=== PATIENT | female | born 1950 | race Caucasian/White ===

== ENCOUNTER 2018-05-02 20:58 | Inpatient (IN) | payer MEDICARE ==
[~2018-05-02] VITALS: Ht 162.6 cm; Wt 66.0 kg
[2018-05-02 21:37] LABS: BASO % 1 % (0-3); EOS # 0.1 x10^3/uL (0.0-0.7); EOS % 2 % (0-3); HEMATOCRIT 42.6 % (36.0-47.0); HEMOGLOBIN 14.2 g/dL (12.0-15.5); LYMPH # 1.5 x10^3/uL (1.0-4.8); LYMPH % 26 % (24-48); MEAN CORPUSCULAR HEMOGLOBIN 31 pg (25-35); MEAN CORPUSCULAR HGB CONC 33 g/dL (31-37); MEAN CORPUSCULAR VOLUME 94 fL (79-100); MONO # 0.7 x10^3/uL (0.0-1.1); MONO % 13 % (0-9); NEUT # 3.3 x10^3uL (1.8-7.7); NEUT % 58 % (31-73); PLATELET COUNT 128 x10^3/uL (140-400); RED BLOOD COUNT 4.54 x10^6/uL (3.50-5.40); RED CELL DISTRIBUTION WIDTH 13.5 % (11.5-14.5); WHITE BLOOD COUNT 5.6 x10^3/uL (4.0-11.0)
[2018-05-02 22:03] LABS: ALBUMIN 3.5 g/dL (3.4-5.0); ALBUMIN/GLOBULIN RATIO 0.9 (1.0-1.7); CALCIUM 9.8 mg/dL (8.5-10.1); GFR 15.5; MAGNESIUM 1.8 mg/dL (1.8-2.4); POTASSIUM 3.5 mmol/L (3.5-5.1); TOTAL BILIRUBIN 0.6 mg/dL (0.2-1.0); TOTAL PROTEIN 7.3 g/dL (6.4-8.2)
[2018-05-02 22:10] LABS: BILIRUBIN,URINE NEG (NEG); CLARITY,URINE HAZY; COLOR,URINE YELLOW; GLUCOSE,URINE 500 mg/dL (NEG); NITRITE,URINE NEG (NEG); UROBILINOGEN,URINE 0.2 mg/dL (0.2 mg/dL)
[2018-05-02 22:11] LABS: BACTERIA,URINE MANY /HPF (0-FEW); HYALINE CASTS, URINE FEW /HPF; SQUAMOUS EPITHELIAL CELL,UR MANY /LPF
--- NOTE | 2018-05-02 22:35 | PHYS DOC ---
Past History Past Medical History: Anemia, CHF, CVA, Depression, Diabetes, GERD, Hypertension, Other Past Surgical History: No Surgical History Alcohol Use: None Drug Use: None Adult General Chief Complaint Chief Complaint: PSYCH EVALUATION HPI HPI Patient is a 68 year old female who presents to the emergency department for medical clearance. The patient was transferred to the emergency department after being [facility]. Patient has had noted increased combativeness with staff and has been more aggressive at her senior living. Patient has history of dementia and chronic kidney disease stage III. Due to her change in behavior, the patient was transferred here after being accepted by the on-call psychiatrist. The patient initially was combative with staff upon arrival but has since calmed down. The patient is oriented to self only and is unable to provide any meaningful history. Patient denies any complaints currently. Review of Systems Review of Systems Caveat: Patient demented and oriented to self only, poor historian Constitutional: Denies fever or chills [] Eyes: Denies change in visual acuity, redness, or eye pain [] HENT: Denies nasal congestion or sore throat [] Respiratory: Denies cough or shortness of breath [] Cardiovascular: Denies chest pain or edema[] GI: Denies abdominal pain, nausea, vomiting, bloody stools or diarrhea [] : Denies dysuria or hematuria [] Musculoskeletal: Denies back pain or joint pain [] Integument: Denies rash or skin lesions [] Neurologic: Denies headache, focal weakness or sensory changes [] All other systems were reviewed and found to be within normal limits, except as documented in this note. Allergies Allergies Allergies Coded Allergies Type Severity Reaction Last Updated Verified Iodinated Contrast- Oral and IV Dye Allergy Severe 05/02/18 Yes Physical Exam Physical Exam Constitutional: Alert, afebrile, currently cooperative with staff. [] HENT: Normocephalic, atraumatic, bilateral external ears normal, oropharynx moist, no oral exudates, nose normal. [] Eyes: PERRLA, EOMI, conjunctiva normal, no discharge. [] Neck: Normal range of motion, no tenderness, supple, no stridor. [] Cardiovascular:Heart rate regular rhythm, no murmur [] Lungs & Thorax: Bilateral breath sounds clear to auscultation [] Abdomen: Bowel sounds normal, soft, no tenderness, no masses, no pulsatile masses. [] Skin: Warm, dry, no erythema, no rash. [] Back: No tenderness, no CVA tenderness. [] Extremities: No tenderness, no cyanosis, no clubbing, ROM intact, no edema. [] Neurologic: Alert, oriented to self only, normal motor function, normal sensory function, no focal deficits noted. [] Current Patient Data Vital Signs Vital Signs Date Time Temp Pulse Resp B/P (MAP) Pulse Ox O2 Delivery O2 Flow Rate FiO2 05/02/18 21:06 109 20 97 Room Air Lab Results Laboratory Tests Test 05/02/18 21:24 05/02/18 21:30 White Blood Count 5.6 x10^3/uL (4.0-11.0) Red Blood Count 4.54 x10^6/uL (3.50-5.40) Hemoglobin 14.2 g/dL (12.0-15.5) Hematocrit 42.6 % (36.0-47.0) Mean Corpuscular Volume 94 fL (79-100) Mean Corpuscular Hemoglobin 31 pg (25-35) Mean Corpuscular Hemoglobin Concent 33 g/dL (31-37) Red Cell Distribution Width 13.5 % (11.5-14.5) Platelet Count 128 x10^3/uL (140-400) L Neutrophils (%) (Auto) 58 % (31-73) Lymphocytes (%) (Auto) 26 % (24-48) Monocytes (%) (Auto) 13 % (0-9) H Eosinophils (%) (Auto) 2 % (0-3) Basophils (%) (Auto) 1 % (0-3) Neutrophils # (Auto) 3.3 x10^3uL (1.8-7.7) Lymphocytes # (Auto) 1.5 x10^3/uL (1.0-4.8) Monocytes # (Auto) 0.7 x10^3/uL (0.0-1.1) Eosinophils # (Auto) 0.1 x10^3/uL (0.0-0.7) Basophils # (Auto) 0.0 x10^3/uL (0.0-0.2) Sodium Level 140 mmol/L (136-145) Potassium Level 3.5 mmol/L (3.5-5.1) Chloride Level 99 mmol/L (98-107) Carbon Dioxide Level 29 mmol/L (21-32) Anion Gap 12 (6-14) Blood Urea Nitrogen 71 mg/dL (7-20) H Creatinine 3.0 mg/dL (0.6-1.0) H Estimated GFR (Cockcroft-Gault) 15.5 BUN/Creatinine Ratio 24 (6-20) H Glucose Level 314 mg/dL (70-99) H Calcium Level 9.8 mg/dL (8.5-10.1) Magnesium Level 1.8 mg/dL (1.8-2.4) Total Bilirubin 0.6 mg/dL (0.2-1.0) Aspartate Amino Transferase (AST) 34 U/L (15-37) Alanine Aminotransferase (ALT) 23 U/L (14-59) Alkaline Phosphatase 95 U/L (46-116) Total Protein 7.3 g/dL (6.4-8.2) Albumin 3.5 g/dL (3.4-5.0) Albumin/Globulin Ratio 0.9 (1.0-1.7) L Urine Collection Type Unknown Urine Color Yellow Urine Clarity Hazy Urine pH 6.5 Urine Specific [place] 1.015 Urine Protein >100 mg/dl (NEG-TRACE) Urine Glucose (UA) 500 mg/dL (NEG) Urine Ketones (Stick) Neg mg/dL (NEG) Urine Blood Small (NEG) Urine Nitrite Neg (NEG) Urine Bilirubin Neg (NEG) Urine Urobilinogen Dipstick 0.2 mg/dL (0.2 mg/dL) Urine Leukocyte Esterase Mod (NEG) Urine RBC 11-20 /HPF (0-2) Urine WBC 11-20 /HPF (0-4) Urine Squamous Epithelial Cells Many /LPF Urine Bacteria Many /HPF (0-FEW) Urine Hyaline Casts Few /HPF Urine Mucus Slight /LPF EKG EKG Interpreted by me: Heart rate 99, sinus tachycardia, normal axis, prolonged QT interval, PVC noted, no acute ST elevations or depressions[] Radiology/Procedures Radiology/Procedures Not performed[] Course & Med Decision Making Course & Med Decision Making Pertinent Labs and Imaging studies reviewed. (See chart for details) Patient's lab workup reveals significantly elevated BUN/creatinine levels. Given the patient's previous diagnosis of stage III chronic kidney disease, the patient's GFR is currently 15.5 which is consistent with stage IV renal failure. This is likely due to acute on chronic kidney failure secondary to dehydration. Patient will be started on IV fluids and will be admitted to the medical service with a psychiatric consultation while in hospital. I spoke with Dr. Orourke who accepted care of patient in hospital. Dragon Disclaimer Dragon Disclaimer This electronic medical record was generated, in whole or in part, using a voice recognition dictation system. Departure Departure: Impression: Primary Impression: Acute renal failure superimposed on stage 3 chronic kidney disease Additional Impressions: Dehydration Dementia Disposition: ADMITTED INPATIENT Admitting Physician: Jordan Orourke Condition: STABLE Referrals: SUJIT DONG MD (PCP) Problem Qualifiers Primary Impression: Acute renal failure superimposed on stage 3 chronic kidney disease Acute renal failure type: unspecified Qualified Codes: N17.9 - Acute kidney failure, unspecified; N18.3 - Chronic kidney disease, stage 3 (moderate) Additional Impressions: Dementia Dementia type: unspecified type Dementia behavioral disturbance: with behavioral disturbance Qualified Codes: F03.91 - Unspecified dementia with behavioral disturbance ABENA PARRISH MD May 02, 2018 22:34
[2018-05-02] MEDS ORDERED: ACETAMINOPHEN 325 MG TABLET PO PRN (22:45)
[2018-05-02] MEDS ORDERED: ONDANSETRON PF 4 MG/2 ML VIAL. IV PRN (22:45)
[2018-05-02] MEDS: IV NORMAL SALINE 1,000ML 1,000 ML IV SCH (23:06)
[2018-05-02 23:30] VITALS: BP 121/78
--- NOTE | 2018-05-03 00:38 | EKG ---
[address] [address] Test Date: 2018-05-02 Test Time: 21:50:55 Pat Name: STALIN MANUEL Department: Room: 109 A Gender: F Equine Intern: : 1950 Requested By: ABENA PARRISH Order Number: [id number] Reading MD: Ra Diggs Measurements Intervals [place] Rate: 99 P: -4 WA: 152 QRS: 13 QRSD: 98 T: 47 QT: 390 QTc: 506 Interpretive Statements SINUS RHYTHM VENTRICULAR PREMATURE COMPLEX(ES) PROLONGED QT ABNORMAL ECG Electronically Signed On 05-08-2018 10:13:53 INSTRUMENT REPAIRER HELPER by Ra Diggs
[2018-05-03] MEDS ORDERED: BISA10SU2 RC (01:46)
[2018-05-03] MEDS ORDERED: BUSP10TA PO (01:46)
[2018-05-03] MEDS ORDERED: ASCO500T3 PO (01:46)
[2018-05-03] MEDS ORDERED: ACET325T9 PO (01:46)
[2018-05-03] MEDS ORDERED: TRAZ-85 PO (03:45)
[2018-05-03] MEDS ORDERED: SERT100T PO (03:45)
[2018-05-03] MEDS ORDERED: FURO-68 PO (03:45)
[2018-05-03] MEDS ORDERED: METO2.5T PO (03:45)
[2018-05-03] MEDS ORDERED: POTA20TA4 PO (03:45)
[2018-05-03] MEDS ORDERED: PRAV80TA2 PO (03:45)
[2018-05-03] MEDS ORDERED: THIA100T57 PO (03:45)
[2018-05-03] MEDS ORDERED: NITR0.4T SL (03:45)
[2018-05-03] MEDS ORDERED: HYDR50TA6 PO (03:45)
[2018-05-03] MEDS ORDERED: INSU100I13 SQ (03:45)
[2018-05-03] MEDS ORDERED: BUSP5TAB PO (03:45)
[2018-05-03] MEDS ORDERED: METO25TA4 PO (03:45)
[2018-05-03] MEDS ORDERED: FAMO40TA4 PO (03:45)
[2018-05-03] MEDS ORDERED: CHOL10003 PO (03:45)
[2018-05-03] MEDS ORDERED: INSU100I17 SQ (03:45)
[2018-05-03] MEDS ORDERED: CLOP75TA57 PO (03:45)
[2018-05-03 05:55] VITALS: BP 113/73
[2018-05-03] MEDS: IV NORMAL SALINE 1,000ML 1,000 ML IV SCH (05:58)
[2018-05-03 06:31] LABS: BASO % 1 % (0-3); EOS # 0.2 x10^3/uL (0.0-0.7); EOS % 4 % (0-3); HEMOGLOBIN 13.4 g/dL (12.0-15.5); LYMPH # 1.7 x10^3/uL (1.0-4.8); LYMPH % 34 % (24-48); MEAN CORPUSCULAR HEMOGLOBIN 31 pg (25-35); MEAN CORPUSCULAR HGB CONC 34 g/dL (31-37); MEAN CORPUSCULAR VOLUME 93 fL (79-100); MONO # 0.5 x10^3/uL (0.0-1.1); MONO % 11 % (0-9); NEUT # 2.4 x10^3uL (1.8-7.7); NEUT % 50 % (31-73); PLATELET COUNT 119 x10^3/uL (140-400); RED BLOOD COUNT 4.29 x10^6/uL (3.50-5.40); RED CELL DISTRIBUTION WIDTH 13.5 % (11.5-14.5); WHITE BLOOD COUNT 4.8 x10^3/uL (4.0-11.0)
[2018-05-03 06:35] LABS: CALCIUM 9.8 mg/dL (8.5-10.1); CREATININE 2.5 mg/dL (0.6-1.0); GFR 19.1; POTASSIUM 3.5 mmol/L (3.5-5.1)
[2018-05-03 10:47] VITALS: BP 94/61
[2018-05-03 14:44] VITALS: BP 94/61
[2018-05-03 15:14] VITALS: BP 117/76
[2018-05-03] MEDS ORDERED: ACETAMINOPHEN 325 MG TABLET PO PRN (15:15)
[2018-05-03] MEDS ORDERED: NITROGLYCERIN SUBLINGUAL 0.4 MG BOTTLE OF 25. SL PRN (15:15)
--- NOTE | 2018-05-03 15:18 | HP ---
ADMIT DATE: 05/02/2018 HISTORY OF PRESENT ILLNESS: This is a 68-year-old female patient, a resident at [facility], who apparently was seen initially at the Emergency Department of [facility] for medical clearance. Apparently, the patient was noted to have increased combativeness with staff and has been more aggressive at her usp and she is known to have history of dementia and chronic kidney disease stage 3. She was initially very combative when arrived to the Emergency Room with the staff upon arrival, but has since calm down. She was extensively investigated in the Emergency Room and was found to have iirxt-fj-dhjaehc renal failure, dehydration, who was admitted for [facility] for medical stabilization. 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 She is known to have recurrent falls, major depressive disorder, gastroesophageal reflux disease without esophagitis, amnesia, cerebral infarction, supraventricular tachycardia and chronic idiopathic constipation. PAST SURGICAL HISTORY: Unremarkable. ALLERGIES: SHE IS ALLERGIC TO IODINATED CONTRAST, ORAL AND IV. MEDICATIONS: She is currently on following medications: She is on Plavix 75 mg once a day, pravastatin sodium 80 mg once a day, nitroglycerin 0.4 mg sublingually as needed every 5 minutes x 3, metoprolol tartrate 12.5 mg twice a day, acetaminophen 650 mg every 6 hours, Zoloft 100 mg daily, trazodone 12.5 mg at bedtime. She is on buspirone 10 mg at bedtime, buspirone 5 mg twice a day daily for anxiety. She is on potassium chloride, Klor-Con 20 mEq twice a day, furosemide 40 mg twice a day with meals. She is on hydrochlorothiazide 50 mg once a day, metolazone 2.5 mg 3 times a week, bisacodyl 10 mg daily p.r.n. for constipation, famotidine 40 mg daily, NovoLog insulin 10 units before meals, Lantus insulin 5 units at bedtime, thiamine 100 mg once a day, ascorbic acid 500 mg daily, cholecalciferol for vitamin D3 1000 units p.o. daily. FAMILY HISTORY: Noncontributory. SOCIAL HISTORY: She is a resident at [facility]. She apparently does not smoke, drink alcohol or use any recreational drugs. PHYSICAL EXAMINATION: GENERAL: On arrival to the Emergency Room, she apparently looked well and was clearly in no apparent respiratory distress. No pallor, jaundice, cyanosis, or thyromegaly. No jugular venous distension. No lower limb edema. VITAL SIGNS: Her heart rate was 109, blood pressure was 121/78, temperature was 97.6, respiratory rate was 18 and oxygen saturation was 94%. HEAD, EYES, EARS, NOSE AND THROAT: Showed normocephalic, atraumatic. NECK: Supple. HEART: Showed normal first and second heart sounds. No gallop, rub or murmur. CHEST: Clear to auscultation. No crepitation or rhonchi. ABDOMEN: Distended, soft, nontender. NEUROLOGIC: She is demented, but without any obvious lateralizing sign. All her cranial nerves intact. EXTREMITIES: She moves extremities without difficulty. LABORATORY DATA: Her lab work, on admission showed her white cell count was 5600, hemoglobin 14, hematocrit 42, MCV 94 and platelet count of 128,000. Her chemistry showed a serum sodium 140, potassium 3.5, chloride 99, bicarbonate 29, anion gap of 12, BUN 71, creatinine 3, estimated GFR was 15 mL per minute. Her glucose was 314. Her calcium was 9.8, magnesium was 1.8. Total bilirubin, AST, ALT, alkaline phosphatase were normal. Total protein was 7.3, albumin 3.5. Her vitamin B12 was 376 picogram. Urinalysis showed the urine was yellow, hazy with a pH of 6.5, specific gravity 1.015. There is more than 100 mg/dL urine and 500 mg of glucose. The urine was negative for ketones. There was small amount of blood, negative for nitrite, moderate amount of leukocyte esterase. There are 11-20 rbc's, 11-20 wbc's and too many bacteria. IMPRESSION AND PLAN: In summary, this is a 68-year-old female patient, who was a resident at [facility] who is known to have dementia and who apparently has been aggressive towards her other residents and staff at her usp. She was admitted for medical stabilization before being transferred to [facility] for inpatient psychiatric stabilization. We will continue ____ medication. She was continued on IV fluid in the form of normal saline. We will call the [facility] with the baseline kidney function and once stabilized, she will be transferred to [facility]. TANO LYN MD DR: FANNIE/faiza JOB#: [id number] / [id number]
[2018-05-03] MEDS ORDERED: BISACODYL 10 MG SUPP.RECT PR PRN (15:30)
[2018-05-03] MEDS ORDERED: FUROSEMIDE 40 MG TABLET PO SCH (16:00)
[2018-05-03] MEDS ORDERED: busPIRone 5 MG TABLET. PO SCH (16:00)
[2018-05-03] MEDS ORDERED: INSULIN LISPRO 300 UNITS/3 ML INSULN.PEN. SQ SCH (17:00)
[2018-05-03] MEDS ORDERED: POTASSIUM CHLORIDE 20 MEQ TABLET.ER. PO SCH (17:00)
[2018-05-03] MEDS ORDERED: FAMO-63 PO (17:25)
--- NOTE | 2018-05-03 17:45 | DS ---
DATE OF DISCHARGE: 05/03/2018 HOSPITAL COURSE: The patient is a 68-year-old female patient, a resident at [facility] and was seen in the Emergency Department of [facility] for medical clearance. She was noted to have increased combativeness with staff and has been more aggressive at her intermediate and she is known to have history of dementia and chronic kidney disease. She apparently was investigated and was found to have acute on chronic kidney injury and was admitted to [facility] for rehydration. She was actually treated with IV normal saline; however, we called the [facility] and her creatinine was not really that far from her baseline. In fact on 04/24/2018, her creatinine was 2.44. I also looked it and transpired that she is actually on 3 diuretics. She is on Lasix 40 mg twice a day, hydrochlorothiazide daily, and also metolazone 3 times a week and I held her hydrochlorothiazide and her metolazone. She did very well. PHYSICAL EXAMINATION: GENERAL: When I saw her today, she looked well and was clearly in no apparent respiratory distress. No pallor, jaundice, cyanosis, or thyromegaly. No jugular venous distension. No lower limb edema. VITAL SIGNS: Her heart rate was 96, blood pressure was 117/76, temperature was 98.4, respiratory rate was 18, and oxygen saturation was 95%. HEAD, EYES, EARS, NOSE AND THROAT: Normocephalic, atraumatic. NECK: Supple. HEART: Showed normal first and second heart sounds. No gallop, rub, or murmur. CHEST: Clear to auscultation. No crepitation or rhonchi. ABDOMEN: Distended, soft, nontender. No guarding or rigidity. No organomegaly. All hernial orifices intact. Bowel sounds normal. NEUROLOGIC: She was demented, but without any obvious lateralizing sign. All her cranial nerves are intact. She moves extremities without difficulty. She ambulates without assistance or assistive devices. Her intake over the last 24 hours was 1250, output was 400. LABORATORY DATA: As of this morning, her white cell count was 4800, hemoglobin 13, hematocrit 40, MCV 93, and platelet count of 119,000. Her chemistry showed a serum sodium 143, potassium 3.5, chloride 103, bicarbonate 30, anion gap of 10, BUN 65, creatinine was 2.5. Her blood glucose was 189, calcium was 8.9. DISCHARGE MEDICATIONS: She will be discharged to [facility] to continue on acetaminophen 650 mg every 4 hours, ascorbic acid 500 mg daily, bisacodyl 10 mg suppository rectally daily, buspirone 10 mg at bedtime, buspirone 5 mg twice a day, cholecalciferol for vitamin D3 1000 international unit once a day, clopidogrel bisulfate for Plavix 75 mg daily, famotidine 40 mg daily, furosemide 40 mg twice a day, NovoLog insulin 10 units before meals, Lantus insulin 5 units at bedtime, metolazone 2.5 mg on Monday, Monday, Monday; metoprolol tartrate 12.5 mg twice a day, nitroglycerin 0.4 mg sublingually every 5 minutes x 3. She is on potassium chloride 20 mEq twice a day, pravastatin sodium 80 mg at bedtime, sertraline for Zoloft 100 mg p.o. daily, thiamine 100 mg once a day, and trazodone 12.5 mg at bedtime. FINAL DISCHARGE DIAGNOSES: Jkvvo-hl-vsgyssd kidney injury, resolved. Other medical problems include hypertension, combined systolic and diastolic congestive heart failure, hypertension, hypokalemia, iron-deficiency anemia, dysphagia, type 2 diabetes, diabetic and peripheral neuropathy, hyperlipidemia, gastroesophageal reflux disease, chronic idiopathic constipation. TANO LYN MD DR: FANNIE/faiza JOB#: [id number] / [id number]
[2018-05-03] MEDS ORDERED: METOPROLOL TART IMMED RELEASE 25 MG TABLET PO SCH (21:00)
[2018-05-03] MEDS ORDERED: PRAVASTATIN 20 MG TABLET. PO SCH (21:00)
[2018-05-03] MEDS ORDERED: busPIRone 10 MG TABLET. PO SCH (21:00)
[2018-05-03] MEDS ORDERED: traZODone 50 MG TABLET. PO SCH (21:00)
[2018-05-03] MEDS ORDERED: INSULIN GLARGINE 300 UNITS/3 ML INSULN.PEN. SQ SCH (21:00)
[2018-05-04] MEDS ORDERED: CLOPIDOGREL BISULFATE 75 MG TABLET PO SCH (09:00)
[2018-05-04] MEDS ORDERED: metOLazone 2.5 MG TABLET PO SCH (09:00)
[2018-05-04] MEDS ORDERED: hydroCHLOROthiazide 25 MG TABLET PO SCH (09:00)
[2018-05-04] MEDS ORDERED: CHOLECALCIFEROL (VITAMIN D3) 1,000 UNIT TABLET PO SCH (09:00)
[2018-05-04] MEDS ORDERED: SERTRALINE 100 MG TABLET. PO SCH (09:00)
[2018-05-04] MEDS ORDERED: FAMOTIDINE 20 MG TABLET PO SCH (09:00)
[2018-05-04] MEDS ORDERED: THIAMINE 100 MG TABLET. PO SCH (09:00)
[2018-05-04] MEDS ORDERED: ASCORBIC ACID 500 MG TABLET PO SCH (09:00)
== END 2018-05-03 16:12 | DRG 683 ==
LOC: ER 20:58 → 1 SOUTH 22:27
PROVIDERS: ADMIT Internal Medicine; ATTEND Internal Medicine
DX: N17.9 Acute kidney failure, unspecified (principal); I13.0 Hypertensive heart and chronic kidney disease with heart failure and stage 1 through stage 4 chronic kidney disease, or unspecified chronic kidney disease; I50.42 Chronic combined systolic (congestive) and diastolic (congestive) heart failure; D50.9 Iron deficiency anemia, unspecified; E11.22 Type 2 diabetes mellitus with diabetic chronic kidney disease; E11.42 Type 2 diabetes mellitus with diabetic polyneuropathy; E78.5 Hyperlipidemia, unspecified; F03.90 Unspecified dementia, unspecified severity, without behavioral disturbance, psychotic disturbance, mood disturbance, and anxiety; F32.9 Major depressive disorder, single episode, unspecified; K21.9 Gastro-esophageal reflux disease without esophagitis; K59.04 Chronic idiopathic constipation; E86.0 Dehydration; E87.6 Hypokalemia; N18.3 Chronic kidney disease, stage 3 (moderate); R13.10 Dysphagia, unspecified; Z86.73 Personal history of transient ischemic attack (TIA), and cerebral infarction without residual deficits; Z79.899 Other long term (current) drug therapy; Z91.81 History of falling
CPT/HCPCS: 36415; 80048; 80053; 81001; 82607; 82947; 83540; 83550; 83735; 85025; 87086; 87641; 93005; J1815; 99285-25; J7030

== ENCOUNTER 2018-05-03 16:22 | Inpatient (IN) | payer MEDICARE ==
[~2018-05-03] VITALS: Ht 162.6 cm; Wt 66.5 kg
[~2018-05-03 16:22] MED LIST: ACET325T9 PO; ASCO500T3 PO; BISA10SU2 RC; BUSP10TA PO; BUSP5TAB PO; CHOL10003 PO; CLOP75TA57 PO; FAMO40TA4 PO; FURO-68 PO; HYDR50TA6 PO; INSU100I13 SQ; INSU100I17 SQ; METO2.5T PO; METO25TA4 PO; NITR0.4T SL; POTA20TA4 PO; PRAV80TA2 PO; SERT100T PO; THIA100T57 PO; TRAZ-85 PO
[2018-05-03 16:59] VITALS: BP 127/78
[2018-05-03] MEDS ORDERED: ACETAMINOPHEN 325 MG TABLET PO PRN (17:15)
[2018-05-03] MEDS ORDERED: FAMO-63 PO (17:25)
[2018-05-03] MEDS ORDERED: BISACODYL 10 MG SUPP.RECT PR PRN (17:45)
[2018-05-03] MEDS: POTASSIUM CHLORIDE 20 MEQ TABLET.ER. PO SCH (18:00)
[2018-05-03] MEDS ORDERED: NITROGLYCERIN SUBLINGUAL 0.4 MG BOTTLE OF 25. SL PRN (18:15)
[2018-05-03] MEDS: busPIRone 10 MG TABLET. PO SCH (20:49)
[2018-05-03] MEDS: METOPROLOL TART IMMED RELEASE 25 MG TABLET PO SCH (20:50)
[2018-05-03] MEDS: PRAVASTATIN 20 MG TABLET. PO SCH (20:50)
[2018-05-03] MEDS: traZODone 50 MG TABLET. PO SCH (20:50)
[2018-05-03] MEDS: CEFDINIR 300 MG CAPSULE PO SCH (20:59)
[2018-05-03] MEDS: INSULIN GLARGINE 300 UNITS/3 ML INSULN.PEN. SQ SCH (21:00)
[2018-05-04 03:13] LABS: HEMOGLOBIN A1C 8.7 % (4.8-5.6); THYROXINE 5.7 ug/dL (4.5-12.0)
[2018-05-04 06:11] VITALS: BP 109/79
[2018-05-04] MEDS: POTASSIUM CHLORIDE 20 MEQ TABLET.ER. PO SCH ×2 (07:55→17:46)
[2018-05-04] MEDS: METOPROLOL TART IMMED RELEASE 25 MG TABLET PO SCH ×2 (07:56→20:26)
[2018-05-04] MEDS: FUROSEMIDE 40 MG TABLET PO SCH ×2 (08:01→16:00)
[2018-05-04] MEDS: THIAMINE 100 MG TABLET. PO SCH (08:01)
[2018-05-04] MEDS: FAMOTIDINE 20 MG TABLET PO SCH (08:01)
[2018-05-04] MEDS: CLOPIDOGREL BISULFATE 75 MG TABLET PO SCH (08:01)
[2018-05-04] MEDS: CHOLECALCIFEROL (VITAMIN D3) 1,000 UNIT TABLET PO SCH (08:01)
[2018-05-04] MEDS: busPIRone 5 MG TABLET. PO SCH ×2 (08:01→15:00)
[2018-05-04] MEDS: ASCORBIC ACID 500 MG TABLET PO SCH (08:01)
[2018-05-04] MEDS: metOLazone 2.5 MG TABLET PO SCH (08:04)
[2018-05-04] MEDS: CEFDINIR 300 MG CAPSULE PO SCH (08:04)
[2018-05-04] MEDS: INSULIN LISPRO 300 UNITS/3 ML INSULN.PEN. SQ SCH ×3 (08:06→17:00)
[2018-05-04] MEDS ORDERED: SERTRALINE 100 MG TABLET. PO SCH (09:00)
[2018-05-04] MEDS ORDERED: FAMOTIDINE 20 MG PO SCH (09:00)
--- NOTE | 2018-05-04 11:33 | RAD ---
PQRS Compliance statement: One or more of the following individualized dose reduction techniques were utilized for this examination: 1. Automated exposure control. 2. Adjustment of the mA and/or kV according to patient size. 3. Use of iterative reconstruction technique. Indication:RECENT FALLS TECHNIQUE: CT head without IV contrast COMPARISON:None FINDINGS: No pathologic extra-axial or intra-axial fluid collection. There is mild diffuse cerebral atrophy with ex vacuo dilation of the ventricles. No acute intracranial bleed. There is a wedge-shaped area of low-attenuation in the right posterior parietal lobe extending to the cortex. Orbits are within normal limits. No suspicious bony lesion. Visualized paranasal sinuses and mastoid air cells are clear. Confluent low-attenuation is seen in the periventricular and deep white matter. IMPRESSION: 1. Right posterior parietal lobe abnormality likely subacute infarct. Clinically correlate. If concern for acute ischemic stroke is high, please consider MRI brain. 2. Mild white matter changes most likely secondary to chronic microvascular ischemic disease. Electronically signed by: Vladimir Willis DO (05/04/2018 11:29 AM) [facility]
[2018-05-04 13:40] LABS: THYROID STIM HORMONE (TSH) 1.112 uIU/mL (0.358-3.740)
[2018-05-04 15:57] VITALS: BP 117/63
[2018-05-04] MEDS ORDERED: DEXTROSE ORAL GEL 15 GM TUBE. ONE (16:14)
[2018-05-04] MEDS ORDERED: DEXTROSE ORAL GEL 15 GM TUBE. PO PRN (17:15)
[2018-05-04] MEDS: PRAVASTATIN 20 MG TABLET. PO SCH (20:26)
[2018-05-04] MEDS: busPIRone 10 MG TABLET. PO SCH (20:27)
[2018-05-04] MEDS: traZODone 50 MG TABLET. PO SCH (20:27)
[2018-05-04] MEDS: LACTOBACILLUS RHAMNOSUS GG 1 CAPSULE. PO SCH (20:30)
[2018-05-04] MEDS: risperiDONE 1 MG TABLET. PO SCH (20:30)
[2018-05-04] MEDS: INSULIN GLARGINE 300 UNITS/3 ML INSULN.PEN. SQ SCH (20:33)
--- NOTE | 2018-05-04 20:59 | CONS ---
DATE OF CONSULTATION: 05/04/2018 REASON FOR CONSULTATION: Medical management. HISTORY OF PRESENT ILLNESS: The patient is a 68-year-old female patient, a resident at [facility], who was seen in the Emergency Room of [facility] for medical clearance. She was noted to have increased combativeness with staff and has been more aggressive at her halfway. She is known to have history of dementia and chronic kidney disease. She apparently was investigated and was found to have acute on chronic kidney injury, and was admitted to [address] [place] [address] for rehydration. She was treated with IV normal saline. We called the [facility] and her creatinine was not really that far from her baseline. In fact, her serum creatinine on 04/24/2018 was only 2.44. Looking into her medication list, it was transpired that she is on 3 diuretics including Lasix 40 mg twice a day, hydrochlorothiazide as well as metolazone, and I did hold her metolazone, hydralazine, and she did very well. Her creatinine came down to 2.5 and therefore, a decision was made to transfer her to [facility] for inpatient psychiatric stabilization. PAST MEDICAL HISTORY: Significant for acute on chronic combined systolic and diastolic congestive heart failure, chronic kidney disease, essential hypertension, hypokalemia, iron deficiency anemia, dysphagia, type 2 diabetes mellitus, diabetic neurological complication, hyperlipidemia. She is known to have recurrent falls, major depressive disorder, gastroesophageal reflux disease without esophagitis, amnesia, cerebral infarction, supraventricular tachycardia, and chronic idiopathic constipation. PAST SURGICAL HISTORY: Unremarkable. ALLERGIES: She is allergic to IODINATED CONTRAST ORAL and IV. FAMILY HISTORY: Noncontributory. SOCIAL HISTORY: She is a resident at [facility]. She apparently does not smoke, drink alcohol, or use recreational drugs. MEDICATIONS: She is currently on following medications: She is on Plavix 75 mg once a day; pravastatin sodium 80 mg at bedtime; metoprolol tartrate 12.5 mg twice a day; acetaminophen 650 mg every 6 hours; sertraline 100 mg daily; trazodone 50 mg, 12.5 mg at bedtime; buspirone 10 mg at bedtime, buspirone 5 mg twice a day. She is on potassium chloride 20 mEq twice a day, furosemide 40 mg twice a day, metolazone 2.5 mg 3 times a week. She is on bisacodyl 10 mg suppository rectally daily p.r.n. for constipation, famotidine 20 mg daily and NovoLog insulin 10 units before meals and Lantus insulin 5 units at bedtime. She is on thiamine 100 mg daily, vitamin C, ascorbic acid 500 mg daily, cholecalciferol for vitamin D3 1000 international unit once a day. PHYSICAL EXAMINATION: GENERAL: When I examined her today, she was sitting comfortably in her recliner, in no apparent distress. She was awake, alert, obviously confused; however, there is no pallor, jaundice, cyanosis, or thyromegaly. No jugular venous distension. No lower limb edema. VITAL SIGNS: Her heart rate was 63, blood pressure was 109/79, temperature was 97.1, respiratory rate was 16, and oxygen saturation was 96%. HEAD, EYES, NOSE AND THROAT: Showed she is normocephalic, atraumatic. NECK: Supple. HEART: Showed normal first and second sounds. No gallop, rub or murmur. CHEST: Clear to auscultation. No crepitation or rhonchi. ABDOMEN: Distended, soft, nontender. No guarding or rigidity. No organomegaly. All hernial orifices intact. Bowel sounds normal. NEUROLOGIC: She was demented without any obvious lateralizing sign. All cranial nerves intact. EXTREMITIES: She moves extremities without difficulty. She ambulates without assistance or assistive devices. LABORATORY DATA: Her serum iron was 111, TIBC was 267 and iron saturation was 42%. Her 25-hydroxy vitamin D was 31.6. As of yesterday, her white cell count was 4800, hemoglobin 13, hematocrit 40, MCV 93, and platelet count of 119,000. Serum sodium was 143, potassium 3.5, chloride 103, bicarbonate 30, anion gap of 10, BUN 65, creatinine 2.5, estimated GFR was 19 mL per minute. Her glucose was 189, hemoglobin A1c was 8.7%. Calcium was 9.8, magnesium was 1.6. Her total bilirubin, AST, ALT, alkaline phosphatase were normal. Her total protein was 7.3, albumin 3.5. Her vitamin B12 was 376. TSH was 1.112, total T4 and free T4 were normal. IMPRESSION: In summary, this is a 68-year-old female patient, who was a resident at [facility], who is known to have dementia, who apparently has been aggressive towards other residents and staff at the halfway. She was admitted initially to [address] [place] [address] for medical stabilization and she was found to have acute on chronic kidney injury that has normalized and she is here for inpatient psychiatric stabilization. I would continue to monitor her kidney function closely and I have discontinued her hydrochlorothiazide, kept her on Lasix and metolazone. We will obviously make sure that she does not decompensate. She has acute on chronic combined systolic and diastolic congestive heart failure. TANO LYN MD DR: FANNIE/faiza JOB#: [id number] / [id number]
--- NOTE | 2018-05-04 21:36 | PSYEV ---
DATE OF SERVICE: 05/04/2018 REASON FOR ADMISSION: This 68-year-old single, female was admitted to the [facility] inpatient as a transfer from medical floor at [facility]. HISTORY OF PRESENT ILLNESS: The patient was referred here from [facility] because of increasing paranoia, systematized delusions including that she is having an affair with her doctor there for the past 10 years and she does not want anybody known about this and also she feels there is a cult and they are trying to plan something bad for her and as a result, she is refusing to eat, she thinks food his being poisoned. The patient was not able to give much information with regard to the duration she has been at [facility]. The patient states she was living with her sister. Apparently, she about a year ago, in April and then she lived there for a few months and she could not take care of her needs. Then, she was moved to an assisted living at [facility]. Apparently, the patient has been there at least for a year since 04/2017. The patient's daughter is responsible for her care. The patient has some cognitive deficits. She is having difficulty providing reliable information at this point with regard to her past psychiatric history, whether she has been in treatment in the past or not. The patient mainly focused on the plot against her, almost she calls them as "cult" and they are all planning to harm her. She is afraid she is going to one of these days and she claims she is having an affair with the doctor there for 10 years and this has been a secret and now she feels that doctor has turned against her too. Therefore, she is not trusting any one. She is afraid she is going to be poisoned. She is also verbally abusive towards her daughter. The patient focused on her delusional thinking, very emotional, tearful and almost in a panic. The patient apparently has not seen a psychiatrist there. The patient has been treated with only Zoloft and BuSpar. Apparently, she was not treated with any antipsychotic drugs for her delusional thinking. PAST PSYCHIATRIC HISTORY: None available, but the patient has been on Zoloft 100 mg daily and BuSpar 10 mg b.i.d. PAST MEDICAL HISTORY: The patient was admitted to the medical floor because her labs were abnormal, her creatinine level was 2.5 and elevated BUN and the patient is going to have repeat lab work. The patient is not presenting with any other clinical symptoms. She is alert, oriented to surroundings. She is able to walk, able to hold a conversation. The patient's Hematology within the normal range. The patient's glucose was 189, BUN was 65 and creatinine 2.5. The patient's electrolytes were within normal range. The patient's liver enzymes were within normal range. The patient's BUN was repeated here and it was only 24, creatinine was 3. The patient apparently has been dehydrating too. Apparently, she has been refusing to eat or drink before she came in. 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 She did work for a period of time. The patient was living at home with her sister. Apparently, sister last [place] and she has to be moved to the shelter at that time. The patient states sister from breast cancer. The patient states she was for 19 years and claims she has 4 children and the patient has more contact with her daughter. The patient also states she had 2 brothers and are from breast cancer. The patient denies of any alcohol or substance abuse in the past. MEDICAL HISTORY: The patient has been diagnosed with dementia, CHF, hypertension, status post cerebrovascular accident. The patient apparently had a CT scan. The patient also has anemia, dysphagia, diabetes mellitus, hyperlipidemia, major depressive disorder, GERD, also she has left-sided pacemaker and also she had a right mastectomy, repeated falls, also chronic kidney disease, stage 3. FAMILY HISTORY: Except for the family history of breast cancer, the patient denies of any psychiatric problems in the family. MENTAL STATUS EXAMINATION: The patient appeared to be of her stated age, casually dressed, withdrawn, highly anxious. The patient is able to walk. The patient is also emotionally labile during the assessment. Her speech was clear, spontaneous with normal rate and rhythm. Affect and mood showed she is fearful, extremely paranoid and suspicious, not trusting anyone. She feels there is a plot against her, people are trying to kill her, including poisoning her. Therefore, she is not eating or drinking. The patient also admits to hearing voices. The voices are telling her about all the things going on around her. The patient also states she also being controlled by the cult members around her at the shelter. The patient states she cannot separate dream from reality sometimes. The patient states she lives in constant fear and panic. The patient also shows increased psychomotor activity and restlessness. The patient is oriented to surroundings. She knows the year and the month. She knew she has been here only for 2 days. The patient has some cognitive deficits and having difficulty with recalls at times. The patient has fairly good remote memory. The patient's judgment is fair, insight limited. The patient was not able to give fairly good history at all based on her paranoia and delusions. STRENGTHS: Fairly in good health. Supportive family. High school education and was employed in the past. WEAKNESSES: The patient is currently very delusional and paranoid. Has mild cognitive impairment. The patient is acting upon her delusions. ASSESSMENT: AXIS I: 1. Schizoaffective disorder, bipolar type, manic with psychotic symptoms. 2. Cognitive disorder, mild. 3. Generalized anxiety disorder, unspecified. AXIS II: None. AXIS III: Diabetes, hyperlipidemia, GERD, chronic kidney disease stage 3, hypertension, congestive heart failure and status post CVA, anemia, left-sided pacemaker, right mastectomy. The patient will be admitted to the unit. The patient will be followed up with Dr. Orourke for followup. The patient will be involved in the program including individual therapy, group therapy, activity therapy. The patient will continue with the current treatment plan and also medications have changed. The patient will be stating Zoloft 75 mg instead of 100 mg at night and trazodone 12.5 mg at night, BuSpar 10 mg at night, also started on Risperdal 1.5 mg at night and 1 mg in the morning and Zyprexa 2.5 mg q. 2-4 hours p.r.n. for severe agitation and psychosis, not to exceed 10 mg in 24 hours. LENGTH OF STAY: 7-10 days. PERRY PATEL MD DR: DOLORES/faiza JOB#: [id number] / [id number]
[2018-05-05 05:07] VITALS: BP 126/77
[2018-05-05] MEDS: ASCORBIC ACID 500 MG TABLET PO SCH (07:54)
[2018-05-05] MEDS: THIAMINE 100 MG TABLET. PO SCH (07:54)
[2018-05-05] MEDS: CHOLECALCIFEROL (VITAMIN D3) 1,000 UNIT TABLET PO SCH (07:54)
[2018-05-05] MEDS: POTASSIUM CHLORIDE 20 MEQ TABLET.ER. PO SCH ×2 (07:54→18:15)
[2018-05-05] MEDS: busPIRone 5 MG TABLET. PO SCH ×2 (07:54→18:16)
[2018-05-05] MEDS: LACTOBACILLUS RHAMNOSUS GG 1 CAPSULE. PO SCH ×2 (07:54→20:44)
[2018-05-05] MEDS: CLOPIDOGREL BISULFATE 75 MG TABLET PO SCH (07:54)
[2018-05-05] MEDS: FAMOTIDINE 20 MG TABLET PO SCH (07:54)
[2018-05-05] MEDS: METOPROLOL TART IMMED RELEASE 25 MG TABLET PO SCH ×2 (07:55→20:54)
[2018-05-05] MEDS: CEFDINIR 300 MG CAPSULE PO SCH (07:55)
[2018-05-05] MEDS: FUROSEMIDE 40 MG TABLET PO SCH ×2 (07:55→18:16)
[2018-05-05] MEDS: risperiDONE 1 MG TABLET. PO SCH ×2 (07:58→20:44)
[2018-05-05] MEDS: SERTRALINE 50 MG TABLET. PO SCH (07:58)
[2018-05-05] MEDS: INSULIN LISPRO 300 UNITS/3 ML INSULN.PEN. SQ SCH ×3 (07:59→17:16)
[2018-05-05 08:37] LABS: ALBUMIN 3.4 g/dL (3.4-5.0); ALBUMIN/GLOBULIN RATIO 0.9 (1.0-1.7); CALCIUM 9.8 mg/dL (8.5-10.1); GFR 24.7; POTASSIUM 3.9 mmol/L (3.5-5.1); TOTAL BILIRUBIN 0.5 mg/dL (0.2-1.0); TOTAL PROTEIN 7.3 g/dL (6.4-8.2)
[2018-05-05 15:59] VITALS: BP 94/62
[2018-05-05] MEDS: busPIRone 10 MG TABLET. PO SCH (20:44)
[2018-05-05] MEDS: PRAVASTATIN 20 MG TABLET. PO SCH (20:44)
[2018-05-05] MEDS: traZODone 50 MG TABLET. PO SCH (20:48)
[2018-05-05] MEDS: INSULIN GLARGINE 300 UNITS/3 ML INSULN.PEN. SQ SCH (20:49)
[2018-05-05 20:53] VITALS: BP 144/92
--- NOTE | 2018-05-05 22:21 | PN ---
DATE: 05/05/2018 SUBJECTIVE: The patient was seen today, met with the staff, chart reviewed. Staff reports no major behavior problems. Still paranoid, suspicious, has systematized delusional thinking. OBSERVATION: VITAL SIGNS: Temperature 97.2, blood pressure 94/62, pulse 97, respirations 18, O2 sat 98%. MENTAL STATUS: The patient's appetite improved. Sleep fair. The patient is not having any physical complaints. The patient is still guarded, still paranoid, having difficulty accepting her problems, not showing much in insight to her problems. MEDICATIONS: The patient's current medications include Zoloft 75 mg daily, Risperdal 1 mg in the morning and 1.5 mg at night. She is also on olanzapine 2.5 mg q. 2 hours p.r.n. The patient is also on BuSpar 5 mg b.i.d., trazodone 12.5 mg at night, and BuSpar 10 mg at night. The patient is not having any side effects to the medications. DIAGNOSES: 1. Schizoaffective disorder, bipolar type, manic, psychotic symptoms. 2. Cognitive disorder, mild. 3. Generalized anxiety disorder, unspecified. PLAN: To continue with the current treatment. PERRY PATEL MD DR: DOLORES/faiza JOB#: [id number] / [id number]
[2018-05-06 05:38] VITALS: BP 122/82
[2018-05-06] MEDS: CLOPIDOGREL BISULFATE 75 MG TABLET PO SCH (07:51)
[2018-05-06] MEDS: CHOLECALCIFEROL (VITAMIN D3) 1,000 UNIT TABLET PO SCH (07:51)
[2018-05-06] MEDS: ASCORBIC ACID 500 MG TABLET PO SCH (07:52)
[2018-05-06] MEDS: risperiDONE 1 MG TABLET. PO SCH ×2 (07:52→20:35)
[2018-05-06] MEDS: METOPROLOL TART IMMED RELEASE 25 MG TABLET PO SCH ×2 (07:52→20:34)
[2018-05-06] MEDS: FUROSEMIDE 40 MG TABLET PO SCH ×2 (07:52→18:08)
[2018-05-06] MEDS: SERTRALINE 50 MG TABLET. PO SCH (07:52)
[2018-05-06] MEDS: POTASSIUM CHLORIDE 20 MEQ TABLET.ER. PO SCH ×2 (07:52→17:00)
[2018-05-06] MEDS: THIAMINE 100 MG TABLET. PO SCH (07:53)
[2018-05-06] MEDS: LACTOBACILLUS RHAMNOSUS GG 1 CAPSULE. PO SCH ×2 (07:53→20:33)
[2018-05-06] MEDS: busPIRone 5 MG TABLET. PO SCH ×2 (07:53→18:08)
[2018-05-06] MEDS: FAMOTIDINE 20 MG TABLET PO SCH (07:53)
[2018-05-06] MEDS: INSULIN LISPRO 300 UNITS/3 ML INSULN.PEN. SQ SCH ×3 (08:00→17:00)
[2018-05-06] MEDS: CEFDINIR 300 MG CAPSULE PO SCH (08:08)
--- NOTE | 2018-05-06 14:13 | PN ---
DATE: 05/06/2018 SUBJECTIVE: The patient was seen today, met with the staff, chart reviewed. Staff reports no major behavior problems. Still paranoid, suspicious, and systematized delusions. OBSERVATION: VITAL SIGNS: Temperature 98.3, blood pressure 122/82, pulse 108, respirations 16, O2 sat 98%. Slept about 5 hours last night. The patient's lab reviewed. MEDICATIONS: The patient's current medications include Zoloft 75 mg daily, Risperdal 1 mg in the morning and 1.5 mg at night. The patient is also on BuSpar 5 mg b.i.d. p.o., trazodone 12.5 mg at night and BuSpar 10 mg at night. The patient is not having any side effects, but the patient apparently shown some sedation. The patient is less verbal now. The patient is no longer acting upon her delusions. ASSESSMENT: 1. Schizoaffective disorder, bipolar type, psychotic symptoms. 2. Cognitive disorder, mild. 3. Generalized anxiety disorder, unspecified. PLAN: We will decrease the patient's Risperdal 2.5 mg in the morning and 1 mg at night. Continue with other medications. PERRY PATEL MD DR: DOLORES/faiza JOB#: [id number] / [id number]
[2018-05-06 16:52] VITALS: BP 100/72
[2018-05-06 20:32] VITALS: BP 91/58
[2018-05-06] MEDS: PRAVASTATIN 20 MG TABLET. PO SCH (20:33)
[2018-05-06] MEDS: busPIRone 10 MG TABLET. PO SCH (20:33)
[2018-05-06] MEDS: traZODone 50 MG TABLET. PO SCH (20:34)
[2018-05-06] MEDS: INSULIN GLARGINE 300 UNITS/3 ML INSULN.PEN. SQ SCH (20:36)
[2018-05-07 06:03] VITALS: BP 147/84
[2018-05-07] MEDS: LACTOBACILLUS RHAMNOSUS GG 1 CAPSULE. PO SCH ×2 (08:15→20:25)
[2018-05-07] MEDS: FAMOTIDINE 20 MG TABLET PO SCH (08:15)
[2018-05-07] MEDS: ASCORBIC ACID 500 MG TABLET PO SCH (08:15)
[2018-05-07] MEDS: SERTRALINE 50 MG TABLET. PO SCH (08:15)
[2018-05-07] MEDS: CLOPIDOGREL BISULFATE 75 MG TABLET PO SCH (08:15)
[2018-05-07] MEDS: CHOLECALCIFEROL (VITAMIN D3) 1,000 UNIT TABLET PO SCH (08:15)
[2018-05-07] MEDS: THIAMINE 100 MG TABLET. PO SCH (08:15)
[2018-05-07] MEDS: busPIRone 5 MG TABLET. PO SCH ×2 (08:15→15:55)
[2018-05-07] MEDS: METOPROLOL TART IMMED RELEASE 25 MG TABLET PO SCH ×2 (08:16→20:26)
[2018-05-07] MEDS: POTASSIUM CHLORIDE 20 MEQ TABLET.ER. PO SCH ×2 (08:16→17:23)
[2018-05-07] MEDS: FUROSEMIDE 40 MG TABLET PO SCH ×2 (08:16→15:55)
[2018-05-07] MEDS: CEFDINIR 300 MG CAPSULE PO SCH (08:17)
[2018-05-07] MEDS: metOLazone 2.5 MG TABLET PO SCH (08:17)
[2018-05-07] MEDS: INSULIN LISPRO 300 UNITS/3 ML INSULN.PEN. SQ SCH ×3 (08:18→17:23)
[2018-05-07] MEDS: risperiDONE 0.5 MG TABLET. PO SCH (08:20)
[2018-05-07 15:48] VITALS: BP 102/65
--- NOTE | 2018-05-07 19:48 | PDOC ---
Exam Note: Manfred Note: Please also refer to the separate dictated note~for this date of service dictated separately.~Patient seen individually. Discussed the patient with Nursing staff reviewed the chart.~Reviewed interim history and current functioning. Reviewed vital signs,~Labs/ Radiology~and current medications noted below. Continue current treatment with the changes noted in the dictated addendum note Assessment: Vital Signs: Vital Signs Date Time Temp Pulse Resp B/P (MAP) Pulse Ox O2 Delivery O2 Flow Rate FiO2 05/07/18 15:48 98.3 98 16 102/65 (77) 99 05/06/18 05:38 Room Air I&O Intake and Output 05/07/18 07:00 Intake Total 720 ml Balance 720 ml Intake Oral 720 ml Labs: Laboratory Tests Test 05/07/18 07:15 05/07/18 11:53 05/07/18 17:11 05/07/18 19:12 Glucose (Fingerstick) 194 mg/dL (70-99) H 259 mg/dL (70-99) H 111 mg/dL (70-99) H 139 mg/dL (70-99) H Current Medications: Meds: Current Medications Acetaminophen (Tylenol) 650 mg PRN Q6HRS PRN PO PAIN / TEMP; Start 05/03/18 at 17:15 Ascorbic Acid (Vitamin C) 500 mg DAILY PO Last administered on 05/07/18at 08:15 ; Start 05/04/18 at 09:00 Vitamin D (Vitamin D3) 1,000 unit DAILY PO Last administered on 05/07/18at 08: 15; Start 05/04/18 at 09:00 Clopidogrel Bisulfate (Plavix) 75 mg DAILY PO Last administered on 05/07/18at 08:15; Start 05/04/18 at 09:00 Insulin Glargine (Lantus) 5 units QHS SQ Last administered on 05/06/18at 20:36 ; Start 05/03/18 at 21:00 Metoprolol Tartrate (Lopressor) 12.5 mg BID PO Last administered on 05/07/18at 08:16; Start 05/03/18 at 21:00 Potassium Chloride (Klor-Con) 20 meq BIDWMEALS PO Last administered on at 17:23; Start 05/03/18 at 18:00 Sertraline HCl (Zoloft) 100 mg DAILY PO Last administered on 05/04/18at 08:01; Start 05/04/18 at 09:00; Stop 05/04/18 at 16:56; Status DC Bisacodyl (Dulcolax Supp) 10 mg PRN DAILY PRN OK CONSTIPATION; Start 05/03/18 at 17:45 Buspirone HCl (Buspar) 5 mg BID@0900,1500 PO Last administered on 05/07/18at 15 :55; Start 05/04/18 at 09:00 Buspirone HCl (Buspar) 10 mg QHS PO Last administered on 05/06/18at 20:33; Start 05/03/18 at 21:00 Furosemide (Lasix) 40 mg BID94 PO Last administered on 05/07/18at 15:55; Start 05/04/18 at 09:00 Metolazone (Zaroxolyn) 2.5 mg 3X/WEEK PO Last administered on 05/07/18at 08:17 ; Start 05/04/18 at 09:00 Pravastatin Sodium (Pravachol) 80 mg QHS PO Last administered on 05/06/18at 20: 33; Start 05/03/18 at 21:00 Thiamine HCl (Vitamin B-1) 100 mg DAILY PO Last administered on 05/07/18at 08: 15; Start 05/04/18 at 09:00 Trazodone HCl (Desyrel) 12.5 mg QHS PO Last administered on 05/06/18at 20:34; Start 05/03/18 at 21:00; Stop 05/07/18 at 18:23; Status DC Famotidine (Pepcid) 20 mg DAILY PO Last administered on 05/07/18at 08:15; Start 05/04/18 at 09:00 Non-Formulary Medication (Famotidine (Pepcid)) 20 mg DAILY PO ; Start 05/04/18 at 09:00; Status UNV Insulin Human Lispro (HumaLOG) 10 units TIDWMEALS SQ Last administered on 05/07at 17:23; Start 05/04/18 at 08:00 Cefdinir (Omnicef) 300 mg DAILY PO Last administered on 05/07/18at 08:17; Start 05/03/18 at 21:00 Nitroglycerin (Nitrostat) 0.4 mg PRN Q5MIN PRN SL CHEST PAIN; Start 05/03/18 at 18:15 Lactobacillus Rhamnosus (Culturelle) 1 cap BID PO Last administered on at 08:15; Start 05/04/18 at 21:00 Glucose (Insta-Glucose) 15 gm STK-MED ONCE .ROUTE Last administered on at 16:14; Start 05/04/18 at 16:14; Stop 05/04/18 at 16:15; Status DC Risperidone (RisperDAL) 1 mg DAILY PO Last administered on 05/06/18at 07:52; Start 05/05/18 at 09:00; Stop 05/06/18 at 11:31; Status DC Risperidone (RisperDAL) 1.5 mg HS PO Last administered on 05/05/18at 20:44; Start 05/04/18 at 21:00; Stop 05/06/18 at 11:31; Status DC Sertraline HCl (Zoloft) 75 mg DAILY PO Last administered on 05/07/18at 08:15; Start 05/05/18 at 09:00 Olanzapine (ZyPREXA ZYDIS) 2.5 mg PRN Q2HR PRN PO ANXIETY / AGITATION; Start 05/04/18 at 17:15 Glucose (Insta-Glucose) 15 gm PRN Q15MIN PRN PO LOW BLOOD SUGAR; Start at 17:15 Risperidone (RisperDAL) 1 mg HS PO Last administered on 05/06/18at 20:35; Start 05/06/18 at 21:00 Risperidone (RisperDAL) 0.5 mg DAILY PO Last administered on 05/07/18at 08:20; Start 05/07/18 at 09:00 Trazodone HCl (Desyrel) 25 mg QHS PO ; Start 05/07/18 at 21:00 Active Scripts Active Reported Pepcid (Famotidine) 20 Mg Tablet 20 Mg PO DAILY Zoloft (Sertraline Hcl) 100 Mg Tablet 100 Mg PO DAILY LAST DOSE GIVEN: DATE: TIME: NEXT DOSE DUE: DATE: TIME: Trazodone Hcl 50 Mg Tablet 12.5 Mg PO HS LAST DOSE GIVEN: DATE: TIME: NEXT DOSE DUE: DATE: TIME: Vitamin B-1 (Thiamine Hcl) 100 Mg Tablet 100 Mg PO DAILY LAST DOSE GIVEN: DATE: TIME: NEXT DOSE DUE: DATE: TIME: Pravastatin Sodium 80 Mg Tablet 80 Mg PO HS LAST DOSE GIVEN: DATE: TIME: NEXT DOSE DUE: DATE: TIME: Klor-Con M20 (Potassium Chloride) 20 Meq Tab.er.prt 20 Meq PO BID LAST DOSE GIVEN: DATE: TIME: NEXT DOSE DUE: DATE: TIME: Novolog Flexpen (Insulin Aspart) 100 Unit/1 Ml Insuln.pen 10 Unit SQ TIDWMEALS Metoprolol Tartrate 25 Mg Tablet 12.5 Mg PO BID LAST DOSE GIVEN: DATE: TIME: NEXT DOSE DUE: DATE: TIME: Metolazone 2.5 Mg Tablet 2.5 Mg PO 3X/WEEK LAST DOSE GIVEN: DATE: TIME: NEXT DOSE DUE: DATE: TIME: Lasix (Furosemide) 40 Mg Tablet 40 Mg PO BIDWMEALS LAST DOSE GIVEN: DATE: TIME: NEXT DOSE DUE: DATE: TIME: Lantus Solostar (Insulin Glargine,Hum.rec.anlog) 100 Unit/1 Ml Insuln.pen 5 Unit SQ QHS LAST DOSE GIVEN: DATE: TIME: NEXT DOSE DUE: DATE: TIME: Famotidine 40 Mg Tablet 20 Mg PO DAILY LAST DOSE GIVEN: DATE: TIME: NEXT DOSE DUE: DATE: TIME: Plavix (Clopidogrel Bisulfate) 75 Mg Tablet 75 Mg PO DAILY LAST DOSE GIVEN: DATE: TIME: NEXT DOSE DUE: DATE: TIME: Vitamin D3 (Cholecalciferol (Vitamin D3)) 1,000 Unit Tablet 1,000 Unit PO DAILY LAST DOSE GIVEN: DATE: TIME: NEXT DOSE DUE: DATE: TIME: Buspirone Hcl 5 Mg Tablet 5 Mg PO BID LAST DOSE GIVEN: DATE: TIME: NEXT DOSE DUE: DATE: TIME: Buspirone Hcl 10 Mg Tablet 10 Mg PO HS LAST DOSE GIVEN: DATE: TIME: NEXT DOSE DUE: DATE: TIME: Bisacodyl 10 Mg Supp.rect 10 Mg RC PRN DAILY PRN LAST DOSE GIVEN: DATE: TIME: NEXT DOSE DUE: DATE: TIME: Ascorbic Acid 500 Mg Tablet 500 Mg PO DAILY LAST DOSE GIVEN: DATE: TIME: NEXT DOSE DUE: DATE: TIME: Tylenol (Acetaminophen) 325 Mg Tablet 1-2 Tab PO PRN Q6HRS PRN LAST DOSE GIVEN: DATE: TIME: NEXT DOSE DUE: DATE: TIME: I have reviewed the current psychotropics carefully including drug interactions. Risk benefit ratio favors no change other than as noted in my dictated progress note. Diagnosis: Problems: (1) [id number] kidney injury BERT MEYER MD May 07, 2018 19:48
[2018-05-07] MEDS: traZODone 50 MG TABLET. PO SCH (20:25)
[2018-05-07] MEDS: risperiDONE 1 MG TABLET. PO SCH (20:25)
[2018-05-07] MEDS: PRAVASTATIN 20 MG TABLET. PO SCH (20:26)
[2018-05-07] MEDS: busPIRone 10 MG TABLET. PO SCH (20:26)
[2018-05-07] MEDS: INSULIN GLARGINE 300 UNITS/3 ML INSULN.PEN. SQ SCH (20:27)
[2018-05-08 06:15] VITALS: BP 129/80
[2018-05-08] MEDS: METOPROLOL TART IMMED RELEASE 25 MG TABLET PO SCH ×2 (08:06→21:00)
[2018-05-08] MEDS: FUROSEMIDE 40 MG TABLET PO SCH ×2 (08:06→15:50)
[2018-05-08] MEDS: THIAMINE 100 MG TABLET. PO SCH (08:06)
[2018-05-08] MEDS: CHOLECALCIFEROL (VITAMIN D3) 1,000 UNIT TABLET PO SCH (08:06)
[2018-05-08] MEDS: busPIRone 5 MG TABLET. PO SCH ×2 (08:06→15:50)
[2018-05-08] MEDS: LACTOBACILLUS RHAMNOSUS GG 1 CAPSULE. PO SCH ×2 (08:06→21:18)
[2018-05-08] MEDS: risperiDONE 0.5 MG TABLET. PO SCH (08:06)
[2018-05-08] MEDS: CEFDINIR 300 MG CAPSULE PO SCH (08:07)
[2018-05-08] MEDS: FAMOTIDINE 20 MG TABLET PO SCH (08:07)
[2018-05-08] MEDS: SERTRALINE 50 MG TABLET. PO SCH (08:07)
[2018-05-08] MEDS: POTASSIUM CHLORIDE 20 MEQ TABLET.ER. PO SCH ×2 (08:07→17:20)
[2018-05-08] MEDS: ASCORBIC ACID 500 MG TABLET PO SCH (08:07)
[2018-05-08] MEDS: CLOPIDOGREL BISULFATE 75 MG TABLET PO SCH (08:07)
[2018-05-08] MEDS: INSULIN LISPRO 300 UNITS/3 ML INSULN.PEN. SQ SCH ×3 (08:09→17:21)
[2018-05-08 16:09] VITALS: BP 96/63
--- NOTE | 2018-05-08 19:11 | PDOC ---
Exam Note: Manfred Note: Please also refer to the separate dictated note~for this date of service dictated separately.~Patient seen individually. Discussed the patient with Nursing staff reviewed the chart.~Reviewed interim history and current functioning. Reviewed vital signs,~Labs/ Radiology~and current medications noted below. Continue current treatment with the changes noted in the dictated addendum note Assessment: Vital Signs: Vital Signs Date Time Temp Pulse Resp B/P (MAP) Pulse Ox O2 Delivery O2 Flow Rate FiO2 05/08/18 16:09 97.0 91 18 96/63 (74) 96 05/06/18 05:38 Room Air I&O Intake and Output 05/08/18 07:00 Intake Total 970 ml Balance 970 ml Intake Oral 970 ml # Voids 1 Labs: Laboratory Tests Test 05/07/18 19:12 05/08/18 07:55 05/08/18 12:09 05/08/18 16:29 Glucose (Fingerstick) 139 mg/dL (70-99) H 150 mg/dL (70-99) H 190 mg/dL (70-99) H 182 mg/dL (70-99) H Current Medications: Meds: Current Medications Acetaminophen (Tylenol) 650 mg PRN Q6HRS PRN PO PAIN / TEMP; Start 05/03/18 at 17:15 Ascorbic Acid (Vitamin C) 500 mg DAILY PO Last administered on 05/08/18at 08:07 ; Start 05/04/18 at 09:00 Vitamin D (Vitamin D3) 1,000 unit DAILY PO Last administered on 05/08/18at 08: 06; Start 05/04/18 at 09:00 Clopidogrel Bisulfate (Plavix) 75 mg DAILY PO Last administered on 05/08/18at 08:07; Start 05/04/18 at 09:00 Insulin Glargine (Lantus) 5 units QHS SQ Last administered on 05/07/18at 20:27 ; Start 05/03/18 at 21:00 Metoprolol Tartrate (Lopressor) 12.5 mg BID PO Last administered on 05/08/18at 08:06; Start 05/03/18 at 21:00; Stop 05/08/18 at 14:34; Status DC Potassium Chloride (Klor-Con) 20 meq BIDWMEALS PO Last administered on at 17:20; Start 05/03/18 at 18:00 Sertraline HCl (Zoloft) 100 mg DAILY PO Last administered on 05/04/18at 08:01; Start 05/04/18 at 09:00; Stop 05/04/18 at 16:56; Status DC Bisacodyl (Dulcolax Supp) 10 mg PRN DAILY PRN [place] CONSTIPATION; Start 05/03/18 at 17:45 Buspirone HCl (Buspar) 5 mg BID@0900,1500 PO Last administered on 05/08/18at 15 :50; Start 05/04/18 at 09:00 Buspirone HCl (Buspar) 10 mg QHS PO Last administered on 05/07/18at 20:26; Start 05/03/18 at 21:00 Furosemide (Lasix) 40 mg BID94 PO Last administered on 05/08/18at 15:50; Start 05/04/18 at 09:00 Metolazone (Zaroxolyn) 2.5 mg 3X/WEEK PO Last administered on 05/07/18at 08:17 ; Start 05/04/18 at 09:00 Pravastatin Sodium (Pravachol) 80 mg QHS PO Last administered on 05/07/18at 20: 26; Start 05/03/18 at 21:00 Thiamine HCl (Vitamin B-1) 100 mg DAILY PO Last administered on 05/08/18at 08: 06; Start 05/04/18 at 09:00 Trazodone HCl (Desyrel) 12.5 mg QHS PO Last administered on 05/06/18at 20:34; Start 05/03/18 at 21:00; Stop 05/07/18 at 18:23; Status DC Famotidine (Pepcid) 20 mg DAILY PO Last administered on 05/08/18at 08:07; Start 05/04/18 at 09:00 Non-Formulary Medication (Famotidine (Pepcid)) 20 mg DAILY PO ; Start 05/04/18 at 09:00; Status UNV Insulin Human Lispro (HumaLOG) 10 units TIDWMEALS SQ Last administered on 05/08at 17:21; Start 05/04/18 at 08:00 Cefdinir (Omnicef) 300 mg DAILY PO Last administered on 05/08/18at 08:07; Start 05/03/18 at 21:00 Nitroglycerin (Nitrostat) 0.4 mg PRN Q5MIN PRN SL CHEST PAIN; Start 05/03/18 at 18:15 Lactobacillus Rhamnosus (Culturelle) 1 cap BID PO Last administered on at 08:06; Start 05/04/18 at 21:00 Glucose (Insta-Glucose) 15 gm STK-MED ONCE .ROUTE Last administered on at 16:14; Start 05/04/18 at 16:14; Stop 05/04/18 at 16:15; Status DC Risperidone (RisperDAL) 1 mg DAILY PO Last administered on 05/06/18at 07:52; Start 05/05/18 at 09:00; Stop 05/06/18 at 11:31; Status DC Risperidone (RisperDAL) 1.5 mg HS PO Last administered on 05/05/18at 20:44; Start 05/04/18 at 21:00; Stop 05/06/18 at 11:31; Status DC Sertraline HCl (Zoloft) 75 mg DAILY PO Last administered on 05/08/18at 08:07; Start 05/05/18 at 09:00; Stop 05/08/18 at 16:36; Status DC Olanzapine (ZyPREXA ZYDIS) 2.5 mg PRN Q2HR PRN PO ANXIETY / AGITATION; Start 05/04/18 at 17:15 Glucose (Insta-Glucose) 15 gm PRN Q15MIN PRN PO LOW BLOOD SUGAR; Start at 17:15 Risperidone (RisperDAL) 1 mg HS PO Last administered on 05/07/18at 20:25; Start 05/06/18 at 21:00 Risperidone (RisperDAL) 0.5 mg DAILY PO Last administered on 05/08/18at 08:06; Start 05/07/18 at 09:00 Trazodone HCl (Desyrel) 25 mg QHS PO Last administered on 05/07/18at 20:25; Start 05/07/18 at 21:00 Metoprolol Tartrate (Lopressor) 25 mg BID PO ; Start 05/08/18 at 21:00 Fluvoxamine Maleate (Luvox) 25 mg QHS PO ; Start 05/08/18 at 21:00; Stop 05/10 at 23:50 Fluvoxamine Maleate (Luvox) 50 mg QHS PO ; Start 05/11/18 at 21:00 Active Scripts Active Reported Pepcid (Famotidine) 20 Mg Tablet 20 Mg PO DAILY Zoloft (Sertraline Hcl) 100 Mg Tablet 100 Mg PO DAILY LAST DOSE GIVEN: DATE: TIME: NEXT DOSE DUE: DATE: TIME: Trazodone Hcl 50 Mg Tablet 12.5 Mg PO HS LAST DOSE GIVEN: DATE: TIME: NEXT DOSE DUE: DATE: TIME: Vitamin B-1 (Thiamine Hcl) 100 Mg Tablet 100 Mg PO DAILY LAST DOSE GIVEN: DATE: TIME: NEXT DOSE DUE: DATE: TIME: Pravastatin Sodium 80 Mg Tablet 80 Mg PO HS LAST DOSE GIVEN: DATE: TIME: NEXT DOSE DUE: DATE: TIME: Klor-Con M20 (Potassium Chloride) 20 Meq Tab.er.prt 20 Meq PO BID LAST DOSE GIVEN: DATE: TIME: NEXT DOSE DUE: DATE: TIME: Novolog Flexpen (Insulin Aspart) 100 Unit/1 Ml Insuln.pen 10 Unit SQ TIDWMEALS Metoprolol Tartrate 25 Mg Tablet 12.5 Mg PO BID LAST DOSE GIVEN: DATE: TIME: NEXT DOSE DUE: DATE: TIME: Metolazone 2.5 Mg Tablet 2.5 Mg PO 3X/WEEK LAST DOSE GIVEN: DATE: TIME: NEXT DOSE DUE: DATE: TIME: Lasix (Furosemide) 40 Mg Tablet 40 Mg PO BIDWMEALS LAST DOSE GIVEN: DATE: TIME: NEXT DOSE DUE: DATE: TIME: Lantus Solostar (Insulin Glargine,Hum.rec.anlog) 100 Unit/1 Ml Insuln.pen 5 Unit SQ QHS LAST DOSE GIVEN: DATE: TIME: NEXT DOSE DUE: DATE: TIME: Famotidine 40 Mg Tablet 20 Mg PO DAILY LAST DOSE GIVEN: DATE: TIME: NEXT DOSE DUE: DATE: TIME: Plavix (Clopidogrel Bisulfate) 75 Mg Tablet 75 Mg PO DAILY LAST DOSE GIVEN: DATE: TIME: NEXT DOSE DUE: DATE: TIME: Vitamin D3 (Cholecalciferol (Vitamin D3)) 1,000 Unit Tablet 1,000 Unit PO DAILY LAST DOSE GIVEN: DATE: TIME: NEXT DOSE DUE: DATE: TIME: Buspirone Hcl 5 Mg Tablet 5 Mg PO BID LAST DOSE GIVEN: DATE: TIME: NEXT DOSE DUE: DATE: TIME: Buspirone Hcl 10 Mg Tablet 10 Mg PO HS LAST DOSE GIVEN: DATE: TIME: NEXT DOSE DUE: DATE: TIME: Bisacodyl 10 Mg Supp.rect 10 Mg RC PRN DAILY PRN LAST DOSE GIVEN: DATE: TIME: NEXT DOSE DUE: DATE: TIME: Ascorbic Acid 500 Mg Tablet 500 Mg PO DAILY LAST DOSE GIVEN: DATE: TIME: NEXT DOSE DUE: DATE: TIME: Tylenol (Acetaminophen) 325 Mg Tablet 1-2 Tab PO PRN Q6HRS PRN LAST DOSE GIVEN: DATE: TIME: NEXT DOSE DUE: DATE: TIME: I have reviewed the current psychotropics carefully including drug interactions. Risk benefit ratio favors no change other than as noted in my dictated progress note. BERT MEYER MD May 08, 2018 19:11
[2018-05-08 20:20] VITALS: BP 103/70
[2018-05-08] MEDS: risperiDONE 1 MG TABLET. PO SCH (21:17)
[2018-05-08] MEDS: PRAVASTATIN 20 MG TABLET. PO SCH (21:17)
[2018-05-08] MEDS: traZODone 50 MG TABLET. PO SCH (21:18)
[2018-05-08] MEDS: busPIRone 10 MG TABLET. PO SCH (21:18)
[2018-05-08] MEDS: INSULIN GLARGINE 300 UNITS/3 ML INSULN.PEN. SQ SCH (21:20)
--- NOTE | 2018-05-08 21:29 | PN ---
DATE: 05/07/2018 PSYCHIATRIC PROGRESS NOTE This late entry 05/07/2018 covers elements not covered in my initial note. SUBJECTIVE: I met with the patient in the evening. Also discussed with Dr. Castaneda, who had covered for me over the past 1 week or so. The patient slept 6 hours previous night, remains confused, refusing her medications. She followed me around the unit after I met with her extensively. She is quite confused, removed her wrist band; at times tells the nursing staff, she has suicidal ideation, but when I questioned her, she denied it. She refuses meds at times, took them very slowly with much perseverance from nursing staff earlier in the day on 05/07/2018. Oriented x 1 and ambulates on her own, unaware of where she is. REVIEW OF SYSTEMS: No CV, , pulmonary, eye, ENT system symptoms on review. Reliability poor. MENTAL STATUS EXAM: Oriented to herself. Insight, judgment, recent and remote memory, attention, concentration, fund of knowledge poor, consistent with her diagnosis. IMPRESSION: Major neurocognitive disorder, Alzheimer, vascular with delusion, depression, behavioral disturbance; anxiety disorder, unspecified; impulse control disorder, unspecified; psychotic disorder, unspecified. PLAN: Continue current psychotropics, but increase the trazodone 12.5 at bedtime to 25 mg at bedtime. Maintain Risperdal, BuSpar, Zoloft, along with Zyprexa p.r.n. We may change the Zoloft to Luvox if she remains quite obsessive. BERT MEYER MD DR: LIZA/faiza JOB#: [id number] / [id number]
[2018-05-09 05:48] VITALS: BP 117/75
[2018-05-09 06:15] LABS: BASO % 1 % (0-3); EOS # 0.2 x10^3/uL (0.0-0.7); EOS % 3 % (0-3); HEMATOCRIT 44.8 % (36.0-47.0); LYMPH # 1.7 x10^3/uL (1.0-4.8); LYMPH % 34 % (24-48); MEAN CORPUSCULAR HEMOGLOBIN 31 pg (25-35); MEAN CORPUSCULAR HGB CONC 33 g/dL (31-37); MEAN CORPUSCULAR VOLUME 93 fL (79-100); MONO # 0.6 x10^3/uL (0.0-1.1); MONO % 11 % (0-9); NEUT # 2.7 x10^3uL (1.8-7.7); NEUT % 52 % (31-73); PLATELET COUNT 128 x10^3/uL (140-400); RED BLOOD COUNT 4.81 x10^6/uL (3.50-5.40); RED CELL DISTRIBUTION WIDTH 13.5 % (11.5-14.5); WHITE BLOOD COUNT 5.2 x10^3/uL (4.0-11.0)
[2018-05-09 06:35] LABS: ALBUMIN 3.5 g/dL (3.4-5.0); ALBUMIN/GLOBULIN RATIO 0.9 (1.0-1.7); CREATININE 2.5 mg/dL (0.6-1.0); GFR 19.1; POTASSIUM 4.1 mmol/L (3.5-5.1); TOTAL BILIRUBIN 0.6 mg/dL (0.2-1.0); TOTAL PROTEIN 7.5 g/dL (6.4-8.2)
[2018-05-09] MEDS: LACTOBACILLUS RHAMNOSUS GG 1 CAPSULE. PO SCH ×2 (09:02→20:30)
[2018-05-09] MEDS: CLOPIDOGREL BISULFATE 75 MG TABLET PO SCH (09:02)
[2018-05-09] MEDS: risperiDONE 0.5 MG TABLET. PO SCH (09:02)
[2018-05-09] MEDS: FUROSEMIDE 40 MG TABLET PO SCH (09:02)
[2018-05-09] MEDS: FAMOTIDINE 20 MG TABLET PO SCH (09:02)
[2018-05-09] MEDS: THIAMINE 100 MG TABLET. PO SCH (09:02)
[2018-05-09] MEDS: CHOLECALCIFEROL (VITAMIN D3) 1,000 UNIT TABLET PO SCH (09:02)
[2018-05-09] MEDS: POTASSIUM CHLORIDE 20 MEQ TABLET.ER. PO SCH ×2 (09:02→17:41)
[2018-05-09] MEDS: ASCORBIC ACID 500 MG TABLET PO SCH (09:02)
[2018-05-09] MEDS: busPIRone 5 MG TABLET. PO SCH ×2 (09:02→17:40)
[2018-05-09] MEDS: CEFDINIR 300 MG CAPSULE PO SCH (09:03)
[2018-05-09] MEDS: metOLazone 2.5 MG TABLET PO SCH (09:03)
[2018-05-09] MEDS: METOPROLOL TART IMMED RELEASE 25 MG TABLET PO SCH ×2 (09:03→20:37)
[2018-05-09] MEDS: INSULIN LISPRO 300 UNITS/3 ML INSULN.PEN. SQ SCH ×3 (09:04→17:00)
--- NOTE | 2018-05-09 19:40 | PDOC ---
Exam Note: Manfred Note: Please also refer to the separate dictated note~for this date of service dictated separately.~Patient seen individually. Discussed the patient with Nursing staff reviewed the chart.~Reviewed interim history and current functioning. Reviewed vital signs,~Labs/ Radiology~and current medications noted below. Continue current treatment with the changes noted in the dictated addendum note Assessment: Vital Signs: Vital Signs Date Time Temp Pulse Resp B/P (MAP) Pulse Ox O2 Delivery O2 Flow Rate FiO2 05/09/18 15:58 98.0 94 16 99 05/09/18 09:03 117/75 05/06/18 05:38 Room Air I&O Intake and Output 05/09/18 07:00 Intake Total 1320 ml Balance 1320 ml Intake Oral 1320 ml Labs: Laboratory Tests Test 05/09/18 05:56 05/09/18 07:25 05/09/18 11:34 05/09/18 17:23 White Blood Count 5.2 x10^3/uL (4.0-11.0) Red Blood Count 4.81 x10^6/uL (3.50-5.40) Hemoglobin 15.0 g/dL (12.0-15.5) Hematocrit 44.8 % (36.0-47.0) Mean Corpuscular Volume 93 fL (79-100) Mean Corpuscular Hemoglobin 31 pg (25-35) Mean Corpuscular Hemoglobin Concent 33 g/dL (31-37) Red Cell Distribution Width 13.5 % (11.5-14.5) Platelet Count 128 x10^3/uL (140-400) L Neutrophils (%) (Auto) 52 % (31-73) Lymphocytes (%) (Auto) 34 % (24-48) Monocytes (%) (Auto) 11 % (0-9) H Eosinophils (%) (Auto) 3 % (0-3) Basophils (%) (Auto) 1 % (0-3) Neutrophils # (Auto) 2.7 x10^3uL (1.8-7.7) Lymphocytes # (Auto) 1.7 x10^3/uL (1.0-4.8) Monocytes # (Auto) 0.6 x10^3/uL (0.0-1.1) Eosinophils # (Auto) 0.2 x10^3/uL (0.0-0.7) Basophils # (Auto) 0.0 x10^3/uL (0.0-0.2) Sodium Level 139 mmol/L (136-145) Potassium Level 4.1 mmol/L (3.5-5.1) Chloride Level 99 mmol/L (98-107) Carbon Dioxide Level 27 mmol/L (21-32) Anion Gap 13 (6-14) Blood Urea Nitrogen 70 mg/dL (7-20) H Creatinine 2.5 mg/dL (0.6-1.0) H Estimated GFR (Cockcroft-Gault) 19.1 BUN/Creatinine Ratio 28 (6-20) H Glucose Level 167 mg/dL (70-99) H Calcium Level 10.0 mg/dL (8.5-10.1) Total Bilirubin 0.6 mg/dL (0.2-1.0) Aspartate Amino Transferase (AST) 29 U/L (15-37) Alanine Aminotransferase (ALT) 27 U/L (14-59) Alkaline Phosphatase 91 U/L (46-116) Total Protein 7.5 g/dL (6.4-8.2) Albumin 3.5 g/dL (3.4-5.0) Albumin/Globulin Ratio 0.9 (1.0-1.7) L Glucose (Fingerstick) 180 mg/dL (70-99) H 264 mg/dL (70-99) H 78 mg/dL (70-99) Test 05/09/18 19:02 Glucose (Fingerstick) 172 mg/dL (70-99) H Current Medications: Meds: Current Medications Acetaminophen (Tylenol) 650 mg PRN Q6HRS PRN PO PAIN / TEMP; Start 05/03/18 at 17:15 Ascorbic Acid (Vitamin C) 500 mg DAILY PO Last administered on 05/09/18at 09:02 ; Start 05/04/18 at 09:00 Vitamin D (Vitamin D3) 1,000 unit DAILY PO Last administered on 05/09/18at 09: 02; Start 05/04/18 at 09:00 Clopidogrel Bisulfate (Plavix) 75 mg DAILY PO Last administered on 05/09/18at 09:02; Start 05/04/18 at 09:00 Insulin Glargine (Lantus) 5 units QHS SQ Last administered on 05/08/18at 21:20 ; Start 05/03/18 at 21:00 Metoprolol Tartrate (Lopressor) 12.5 mg BID PO Last administered on 05/08/18at 08:06; Start 05/03/18 at 21:00; Stop 05/08/18 at 14:34; Status DC Potassium Chloride (Klor-Con) 20 meq BIDWMEALS PO Last administered on at 17:41; Start 05/03/18 at 18:00 Sertraline HCl (Zoloft) 100 mg DAILY PO Last administered on 05/04/18at 08:01; Start 05/04/18 at 09:00; Stop 05/04/18 at 16:56; Status DC Bisacodyl (Dulcolax Supp) 10 mg PRN DAILY PRN [place] CONSTIPATION; Start 05/03/18 at 17:45 Buspirone HCl (Buspar) 5 mg BID@0900,1500 PO Last administered on 05/09/18at 17 :40; Start 05/04/18 at 09:00 Buspirone HCl (Buspar) 10 mg QHS PO Last administered on 05/08/18at 21:18; Start 05/03/18 at 21:00 Furosemide (Lasix) 40 mg BID94 PO Last administered on 05/09/18at 09:02; Start 05/04/18 at 09:00; Stop 05/09/18 at 15:37; Status DC Metolazone (Zaroxolyn) 2.5 mg 3X/WEEK PO Last administered on 05/09/18at 09:03 ; Start 05/04/18 at 09:00; Stop 05/09/18 at 15:35; Status DC Pravastatin Sodium (Pravachol) 80 mg QHS PO Last administered on 05/08/18at 21: 17; Start 05/03/18 at 21:00 Thiamine HCl (Vitamin B-1) 100 mg DAILY PO Last administered on 05/09/18at 09: 02; Start 05/04/18 at 09:00 Trazodone HCl (Desyrel) 12.5 mg QHS PO Last administered on 05/06/18at 20:34; Start 05/03/18 at 21:00; Stop 05/07/18 at 18:23; Status DC Famotidine (Pepcid) 20 mg DAILY PO Last administered on 05/09/18at 09:02; Start 05/04/18 at 09:00 Non-Formulary Medication (Famotidine (Pepcid)) 20 mg DAILY PO ; Start 05/04/18 at 09:00; Status UNV Insulin Human Lispro (HumaLOG) 10 units TIDWMEALS SQ Last administered on 05/09at 12:09; Start 05/04/18 at 08:00 Cefdinir (Omnicef) 300 mg DAILY PO Last administered on 05/09/18at 09:03; Start 05/03/18 at 21:00 Nitroglycerin (Nitrostat) 0.4 mg PRN Q5MIN PRN SL CHEST PAIN; Start 05/03/18 at 18:15 Lactobacillus Rhamnosus (Culturelle) 1 cap BID PO Last administered on at 09:02; Start 05/04/18 at 21:00 Glucose (Insta-Glucose) 15 gm STK-MED ONCE .ROUTE Last administered on at 16:14; Start 05/04/18 at 16:14; Stop 05/04/18 at 16:15; Status DC Risperidone (RisperDAL) 1 mg DAILY PO Last administered on 05/06/18at 07:52; Start 05/05/18 at 09:00; Stop 05/06/18 at 11:31; Status DC Risperidone (RisperDAL) 1.5 mg HS PO Last administered on 05/05/18at 20:44; Start 05/04/18 at 21:00; Stop 05/06/18 at 11:31; Status DC Sertraline HCl (Zoloft) 75 mg DAILY PO Last administered on 05/08/18at 08:07; Start 05/05/18 at 09:00; Stop 05/08/18 at 16:36; Status DC Olanzapine (ZyPREXA ZYDIS) 2.5 mg PRN Q2HR PRN PO ANXIETY / AGITATION; Start 05/04/18 at 17:15 Glucose (Insta-Glucose) 15 gm PRN Q15MIN PRN PO LOW BLOOD SUGAR; Start at 17:15 Risperidone (RisperDAL) 1 mg HS PO Last administered on 05/08/18at 21:17; Start 05/06/18 at 21:00 Risperidone (RisperDAL) 0.5 mg DAILY PO Last administered on 05/09/18at 09:02; Start 05/07/18 at 09:00 Trazodone HCl (Desyrel) 25 mg QHS PO Last administered on 05/08/18at 21:18; Start 05/07/18 at 21:00 Metoprolol Tartrate (Lopressor) 25 mg BID PO Last administered on 05/09/18at 09 :03; Start 05/08/18 at 21:00 Fluvoxamine Maleate (Luvox) 25 mg QHS PO Last administered on 05/08/18at 21:24 ; Start 05/08/18 at 21:00; Stop 05/10/18 at 23:50 Fluvoxamine Maleate (Luvox) 50 mg QHS PO ; Start 05/11/18 at 21:00 Active Scripts Active Reported Pepcid (Famotidine) 20 Mg Tablet 20 Mg PO DAILY Zoloft (Sertraline Hcl) 100 Mg Tablet 100 Mg PO DAILY LAST DOSE GIVEN: DATE: TIME: NEXT DOSE DUE: DATE: TIME: Trazodone Hcl 50 Mg Tablet 12.5 Mg PO HS LAST DOSE GIVEN: DATE: TIME: NEXT DOSE DUE: DATE: TIME: Vitamin B-1 (Thiamine Hcl) 100 Mg Tablet 100 Mg PO DAILY LAST DOSE GIVEN: DATE: TIME: NEXT DOSE DUE: DATE: TIME: Pravastatin Sodium 80 Mg Tablet 80 Mg PO HS LAST DOSE GIVEN: DATE: TIME: NEXT DOSE DUE: DATE: TIME: Klor-Con M20 (Potassium Chloride) 20 Meq Tab.er.prt 20 Meq PO BID LAST DOSE GIVEN: DATE: TIME: NEXT DOSE DUE: DATE: TIME: Novolog Flexpen (Insulin Aspart) 100 Unit/1 Ml Insuln.pen 10 Unit SQ TIDWMEALS Metoprolol Tartrate 25 Mg Tablet 12.5 Mg PO BID LAST DOSE GIVEN: DATE: TIME: NEXT DOSE DUE: DATE: TIME: Metolazone 2.5 Mg Tablet 2.5 Mg PO 3X/WEEK LAST DOSE GIVEN: DATE: TIME: NEXT DOSE DUE: DATE: TIME: Lasix (Furosemide) 40 Mg Tablet 40 Mg PO BIDWMEALS LAST DOSE GIVEN: DATE: TIME: NEXT DOSE DUE: DATE: TIME: Lantus Solostar (Insulin Glargine,Hum.rec.anlog) 100 Unit/1 Ml Insuln.pen 5 Unit SQ QHS LAST DOSE GIVEN: DATE: TIME: NEXT DOSE DUE: DATE: TIME: Famotidine 40 Mg Tablet 20 Mg PO DAILY LAST DOSE GIVEN: DATE: TIME: NEXT DOSE DUE: DATE: TIME: Plavix (Clopidogrel Bisulfate) 75 Mg Tablet 75 Mg PO DAILY LAST DOSE GIVEN: DATE: TIME: NEXT DOSE DUE: DATE: TIME: Vitamin D3 (Cholecalciferol (Vitamin D3)) 1,000 Unit Tablet 1,000 Unit PO DAILY LAST DOSE GIVEN: DATE: TIME: NEXT DOSE DUE: DATE: TIME: Buspirone Hcl 5 Mg Tablet 5 Mg PO BID LAST DOSE GIVEN: DATE: TIME: NEXT DOSE DUE: DATE: TIME: Buspirone Hcl 10 Mg Tablet 10 Mg PO HS LAST DOSE GIVEN: DATE: TIME: NEXT DOSE DUE: DATE: TIME: Bisacodyl 10 Mg Supp.rect 10 Mg RC PRN DAILY PRN LAST DOSE GIVEN: DATE: TIME: NEXT DOSE DUE: DATE: TIME: Ascorbic Acid 500 Mg Tablet 500 Mg PO DAILY LAST DOSE GIVEN: DATE: TIME: NEXT DOSE DUE: DATE: TIME: Tylenol (Acetaminophen) 325 Mg Tablet 1-2 Tab PO PRN Q6HRS PRN LAST DOSE GIVEN: DATE: TIME: NEXT DOSE DUE: DATE: TIME: I have reviewed the current psychotropics carefully including drug interactions. Risk benefit ratio favors no change other than as noted in my dictated progress note. Diagnosis: Problems: (1) Anxiety disorder (2) Cognitive and behavioral changes (3) Schizoaffective disorder, bipolar type (4) Impulse control disorder (5) [id number] kidney injury BERT MEYER MD May 09, 2018 19:39
[2018-05-09] MEDS: risperiDONE 1 MG TABLET. PO SCH (20:30)
[2018-05-09] MEDS: PRAVASTATIN 20 MG TABLET. PO SCH (20:30)
[2018-05-09] MEDS: busPIRone 10 MG TABLET. PO SCH (20:30)
[2018-05-09] MEDS: traZODone 50 MG TABLET. PO SCH (20:30)
[2018-05-09] MEDS: INSULIN GLARGINE 300 UNITS/3 ML INSULN.PEN. SQ SCH (20:31)
--- NOTE | 2018-05-10 03:23 | PN ---
DATE: 05/08/2018 This late entry date of service 05/08/2018 covers elements not covered in my initial note. SUBJECTIVE: I met with the patient in the evening. The patient slept 7-1/2 hours previous night. She is slightly more compliant, less labile in her mood, but quite obsessive, anxious, repetitive, following me around the unit. She continues to be paranoid, very confused, resistive to medications. Slept 7-1/2 hours previous evening. REVIEW OF SYSTEMS: No CV, , pulmonary, eye, ENT system symptoms on review. Reliability poor. MENTAL STATUS EXAM: Oriented to herself. Insight, judgment, recent and remote memory, attention, concentration, fund of knowledge poor, consistent with her diagnosis. IMPRESSION: Major neurocognitive disorder, Alzheimer, vascular with delusion, depression, behavioral disturbance; anxiety disorder, unspecified; impulse control disorder, unspecified. LABORATORY DATA: UA, C and S is negative, 50,000-100,000 lactobacillus. PLAN: Change Zoloft 75 mg a day to Luvox 25 mg a day, increasing to 50 mg a day in 3 days for her obsessive thought processes. Maintain rest of the psychotropics unchanged including BuSpar, Risperdal, trazodone, and Zyprexa as p.r.n. BERT MEYER MD DR: LIZA/faiza JOB#: [id number] / [id number]
[2018-05-10 05:36] VITALS: BP 113/70
[2018-05-10] MEDS: CHOLECALCIFEROL (VITAMIN D3) 1,000 UNIT TABLET PO SCH (07:29)
[2018-05-10] MEDS: busPIRone 10 MG TABLET. PO SCH ×2 (07:29→20:24)
[2018-05-10] MEDS: CLOPIDOGREL BISULFATE 75 MG TABLET PO SCH (07:30)
[2018-05-10] MEDS: THIAMINE 100 MG TABLET. PO SCH (07:30)
[2018-05-10] MEDS: ASCORBIC ACID 500 MG TABLET PO SCH (07:30)
[2018-05-10] MEDS: risperiDONE 0.5 MG TABLET. PO SCH (07:30)
[2018-05-10] MEDS: CEFDINIR 300 MG CAPSULE PO SCH (07:30)
[2018-05-10] MEDS: POTASSIUM CHLORIDE 20 MEQ TABLET.ER. PO SCH ×2 (07:30→18:40)
[2018-05-10] MEDS: LACTOBACILLUS RHAMNOSUS GG 1 CAPSULE. PO SCH ×2 (07:30→20:24)
[2018-05-10] MEDS: METOPROLOL TART IMMED RELEASE 25 MG TABLET PO SCH ×2 (07:31→20:25)
[2018-05-10] MEDS: FAMOTIDINE 20 MG TABLET PO SCH (07:31)
[2018-05-10] MEDS: busPIRone 5 MG TABLET. PO SCH ×2 (07:35→15:30)
[2018-05-10] MEDS: INSULIN LISPRO 300 UNITS/3 ML INSULN.PEN. SQ SCH ×5 (08:00→20:48)
[2018-05-10 15:31] VITALS: BP 91/52
[2018-05-10] MEDS: traZODone 50 MG TABLET. PO SCH (20:24)
[2018-05-10] MEDS: risperiDONE 1 MG TABLET. PO SCH (20:25)
[2018-05-10] MEDS: PRAVASTATIN 20 MG TABLET. PO SCH (20:26)
[2018-05-10 20:35] VITALS: BP 121/71
[2018-05-10] MEDS: INSULIN GLARGINE 300 UNITS/3 ML INSULN.PEN. SQ SCH (21:00)
--- NOTE | 2018-05-10 22:52 | PDOC ---
Exam Note: Manfred Note: Please also refer to the separate dictated note~for this date of service dictated separately.~Patient seen individually. Discussed the patient with Nursing staff reviewed the chart.~Reviewed interim history and current functioning. Reviewed vital signs,~Labs/ Radiology~and current medications noted below. Continue current treatment with the changes noted in the dictated addendum note Assessment: Vital Signs: Vital Signs Date Time Temp Pulse Resp B/P (MAP) Pulse Ox O2 Delivery O2 Flow Rate FiO2 05/10/18 20:35 94 121/71 (88) 05/10/18 15:31 97.8 16 99 Room Air I&O Intake and Output 05/10/18 07:01 Intake Total 960 ml Balance 960 ml Intake Oral 960 ml # Voids 1 Labs: Laboratory Tests Test 05/10/18 07:15 05/10/18 11:27 05/10/18 16:47 05/10/18 19:20 Glucose (Fingerstick) 205 mg/dL (70-99) H 387 mg/dL (70-99) H 125 mg/dL (70-99) H 289 mg/dL (70-99) H Current Medications: Meds: Current Medications Acetaminophen (Tylenol) 650 mg PRN Q6HRS PRN PO PAIN / TEMP; Start 05/03/18 at 17:15 Ascorbic Acid (Vitamin C) 500 mg DAILY PO Last administered on 05/10/18at 07:30 ; Start 05/04/18 at 09:00 Vitamin D (Vitamin D3) 1,000 unit DAILY PO Last administered on 05/10/18at 07: 29; Start 05/04/18 at 09:00 Clopidogrel Bisulfate (Plavix) 75 mg DAILY PO Last administered on 05/10/18at 07:30; Start 05/04/18 at 09:00 Insulin Glargine (Lantus) 5 units QHS SQ Last administered on 05/10/18at 21:00 ; Start 05/03/18 at 21:00 Metoprolol Tartrate (Lopressor) 12.5 mg BID PO Last administered on 05/08/18at 08:06; Start 05/03/18 at 21:00; Stop 05/08/18 at 14:34; Status DC Potassium Chloride (Klor-Con) 20 meq BIDWMEALS PO Last administered on at 18:40; Start 05/03/18 at 18:00 Sertraline HCl (Zoloft) 100 mg DAILY PO Last administered on 05/04/18at 08:01; Start 05/04/18 at 09:00; Stop 05/04/18 at 16:56; Status DC Bisacodyl (Dulcolax Supp) 10 mg PRN DAILY PRN [place] CONSTIPATION; Start 05/03/18 at 17:45 Buspirone HCl (Buspar) 5 mg BID@0900,1500 PO Last administered on 05/10/18at 15 :30; Start 05/04/18 at 09:00 Buspirone HCl (Buspar) 10 mg QHS PO Last administered on 05/10/18at 20:24; Start 05/03/18 at 21:00 Furosemide (Lasix) 40 mg BID94 PO Last administered on 05/09/18at 09:02; Start 05/04/18 at 09:00; Stop 05/09/18 at 15:37; Status DC Metolazone (Zaroxolyn) 2.5 mg 3X/WEEK PO Last administered on 05/09/18at 09:03 ; Start 05/04/18 at 09:00; Stop 05/09/18 at 15:35; Status DC Pravastatin Sodium (Pravachol) 80 mg QHS PO Last administered on 05/10/18at 20: 26; Start 05/03/18 at 21:00 Thiamine HCl (Vitamin B-1) 100 mg DAILY PO Last administered on 05/10/18at 07: 30; Start 05/04/18 at 09:00 Trazodone HCl (Desyrel) 12.5 mg QHS PO Last administered on 05/06/18at 20:34; Start 05/03/18 at 21:00; Stop 05/07/18 at 18:23; Status DC Famotidine (Pepcid) 20 mg DAILY PO Last administered on 05/10/18at 07:31; Start 05/04/18 at 09:00 Non-Formulary Medication (Famotidine (Pepcid)) 20 mg DAILY PO ; Start 05/04/18 at 09:00; Status UNV Insulin Human Lispro (HumaLOG) 10 units TIDWMEALS SQ Last administered on 05/10at 20:48; Start 05/04/18 at 08:00 Cefdinir (Omnicef) 300 mg DAILY PO Last administered on 05/10/18at 07:30; Start 05/03/18 at 21:00 Nitroglycerin (Nitrostat) 0.4 mg PRN Q5MIN PRN SL CHEST PAIN; Start 05/03/18 at 18:15 Lactobacillus Rhamnosus (Culturelle) 1 cap BID PO Last administered on at 20:24; Start 05/04/18 at 21:00 Glucose (Insta-Glucose) 15 gm STK-MED ONCE .ROUTE Last administered on at 16:14; Start 05/04/18 at 16:14; Stop 05/04/18 at 16:15; Status DC Risperidone (RisperDAL) 1 mg DAILY PO Last administered on 05/06/18at 07:52; Start 05/05/18 at 09:00; Stop 05/06/18 at 11:31; Status DC Risperidone (RisperDAL) 1.5 mg HS PO Last administered on 05/05/18at 20:44; Start 05/04/18 at 21:00; Stop 05/06/18 at 11:31; Status DC Sertraline HCl (Zoloft) 75 mg DAILY PO Last administered on 05/08/18at 08:07; Start 05/05/18 at 09:00; Stop 05/08/18 at 16:36; Status DC Olanzapine (ZyPREXA ZYDIS) 2.5 mg PRN Q2HR PRN PO ANXIETY / AGITATION; Start 05/04/18 at 17:15 Glucose (Insta-Glucose) 15 gm PRN Q15MIN PRN PO LOW BLOOD SUGAR; Start at 17:15 Risperidone (RisperDAL) 1 mg HS PO Last administered on 05/10/18at 20:25; Start 05/06/18 at 21:00 Risperidone (RisperDAL) 0.5 mg DAILY PO Last administered on 05/10/18at 07:30; Start 05/07/18 at 09:00 Trazodone HCl (Desyrel) 25 mg QHS PO Last administered on 05/10/18at 20:24; Start 05/07/18 at 21:00 Metoprolol Tartrate (Lopressor) 25 mg BID PO Last administered on 05/10/18at 20 :25; Start 05/08/18 at 21:00 Fluvoxamine Maleate (Luvox) 25 mg QHS PO Last administered on 05/10/18at 20:24 ; Start 05/08/18 at 21:00; Stop 05/10/18 at 23:50 Fluvoxamine Maleate (Luvox) 50 mg QHS PO ; Start 05/11/18 at 21:00 Active Scripts Active Reported Pepcid (Famotidine) 20 Mg Tablet 20 Mg PO DAILY Zoloft (Sertraline Hcl) 100 Mg Tablet 100 Mg PO DAILY LAST DOSE GIVEN: DATE: TIME: NEXT DOSE DUE: DATE: TIME: Trazodone Hcl 50 Mg Tablet 12.5 Mg PO HS LAST DOSE GIVEN: DATE: TIME: NEXT DOSE DUE: DATE: TIME: Vitamin B-1 (Thiamine Hcl) 100 Mg Tablet 100 Mg PO DAILY LAST DOSE GIVEN: DATE: TIME: NEXT DOSE DUE: DATE: TIME: Pravastatin Sodium 80 Mg Tablet 80 Mg PO HS LAST DOSE GIVEN: DATE: TIME: NEXT DOSE DUE: DATE: TIME: Klor-Con M20 (Potassium Chloride) 20 Meq Tab.er.prt 20 Meq PO BID LAST DOSE GIVEN: DATE: TIME: NEXT DOSE DUE: DATE: TIME: Novolog Flexpen (Insulin Aspart) 100 Unit/1 Ml Insuln.pen 10 Unit SQ TIDWMEALS Metoprolol Tartrate 25 Mg Tablet 12.5 Mg PO BID LAST DOSE GIVEN: DATE: TIME: NEXT DOSE DUE: DATE: TIME: Metolazone 2.5 Mg Tablet 2.5 Mg PO 3X/WEEK LAST DOSE GIVEN: DATE: TIME: NEXT DOSE DUE: DATE: TIME: Lasix (Furosemide) 40 Mg Tablet 40 Mg PO BIDWMEALS LAST DOSE GIVEN: DATE: TIME: NEXT DOSE DUE: DATE: TIME: Lantus Solostar (Insulin Glargine,Hum.rec.anlog) 100 Unit/1 Ml Insuln.pen 5 Unit SQ QHS LAST DOSE GIVEN: DATE: TIME: NEXT DOSE DUE: DATE: TIME: Famotidine 40 Mg Tablet 20 Mg PO DAILY LAST DOSE GIVEN: DATE: TIME: NEXT DOSE DUE: DATE: TIME: Plavix (Clopidogrel Bisulfate) 75 Mg Tablet 75 Mg PO DAILY LAST DOSE GIVEN: DATE: TIME: NEXT DOSE DUE: DATE: TIME: Vitamin D3 (Cholecalciferol (Vitamin D3)) 1,000 Unit Tablet 1,000 Unit PO DAILY LAST DOSE GIVEN: DATE: TIME: NEXT DOSE DUE: DATE: TIME: Buspirone Hcl 5 Mg Tablet 5 Mg PO BID LAST DOSE GIVEN: DATE: TIME: NEXT DOSE DUE: DATE: TIME: Buspirone Hcl 10 Mg Tablet 10 Mg PO HS LAST DOSE GIVEN: DATE: TIME: NEXT DOSE DUE: DATE: TIME: Bisacodyl 10 Mg Supp.rect 10 Mg RC PRN DAILY PRN LAST DOSE GIVEN: DATE: TIME: NEXT DOSE DUE: DATE: TIME: Ascorbic Acid 500 Mg Tablet 500 Mg PO DAILY LAST DOSE GIVEN: DATE: TIME: NEXT DOSE DUE: DATE: TIME: Tylenol (Acetaminophen) 325 Mg Tablet 1-2 Tab PO PRN Q6HRS PRN LAST DOSE GIVEN: DATE: TIME: NEXT DOSE DUE: DATE: TIME: I have reviewed the current psychotropics carefully including drug interactions. Risk benefit ratio favors no change other than as noted in my dictated progress note. Diagnosis: Problems: (1) [id number] kidney injury (2) Schizoaffective disorder, bipolar type (3) Anxiety disorder (4) Impulse control disorder (5) Cognitive and behavioral changes BERT MEYER MD May 10, 2018 22:52
[2018-05-11 06:24] VITALS: BP 121/74
[2018-05-11] MEDS: POTASSIUM CHLORIDE 20 MEQ TABLET.ER. PO SCH ×2 (09:10→17:35)
[2018-05-11] MEDS: CEFDINIR 300 MG CAPSULE PO SCH (09:10)
[2018-05-11] MEDS: THIAMINE 100 MG TABLET. PO SCH (09:10)
[2018-05-11] MEDS: CHOLECALCIFEROL (VITAMIN D3) 1,000 UNIT TABLET PO SCH (09:10)
[2018-05-11] MEDS: FAMOTIDINE 20 MG TABLET PO SCH (09:10)
[2018-05-11] MEDS: CLOPIDOGREL BISULFATE 75 MG TABLET PO SCH (09:10)
[2018-05-11] MEDS: risperiDONE 0.5 MG TABLET. PO SCH (09:10)
[2018-05-11] MEDS: busPIRone 5 MG TABLET. PO SCH ×2 (09:10→15:33)
[2018-05-11] MEDS: ASCORBIC ACID 500 MG TABLET PO SCH (09:11)
[2018-05-11] MEDS: METOPROLOL TART IMMED RELEASE 25 MG TABLET PO SCH ×2 (09:11→19:53)
[2018-05-11] MEDS: LACTOBACILLUS RHAMNOSUS GG 1 CAPSULE. PO SCH ×2 (09:11→19:53)
[2018-05-11] MEDS: INSULIN LISPRO 300 UNITS/3 ML INSULN.PEN. SQ SCH ×2 (13:14→17:41)
--- NOTE | 2018-05-11 13:14 | PN ---
DATE: 05/10/2018 Psychiatric progress note This is a late entry 05/10/2018, covers elements not covered in my initial note. SUBJECTIVE: I met with the patient in the evening. The patient slept 6 hours previous night. She has been staffed at a treatment team meeting in the morning. She has been sarcastic, confused, resistive to medications, paranoid again that people are laughing at her, trying to pocket her medications. She has significant sundowning. She is here to follow directions in the morning, much worse in the evening. Daughter was not available for the treatment team meeting. REVIEW OF SYSTEMS: No CV, , eye, ENT or pulmonary system symptoms on review. Reliability poor. MENTAL STATUS EXAM: Oriented to herself. Insight, judgment, recent and remote memory, attention, concentration, fund of knowledge poor, consistent with her diagnoses. IMPRESSION: Major neurocognitive disorder, Alzheimer, vascular with delusion, depression, behavioral disturbance. Rest unchanged. PLAN: No change from initial note for now. BERT MEYER MD DR: LIZA/faiza JOB#: [id number] / [id number]
[2018-05-11 15:21] VITALS: BP 91/52
[2018-05-11] MEDS: busPIRone 10 MG TABLET. PO SCH (19:49)
[2018-05-11] MEDS: traZODone 50 MG TABLET. PO SCH (19:50)
[2018-05-11] MEDS: risperiDONE 1 MG TABLET. PO SCH (19:50)
[2018-05-11] MEDS: PRAVASTATIN 20 MG TABLET. PO SCH (19:51)
[2018-05-11] MEDS: INSULIN GLARGINE 300 UNITS/3 ML INSULN.PEN. SQ SCH (19:59)
--- NOTE | 2018-05-11 20:09 | PN ---
DATE: 05/09/2018 PSYCHIATRIC PROGRESS NOTE This late entry 05/09/2018 covers elements not covered in my initial note. SUBJECTIVE: I met with the patient in the evening. The patient slept 6 hours previous night. She remains confused, gets quite paranoid, believes people are laughing at her. She has to be encouraged to take her medications. Her renal parameters are somewhat abnormal, we will defer to Dr. Orourke and Lasix has been held. REVIEW OF SYSTEMS: No CV, , pulmonary, eye, ENT system symptoms on review. Reliability poor. MENTAL STATUS EXAM: Oriented to herself. Insight, judgment, recent and remote memory, attention, concentration, fund of knowledge poor, consistent with her diagnosis. She is quite obsessive, repetitive. LABORATORY DATA: Reviewed. IMPRESSION: Major neurocognitive disorder, Alzheimer, vascular with delusion, depression, behavioral disturbance. Rest unchanged. PLAN: No change from initial note. We are gradually increasing the Luvox, rest unchanged. MAN Carmen MEYER MD DR: LIZA/faiza JOB#: [id number] / [id number]
[2018-05-11 20:30] VITALS: BP 101/69
--- NOTE | 2018-05-11 22:35 | RAD ---
Examination: CT HEAD WO CONTRAST History: Mental status change Comparison/Correlation: 05/04/2018 CT head without contrast Findings: Axial images of the head were obtained without contrast. Atrophy and chronic ischemic changes white matter are present. Volume loss cardiomegaly is evident. 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 No significant change. Globes and optic nerves are unremarkable. Bony structures are unremarkable. Impression: No intracranial hemorrhage. 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 Electronically signed by: Chauncey Diaz MD (05/11/2018 10:31 PM) [facility]
--- NOTE | 2018-05-11 22:41 | PDOC ---
Exam Note: Manfred Note: Please also refer to the separate dictated note~for this date of service dictated separately.~Patient seen individually. Discussed the patient with Nursing staff reviewed the chart.~Reviewed interim history and current functioning. Reviewed vital signs,~Labs/ Radiology~and current medications noted below. Continue current treatment with the changes noted in the dictated addendum note Assessment: Vital Signs: Vital Signs Date Time Temp Pulse Resp B/P (MAP) Pulse Ox O2 Delivery O2 Flow Rate FiO2 05/11/18 19:53 88 91/52 05/11/18 15:21 99.1 18 97 05/11/18 06:24 Room Air I&O Intake and Output 05/11/18 07:01 Intake Total 840 ml Balance 840 ml Intake Oral 840 ml Labs: Laboratory Tests Test 05/11/18 07:31 05/11/18 11:26 05/11/18 16:33 05/11/18 19:49 Glucose (Fingerstick) 163 mg/dL (70-99) H 291 mg/dL (70-99) H 197 mg/dL (70-99) H 167 mg/dL (70-99) H Current Medications: Meds: Current Medications Acetaminophen (Tylenol) 650 mg PRN Q6HRS PRN PO PAIN / TEMP; Start 05/03/18 at 17:15 Ascorbic Acid (Vitamin C) 500 mg DAILY PO Last administered on 05/11/18at 09:11 ; Start 05/04/18 at 09:00 Vitamin D (Vitamin D3) 1,000 unit DAILY PO Last administered on 05/11/18at 09: 10; Start 05/04/18 at 09:00 Clopidogrel Bisulfate (Plavix) 75 mg DAILY PO Last administered on 05/11/18at 09:10; Start 05/04/18 at 09:00 Insulin Glargine (Lantus) 5 units QHS SQ Last administered on 05/11/18at 19:59 ; Start 05/03/18 at 21:00 Metoprolol Tartrate (Lopressor) 12.5 mg BID PO Last administered on 05/08/18at 08:06; Start 05/03/18 at 21:00; Stop 05/08/18 at 14:34; Status DC Potassium Chloride (Klor-Con) 20 meq BIDWMEALS PO Last administered on at 17:35; Start 05/03/18 at 18:00 Sertraline HCl (Zoloft) 100 mg DAILY PO Last administered on 05/04/18at 08:01; Start 05/04/18 at 09:00; Stop 05/04/18 at 16:56; Status DC Bisacodyl (Dulcolax Supp) 10 mg PRN DAILY PRN [place] CONSTIPATION; Start 05/03/18 at 17:45 Buspirone HCl (Buspar) 5 mg BID@0900,1500 PO Last administered on 05/11/18at 15 :33; Start 05/04/18 at 09:00 Buspirone HCl (Buspar) 10 mg QHS PO Last administered on 05/11/18at 19:49; Start 05/03/18 at 21:00 Furosemide (Lasix) 40 mg BID94 PO Last administered on 05/09/18at 09:02; Start 05/04/18 at 09:00; Stop 05/09/18 at 15:37; Status DC Metolazone (Zaroxolyn) 2.5 mg 3X/WEEK PO Last administered on 05/09/18at 09:03 ; Start 05/04/18 at 09:00; Stop 05/09/18 at 15:35; Status DC Pravastatin Sodium (Pravachol) 80 mg QHS PO Last administered on 05/11/18at 19: 51; Start 05/03/18 at 21:00 Thiamine HCl (Vitamin B-1) 100 mg DAILY PO Last administered on 05/11/18at 09: 10; Start 05/04/18 at 09:00 Trazodone HCl (Desyrel) 12.5 mg QHS PO Last administered on 05/06/18at 20:34; Start 05/03/18 at 21:00; Stop 05/07/18 at 18:23; Status DC Famotidine (Pepcid) 20 mg DAILY PO Last administered on 05/11/18at 09:10; Start 05/04/18 at 09:00 Non-Formulary Medication (Famotidine (Pepcid)) 20 mg DAILY PO ; Start 05/04/18 at 09:00; Status UNV Insulin Human Lispro (HumaLOG) 10 units TIDWMEALS SQ Last administered on 05/11at 17:41; Start 05/04/18 at 08:00 Cefdinir (Omnicef) 300 mg DAILY PO Last administered on 05/11/18at 09:10; Start 05/03/18 at 21:00 Nitroglycerin (Nitrostat) 0.4 mg PRN Q5MIN PRN SL CHEST PAIN; Start 05/03/18 at 18:15 Lactobacillus Rhamnosus (Culturelle) 1 cap BID PO Last administered on at 19:53; Start 05/04/18 at 21:00 Glucose (Insta-Glucose) 15 gm STK-MED ONCE .ROUTE Last administered on at 16:14; Start 05/04/18 at 16:14; Stop 05/04/18 at 16:15; Status DC Risperidone (RisperDAL) 1 mg DAILY PO Last administered on 05/06/18at 07:52; Start 05/05/18 at 09:00; Stop 05/06/18 at 11:31; Status DC Risperidone (RisperDAL) 1.5 mg HS PO Last administered on 05/05/18at 20:44; Start 05/04/18 at 21:00; Stop 05/06/18 at 11:31; Status DC Sertraline HCl (Zoloft) 75 mg DAILY PO Last administered on 05/08/18at 08:07; Start 05/05/18 at 09:00; Stop 05/08/18 at 16:36; Status DC Olanzapine (ZyPREXA ZYDIS) 2.5 mg PRN Q2HR PRN PO ANXIETY / AGITATION; Start 05/04/18 at 17:15 Glucose (Insta-Glucose) 15 gm PRN Q15MIN PRN PO LOW BLOOD SUGAR; Start at 17:15 Risperidone (RisperDAL) 1 mg HS PO Last administered on 05/11/18at 19:50; Start 05/06/18 at 21:00 Risperidone (RisperDAL) 0.5 mg DAILY PO Last administered on 05/11/18at 09:10; Start 05/07/18 at 09:00 Trazodone HCl (Desyrel) 25 mg QHS PO Last administered on 05/11/18at 19:50; Start 05/07/18 at 21:00 Metoprolol Tartrate (Lopressor) 25 mg BID PO Last administered on 05/11/18at 09 :11; Start 05/08/18 at 21:00 Fluvoxamine Maleate (Luvox) 25 mg QHS PO Last administered on 05/10/18at 20:24 ; Start 05/08/18 at 21:00; Stop 05/10/18 at 23:50; Status DC Fluvoxamine Maleate (Luvox) 50 mg QHS PO Last administered on 05/11/18at 19:52 ; Start 05/11/18 at 21:00 Active Scripts Active Reported Pepcid (Famotidine) 20 Mg Tablet 20 Mg PO DAILY Zoloft (Sertraline Hcl) 100 Mg Tablet 100 Mg PO DAILY LAST DOSE GIVEN: DATE: TIME: NEXT DOSE DUE: DATE: TIME: Trazodone Hcl 50 Mg Tablet 12.5 Mg PO HS LAST DOSE GIVEN: DATE: TIME: NEXT DOSE DUE: DATE: TIME: Vitamin B-1 (Thiamine Hcl) 100 Mg Tablet 100 Mg PO DAILY LAST DOSE GIVEN: DATE: TIME: NEXT DOSE DUE: DATE: TIME: Pravastatin Sodium 80 Mg Tablet 80 Mg PO HS LAST DOSE GIVEN: DATE: TIME: NEXT DOSE DUE: DATE: TIME: Klor-Con M20 (Potassium Chloride) 20 Meq Tab.er.prt 20 Meq PO BID LAST DOSE GIVEN: DATE: TIME: NEXT DOSE DUE: DATE: TIME: Novolog Flexpen (Insulin Aspart) 100 Unit/1 Ml Insuln.pen 10 Unit SQ TIDWMEALS Metoprolol Tartrate 25 Mg Tablet 12.5 Mg PO BID LAST DOSE GIVEN: DATE: TIME: NEXT DOSE DUE: DATE: TIME: Metolazone 2.5 Mg Tablet 2.5 Mg PO 3X/WEEK LAST DOSE GIVEN: DATE: TIME: NEXT DOSE DUE: DATE: TIME: Lasix (Furosemide) 40 Mg Tablet 40 Mg PO BIDWMEALS LAST DOSE GIVEN: DATE: TIME: NEXT DOSE DUE: DATE: TIME: Lantus Solostar (Insulin Glargine,Hum.rec.anlog) 100 Unit/1 Ml Insuln.pen 5 Unit SQ QHS LAST DOSE GIVEN: DATE: TIME: NEXT DOSE DUE: DATE: TIME: Famotidine 40 Mg Tablet 20 Mg PO DAILY LAST DOSE GIVEN: DATE: TIME: NEXT DOSE DUE: DATE: TIME: Plavix (Clopidogrel Bisulfate) 75 Mg Tablet 75 Mg PO DAILY LAST DOSE GIVEN: DATE: TIME: NEXT DOSE DUE: DATE: TIME: Vitamin D3 (Cholecalciferol (Vitamin D3)) 1,000 Unit Tablet 1,000 Unit PO DAILY LAST DOSE GIVEN: DATE: TIME: NEXT DOSE DUE: DATE: TIME: Buspirone Hcl 5 Mg Tablet 5 Mg PO BID LAST DOSE GIVEN: DATE: TIME: NEXT DOSE DUE: DATE: TIME: Buspirone Hcl 10 Mg Tablet 10 Mg PO HS LAST DOSE GIVEN: DATE: TIME: NEXT DOSE DUE: DATE: TIME: Bisacodyl 10 Mg Supp.rect 10 Mg RC PRN DAILY PRN LAST DOSE GIVEN: DATE: TIME: NEXT DOSE DUE: DATE: TIME: Ascorbic Acid 500 Mg Tablet 500 Mg PO DAILY LAST DOSE GIVEN: DATE: TIME: NEXT DOSE DUE: DATE: TIME: Tylenol (Acetaminophen) 325 Mg Tablet 1-2 Tab PO PRN Q6HRS PRN LAST DOSE GIVEN: DATE: TIME: NEXT DOSE DUE: DATE: TIME: I have reviewed the current psychotropics carefully including drug interactions. Risk benefit ratio favors no change other than as noted in my dictated progress note. Diagnosis: Problems: (1) [id number] kidney injury (2) Schizoaffective disorder, bipolar type (3) Anxiety disorder (4) Impulse control disorder (5) Cognitive and behavioral changes BERT MEYER MD May 11, 2018 22:41
[2018-05-12 06:34] VITALS: BP 135/83
[2018-05-12] MEDS: POTASSIUM CHLORIDE 20 MEQ TABLET.ER. PO SCH ×2 (08:10→15:43)
[2018-05-12] MEDS: busPIRone 5 MG TABLET. PO SCH ×2 (08:11→15:43)
[2018-05-12] MEDS: INSULIN LISPRO 300 UNITS/3 ML INSULN.PEN. SQ SCH ×3 (08:11→17:43)
[2018-05-12] MEDS: LACTOBACILLUS RHAMNOSUS GG 1 CAPSULE. PO SCH ×2 (08:11→19:31)
[2018-05-12] MEDS: CEFDINIR 300 MG CAPSULE PO SCH (08:12)
[2018-05-12] MEDS: FAMOTIDINE 20 MG TABLET PO SCH (08:12)
[2018-05-12] MEDS: METOPROLOL TART IMMED RELEASE 25 MG TABLET PO SCH ×2 (08:12→19:34)
[2018-05-12] MEDS: CLOPIDOGREL BISULFATE 75 MG TABLET PO SCH (08:12)
[2018-05-12] MEDS: ASCORBIC ACID 500 MG TABLET PO SCH (08:13)
[2018-05-12] MEDS: THIAMINE 100 MG TABLET. PO SCH (08:13)
[2018-05-12] MEDS: CHOLECALCIFEROL (VITAMIN D3) 1,000 UNIT TABLET PO SCH (08:13)
[2018-05-12] MEDS: risperiDONE 0.5 MG TABLET. PO SCH (08:13)
[2018-05-12 11:49] LABS: ALBUMIN 3.2 g/dL (3.4-5.0); ALBUMIN/GLOBULIN RATIO 0.9 (1.0-1.7); CALCIUM 9.5 mg/dL (8.5-10.1); CREATININE 2.8 mg/dL (0.6-1.0); GFR 16.8; POTASSIUM 3.8 mmol/L (3.5-5.1); TOTAL BILIRUBIN 0.5 mg/dL (0.2-1.0); TOTAL PROTEIN 6.9 g/dL (6.4-8.2)
[2018-05-12 11:55] LABS: BASO % 1 % (0-3); EOS # 0.1 x10^3/uL (0.0-0.7); EOS % 2 % (0-3); HEMATOCRIT 39.8 % (36.0-47.0); HEMOGLOBIN 13.3 g/dL (12.0-15.5); LYMPH % 22 % (24-48); MEAN CORPUSCULAR HEMOGLOBIN 32 pg (25-35); MEAN CORPUSCULAR HGB CONC 33 g/dL (31-37); MEAN CORPUSCULAR VOLUME 95 fL (79-100); MONO # 0.7 x10^3/uL (0.0-1.1); MONO % 15 % (0-9); NEUT # 2.9 x10^3uL (1.8-7.7); NEUT % 61 % (31-73); PLATELET COUNT 118 x10^3/uL (140-400); RED BLOOD COUNT 4.21 x10^6/uL (3.50-5.40); RED CELL DISTRIBUTION WIDTH 13.7 % (11.5-14.5); WHITE BLOOD COUNT 4.8 x10^3/uL (4.0-11.0)
[2018-05-12 15:58] VITALS: BP 100/73
[2018-05-12] MEDS: risperiDONE 1 MG TABLET. PO SCH (19:31)
[2018-05-12] MEDS: busPIRone 10 MG TABLET. PO SCH (19:32)
[2018-05-12] MEDS: traZODone 50 MG TABLET. PO SCH (19:32)
[2018-05-12] MEDS: PRAVASTATIN 20 MG TABLET. PO SCH (19:32)
[2018-05-12] MEDS: INSULIN GLARGINE 300 UNITS/3 ML INSULN.PEN. SQ SCH (19:42)
--- NOTE | 2018-05-12 21:59 | PDOC ---
Exam Note: Manfred Note: Please also refer to the separate dictated note~for this date of service dictated separately.~Patient seen individually. Discussed the patient with Nursing staff reviewed the chart.~Reviewed interim history and current functioning. Reviewed vital signs,~Labs/ Radiology~and current medications noted below. Continue current treatment with the changes noted in the dictated addendum note Assessment: Vital Signs: Vital Signs Date Time Temp Pulse Resp B/P (MAP) Pulse Ox O2 Delivery O2 Flow Rate FiO2 05/12/18 19:34 94 100/73 05/12/18 15:58 97.8 18 97 Room Air I&O Intake and Output 05/12/18 07:01 Intake Total 1320 ml Balance 1320 ml Intake Oral 1320 ml Labs: Laboratory Tests Test 05/12/18 07:27 05/12/18 10:42 05/12/18 11:41 05/12/18 17:00 Glucose (Fingerstick) 133 mg/dL (70-99) H 96 mg/dL (70-99) 94 mg/dL (70-99) White Blood Count 4.8 x10^3/uL (4.0-11.0) Red Blood Count 4.21 x10^6/uL (3.50-5.40) Hemoglobin 13.3 g/dL (12.0-15.5) Hematocrit 39.8 % (36.0-47.0) Mean Corpuscular Volume 95 fL (79-100) Mean Corpuscular Hemoglobin 32 pg (25-35) Mean Corpuscular Hemoglobin Concent 33 g/dL (31-37) Red Cell Distribution Width 13.7 % (11.5-14.5) Platelet Count 118 x10^3/uL (140-400) L Neutrophils (%) (Auto) 61 % (31-73) Lymphocytes (%) (Auto) 22 % (24-48) L Monocytes (%) (Auto) 15 % (0-9) H Eosinophils (%) (Auto) 2 % (0-3) Basophils (%) (Auto) 1 % (0-3) Neutrophils # (Auto) 2.9 x10^3uL (1.8-7.7) Lymphocytes # (Auto) 1.0 x10^3/uL (1.0-4.8) Monocytes # (Auto) 0.7 x10^3/uL (0.0-1.1) Eosinophils # (Auto) 0.1 x10^3/uL (0.0-0.7) Basophils # (Auto) 0.0 x10^3/uL (0.0-0.2) Sodium Level 139 mmol/L (136-145) Potassium Level 3.8 mmol/L (3.5-5.1) Chloride Level 101 mmol/L (98-107) Carbon Dioxide Level 28 mmol/L (21-32) Anion Gap 10 (6-14) Blood Urea Nitrogen 78 mg/dL (7-20) H Creatinine 2.8 mg/dL (0.6-1.0) H Estimated GFR (Cockcroft-Gault) 16.8 BUN/Creatinine Ratio 28 (6-20) H Glucose Level 100 mg/dL (70-99) H Calcium Level 9.5 mg/dL (8.5-10.1) Total Bilirubin 0.5 mg/dL (0.2-1.0) Aspartate Amino Transferase (AST) 24 U/L (15-37) Alanine Aminotransferase (ALT) 24 U/L (14-59) Alkaline Phosphatase 81 U/L (46-116) Total Protein 6.9 g/dL (6.4-8.2) Albumin 3.2 g/dL (3.4-5.0) L Albumin/Globulin Ratio 0.9 (1.0-1.7) L Test 05/12/18 19:25 Glucose (Fingerstick) 101 mg/dL (70-99) H Current Medications: Meds: Current Medications Acetaminophen (Tylenol) 650 mg PRN Q6HRS PRN PO PAIN / TEMP; Start 05/03/18 at 17:15 Ascorbic Acid (Vitamin C) 500 mg DAILY PO Last administered on 05/12/18at 08:13 ; Start 05/04/18 at 09:00 Vitamin D (Vitamin D3) 1,000 unit DAILY PO Last administered on 05/12/18at 08: 13; Start 05/04/18 at 09:00 Clopidogrel Bisulfate (Plavix) 75 mg DAILY PO Last administered on 05/12/18at 08:12; Start 05/04/18 at 09:00 Insulin Glargine (Lantus) 5 units QHS SQ Last administered on 05/12/18at 19:42 ; Start 05/03/18 at 21:00 Metoprolol Tartrate (Lopressor) 12.5 mg BID PO Last administered on 05/08/18at 08:06; Start 05/03/18 at 21:00; Stop 05/08/18 at 14:34; Status DC Potassium Chloride (Klor-Con) 20 meq BIDWMEALS PO Last administered on at 15:43; Start 05/03/18 at 18:00 Sertraline HCl (Zoloft) 100 mg DAILY PO Last administered on 05/04/18at 08:01; Start 05/04/18 at 09:00; Stop 05/04/18 at 16:56; Status DC Bisacodyl (Dulcolax Supp) 10 mg PRN DAILY PRN [place] CONSTIPATION; Start 05/03/18 at 17:45 Buspirone HCl (Buspar) 5 mg BID@0900,1500 PO Last administered on 05/12/18at 15 :43; Start 05/04/18 at 09:00 Buspirone HCl (Buspar) 10 mg QHS PO Last administered on 05/12/18at 19:32; Start 05/03/18 at 21:00 Furosemide (Lasix) 40 mg BID94 PO Last administered on 05/09/18at 09:02; Start 05/04/18 at 09:00; Stop 05/09/18 at 15:37; Status DC Metolazone (Zaroxolyn) 2.5 mg 3X/WEEK PO Last administered on 05/09/18at 09:03 ; Start 05/04/18 at 09:00; Stop 05/09/18 at 15:35; Status DC Pravastatin Sodium (Pravachol) 80 mg QHS PO Last administered on 05/12/18at 19: 32; Start 05/03/18 at 21:00 Thiamine HCl (Vitamin B-1) 100 mg DAILY PO Last administered on 05/12/18at 08: 13; Start 05/04/18 at 09:00 Trazodone HCl (Desyrel) 12.5 mg QHS PO Last administered on 05/06/18at 20:34; Start 05/03/18 at 21:00; Stop 05/07/18 at 18:23; Status DC Famotidine (Pepcid) 20 mg DAILY PO Last administered on 05/12/18at 08:12; Start 05/04/18 at 09:00 Non-Formulary Medication (Famotidine (Pepcid)) 20 mg DAILY PO ; Start 05/04/18 at 09:00; Status UNV Insulin Human Lispro (HumaLOG) 10 units TIDWMEALS SQ Last administered on 05/12at 17:43; Start 05/04/18 at 08:00 Cefdinir (Omnicef) 300 mg DAILY PO Last administered on 05/12/18at 08:12; Start 05/03/18 at 21:00 Nitroglycerin (Nitrostat) 0.4 mg PRN Q5MIN PRN SL CHEST PAIN; Start 05/03/18 at 18:15 Lactobacillus Rhamnosus (Culturelle) 1 cap BID PO Last administered on at 19:31; Start 05/04/18 at 21:00 Glucose (Insta-Glucose) 15 gm STK-MED ONCE .ROUTE Last administered on at 16:14; Start 05/04/18 at 16:14; Stop 05/04/18 at 16:15; Status DC Risperidone (RisperDAL) 1 mg DAILY PO Last administered on 05/06/18at 07:52; Start 05/05/18 at 09:00; Stop 05/06/18 at 11:31; Status DC Risperidone (RisperDAL) 1.5 mg HS PO Last administered on 05/05/18at 20:44; Start 05/04/18 at 21:00; Stop 05/06/18 at 11:31; Status DC Sertraline HCl (Zoloft) 75 mg DAILY PO Last administered on 05/08/18at 08:07; Start 05/05/18 at 09:00; Stop 05/08/18 at 16:36; Status DC Olanzapine (ZyPREXA ZYDIS) 2.5 mg PRN Q2HR PRN PO ANXIETY / AGITATION; Start 05/04/18 at 17:15 Glucose (Insta-Glucose) 15 gm PRN Q15MIN PRN PO LOW BLOOD SUGAR; Start at 17:15 Risperidone (RisperDAL) 1 mg HS PO Last administered on 05/12/18at 19:31; Start 12/16/18 at 21:00 Risperidone (RisperDAL) 0.5 mg DAILY PO Last administered on 05/12/18at 08:13; Start 05/07/18 at 09:00 Trazodone HCl (Desyrel) 25 mg QHS PO Last administered on 05/12/18at 19:32; Start 05/07/18 at 21:00 Metoprolol Tartrate (Lopressor) 25 mg BID PO Last administered on 05/12/18at 08 :12; Start 05/08/18 at 21:00 Fluvoxamine Maleate (Luvox) 25 mg QHS PO Last administered on 05/10/18at 20:24 ; Start 05/08/18 at 21:00; Stop 05/10/18 at 23:50; Status DC Fluvoxamine Maleate (Luvox) 50 mg QHS PO Last administered on 05/12/18at 19:31 ; Start 05/11/18 at 21:00 Active Scripts Active Reported Pepcid (Famotidine) 20 Mg Tablet 20 Mg PO DAILY Zoloft (Sertraline Hcl) 100 Mg Tablet 100 Mg PO DAILY LAST DOSE GIVEN: DATE: TIME: NEXT DOSE DUE: DATE: TIME: Trazodone Hcl 50 Mg Tablet 12.5 Mg PO HS LAST DOSE GIVEN: DATE: TIME: NEXT DOSE DUE: DATE: TIME: Vitamin B-1 (Thiamine Hcl) 100 Mg Tablet 100 Mg PO DAILY LAST DOSE GIVEN: DATE: TIME: NEXT DOSE DUE: DATE: TIME: Pravastatin Sodium 80 Mg Tablet 80 Mg PO HS LAST DOSE GIVEN: DATE: TIME: NEXT DOSE DUE: DATE: TIME: Klor-Con M20 (Potassium Chloride) 20 Meq Tab.er.prt 20 Meq PO BID LAST DOSE GIVEN: DATE: TIME: NEXT DOSE DUE: DATE: TIME: Novolog Flexpen (Insulin Aspart) 100 Unit/1 Ml Insuln.pen 10 Unit SQ TIDWMEALS Metoprolol Tartrate 25 Mg Tablet 12.5 Mg PO BID LAST DOSE GIVEN: DATE: TIME: NEXT DOSE DUE: DATE: TIME: Metolazone 2.5 Mg Tablet 2.5 Mg PO 3X/WEEK LAST DOSE GIVEN: DATE: TIME: NEXT DOSE DUE: DATE: TIME: Lasix (Furosemide) 40 Mg Tablet 40 Mg PO BIDWMEALS LAST DOSE GIVEN: DATE: TIME: NEXT DOSE DUE: DATE: TIME: Lantus Solostar (Insulin Glargine,Hum.rec.anlog) 100 Unit/1 Ml Insuln.pen 5 Unit SQ QHS LAST DOSE GIVEN: DATE: TIME: NEXT DOSE DUE: DATE: TIME: Famotidine 40 Mg Tablet 20 Mg PO DAILY LAST DOSE GIVEN: DATE: TIME: NEXT DOSE DUE: DATE: TIME: Plavix (Clopidogrel Bisulfate) 75 Mg Tablet 75 Mg PO DAILY LAST DOSE GIVEN: DATE: TIME: NEXT DOSE DUE: DATE: TIME: Vitamin D3 (Cholecalciferol (Vitamin D3)) 1,000 Unit Tablet 1,000 Unit PO DAILY LAST DOSE GIVEN: DATE: TIME: NEXT DOSE DUE: DATE: TIME: Buspirone Hcl 5 Mg Tablet 5 Mg PO BID LAST DOSE GIVEN: DATE: TIME: NEXT DOSE DUE: DATE: TIME: Buspirone Hcl 10 Mg Tablet 10 Mg PO HS LAST DOSE GIVEN: DATE: TIME: NEXT DOSE DUE: DATE: TIME: Bisacodyl 10 Mg Supp.rect 10 Mg RC PRN DAILY PRN LAST DOSE GIVEN: DATE: TIME: NEXT DOSE DUE: DATE: TIME: Ascorbic Acid 500 Mg Tablet 500 Mg PO DAILY LAST DOSE GIVEN: DATE: TIME: NEXT DOSE DUE: DATE: TIME: Tylenol (Acetaminophen) 325 Mg Tablet 1-2 Tab PO PRN Q6HRS PRN LAST DOSE GIVEN: DATE: TIME: NEXT DOSE DUE: DATE: TIME: I have reviewed the current psychotropics carefully including drug interactions. Risk benefit ratio favors no change other than as noted in my dictated progress note. Diagnosis: Problems: (1) [id number] kidney injury (2) Schizoaffective disorder, bipolar type (3) Anxiety disorder (4) Impulse control disorder (5) Cognitive and behavioral changes BERT MEYER MD May 12, 2018 21:59
[2018-05-13 06:05] VITALS: BP 127/84
[2018-05-13] MEDS: INSULIN LISPRO 300 UNITS/3 ML INSULN.PEN. SQ SCH ×3 (07:53→17:14)
[2018-05-13] MEDS: busPIRone 5 MG TABLET. PO SCH ×2 (07:55→16:05)
[2018-05-13] MEDS: POTASSIUM CHLORIDE 20 MEQ TABLET.ER. PO SCH ×2 (07:55→16:06)
[2018-05-13] MEDS: LACTOBACILLUS RHAMNOSUS GG 1 CAPSULE. PO SCH ×2 (07:56→20:28)
[2018-05-13] MEDS: CHOLECALCIFEROL (VITAMIN D3) 1,000 UNIT TABLET PO SCH (07:57)
[2018-05-13] MEDS: ASCORBIC ACID 500 MG TABLET PO SCH (07:57)
[2018-05-13] MEDS: THIAMINE 100 MG TABLET. PO SCH (07:57)
[2018-05-13] MEDS: METOPROLOL TART IMMED RELEASE 25 MG TABLET PO SCH ×2 (07:57→20:28)
[2018-05-13] MEDS: CLOPIDOGREL BISULFATE 75 MG TABLET PO SCH (07:57)
[2018-05-13] MEDS: risperiDONE 0.5 MG TABLET. PO SCH ×2 (07:57→20:32)
[2018-05-13] MEDS: CEFDINIR 300 MG CAPSULE PO SCH (07:57)
[2018-05-13] MEDS: FAMOTIDINE 20 MG TABLET PO SCH (07:57)
--- NOTE | 2018-05-13 12:08 | PN ---
DATE: 05/11/2018 PSYCHIATRIC PROGRESS NOTE This is a late entry, date of service 05/11/2018, covers elements not covered in my initial note. SUBJECTIVE: I met with the patient in the evening. Overall, the patient has done little better, less agitated, certainly very confused, but more interactive, compliant with her medications, attending the [facility] group per nursing report. She slept 6-1/2 hours previous night. REVIEW OF SYSTEMS: No CV, , eye, ENT or pulmonary system symptoms on review. Reliability poor. MENTAL STATUS EXAM: Oriented to herself. Insight, judgment, recent and remote memory, attention, concentration, fund of knowledge poor, consistent with her diagnoses mentioned in my initial note. PLAN: No change from initial note. MAN Carmen MEYER MD DR: LIZA/faiza JOB#: [id number] / [id number]
--- NOTE | 2018-05-13 12:11 | PN ---
DATE: 05/12/2018 PSYCHIATRIC PROGRESS NOTE This is a late entry 05/12/2018 covers elements not covered in my initial note. SUBJECTIVE: I met with the patient in the evening. Overall, the patient has been doing a little better. Previous night, she was having some drooling and we will monitor for this. We will also check a CT head to make sure she does not have any incipient CVA symptoms presentation. REVIEW OF SYSTEMS: No CV, , pulmonary, eye, ENT system symptoms on review. Reliability poor. MENTAL STATUS EXAM: Oriented to herself. Insight, judgment, recent and remote memory, attention, concentration, fund of knowledge poor, consistent with her diagnosis mentioned in my initial note. PLAN: Reduce the bedtime Klonopin from 1 mg down to 0.5 mg. Rest unchanged from initial note. Luvox has been increased gradually. MAN Carmen MEYER MD DR: LIZA/faiza JOB#: [id number] / [id number]
[2018-05-13 16:09] VITALS: BP 114/73
[2018-05-13] MEDS: traZODone 50 MG TABLET. PO SCH (20:28)
[2018-05-13] MEDS: busPIRone 10 MG TABLET. PO SCH (20:29)
[2018-05-13] MEDS: PRAVASTATIN 20 MG TABLET. PO SCH (20:29)
[2018-05-13] MEDS: INSULIN GLARGINE 300 UNITS/3 ML INSULN.PEN. SQ SCH (21:16)
--- NOTE | 2018-05-13 22:47 | PDOC ---
Exam Note: Manfred Note: Please also refer to the separate dictated note~for this date of service dictated separately.~Patient seen individually. Discussed the patient with Nursing staff reviewed the chart.~Reviewed interim history and current functioning. Reviewed vital signs,~Labs/ Radiology~and current medications noted below. Continue current treatment with the changes noted in the dictated addendum note Assessment: Vital Signs: Vital Signs Date Time Temp Pulse Resp B/P (MAP) Pulse Ox O2 Delivery O2 Flow Rate FiO2 05/13/18 20:28 83 114/73 05/13/18 16:09 98.4 22 92 05/13/18 06:05 Room Air I&O Intake and Output 05/13/18 07:01 Intake Total 600 ml Balance 600 ml Intake Oral 600 ml Labs: Laboratory Tests Test 05/13/18 07:26 05/13/18 11:29 05/13/18 16:21 05/13/18 19:12 Glucose (Fingerstick) 141 mg/dL (70-99) H 148 mg/dL (70-99) H 102 mg/dL (70-99) H 45 mg/dL (70-99) L Test 05/13/18 19:27 05/13/18 19:57 Glucose (Fingerstick) 53 mg/dL (70-99) L 82 mg/dL (70-99) Current Medications: Meds: Current Medications Acetaminophen (Tylenol) 650 mg PRN Q6HRS PRN PO PAIN / TEMP; Start 05/03/18 at 17:15 Ascorbic Acid (Vitamin C) 500 mg DAILY PO Last administered on 05/13/18at 07:57 ; Start 05/04/18 at 09:00 Vitamin D (Vitamin D3) 1,000 unit DAILY PO Last administered on 05/13/18at 07: 57; Start 05/04/18 at 09:00 Clopidogrel Bisulfate (Plavix) 75 mg DAILY PO Last administered on 05/13/18at 07:57; Start 05/04/18 at 09:00 Insulin Glargine (Lantus) 5 units QHS SQ Last administered on 05/12/18at 19:42 ; Start 05/03/18 at 21:00 Metoprolol Tartrate (Lopressor) 12.5 mg BID PO Last administered on 05/08/18at 08:06; Start 05/03/18 at 21:00; Stop 05/08/18 at 14:34; Status DC Potassium Chloride (Klor-Con) 20 meq BIDWMEALS PO Last administered on at 16:06; Start 05/03/18 at 18:00 Sertraline HCl (Zoloft) 100 mg DAILY PO Last administered on 05/04/18at 08:01; Start 05/04/18 at 09:00; Stop 05/04/18 at 16:56; Status DC Bisacodyl (Dulcolax Supp) 10 mg PRN DAILY PRN [place] CONSTIPATION; Start 05/03/18 at 17:45 Buspirone HCl (Buspar) 5 mg BID@0900,1500 PO Last administered on 05/13/18at 16 :05; Start 05/04/18 at 09:00 Buspirone HCl (Buspar) 10 mg QHS PO Last administered on 05/13/18 20:29; Start 05/03/18 at 21:00 Furosemide (Lasix) 40 mg BID94 PO Last administered on 05/09/18at 09:02; Start 05/04/18 at 09:00; Stop 05/09/18 at 15:37; Status DC Metolazone (Zaroxolyn) 2.5 mg 3X/WEEK PO Last administered on 05/09/18at 09:03 ; Start 05/04/18 at 09:00; Stop 05/09/18 at 15:35; Status DC Pravastatin Sodium (Pravachol) 80 mg QHS PO Last administered on 05/13/18at 20: 29; Start 05/03/18 at 21:00 Thiamine HCl (Vitamin B-1) 100 mg DAILY PO Last administered on 05/13/18at 07: 57; Start 05/04/18 at 09:00 Trazodone HCl (Desyrel) 12.5 mg QHS PO Last administered on 05/06/18at 20:34; Start 05/03/18 at 21:00; Stop 05/07/18 at 18:23; Status DC Famotidine (Pepcid) 20 mg DAILY PO Last administered on 05/13/18at 07:57; Start 05/04/18 at 09:00 Non-Formulary Medication (Famotidine (Pepcid)) 20 mg DAILY PO ; Start 05/04/18 at 09:00; Status UNV Insulin Human Lispro (HumaLOG) 10 units TIDWMEALS SQ Last administered on 05/13at 17:14; Start 05/04/18 at 08:00 Cefdinir (Omnicef) 300 mg DAILY PO Last administered on 05/13/18at 07:57; Start 05/03/18 at 21:00 Nitroglycerin (Nitrostat) 0.4 mg PRN Q5MIN PRN SL CHEST PAIN; Start 05/03/18 at 18:15 Lactobacillus Rhamnosus (Culturelle) 1 cap BID PO Last administered on at 20:28; Start 05/04/18 at 21:00 Glucose (Insta-Glucose) 15 gm STK-MED ONCE .ROUTE Last administered on at 16:14; Start 05/04/18 at 16:14; Stop 05/04/18 at 16:15; Status DC Risperidone (RisperDAL) 1 mg DAILY PO Last administered on 05/06/18at 07:52; Start 05/05/18 at 09:00; Stop 05/06/18 at 11:31; Status DC Risperidone (RisperDAL) 1.5 mg HS PO Last administered on 05/05/18at 20:44; Start 05/04/18 at 21:00; Stop 05/06/18 at 11:31; Status DC Sertraline HCl (Zoloft) 75 mg DAILY PO Last administered on 05/08/18at 08:07; Start 05/05/18 at 09:00; Stop 05/08/18 at 16:36; Status DC Olanzapine (ZyPREXA ZYDIS) 2.5 mg PRN Q2HR PRN PO ANXIETY / AGITATION; Start 05/04/18 at 17:15 Glucose (Insta-Glucose) 15 gm PRN Q15MIN PRN PO LOW BLOOD SUGAR; Start at 17:15 Risperidone (RisperDAL) 1 mg HS PO Last administered on 05/12/18at 19:31; Start 05/06/18 at 21:00; Stop 05/12/18 at 22:26; Status DC Risperidone (RisperDAL) 0.5 mg DAILY PO Last administered on 05/13/18at 07:57; Start 12/17/18 at 09:00 Trazodone HCl (Desyrel) 25 mg QHS PO Last administered on 05/13/18at 20:28; Start 05/07/18 at 21:00 Metoprolol Tartrate (Lopressor) 25 mg BID PO Last administered on 05/13/18at 20 :28; Start 05/08/18 at 21:00 Fluvoxamine Maleate (Luvox) 25 mg QHS PO Last administered on 05/10/18at 20:24 ; Start 05/08/18 at 21:00; Stop 05/10/18 at 23:50; Status DC Fluvoxamine Maleate (Luvox) 50 mg QHS PO Last administered on 05/13/18at 20:29 ; Start 05/11/18 at 21:00 Risperidone (RisperDAL) 0.5 mg HS PO Last administered on 05/13/18at 20:32; Start 05/13/18 at 21:00 Active Scripts Active Reported Pepcid (Famotidine) 20 Mg Tablet 20 Mg PO DAILY Zoloft (Sertraline Hcl) 100 Mg Tablet 100 Mg PO DAILY LAST DOSE GIVEN: DATE: TIME: NEXT DOSE DUE: DATE: TIME: Trazodone Hcl 50 Mg Tablet 12.5 Mg PO HS LAST DOSE GIVEN: DATE: TIME: NEXT DOSE DUE: DATE: TIME: Vitamin B-1 (Thiamine Hcl) 100 Mg Tablet 100 Mg PO DAILY LAST DOSE GIVEN: DATE: TIME: NEXT DOSE DUE: DATE: TIME: Pravastatin Sodium 80 Mg Tablet 80 Mg PO HS LAST DOSE GIVEN: DATE: TIME: NEXT DOSE DUE: DATE: TIME: Klor-Con M20 (Potassium Chloride) 20 Meq Tab.er.prt 20 Meq PO BID LAST DOSE GIVEN: DATE: TIME: NEXT DOSE DUE: DATE: TIME: Novolog Flexpen (Insulin Aspart) 100 Unit/1 Ml Insuln.pen 10 Unit SQ TIDWMEALS Metoprolol Tartrate 25 Mg Tablet 12.5 Mg PO BID LAST DOSE GIVEN: DATE: TIME: NEXT DOSE DUE: DATE: TIME: Metolazone 2.5 Mg Tablet 2.5 Mg PO 3X/WEEK LAST DOSE GIVEN: DATE: TIME: NEXT DOSE DUE: DATE: TIME: Lasix (Furosemide) 40 Mg Tablet 40 Mg PO BIDWMEALS LAST DOSE GIVEN: DATE: TIME: NEXT DOSE DUE: DATE: TIME: Lantus Solostar (Insulin Glargine,Hum.rec.anlog) 100 Unit/1 Ml Insuln.pen 5 Unit SQ QHS LAST DOSE GIVEN: DATE: TIME: NEXT DOSE DUE: DATE: TIME: Famotidine 40 Mg Tablet 20 Mg PO DAILY LAST DOSE GIVEN: DATE: TIME: NEXT DOSE DUE: DATE: TIME: Plavix (Clopidogrel Bisulfate) 75 Mg Tablet 75 Mg PO DAILY LAST DOSE GIVEN: DATE: TIME: NEXT DOSE DUE: DATE: TIME: Vitamin D3 (Cholecalciferol (Vitamin D3)) 1,000 Unit Tablet 1,000 Unit PO DAILY LAST DOSE GIVEN: DATE: TIME: NEXT DOSE DUE: DATE: TIME: Buspirone Hcl 5 Mg Tablet 5 Mg PO BID LAST DOSE GIVEN: DATE: TIME: NEXT DOSE DUE: DATE: TIME: Buspirone Hcl 10 Mg Tablet 10 Mg PO HS LAST DOSE GIVEN: DATE: TIME: NEXT DOSE DUE: DATE: TIME: Bisacodyl 10 Mg Supp.rect 10 Mg RC PRN DAILY PRN LAST DOSE GIVEN: DATE: TIME: NEXT DOSE DUE: DATE: TIME: Ascorbic Acid 500 Mg Tablet 500 Mg PO DAILY LAST DOSE GIVEN: DATE: TIME: NEXT DOSE DUE: DATE: TIME: Tylenol (Acetaminophen) 325 Mg Tablet 1-2 Tab PO PRN Q6HRS PRN LAST DOSE GIVEN: DATE: TIME: NEXT DOSE DUE: DATE: TIME: I have reviewed the current psychotropics carefully including drug interactions. Risk benefit ratio favors no change other than as noted in my dictated progress note. Diagnosis: Problems: (1) Gxmey-nd-[id number] kidney injury (2) Schizoaffective disorder, bipolar type (3) Anxiety disorder (4) Impulse control disorder (5) Cognitive and behavioral changes BERT MEYER MD May 13, 2018 22:47
[2018-05-14 06:08] VITALS: BP 121/79
[2018-05-14] MEDS: THIAMINE 100 MG TABLET. PO SCH (07:48)
[2018-05-14] MEDS: LACTOBACILLUS RHAMNOSUS GG 1 CAPSULE. PO SCH ×2 (07:48→20:03)
[2018-05-14] MEDS: CLOPIDOGREL BISULFATE 75 MG TABLET PO SCH (07:48)
[2018-05-14] MEDS: risperiDONE 0.5 MG TABLET. PO SCH ×2 (07:48→20:03)
[2018-05-14] MEDS: POTASSIUM CHLORIDE 20 MEQ TABLET.ER. PO SCH ×2 (07:48→17:10)
[2018-05-14] MEDS: CHOLECALCIFEROL (VITAMIN D3) 1,000 UNIT TABLET PO SCH (07:49)
[2018-05-14] MEDS: busPIRone 5 MG TABLET. PO SCH ×2 (07:49→15:12)
[2018-05-14] MEDS: ASCORBIC ACID 500 MG TABLET PO SCH (07:49)
[2018-05-14] MEDS: METOPROLOL TART IMMED RELEASE 25 MG TABLET PO SCH ×2 (07:49→20:15)
[2018-05-14] MEDS: FAMOTIDINE 20 MG TABLET PO SCH (07:49)
[2018-05-14] MEDS: CEFDINIR 300 MG CAPSULE PO SCH (07:53)
[2018-05-14] MEDS: INSULIN LISPRO 300 UNITS/3 ML INSULN.PEN. SQ SCH ×3 (07:54→17:26)
--- NOTE | 2018-05-14 08:10 | RAD ---
Portable chest, 05/13/2018, 2:14 PM: HISTORY: Shortness of breath, worsening renal function, heart failure No previous chest radiographs are available at this time for comparison purposes. A left-sided transvenous pacing device is in place with its single lead extending into the inferior aspect of the right ventricle. The heart is mildly enlarged. There is calcific plaquing of the aorta. No pulmonary infiltrate is seen. There is no evidence of pleural fluid. There is an old left humeral fracture with sclerotic changes along the fracture line raising the possibility of nonunion. IMPRESSION: 1. Mild cardiomegaly and aortic atherosclerosis. 2. No acute abnormality is detected. Electronically signed by: Anibal Ramirez MD (05/14/2018 8:07 AM) [facility]
[2018-05-14 16:04] VITALS: BP 108/72
--- NOTE | 2018-05-14 18:49 | PDOC ---
Exam Note: Manfred Note: Please also refer to the separate dictated note~for this date of service dictated separately.~Patient seen individually. Discussed the patient with Nursing staff reviewed the chart.~Reviewed interim history and current functioning. Reviewed vital signs,~Labs/ Radiology~and current medications noted below. Continue current treatment with the changes noted in the dictated addendum note Assessment: Vital Signs: Vital Signs Date Time Temp Pulse Resp B/P (MAP) Pulse Ox O2 Delivery O2 Flow Rate FiO2 05/14/18 16:04 97.5 90 18 108/72 (84) 96 Room Air I&O Intake and Output 05/14/18 07:01 Intake Total 1320 ml Balance 1320 ml Intake Oral 1320 ml Labs: Laboratory Tests Test 05/13/18 19:12 05/13/18 19:27 05/13/18 19:57 05/14/18 07:23 Glucose (Fingerstick) 45 mg/dL (70-99) L 53 mg/dL (70-99) L 82 mg/dL (70-99) 172 mg/dL (70-99) H Test 05/14/18 11:43 05/14/18 16:42 Glucose (Fingerstick) 127 mg/dL (70-99) H 243 mg/dL (70-99) H Current Medications: Meds: Current Medications Acetaminophen (Tylenol) 650 mg PRN Q6HRS PRN PO PAIN / TEMP; Start 05/03/18 at 17:15 Ascorbic Acid (Vitamin C) 500 mg DAILY PO Last administered on 05/14/18at 07:49 ; Start 05/04/18 at 09:00 Vitamin D (Vitamin D3) 1,000 unit DAILY PO Last administered on 05/14/18at 07: 49; Start 05/04/18 at 09:00 Clopidogrel Bisulfate (Plavix) 75 mg DAILY PO Last administered on 05/14/18at 07:48; Start 05/04/18 at 09:00 Insulin Glargine (Lantus) 5 units QHS SQ Last administered on 05/12/18at 19:42 ; Start 05/03/18 at 21:00 Metoprolol Tartrate (Lopressor) 12.5 mg BID PO Last administered on 05/08/18at 08:06; Start 05/03/18 at 21:00; Stop 05/08/18 at 14:34; Status DC Potassium Chloride (Klor-Con) 20 meq BIDWMEALS PO Last administered on at 17:10; Start 05/03/18 at 18:00 Sertraline HCl (Zoloft) 100 mg DAILY PO Last administered on 05/04/18at 08:01; Start 05/04/18 at 09:00; Stop 05/04/18 at 16:56; Status DC Bisacodyl (Dulcolax Supp) 10 mg PRN DAILY PRN [place] CONSTIPATION; Start 05/03/18 at 17:45 Buspirone HCl (Buspar) 5 mg BID@0900,1500 PO Last administered on 05/14/18at 15 :12; Start 05/04/18 at 09:00 Buspirone HCl (Buspar) 10 mg QHS PO Last administered on 05/13/18at 20:29; Start 05/03/18 at 21:00 Furosemide (Lasix) 40 mg BID94 PO Last administered on 05/09/18at 09:02; Start 05/04/18 at 09:00; Stop 05/09/18 at 15:37; Status DC Metolazone (Zaroxolyn) 2.5 mg 3X/WEEK PO Last administered on 05/09/18at 09:03 ; Start 05/04/18 at 09:00; Stop 05/09/18 at 15:35; Status DC Pravastatin Sodium (Pravachol) 80 mg QHS PO Last administered on 05/13/18at 20: 29; Start 05/03/18 at 21:00 Thiamine HCl (Vitamin B-1) 100 mg DAILY PO Last administered on 05/14/18at 07: 48; Start 05/04/18 at 09:00 Trazodone HCl (Desyrel) 12.5 mg QHS PO Last administered on 05/06/18at 20:34; Start 05/03/18 at 21:00; Stop 05/07/18 at 18:23; Status DC Famotidine (Pepcid) 20 mg DAILY PO Last administered on 05/14/18at 07:49; Start 05/04/18 at 09:00 Non-Formulary Medication (Famotidine (Pepcid)) 20 mg DAILY PO ; Start 05/04/18 at 09:00; Status UNV Insulin Human Lispro (HumaLOG) 10 units TIDWMEALS SQ Last administered on 05/14at 17:26; Start 05/04/18 at 08:00 Cefdinir (Omnicef) 300 mg DAILY PO Last administered on 05/14/18at 07:53; Start 05/03/18 at 21:00 Nitroglycerin (Nitrostat) 0.4 mg PRN Q5MIN PRN SL CHEST PAIN; Start 05/03/18 at 18:15 Lactobacillus Rhamnosus (Culturelle) 1 cap BID PO Last administered on at 07:48; Start 05/04/18 at 21:00 Glucose (Insta-Glucose) 15 gm STK-MED ONCE .ROUTE Last administered on at 16:14; Start 05/04/18 at 16:14; Stop 05/04/18 at 16:15; Status DC Risperidone (RisperDAL) 1 mg DAILY PO Last administered on 05/06/18at 07:52; Start 05/05/18 at 09:00; Stop 05/06/18 at 11:31; Status DC Risperidone (RisperDAL) 1.5 mg HS PO Last administered on 05/05/18at 20:44; Start 05/04/18 at 21:00; Stop 05/06/18 at 11:31; Status DC Sertraline HCl (Zoloft) 75 mg DAILY PO Last administered on 05/08/18at 08:07; Start 05/05/18 at 09:00; Stop 05/08/18 at 16:36; Status DC Olanzapine (ZyPREXA ZYDIS) 2.5 mg PRN Q2HR PRN PO ANXIETY / AGITATION; Start 05/04/18 at 17:15 Glucose (Insta-Glucose) 15 gm PRN Q15MIN PRN PO LOW BLOOD SUGAR; Start at 17:15 Risperidone (RisperDAL) 1 mg HS PO Last administered on 05/12/18at 19:31; Start 05/06/18 at 21:00; Stop 05/12/18 at 22:26; Status DC Risperidone (RisperDAL) 0.5 mg DAILY PO Last administered on 05/14/18at 07:48; Start 05/07/18 at 09:00 Trazodone HCl (Desyrel) 25 mg QHS PO Last administered on 05/13/18at 20:28; Start 05/07/18 at 21:00 Metoprolol Tartrate (Lopressor) 25 mg BID PO Last administered on 05/14/18at 07 :49; Start 05/08/18 at 21:00 Fluvoxamine Maleate (Luvox) 25 mg QHS PO Last administered on 05/10/18at 20:24 ; Start 05/08/18 at 21:00; Stop 05/10/18 at 23:50; Status DC Fluvoxamine Maleate (Luvox) 50 mg QHS PO Last administered on 05/13/18at 20:29 ; Start 05/11/18 at 21:00 Risperidone (RisperDAL) 0.5 mg HS PO Last administered on 05/13/18at 20:32; Start 05/13/18 at 21:00 Active Scripts Active Reported Pepcid (Famotidine) 20 Mg Tablet 20 Mg PO DAILY Zoloft (Sertraline Hcl) 100 Mg Tablet 100 Mg PO DAILY LAST DOSE GIVEN: DATE: TIME: NEXT DOSE DUE: DATE: TIME: Trazodone Hcl 50 Mg Tablet 12.5 Mg PO HS LAST DOSE GIVEN: DATE: TIME: NEXT DOSE DUE: DATE: TIME: Vitamin B-1 (Thiamine Hcl) 100 Mg Tablet 100 Mg PO DAILY LAST DOSE GIVEN: DATE: TIME: NEXT DOSE DUE: DATE: TIME: Pravastatin Sodium 80 Mg Tablet 80 Mg PO HS LAST DOSE GIVEN: DATE: TIME: NEXT DOSE DUE: DATE: TIME: Klor-Con M20 (Potassium Chloride) 20 Meq Tab.er.prt 20 Meq PO BID LAST DOSE GIVEN: DATE: TIME: NEXT DOSE DUE: DATE: TIME: Novolog Flexpen (Insulin Aspart) 100 Unit/1 Ml Insuln.pen 10 Unit SQ TIDWMEALS Metoprolol Tartrate 25 Mg Tablet 12.5 Mg PO BID LAST DOSE GIVEN: DATE: TIME: NEXT DOSE DUE: DATE: TIME: Metolazone 2.5 Mg Tablet 2.5 Mg PO 3X/WEEK LAST DOSE GIVEN: DATE: TIME: NEXT DOSE DUE: DATE: TIME: Lasix (Furosemide) 40 Mg Tablet 40 Mg PO BIDWMEALS LAST DOSE GIVEN: DATE: TIME: NEXT DOSE DUE: DATE: TIME: Lantus Solostar (Insulin Glargine,Hum.rec.anlog) 100 Unit/1 Ml Insuln.pen 5 Unit SQ QHS LAST DOSE GIVEN: DATE: TIME: NEXT DOSE DUE: DATE: TIME: Famotidine 40 Mg Tablet 20 Mg PO DAILY LAST DOSE GIVEN: DATE: TIME: NEXT DOSE DUE: DATE: TIME: Plavix (Clopidogrel Bisulfate) 75 Mg Tablet 75 Mg PO DAILY LAST DOSE GIVEN: DATE: TIME: NEXT DOSE DUE: DATE: TIME: Vitamin D3 (Cholecalciferol (Vitamin D3)) 1,000 Unit Tablet 1,000 Unit PO DAILY LAST DOSE GIVEN: DATE: TIME: NEXT DOSE DUE: DATE: TIME: Buspirone Hcl 5 Mg Tablet 5 Mg PO BID LAST DOSE GIVEN: DATE: TIME: NEXT DOSE DUE: DATE: TIME: Buspirone Hcl 10 Mg Tablet 10 Mg PO HS LAST DOSE GIVEN: DATE: TIME: NEXT DOSE DUE: DATE: TIME: Bisacodyl 10 Mg Supp.rect 10 Mg RC PRN DAILY PRN LAST DOSE GIVEN: DATE: TIME: NEXT DOSE DUE: DATE: TIME: Ascorbic Acid 500 Mg Tablet 500 Mg PO DAILY LAST DOSE GIVEN: DATE: TIME: NEXT DOSE DUE: DATE: TIME: Tylenol (Acetaminophen) 325 Mg Tablet 1-2 Tab PO PRN Q6HRS PRN LAST DOSE GIVEN: DATE: TIME: NEXT DOSE DUE: DATE: TIME: I have reviewed the current psychotropics carefully including drug interactions. Risk benefit ratio favors no change other than as noted in my dictated progress note. Diagnosis: Problems: (1) Pbfwn-ps-logidtn kidney injury (2) Schizoaffective disorder, bipolar type (3) Anxiety disorder (4) Impulse control disorder (5) Cognitive and behavioral changes BERT MEYER MD May 14, 2018 18:49
[2018-05-14] MEDS ORDERED: CEFD300C PO (19:20)
[2018-05-14] MEDS ORDERED: DEXT38GE2 PO (19:22)
[2018-05-14] MEDS ORDERED: INSU200I SQ (19:25)
[2018-05-14] MEDS ORDERED: LACT1CAP21 PO (19:27)
[2018-05-14] MEDS ORDERED: NITR0.4T22 SL (19:29)
[2018-05-14] MEDS ORDERED: OLAN5TAB5 PO (19:31)
[2018-05-14] MEDS ORDERED: FLUV50TA2 PO (19:36)
[2018-05-14] MEDS ORDERED: RISP0.5T3 PO ×2 (19:37)
[2018-05-14] MEDS: busPIRone 10 MG TABLET. PO SCH (20:03)
[2018-05-14] MEDS: traZODone 50 MG TABLET. PO SCH (20:03)
[2018-05-14] MEDS: PRAVASTATIN 20 MG TABLET. PO SCH (20:05)
[2018-05-14] MEDS: INSULIN GLARGINE 300 UNITS/3 ML INSULN.PEN. SQ SCH (20:07)
[2018-05-14 20:15] VITALS: BP 125/79
[2018-05-14] MEDS ORDERED: ACET500T68 PO (21:51)
--- NOTE | 2018-05-15 16:40 | PN ---
DATE: 05/13/2018 PSYCHIATRIC PROGRESS NOTE This is a late entry 05/13/2018 covers elements not covered in my initial note. SUBJECTIVE: I met with the patient in the evening. The patient slept 6-1/2 hours previous evening. Creatinine is 2.5, BUN [address] Orourke for her stage 3 renal failure. She may also have some CHF, chest x-ray result is awaited. She takes her meds in pudding. REVIEW OF SYSTEMS: No CV, , pulmonary, eye, ENT system symptoms on review. She is less paranoid, quite confused. MENTAL STATUS EXAM: Oriented to herself. Insight, judgment, recent and remote memory, attention, concentration, fund of knowledge poor, consistent with her diagnosis mentioned in my initial note. PLAN: No change from initial note. Defer medical management to Dr. Orourke. Overall, she seemed somewhat clearer and less psychotic as compared to a few days back. We will maintain her current psychotropics for now and the Luvox, which is being adjusted for obsessive thought processes. MAN Carmen MEYER MD DR: LIZA/faiza JOB#: [id number] / [id number]
--- NOTE | 2018-05-15 16:54 | PN ---
DATE: 05/14/2018 PSYCHIATRIC PROGRESS NOTE This is a late entry 05/14/2018 covers elements not covered in my initial note. SUBJECTIVE: I met with the patient in the evening. The patient slept 7 hours previous night. She has been a little more interactive, suddenly confused, but as I met with her for some time individually, she was able to question me about her memory deficits, feeling frustrated with this, more coherent in her conversation with appropriate questions at times, asking about her progressive dementia, would continue to worsen if there is anything that could be done to help it. All of this would have been unexpected few days back given the level of her confusion and psychosis at that time. This is despite her worsening renal failure. REVIEW OF SYSTEMS: Ambulation impaired with walker. No CV, , pulmonary, eye, ENT system symptoms on review. MENTAL STATUS EXAM: Oriented to herself. Insight, judgment, recent and remote memory, attention, concentration, fund of knowledge poor, consistent with her diagnosis mentioned in my initial note. PLAN: No change from initial note and continued to increase the Luvox gradually. Maintain rest unchanged from initial note. MAN Carmen MEYER MD DR: LIZA/faiza JOB#: [id number] / [id number]
--- NOTE | 2018-05-16 19:32 | PDOC ---
Exam Note: Manfred Note: Late entry for date of service April. Please also refer to the separate dictated note~for this date of service dictated separately.~Patient seen individually. Discussed the patient with Nursing staff reviewed the chart.~ Reviewed interim history and current functioning. Reviewed vital signs,~Labs/ Radiology~and current medications noted below. Continue current treatment with the changes noted in the dictated addendum note Assessment: Vital Signs: VS - Last 72 Hours, by Label Date Time Temp Pulse Resp B/P (MAP) Pulse Ox O2 Delivery O2 Flow Rate FiO2 05/14/18 20:15 87 125/79 05/14/18 16:04 97.5 90 18 108/72 (84) 96 Room Air 05/14/18 07:49 94 121/79 05/14/18 06:08 98.7 94 16 121/79 (93) 91 Room Air 05/13/18 20:28 83 114/73 Vital Signs Date Time Temp Pulse Resp B/P (MAP) Pulse Ox O2 Delivery O2 Flow Rate FiO2 05/14/18 20:15 87 125/79 05/14/18 16:04 97.5 18 96 Room Air Current Medications: Meds: Current Medications Acetaminophen (Tylenol) 650 mg PRN Q6HRS PRN PO PAIN / TEMP; Start 05/03/18 at 17:15; Stop 05/14/18 at 20:28; Status DC Ascorbic Acid (Vitamin C) 500 mg DAILY PO Last administered on 05/14/18at 07:49 ; Start 05/04/18 at 09:00; Stop 05/14/18 at 20:28; Status DC Vitamin D (Vitamin D3) 1,000 unit DAILY PO Last administered on 05/14/18at 07: 49; Start 05/04/18 at 09:00; Stop 05/14/18 at 20:28; Status DC Clopidogrel Bisulfate (Plavix) 75 mg DAILY PO Last administered on 05/14/18at 07:48; Start 05/04/18 at 09:00; Stop 05/14/18 at 20:28; Status DC Insulin Glargine (Lantus) 5 units QHS SQ Last administered on 05/14/18at 20:07 ; Start 05/03/18 at 21:00; Stop 05/14/18 at 20:28; Status DC Metoprolol Tartrate (Lopressor) 12.5 mg BID PO Last administered on 05/08/18at 08:06; Start 05/03/18 at 21:00; Stop 05/08/18 at 14:34; Status DC Potassium Chloride (Klor-Con) 20 meq BIDWMEALS PO Last administered on at 17:10; Start 05/03/18 at 18:00; Stop 05/14/18 at 20:28; Status DC Sertraline HCl (Zoloft) 100 mg DAILY PO Last administered on 05/04/18at 08:01; Start 05/04/18 at 09:00; Stop 05/04/18 at 16:56; Status DC Bisacodyl (Dulcolax Supp) 10 mg PRN DAILY PRN [place] CONSTIPATION; Start 05/03/18 at 17:45; Stop 05/14/18 at 20:28; Status DC Buspirone HCl (Buspar) 5 mg BID@0900,1500 PO Last administered on 05/14/18at 15 :12; Start 05/04/18 at 09:00; Stop 05/14/18 at 20:28; Status DC Buspirone HCl (Buspar) 10 mg QHS PO Last administered on 05/14/18at 20:03; Start 05/03/18 at 21:00; Stop 05/14/18 at 20:28; Status DC Furosemide (Lasix) 40 mg BID94 PO Last administered on 05/09/18at 09:02; Start 05/04/18 at 09:00; Stop 05/09/18 at 15:37; Status DC Metolazone (Zaroxolyn) 2.5 mg 3X/WEEK PO Last administered on 05/09/18at 09:03 ; Start 05/04/18 at 09:00; Stop 05/09/18 at 15:35; Status DC Pravastatin Sodium (Pravachol) 80 mg QHS PO Last administered on 05/14/18at 20: 05; Start 05/03/18 at 21:00; Stop 05/14/18 at 20:28; Status DC Thiamine HCl (Vitamin B-1) 100 mg DAILY PO Last administered on 05/14/18at 07: 48; Start 05/04/18 at 09:00; Stop 05/14/18 at 20:28; Status DC Trazodone HCl (Desyrel) 12.5 mg QHS PO Last administered on 05/06/18at 20:34; Start 05/03/18 at 21:00; Stop 05/07/18 at 18:23; Status DC Famotidine (Pepcid) 20 mg DAILY PO Last administered on 05/14/18at 07:49; Start 05/04/18 at 09:00; Stop 05/14/18 at 20:28; Status DC Non-Formulary Medication (Famotidine (Pepcid)) 20 mg DAILY PO ; Start 05/04/18 at 09:00; Status UNV Insulin Human Lispro (HumaLOG) 10 units TIDWMEALS SQ Last administered on 05/14at 17:26; Start 05/04/18 at 08:00; Stop 05/14/18 at 20:28; Status DC Cefdinir (Omnicef) 300 mg DAILY PO Last administered on 05/14/18at 07:53; Start 05/03/18 at 21:00; Stop 05/14/18 at 20:28; Status DC Nitroglycerin (Nitrostat) 0.4 mg PRN Q5MIN PRN SL CHEST PAIN; Start 05/03/18 at 18:15; Stop 05/14/18 at 20:28; Status DC Lactobacillus Rhamnosus (Culturelle) 1 cap BID PO Last administered on at 20:03; Start 05/04/18 at 21:00; Stop 05/14/18 at 20:28; Status DC Glucose (Insta-Glucose) 15 gm STK-MED ONCE .ROUTE Last administered on at 16:14; Start 05/04/18 at 16:14; Stop 05/04/18 at 16:15; Status DC Risperidone (RisperDAL) 1 mg DAILY PO Last administered on 05/06/18at 07:52; Start 05/05/18 at 09:00; Stop 05/06/18 at 11:31; Status DC Risperidone (RisperDAL) 1.5 mg HS PO Last administered on 05/05/18at 20:44; Start 05/04/18 at 21:00; Stop 05/06/18 at 11:31; Status DC Sertraline HCl (Zoloft) 75 mg DAILY PO Last administered on 05/08/18at 08:07; Start 05/05/18 at 09:00; Stop 05/08/18 at 16:36; Status DC Olanzapine (ZyPREXA ZYDIS) 2.5 mg PRN Q2HR PRN PO ANXIETY / AGITATION; Start 05/04/18 at 17:15; Stop 05/14/18 at 20:28; Status DC Glucose (Insta-Glucose) 15 gm PRN Q15MIN PRN PO LOW BLOOD SUGAR; Start at 17:15; Stop 05/14/18 at 20:28; Status DC Risperidone (RisperDAL) 1 mg HS PO Last administered on 05/12/18at 19:31; Start 05/06/18 at 21:00; Stop 05/12/18 at 22:26; Status DC Risperidone (RisperDAL) 0.5 mg DAILY PO Last administered on 05/14/18at 07:48; Start 05/07/18 at 09:00; Stop 05/14/18 at 20:28; Status DC Trazodone HCl (Desyrel) 25 mg QHS PO Last administered on 05/14/18at 20:03; Start 05/07/18 at 21:00; Stop 05/14/18 at 20:29; Status DC Metoprolol Tartrate (Lopressor) 25 mg BID PO Last administered on 05/14/18at 20 :15; Start 05/08/18 at 21:00; Stop 05/14/18 at 20:29; Status DC Fluvoxamine Maleate (Luvox) 25 mg QHS PO Last administered on 05/10/18at 20:24 ; Start 05/08/18 at 21:00; Stop 05/10/18 at 23:50; Status DC Fluvoxamine Maleate (Luvox) 50 mg QHS PO Last administered on 05/14/18at 20:03 ; Start 05/11/18 at 21:00; Stop 05/14/18 at 20:29; Status DC Risperidone (RisperDAL) 0.5 mg HS PO Last administered on 05/14/18at 20:03; Start 05/13/18 at 21:00; Stop 05/14/18 at 20:29; Status DC Active Scripts Active Reported Risperidone 0.5 Mg Tablet 0.5 Mg PO DAILY Risperidone 0.5 Mg Tablet 0.5 Mg PO QHS Fluvoxamine Maleate 50 Mg Tablet 50 Mg PO QHS Zyprexa Zydis (Olanzapine) 5 Mg Tab.rapdis 2.5 Mg PO PRN Q2HR PRN NITROGLYCERIN SubLingual (Nitroglycerin) 0.4 Mg Tab.subl 0.4 Mg SL PRN Q5MIN PRN Culturelle (Lactobacillus Rhamnosus Gg) 1 Each Capsule 1 Each PO BID Glucose Gel (Dextrose) 38 Gm Gel..gram. 15 Gm PO PRN Q15MIN PRN Cefdinir 300 Mg Capsule 300 Mg PO DAILY Trazodone Hcl 50 Mg Tablet 25 Mg PO HS LAST DOSE GIVEN: DATE: TIME: NEXT DOSE DUE: DATE: TIME: Vitamin B-1 (Thiamine Hcl) 100 Mg Tablet 100 Mg PO DAILY LAST DOSE GIVEN: DATE: TIME: NEXT DOSE DUE: DATE: TIME: Pravastatin Sodium 80 Mg Tablet 80 Mg PO HS LAST DOSE GIVEN: DATE: TIME: NEXT DOSE DUE: DATE: TIME: Klor-Con M20 (Potassium Chloride) 20 Meq Tab.er.prt 20 Meq PO BID LAST DOSE GIVEN: DATE: TIME: NEXT DOSE DUE: DATE: TIME: Novolog Flexpen (Insulin Aspart) 100 Unit/1 Ml Insuln.pen 10 Unit SQ TIDWMEALS Metoprolol Tartrate 25 Mg Tablet 25 Mg PO BID LAST DOSE GIVEN: DATE: TIME: NEXT DOSE DUE: DATE: TIME: Lantus Solostar (Insulin Glargine,Hum.rec.anlog) 100 Unit/1 Ml Insuln.pen 5 Unit SQ QHS LAST DOSE GIVEN: DATE: TIME: NEXT DOSE DUE: DATE: TIME: Famotidine 40 Mg Tablet 20 Mg PO DAILY LAST DOSE GIVEN: DATE: TIME: NEXT DOSE DUE: DATE: TIME: Plavix (Clopidogrel Bisulfate) 75 Mg Tablet 75 Mg PO DAILY LAST DOSE GIVEN: DATE: TIME: NEXT DOSE DUE: DATE: TIME: Vitamin D3 (Cholecalciferol (Vitamin D3)) 1,000 Unit Tablet 1,000 Unit PO DAILY LAST DOSE GIVEN: DATE: TIME: NEXT DOSE DUE: DATE: TIME: Buspirone Hcl 5 Mg Tablet 5 Mg PO BID@0900,1500 LAST DOSE GIVEN: DATE: TIME: NEXT DOSE DUE: DATE: TIME: Buspirone Hcl 10 Mg Tablet 10 Mg PO HS LAST DOSE GIVEN: DATE: TIME: NEXT DOSE DUE: DATE: TIME: Bisacodyl 10 Mg Supp.rect 10 Mg RC PRN DAILY PRN LAST DOSE GIVEN: DATE: TIME: NEXT DOSE DUE: DATE: TIME: Ascorbic Acid 500 Mg Tablet 500 Mg PO DAILY LAST DOSE GIVEN: DATE: TIME: NEXT DOSE DUE: DATE: TIME: Tylenol (Acetaminophen) 325 Mg Tablet 650 Mg PO PRN Q6HRS PRN LAST DOSE GIVEN: DATE: TIME: NEXT DOSE DUE: DATE: TIME: I have reviewed the current psychotropics carefully including drug interactions. Risk benefit ratio favors no change other than as noted in my dictated progress note. Diagnosis: Problems: (1) Gmrcd-ks-hxpraax kidney injury (2) Schizoaffective disorder, bipolar type (3) Anxiety disorder (4) Anxiety disorder (5) Impulse control disorder (6) Impulse control disorder (7) Dementia, vascular, with depression (8) Dementia, vascular, with delusions (9) Dementia in Alzheimer's disease with depression (10) Dementia in Alzheimer's disease with delusions (11) Cognitive and behavioral changes BERT MEYER MD May 16, 2018 19:32
--- NOTE | 2018-05-16 20:29 | DS ---
DATE OF DISCHARGE: 05/14/2018 DISCHARGE SUMMARY/PSYCHIATRIC PROGRESS NOTE This late entry date of service 05/14/2018 covers elements not covered in my initial note of 05/14/2018. REASON FOR ADMISSION: Please refer to the admission history for details. Briefly, the patient is a 68-year-old female referred to us from [facility] on account of worsening confusion, agitation, mood lability, and paranoia. She believes she was being poisoned, worried that peers were being harmed at the facility. The patient is verbally abusive toward daughter, refusing medications, losing weight. Had failed outpatient psychiatric interventions resulting in this referral. SIGNIFICANT FINDINGS AND CLINICAL COURSE: Following admission, the patient was seen daily individually by myself from a psychiatric standpoint, medical followup with Dr. Orourke. She is quite paranoid, delusional, and confused. Adjustments were made in her psychotropics and she seemed to be responding to a combination of BuSpar 5 mg twice a day, 10 mg at bedtime, Risperdal 0.5 mg a.m. and at bedtime, Zyprexa p.r.n. She is quite obsessive, repetitive. Luvox was initiated and adjusted to 50 mg a day and trazodone 25 mg at bedtime to help with the insomnia. At about this stage of her hospitalization, she seemed to get dehydrated, also had a UTI and was transferred to [address] [place] [address] Medical/Surgical floor per Dr. Orourke for further medical management. I would be happy to reassess the need to readmit her once she is medically stable. Otherwise, she may return back to the care home. Prior to discharge on 05/14/2018, she was better from a psychiatric standpoint. FINAL DIAGNOSES: Major neurocognitive disorder, Alzheimer, vascular with delusion, depression, behavioral disturbance; anxiety disorder, unspecified; psychotic disorder, unspecified; impulse control disorder, unspecified. Rest unchanged. DISCHARGE MEDICATIONS: Please refer to the MRAD. DISCHARGE INSTRUCTIONS: Psychiatric medical followup on [address] [place] [address]. Time for discharge day management greater than 30 minutes. MAN Carmen MEYER MD DR: LIZA/faiza JOB#: [id number] / [id number]
== END 2018-05-14 20:28 | disposition short-term general hospital (02) | DRG 56 ==
LOC: GEROPSY 16:22
PROVIDERS: ADMIT Psychiatry & Neurology Psychiatry; ATTEND Psychiatry & Neurology Psychiatry
DX: G30.9 Alzheimer's disease, unspecified (principal); I50.43 Acute on chronic combined systolic (congestive) and diastolic (congestive) heart failure; F02.81 Dementia in other diseases classified elsewhere, unspecified severity, with behavioral disturbance; F01.51 Vascular dementia, unspecified severity, with behavioral disturbance; F05 Delirium due to known physiological condition; N17.9 Acute kidney failure, unspecified; I13.0 Hypertensive heart and chronic kidney disease with heart failure and stage 1 through stage 4 chronic kidney disease, or unspecified chronic kidney disease; R45.851 Suicidal ideations; N39.0 Urinary tract infection, site not specified; F25.0 Schizoaffective disorder, bipolar type; E78.5 Hyperlipidemia, unspecified; E11.22 Type 2 diabetes mellitus with diabetic chronic kidney disease; D64.9 Anemia, unspecified; K21.9 Gastro-esophageal reflux disease without esophagitis; F63.9 Impulse disorder, unspecified; F41.1 Generalized anxiety disorder; N18.3 Chronic kidney disease, stage 3 (moderate); R29.6 Repeated falls; Z80.3 Family history of malignant neoplasm of breast; Z86.73 Personal history of transient ischemic attack (TIA), and cerebral infarction without residual deficits; Z79.899 Other long term (current) drug therapy; Z90.11 Acquired absence of right breast and nipple; E86.0 Dehydration
CPT/HCPCS: 36415; 70450; 71045; 80053; 80061; 82306; 82947; 83036; 83540; 83550; 83735; 84436; 84443; 84480; 85025; 86592; J1815; 92610

== ENCOUNTER 2018-05-14 20:31 | Inpatient (IN) | payer MEDICARE ==
[~2018-05-14] VITALS: Ht 162.6 cm; Wt 72.6 kg
[~2018-05-14 20:31] MED LIST changes: +CEFD300C PO; +DEXT38GE2 PO; +FAMO-63 PO; +FLUV50TA2 PO; +INSU200I SQ; +LACT1CAP21 PO; +NITR0.4T22 SL; +OLAN5TAB5 PO; +RISP0.5T3 PO
[2018-05-14 20:56] VITALS: BP 94/58
--- NOTE | 2018-05-14 21:25 | NUR ---
The patient, STALIN MANUEL, 68 y/o, F admitted by TANO LYN MD, was given written information regarding hospital policies, unit procedures and contact persons. Patient transferred from [facility] got verbal report from nurse Zia. Patient admitted for dehydration. Patient cooperative. Went over plan of care with patient. Pt voiced understanding. bed alarm set for safety. Valuables were checked and left at bedside.
[2018-05-14] MEDS ORDERED: ACET500T68 PO (21:51)
[2018-05-14 23:00] VITALS: BP 100/65
[2018-05-14] MEDS ORDERED: BISACODYL 10 MG SUPP.RECT PR PRN (23:00)
[2018-05-14] MEDS: IV NORMAL SALINE 1,000ML 1,000 ML IV SCH (23:00)
[2018-05-14] MEDS ORDERED: NITROGLYCERIN SUBLINGUAL 0.4 MG BOTTLE OF 25. SL PRN (23:00)
[2018-05-14] MEDS ORDERED: ACETAMINOPHEN 325 MG TABLET PO PRN (23:00)
[2018-05-15 05:18] VITALS: BP 124/82
[2018-05-15 06:16] LABS: BASO % 1 % (0-3); EOS # 0.2 x10^3/uL (0.0-0.7); EOS % 4 % (0-3); HEMATOCRIT 37.9 % (36.0-47.0); HEMOGLOBIN 12.7 g/dL (12.0-15.5); LYMPH # 1.9 x10^3/uL (1.0-4.8); LYMPH % 44 % (24-48); MEAN CORPUSCULAR HEMOGLOBIN 32 pg (25-35); MEAN CORPUSCULAR HGB CONC 34 g/dL (31-37); MEAN CORPUSCULAR VOLUME 95 fL (79-100); MONO # 0.4 x10^3/uL (0.0-1.1); MONO % 10 % (0-9); NEUT # 1.8 x10^3uL (1.8-7.7); NEUT % 42 % (31-73); PLATELET COUNT 109 x10^3/uL (140-400); RED BLOOD COUNT 3.99 x10^6/uL (3.50-5.40); RED CELL DISTRIBUTION WIDTH 13.5 % (11.5-14.5); WHITE BLOOD COUNT 4.3 x10^3/uL (4.0-11.0)
[2018-05-15 06:33] LABS: ALBUMIN 2.9 g/dL (3.4-5.0); ALBUMIN/GLOBULIN RATIO 0.9 (1.0-1.7); CALCIUM 9.2 mg/dL (8.5-10.1); CREATININE 2.3 mg/dL (0.6-1.0); TOTAL BILIRUBIN 0.4 mg/dL (0.2-1.0); TOTAL PROTEIN 6.3 g/dL (6.4-8.2)
[2018-05-15 07:49] LABS: % EOS 1 % (0-5); % LYMPHS 44 % (24-48); % MONOS 10 % (0-10); % SEGS 43 % (35-66); PLT ESTIMATE DECREASED (ADEQUATE)
[2018-05-15 07:52] LABS: % ATYL 2 % (0-0)
[2018-05-15] MEDS: CLOPIDOGREL BISULFATE 75 MG TABLET PO SCH (09:41)
[2018-05-15] MEDS: ASCORBIC ACID 500 MG TABLET PO SCH (09:41)
[2018-05-15] MEDS: METOPROLOL TART IMMED RELEASE 25 MG TABLET PO SCH ×2 (09:42→20:27)
[2018-05-15] MEDS: CEFDINIR 300 MG CAPSULE PO SCH (09:42)
[2018-05-15] MEDS: CHOLECALCIFEROL (VITAMIN D3) 1,000 UNIT TABLET PO SCH (09:42)
[2018-05-15] MEDS: FAMOTIDINE 20 MG TABLET PO SCH (09:42)
[2018-05-15] MEDS: busPIRone 5 MG TABLET. PO SCH ×2 (09:42→17:11)
[2018-05-15] MEDS: THIAMINE 100 MG TABLET. PO SCH (09:42)
[2018-05-15] MEDS: LACTOBACILLUS RHAMNOSUS GG 1 CAPSULE. PO SCH ×2 (09:42→20:28)
[2018-05-15] MEDS: POTASSIUM CHLORIDE 20 MEQ TABLET.ER. PO SCH ×2 (09:42→20:28)
[2018-05-15] MEDS: risperiDONE 0.5 MG TABLET. PO SCH ×2 (09:43→20:27)
[2018-05-15] MEDS: INSULIN LISPRO 300 UNITS/3 ML INSULN.PEN. SQ SCH ×3 (09:53→17:17)
[2018-05-15] MEDS: IV NORMAL SALINE 1,000ML 1,000 ML IV SCH ×2 (11:31→23:18)
[2018-05-15 11:36] VITALS: BP 106/72
--- NOTE | 2018-05-15 11:40 | PN ---
DATE: 05/15/2018 SUBJECTIVE: The patient is resting slightly propped up in bed, sleeping comfortably, in no apparent distress. On questioning her, she denied any complaint. In particular, denied any chest pain, shortness of breath, orthopnea, or paroxysmal nocturnal dyspnea. She was transferred yesterday from [address] [place] [address] with acute on chronic kidney injury. Her creatinine has risen from 2 to 2.8 and BUN has risen from 48 to 78. We did start her on IV fluid in the form of normal saline at 75 mL per hour. PHYSICAL EXAMINATION: GENERAL: When I examined her this morning, she looked well and was clearly in no apparent respiratory distress. VITAL SIGNS: Her heart rate was 89, blood pressure was 124/82, temperature was 98.2, respiratory rate 20, and oxygen saturation was 94%. HEAD, EYES, EARS, NOSE AND THROAT: Showed normocephalic, atraumatic. NECK: Supple. HEART: Showed normal first and second heart sounds. No gallop, rub, or murmur. CHEST: Clear to auscultation. No crepitation or rhonchi. ABDOMEN: Distended, soft, nontender. NEUROLOGIC: She was sleepy, but arousable. All cranial nerves intact. She moves extremities without difficulty, although she is mostly bedbound, chair bound. Her intake over the last 24 hours was 715, no output was recorded. LABORATORY DATA: Her lab work this morning showed a white cell count of 4300, hemoglobin 13, hematocrit 38, MCV 95, and platelet count of 109,000. Her serum sodium was 139, potassium 4, chloride 104, bicarbonate 26, anion gap of 9, BUN 67, creatinine was 2.3, estimated GFR was 21 mL per minute. Her glucose was 123. Calcium was 9.2. Total bilirubin, AST, ALT, and alkaline phosphatase were normal. Total protein was 6.3, albumin 2.9. ASSESSMENT: Acute on chronic kidney injury. The patient has probably purely poor oral intake. We did a renal ultrasound that showed both kidneys are small in size with no evidence of any hydronephrosis or urinary retention. Her diuretics were on hold before. She has multiple other medical problems including chronic combined systolic and diastolic congestive heart failure, hypertension, iron deficiency anemia, dysphagia, type 2 diabetes, diabetic peripheral neuropathy, hyperlipidemia, gastroesophageal reflux disease, and chronic idiopathic constipation. PLAN: To continue with gentle rehydration. I will start her also on heparin for DVT prophylaxis and we will consult physical and occupational therapy. TANO LYN MD DR: FANNIE/faiza JOB#: [id number] / [id number]
--- NOTE | 2018-05-15 12:21 | HP ---
ADMIT DATE: 05/14/2018 HISTORY OF PRESENT ILLNESS: This is a 68-year-old female patient whom I have seen [facility] as the nursing staff were concerned that her kidney function is worsening despite the fact that she is not on any diuretics. Her creatinine has steadily risen from 2-2.8 and her BUN has risen from 48-78. Multiple attempts were made by the nursing staff to push fluid did not really help and her intake is poor and I actually did the abdominal ultrasound as well as her chest x-ray. Her chest x-ray showed mild cardiomegaly and aortic atherosclerosis. No acute abnormalities detected and therefore, a decision was made to transfer her to [address] [place] [address] to start IV fluid. PAST MEDICAL HISTORY: Significant for chronic combined systolic and diastolic congestive heart failure, chronic kidney disease, essential hypertension, iron-deficiency anemia, dysphagia, type 2 diabetes with diabetic neurological complication, hyperlipidemia. She is apparently known to have recurrent falls, major depressive disorder, gastroesophageal reflux disease without esophagitis, amnesia, cerebral infarction, supraventricular tachycardia and chronic idiopathic constipation. PAST SURGICAL HISTORY: Significant for bilateral mastectomy. ALLERGIES: She is allergic to IODINATED CONTRAST ORAL and IV. FAMILY HISTORY: Noncontributory. SOCIAL HISTORY: She is a resident at [facility]. She apparently does not smoke, drink alcohol or use recreational drugs. MEDICATIONS: She is currently on following medications: She is on cefdinir 300 mg p.o. daily, Plavix 75 mg once a day, pravastatin 80 mg at bedtime, nitroglycerin 0.4 mg sublingually every 5 minutes x 3. She is on metoprolol tartrate 25 mg twice a day, acetaminophen 650 mg every 6 hours, fluvoxamine 50 mg at bedtime, trazodone 25 mg at bedtime, olanzapine 2.5 mg every 2 hours, risperidone 0.5 mg at bedtime, risperidone 0.5 mg daily, buspirone 10 mg at bedtime, buspirone 5 mg twice a day. She is on potassium chloride 20 mEq twice a day, glucose gel 15 grams as needed for hypoglycemia, bisacodyl 10 mg rectally daily p.r.n. for constipation, famotidine 20 mg once a day, lactobacillus rhamnosus 1 capsule twice a day. She is on NovoLog insulin 10 units before meals and 5 units at bedtime with Lantus insulin, thiamine 100 mg once a day, ascorbic acid 500 mg daily and cholecalciferol 1000 International Unit once a day. PHYSICAL EXAMINATION: GENERAL: When I saw her, the patient was resting slightly propped up in bed, no apparent distress, somewhat pale, but no jaundice, cyanosis, lymphadenopathy no thyromegaly. No jugular venous distension. No lower limb edema. VITAL SIGNS: Her heart rate was 89, blood pressure was 94/58, temperature was 96.7, respiratory rate was 18 and oxygen saturation was 97%. HEENT: Showed normocephalic, atraumatic. NECK: Supple. HEART: Showed normal first and second heart sounds. No gallop, rub or murmur. CHEST: Clear to auscultation. No crepitation or rhonchi. ABDOMEN: Distended, soft, nontender. No guarding or rigidity. No organomegaly. Hernial orifice intact. Bowel sounds normal. NEUROLOGIC: She was sleepy, but arousable. All cranial nerves intact. She moves extremities without difficulty. She is mostly bedbound, chair bound. LABORATORY DATA: On admission showed a white cell count of 4800, hemoglobin 13.3, hematocrit 39.8, MCV 95, and platelet count of 118,000. Her chemistry showed a serum sodium of 139, potassium 3.8, chloride 101, bicarbonate 28, anion gap of 10, BUN 78, creatinine 2.8, estimated GFR was 17 mL per minute, her glucose 100, calcium was 9.5. Total bilirubin, AST, ALT, alkaline phosphatase were normal. Total protein was 6.9, albumin was 3.2. ASSESSMENT AND PLAN: In summary, this is a 68-year-old female patient who was transferred to [address] [place] [address] with acute on chronic kidney injury. Her creatinine has risen from 2-2.8 and her BUN has risen from 48-78. We will start her on IV normal saline at 75 mL per hour. We will continue with all her medication. I will hold her diuretics. We will continue to monitor her blood sugar and adjust insulin as needed. Her other medical problems include chronic combined systolic and diastolic congestive heart failure, chronic kidney disease, hypertension, iron-deficiency anemia, type 2 diabetes, diabetic peripheral neuropathy, hyperlipidemia, gastroesophageal reflux disease, chronic idiopathic constipation. TANO LYN MD DR: FANNIE/faiza JOB#: [id number] / [id number]
[2018-05-15] MEDS: HEPARIN for SUB-Q USE 5,000 UNIT/ML VIAL. SQ SCH ×2 (14:02→20:52)
[2018-05-15 16:05] VITALS: BP 96/59
--- NOTE | 2018-05-15 19:57 | PDOC ---
Exam Note: Manfred Note: Please also refer to the separate dictated note~for this date of service dictated separately.~Patient seen individually. Discussed the patient with Nursing staff reviewed the chart.~Reviewed interim history and current functioning. Reviewed vital signs,~Labs/ Radiology~and current medications noted below. Continue current treatment with the changes noted in the dictated addendum note Assessment: Vital Signs: Vital Signs Date Time Temp Pulse Resp B/P (MAP) Pulse Ox O2 Delivery O2 Flow Rate FiO2 05/15/18 16:05 98.3 85 18 96/59 (71) 95 Room Air I&O Intake and Output 05/15/18 07:01 Intake Total 750 ml Balance 750 ml Intake Oral 100 ml IV Total 650 ml # Voids 1 Labs: Laboratory Tests Test 05/15/18 05:55 05/15/18 07:29 05/15/18 11:55 05/15/18 16:36 White Blood Count 4.3 x10^3/uL (4.0-11.0) Red Blood Count 3.99 x10^6/uL (3.50-5.40) Hemoglobin 12.7 g/dL (12.0-15.5) Hematocrit 37.9 % (36.0-47.0) Mean Corpuscular Volume 95 fL (79-100) Mean Corpuscular Hemoglobin 32 pg (25-35) Mean Corpuscular Hemoglobin Concent 34 g/dL (31-37) Red Cell Distribution Width 13.5 % (11.5-14.5) Platelet Count 109 x10^3/uL (140-400) L Neutrophils (%) (Auto) 42 % (31-73) Lymphocytes (%) (Auto) 44 % (24-48) Monocytes (%) (Auto) 10 % (0-9) H Eosinophils (%) (Auto) 4 % (0-3) H Basophils (%) (Auto) 1 % (0-3) Neutrophils # (Auto) 1.8 x10^3uL (1.8-7.7) Lymphocytes # (Auto) 1.9 x10^3/uL (1.0-4.8) Monocytes # (Auto) 0.4 x10^3/uL (0.0-1.1) Eosinophils # (Auto) 0.2 x10^3/uL (0.0-0.7) Basophils # (Auto) 0.0 x10^3/uL (0.0-0.2) Segmented Neutrophils % 43 % (35-66) Lymphocytes % 44 % (24-48) Atypical Lymphocytes % (Manual) 2 % (0-0) H Monocytes % 10 % (0-10) Eosinophils % 1 % (0-5) Platelet Estimate Decreased (ADEQUATE) Large Platelets Occ Sodium Level 139 mmol/L (136-145) Potassium Level 4.0 mmol/L (3.5-5.1) Chloride Level 104 mmol/L (98-107) Carbon Dioxide Level 26 mmol/L (21-32) Anion Gap 9 (6-14) Blood Urea Nitrogen 67 mg/dL (7-20) H Creatinine 2.3 mg/dL (0.6-1.0) H Estimated GFR (Cockcroft-Gault) 21.0 BUN/Creatinine Ratio 29 (6-20) H Glucose Level 123 mg/dL (70-99) H Calcium Level 9.2 mg/dL (8.5-10.1) Total Bilirubin 0.4 mg/dL (0.2-1.0) Aspartate Amino Transferase (AST) 26 U/L (15-37) Alanine Aminotransferase (ALT) 25 U/L (14-59) Alkaline Phosphatase 84 U/L (46-116) Total Protein 6.3 g/dL (6.4-8.2) L Albumin 2.9 g/dL (3.4-5.0) L Albumin/Globulin Ratio 0.9 (1.0-1.7) L Glucose (Fingerstick) 134 mg/dL (70-99) H 106 mg/dL (70-99) H 188 mg/dL (70-99) H Current Medications: Meds: Current Medications Sodium Chloride 1,000 ml @ 75 mls/hr [id number] IV Last administered on at 11:31; Start 05/14/18 at 23:00 Acetaminophen (Tylenol) 650 mg PRN Q6HRS PRN PO PAIN / TEMP; Start 05/14/18 at 23:00 Ascorbic Acid (Vitamin C) 500 mg DAILY PO Last administered on 05/15/18at 09:41 ; Start 05/15/18 at 09:00 Cefdinir (Omnicef) 300 mg DAILY PO Last administered on 05/15/18 09:42; Start 05/15/18 at 09:00 Vitamin D (Vitamin D3) 1,000 unit DAILY PO Last administered on 05/15/18 09: 42; Start 05/15/18 at 09:00 Clopidogrel Bisulfate (Plavix) 75 mg DAILY PO Last administered on 05/15/18 09:41; Start 05/15/18 at 09:00 Insulin Glargine (Lantus) 5 units QHS SQ ; Start 05/15/18 at 21:00 Metoprolol Tartrate (Lopressor) 25 mg BID PO Last administered on 05/15/18 09 :42; Start 05/15/18 at 09:00 Nitroglycerin (Nitrostat) 0.4 mg PRN Q5MIN PRN SL CHEST PAIN; Start 05/14/18 at 23:00 Olanzapine (ZyPREXA ZYDIS) 2.5 mg PRN Q2HR PRN PO ANXIETY / AGITATION; Start 05/14/18 at 23:00 Potassium Chloride (Klor-Con) 20 meq BID PO Last administered on 05/15/18 09: 42; Start 05/15/18 at 09:00 Bisacodyl (Dulcolax Supp) 10 mg PRN DAILY PRN [place] CONSTIPATION; Start 05/14/18 at 23:00 Buspirone HCl (Buspar) 5 mg [id number] PO Last administered on 05/15/18at 17:11; Start 05/15/18 at 09:00 Buspirone HCl (Buspar) 10 mg HS PO ; Start 05/15/18 at 21:00 Famotidine (Pepcid) 20 mg DAILY PO Last administered on 05/15/18at 09:42; Start 05/15/18 at 09:00 Fluvoxamine Maleate (Luvox) 50 mg HS PO ; Start 05/15/18 at 21:00 Insulin Human Lispro (HumaLOG) 10 units TIDAC SQ Last administered on 17:17; Start 05/15/18 at 07:30 Lactobacillus Rhamnosus (Culturelle) 1 cap BID PO Last administered on 09:42; Start 05/15/18 at 09:00 Pravastatin Sodium (Pravachol) 80 mg QHS PO ; Start 05/15/18 at 21:00 Risperidone (RisperDAL) 0.5 mg DAILY PO Last administered on 05/15/18at 09:43; Start 05/15/18 at 09:00 Risperidone (RisperDAL) 0.5 mg HS PO ; Start 05/15/18 at 21:00 Thiamine HCl (Vitamin B-1) 100 mg DAILY PO Last administered on 05/15/18at 09: 42; Start 05/15/18 at 09:00 Trazodone HCl (Desyrel) 25 mg QHS PO ; Start 05/15/18 at 21:00 Heparin Sodium (Porcine) (Heparin Sodium) 5,000 unit Q8HRS SQ Last administered on 05/15/18at 14:02; Start 05/15/18 at 14:00 Active Scripts Active Reported Risperidone 0.5 Mg Tablet 0.5 Mg PO DAILY Risperidone 0.5 Mg Tablet 0.5 Mg PO QHS Fluvoxamine Maleate 50 Mg Tablet 50 Mg PO QHS Zyprexa Zydis (Olanzapine) 5 Mg Tab.rapdis 2.5 Mg PO PRN Q2HR PRN NITROGLYCERIN SubLingual (Nitroglycerin) 0.4 Mg Tab.subl 0.4 Mg SL PRN Q5MIN PRN Culturelle (Lactobacillus Rhamnosus Gg) 1 Each Capsule 1 Each PO BID Glucose Gel (Dextrose) 38 Gm Gel..gram. 15 Gm PO PRN Q15MIN PRN Cefdinir 300 Mg Capsule 300 Mg PO DAILY Trazodone Hcl 50 Mg Tablet 25 Mg PO HS LAST DOSE GIVEN: DATE: TIME: NEXT DOSE DUE: DATE: TIME: Vitamin B-1 (Thiamine Hcl) 100 Mg Tablet 100 Mg PO DAILY LAST DOSE GIVEN: DATE: TIME: NEXT DOSE DUE: DATE: TIME: Pravastatin Sodium 80 Mg Tablet 80 Mg PO HS LAST DOSE GIVEN: DATE: TIME: NEXT DOSE DUE: DATE: TIME: Klor-Con M20 (Potassium Chloride) 20 Meq Tab.er.prt 20 Meq PO BID LAST DOSE GIVEN: DATE: TIME: NEXT DOSE DUE: DATE: TIME: Novolog Flexpen (Insulin Aspart) 100 Unit/1 Ml Insuln.pen 10 Unit SQ TIDWMEALS Metoprolol Tartrate 25 Mg Tablet 25 Mg PO BID LAST DOSE GIVEN: DATE: TIME: NEXT DOSE DUE: DATE: TIME: Lantus Solostar (Insulin Glargine,Hum.rec.anlog) 100 Unit/1 Ml Insuln.pen 5 Unit SQ QHS LAST DOSE GIVEN: DATE: TIME: NEXT DOSE DUE: DATE: TIME: Famotidine 40 Mg Tablet 20 Mg PO DAILY LAST DOSE GIVEN: DATE: TIME: NEXT DOSE DUE: DATE: TIME: Plavix (Clopidogrel Bisulfate) 75 Mg Tablet 75 Mg PO DAILY LAST DOSE GIVEN: DATE: TIME: NEXT DOSE DUE: DATE: TIME: Vitamin D3 (Cholecalciferol (Vitamin D3)) 1,000 Unit Tablet 1,000 Unit PO DAILY LAST DOSE GIVEN: DATE: TIME: NEXT DOSE DUE: DATE: TIME: Buspirone Hcl 5 Mg Tablet 5 Mg PO BID@0900,1500 LAST DOSE GIVEN: DATE: TIME: NEXT DOSE DUE: DATE: TIME: Buspirone Hcl 10 Mg Tablet 10 Mg PO HS LAST DOSE GIVEN: DATE: TIME: NEXT DOSE DUE: DATE: TIME: Bisacodyl 10 Mg Supp.rect 10 Mg RC PRN DAILY PRN LAST DOSE GIVEN: DATE: TIME: NEXT DOSE DUE: DATE: TIME: Ascorbic Acid 500 Mg Tablet 500 Mg PO DAILY LAST DOSE GIVEN: DATE: TIME: NEXT DOSE DUE: DATE: TIME: Tylenol (Acetaminophen) 325 Mg Tablet 650 Mg PO PRN Q6HRS PRN LAST DOSE GIVEN: DATE: TIME: NEXT DOSE DUE: DATE: TIME: I have reviewed the current psychotropics carefully including drug interactions. Risk benefit ratio favors no change other than as noted in my dictated progress note. Diagnosis: Problems: (1) Anxiety disorder (2) Dementia in Alzheimer's disease with delusions (3) Dementia in Alzheimer's disease with depression (4) Dementia, vascular, with delusions (5) Dementia, vascular, with depression (6) Impulse control disorder (7) Cognitive and behavioral changes (8) Impulse control disorder (9) Anxiety disorder (10) Schizoaffective disorder, bipolar type BERT MEYER MD May 15, 2018 19:57
[2018-05-15 20:16] VITALS: BP 118/74
[2018-05-15] MEDS: traZODone 50 MG TABLET. PO SCH (20:27)
[2018-05-15] MEDS: busPIRone 10 MG TABLET. PO SCH (20:28)
[2018-05-15] MEDS: PRAVASTATIN 20 MG TABLET. PO SCH (20:28)
[2018-05-15] MEDS: INSULIN GLARGINE 300 UNITS/3 ML INSULN.PEN. SQ SCH (20:48)
[2018-05-15 23:23] VITALS: BP 124/76
[2018-05-16] MEDS: HEPARIN for SUB-Q USE 5,000 UNIT/ML VIAL. SQ SCH ×3 (05:27→22:00)
[2018-05-16 06:18] VITALS: BP 108/65
[2018-05-16 06:40] LABS: CALCIUM 9.3 mg/dL (8.5-10.1); CREATININE 2.2 mg/dL (0.6-1.0); GFR 22.1; POTASSIUM 4.4 mmol/L (3.5-5.1)
[2018-05-16] MEDS: CHOLECALCIFEROL (VITAMIN D3) 1,000 UNIT TABLET PO SCH (08:36)
[2018-05-16] MEDS: LACTOBACILLUS RHAMNOSUS GG 1 CAPSULE. PO SCH ×2 (08:36→20:41)
[2018-05-16] MEDS: THIAMINE 100 MG TABLET. PO SCH (08:36)
[2018-05-16] MEDS: METOPROLOL TART IMMED RELEASE 25 MG TABLET PO SCH ×2 (08:37→20:41)
[2018-05-16] MEDS: risperiDONE 0.5 MG TABLET. PO SCH ×2 (08:37→20:40)
[2018-05-16] MEDS: ASCORBIC ACID 500 MG TABLET PO SCH (08:37)
[2018-05-16] MEDS: CLOPIDOGREL BISULFATE 75 MG TABLET PO SCH (08:37)
[2018-05-16] MEDS: FAMOTIDINE 20 MG TABLET PO SCH (08:37)
[2018-05-16] MEDS: POTASSIUM CHLORIDE 20 MEQ TABLET.ER. PO SCH ×2 (08:37→20:41)
[2018-05-16] MEDS: busPIRone 5 MG TABLET. PO SCH ×2 (08:37→17:50)
[2018-05-16] MEDS: CEFDINIR 300 MG CAPSULE PO SCH (08:38)
[2018-05-16] MEDS: INSULIN LISPRO 300 UNITS/3 ML INSULN.PEN. SQ SCH ×3 (08:49→17:52)
[2018-05-16 11:37] VITALS: BP_SYST 110; BP_SYST 125; BP_DIAS 68; BP_DIAS 76
[2018-05-16] MEDS: IV NORMAL SALINE 1,000ML 1,000 ML IV SCH (14:37)
[2018-05-16 16:02] VITALS: BP 119/81
--- NOTE | 2018-05-16 18:48 | PDOC ---
Exam Note: Manfred Note: Please also refer to the separate dictated note~for this date of service dictated separately.~Patient seen individually. Discussed the patient with Nursing staff reviewed the chart.~Reviewed interim history and current functioning. Reviewed vital signs,~Labs/ Radiology~and current medications noted below. Continue current treatment with the changes noted in the dictated addendum note Assessment: Vital Signs: Vital Signs Date Time Temp Pulse Resp B/P (MAP) Pulse Ox O2 Delivery O2 Flow Rate FiO2 05/16/18 16:02 98.0 79 20 119/81 (94) 98 Room Air I&O Intake and Output 05/16/18 07:01 Intake Total 3349.69 ml Balance 3349.69 ml Intake Oral 1000 ml IV Total 2349.69 ml # Voids 4 Labs: Laboratory Tests Test 05/15/18 20:38 05/16/18 06:07 05/16/18 07:54 05/16/18 11:32 Glucose (Fingerstick) 119 mg/dL (70-99) H 140 mg/dL (70-99) H 115 mg/dL (70-99) H Sodium Level 139 mmol/L (136-145) Potassium Level 4.4 mmol/L (3.5-5.1) Chloride Level 106 mmol/L (98-107) Carbon Dioxide Level 25 mmol/L (21-32) Anion Gap 8 (6-14) Blood Urea Nitrogen 55 mg/dL (7-20) H Creatinine 2.2 mg/dL (0.6-1.0) H Estimated GFR (Cockcroft-Gault) 22.1 Glucose Level 159 mg/dL (70-99) H Calcium Level 9.3 mg/dL (8.5-10.1) Test 05/16/18 17:09 Glucose (Fingerstick) 151 mg/dL (70-99) H Current Medications: Meds: Current Medications Sodium Chloride 1,000 ml @ 75 mls/hr [id number] IV Last administered on at 14:37; Start 05/14/18 at 23:00 Acetaminophen (Tylenol) 650 mg PRN Q6HRS PRN PO PAIN / TEMP; Start 05/14/18 at 23:00 Ascorbic Acid (Vitamin C) 500 mg DAILY PO Last administered on 05/16/18at 08:37 ; Start 05/15/18 at 09:00 Cefdinir (Omnicef) 300 mg DAILY PO Last administered on 05/16/18 08:38; Start 05/15/18 at 09:00 Vitamin D (Vitamin D3) 1,000 unit DAILY PO Last administered on 05/16/18 08: 36; Start 05/15/18 at 09:00 Clopidogrel Bisulfate (Plavix) 75 mg DAILY PO Last administered on 05/16/18 08:37; Start 05/15/18 at 09:00 Insulin Glargine (Lantus) 5 units QHS SQ Last administered on 05/15/18 20:48 ; Start 05/15/18 at 21:00 Metoprolol Tartrate (Lopressor) 25 mg BID PO Last administered on 05/16/18 08 :37; Start 05/15/18 at 09:00 Nitroglycerin (Nitrostat) 0.4 mg PRN Q5MIN PRN SL CHEST PAIN; Start 05/14/18 at 23:00 Olanzapine (ZyPREXA ZYDIS) 2.5 mg PRN Q2HR PRN PO ANXIETY / AGITATION; Start 05/14/18 at 23:00 Potassium Chloride (Klor-Con) 20 meq BID PO Last administered on 05/16/18 08: 37; Start 05/15/18 at 09:00 Bisacodyl (Dulcolax Supp) 10 mg PRN DAILY PRN [place] CONSTIPATION; Start 05/14/18 at 23:00 Buspirone HCl (Buspar) 5 mg [id number] PO Last administered on 05/16/18at 17:50; Start 05/15/18 at 09:00 Buspirone HCl (Buspar) 10 mg HS PO Last administered on 05/15/18at 20:28; Start 05/15/18 at 21:00 Famotidine (Pepcid) 20 mg DAILY PO Last administered on 05/16/18 08:37; Start 05/15/18 at 09:00 Fluvoxamine Maleate (Luvox) 50 mg HS PO Last administered on 05/15/18 20:28; Start 05/15/18 at 21:00 Insulin Human Lispro (HumaLOG) 10 units TIDAC SQ Last administered on at 17:52; Start 05/15/18 at 07:30 Lactobacillus Rhamnosus (Culturelle) 1 cap BID PO Last administered on 08:36; Start 05/15/18 at 09:00 Pravastatin Sodium (Pravachol) 80 mg QHS PO Last administered on 05/15/18at 20: 28; Start 05/15/18 at 21:00 Risperidone (RisperDAL) 0.5 mg DAILY PO Last administered on 05/16/18 08:37; Start 05/15/18 at 09:00 Risperidone (RisperDAL) 0.5 mg HS PO Last administered on 05/15/18 20:27; Start 05/15/18 at 21:00 Thiamine HCl (Vitamin B-1) 100 mg DAILY PO Last administered on 05/16/18 08: 36; Start 05/15/18 at 09:00 Trazodone HCl (Desyrel) 25 mg QHS PO Last administered on 05/15/18 20:27; Start 05/15/18 at 21:00 Heparin Sodium (Porcine) (Heparin Sodium) 5,000 unit Q8HRS SQ Last administered on 05/16/18at 05:27; Start 05/15/18 at 14:00 Active Scripts Active Reported Risperidone 0.5 Mg Tablet 0.5 Mg PO DAILY Risperidone 0.5 Mg Tablet 0.5 Mg PO QHS Fluvoxamine Maleate 50 Mg Tablet 50 Mg PO QHS Zyprexa Zydis (Olanzapine) 5 Mg Tab.rapdis 2.5 Mg PO PRN Q2HR PRN NITROGLYCERIN SubLingual (Nitroglycerin) 0.4 Mg Tab.subl 0.4 Mg SL PRN Q5MIN PRN Culturelle (Lactobacillus Rhamnosus Gg) 1 Each Capsule 1 Each PO BID Glucose Gel (Dextrose) 38 Gm Gel..gram. 15 Gm PO PRN Q15MIN PRN Cefdinir 300 Mg Capsule 300 Mg PO DAILY Trazodone Hcl 50 Mg Tablet 25 Mg PO HS LAST DOSE GIVEN: DATE: TIME: NEXT DOSE DUE: DATE: TIME: Vitamin B-1 (Thiamine Hcl) 100 Mg Tablet 100 Mg PO DAILY LAST DOSE GIVEN: DATE: TIME: NEXT DOSE DUE: DATE: TIME: Pravastatin Sodium 80 Mg Tablet 80 Mg PO HS LAST DOSE GIVEN: DATE: TIME: NEXT DOSE DUE: DATE: TIME: Klor-Con M20 (Potassium Chloride) 20 Meq Tab.er.prt 20 Meq PO BID LAST DOSE GIVEN: DATE: TIME: NEXT DOSE DUE: DATE: TIME: Novolog Flexpen (Insulin Aspart) 100 Unit/1 Ml Insuln.pen 10 Unit SQ TIDWMEALS Metoprolol Tartrate 25 Mg Tablet 25 Mg PO BID LAST DOSE GIVEN: DATE: TIME: NEXT DOSE DUE: DATE: TIME: Lantus Solostar (Insulin Glargine,Hum.rec.anlog) 100 Unit/1 Ml Insuln.pen 5 Unit SQ QHS LAST DOSE GIVEN: DATE: TIME: NEXT DOSE DUE: DATE: TIME: Famotidine 40 Mg Tablet 20 Mg PO DAILY LAST DOSE GIVEN: DATE: TIME: NEXT DOSE DUE: DATE: TIME: Plavix (Clopidogrel Bisulfate) 75 Mg Tablet 75 Mg PO DAILY LAST DOSE GIVEN: DATE: TIME: NEXT DOSE DUE: DATE: TIME: Vitamin D3 (Cholecalciferol (Vitamin D3)) 1,000 Unit Tablet 1,000 Unit PO DAILY LAST DOSE GIVEN: DATE: TIME: NEXT DOSE DUE: DATE: TIME: Buspirone Hcl 5 Mg Tablet 5 Mg PO BID@0900,1500 LAST DOSE GIVEN: DATE: TIME: NEXT DOSE DUE: DATE: TIME: Buspirone Hcl 10 Mg Tablet 10 Mg PO HS LAST DOSE GIVEN: DATE: TIME: NEXT DOSE DUE: DATE: TIME: Bisacodyl 10 Mg Supp.rect 10 Mg RC PRN DAILY PRN LAST DOSE GIVEN: DATE: TIME: NEXT DOSE DUE: DATE: TIME: Ascorbic Acid 500 Mg Tablet 500 Mg PO DAILY LAST DOSE GIVEN: DATE: TIME: NEXT DOSE DUE: DATE: TIME: Tylenol (Acetaminophen) 325 Mg Tablet 650 Mg PO PRN Q6HRS PRN LAST DOSE GIVEN: DATE: TIME: NEXT DOSE DUE: DATE: TIME: I have reviewed the current psychotropics carefully including drug interactions. Risk benefit ratio favors no change other than as noted in my dictated progress note. Diagnosis: Problems: (1) Dementia in Alzheimer's disease with delusions (2) Cognitive and behavioral changes (3) Dementia in Alzheimer's disease with depression (4) Dementia, vascular, with delusions (5) Dementia, vascular, with depression (6) Impulse control disorder (7) Impulse control disorder (8) Anxiety disorder BERT MEYER MD May 16, 2018 18:48
[2018-05-16 20:19] VITALS: BP 114/75
[2018-05-16] MEDS: traZODone 50 MG TABLET. PO SCH (20:40)
[2018-05-16] MEDS: busPIRone 10 MG TABLET. PO SCH (20:40)
[2018-05-16] MEDS: PRAVASTATIN 20 MG TABLET. PO SCH (20:40)
[2018-05-16] MEDS: INSULIN GLARGINE 300 UNITS/3 ML INSULN.PEN. SQ SCH (20:49)
--- NOTE | 2018-05-16 21:39 | NUR ---
NURSING: PT HIGHLY LABILE THIS EVENING. INITIALLY SMILING AND TALKATIVE, THEN WHEN THIS RN ATTEMPTED TO DO ASSESSMENT AND GIVE HS MEDS, PT BECAME ANGRY AND NON-COMPLIANT. STATES, "I'M FED UP WITH YOU, ALL OF YOU." ATTEMPTS TO CONSOLE INEFFECTIVE. GAVE PT A MOMENT TO SETTLE DOWN AND WHEN RE-APPROACHED, NOW TEARFUL AND APOLOGETIC. STILL TOOK SEVERAL ATTEMPTS TO GIVE MEDS PT COULD NOT FOCUS ON TASK. WILL MONITOR.
--- NOTE | 2018-05-17 00:17 | PN ---
DATE: 05/16/2018 SUBJECTIVE: The patient is sitting comfortably in her chair, putting on her makeup. On questioning her, she said that she is very poor. She normally is up and about, dancing and having fun, she denied any chest pain, shortness of breath, cough or phlegm. Nursing staff stated that she does dance whenever they take her to the bathroom or shower; however, she does sometimes make remarks that her strange. OBJECTIVE: GENERAL: When I examined her this afternoon, she looked well and was clearly in no apparent respiratory distress. No pallor, jaundice, cyanosis, lymphadenopathy or thyromegaly. No jugular venous distension. No lower limb edema. VITAL SIGNS: Her heart rate was 81, blood pressure was 110/76, temperature was 97.1, respiratory rate was 18 and oxygen saturation was 96%. HEAD, EYES, EARS, NOSE AND THROAT: Normocephalic, atraumatic. NECK: Supple. HEART: Showed normal first and second heart sounds with no gallop, rub or murmur. CHEST: Clear to auscultation. No crepitation or rhonchi. ABDOMEN: Distended, soft, nontender. No guarding or rigidity. No organomegaly. Hernial orifice intact. Bowel sounds normal. NEUROLOGIC: She was awake, alert, responding appropriately. All cranial nerves intact. She moves extremities without difficulty. She ambulates without assistance or assistive devices. Her intake over the last 24 hours was 3350 and no output was recorded. LABORATORY DATA: This morning showed a serum sodium of 139, potassium 4.4, chloride 106, bicarbonate 25, anion gap of 8, BUN 55, creatinine was 2.2, estimated GFR was 22 mL per minute. Her glucose was 159 and calcium was 8.3. Her white cell count was 4300, hemoglobin 13, hematocrit 39, MCV 95, and platelet count of 109,000. Her nasal screen for MRSA by PCR was negative. ASSESSMENT: 1. Acute on chronic kidney injury. Her creatinine has risen from 2.2-2.8, BUN has risen from 48-78. She will continue with IV fluid, continue to monitor her blood sugar. I held her diuretics. Other medical problems include combined systolic and diastolic congestive heart failure. 2. Chronic kidney disease. 3. Hypertension. 4. Iron-deficiency anemia. 5. Type 2 diabetes mellitus. 6. Diabetic peripheral neuropathy. 7. Hyperlipidemia. 8. Gastroesophageal reflux disease. 9. Chronic idiopathic constipation. TANO LYN MD DR: FANNIE/faiza JOB#: [id number] / [id number]
[2018-05-17 00:33] VITALS: BP 125/86
--- NOTE | 2018-05-17 02:50 | PN ---
DATE: 05/15/2018 This late entry, 05/15/2018, covers elements not covered in my initial note. SUBJECTIVE: I met with the patient in the evening. I am seeing the patient on [address], room [address]121 at [facility], for a psychiatric consult requested by Dr. Orourke after she was transferred from [facility] on account of worsening dehydration. From a psychiatric standpoint per nursing report, she remains somewhat resistive with the medications, but less confused than before. REVIEW OF SYSTEMS: Positive for some tiredness. No CV, , pulmonary, eye system symptoms on review. MENTAL STATUS EXAM: Oriented to herself and situation. Speech has some latency, coherent. Abstraction fair, computation impaired, language function intact. Mood and affect is improved. Memory is impaired. LABORATORY DATA: Reviewed. IMPRESSION: Major neurocognitive disorder, Alzheimer, vascular with delusion, depression, behavioral disturbance. Rest unchanged. PLAN: No change from initial note. BERT MEYER MD DR: LIZA/faiza JOB#: [id number] / [id number]
[2018-05-17] MEDS: IV NORMAL SALINE 1,000ML 1,000 ML IV SCH (04:22)
[2018-05-17 05:58] VITALS: BP 150/74
[2018-05-17] MEDS: HEPARIN for SUB-Q USE 5,000 UNIT/ML VIAL. SQ SCH ×2 (06:00→13:21)
[2018-05-17 06:08] VITALS: BP 124/86
[2018-05-17] MEDS: INSULIN LISPRO 300 UNITS/3 ML INSULN.PEN. SQ SCH ×3 (07:30→16:30)
[2018-05-17] MEDS: THIAMINE 100 MG TABLET. PO SCH (08:15)
[2018-05-17] MEDS: LACTOBACILLUS RHAMNOSUS GG 1 CAPSULE. PO SCH (08:15)
[2018-05-17] MEDS: FAMOTIDINE 20 MG TABLET PO SCH (08:16)
[2018-05-17] MEDS: ASCORBIC ACID 500 MG TABLET PO SCH (08:16)
[2018-05-17] MEDS: CLOPIDOGREL BISULFATE 75 MG TABLET PO SCH (08:16)
[2018-05-17] MEDS: POTASSIUM CHLORIDE 20 MEQ TABLET.ER. PO SCH (08:16)
[2018-05-17] MEDS: busPIRone 5 MG TABLET. PO SCH ×2 (08:16→15:10)
[2018-05-17] MEDS: risperiDONE 0.5 MG TABLET. PO SCH (08:16)
[2018-05-17] MEDS: CHOLECALCIFEROL (VITAMIN D3) 1,000 UNIT TABLET PO SCH (08:16)
[2018-05-17] MEDS: METOPROLOL TART IMMED RELEASE 25 MG TABLET PO SCH (08:16)
[2018-05-17] MEDS: CEFDINIR 300 MG CAPSULE PO SCH (08:17)
[2018-05-17 10:53] VITALS: BP 106/67
[2018-05-17 14:37] VITALS: BP 112/76
--- NOTE | 2018-05-17 15:53 | PDOC ---
SUBJECTIVE: Doing well and denied any complaint. in particular no chest pain or sob OBJECTIVE: Problems: acute on chronic kidney injury Acute on chronic diastolic CHF Well in NAD Vital signs stable Vital Signs: Vital Signs Date Time Temp Pulse Resp B/P (MAP) Pulse Ox O2 Delivery O2 Flow Rate FiO2 05/17/18 14:37 97.4 79 18 112/76 (88) 97 Room Air I & O Intake and Output 05/17/18 07:01 Intake Total 2404 ml Balance 2404 ml Intake Oral 840 ml IV Total 1564 ml # Voids 4 Labs: Laboratory Tests Test 05/15/18 16:36 05/15/18 20:38 05/16/18 06:07 05/16/18 07:54 Glucose (Fingerstick) 188 mg/dL (70-99) 119 mg/dL (70-99) 140 mg/dL (70-99) Sodium Level 139 mmol/L (136-145) Potassium Level 4.4 mmol/L (3.5-5.1) Chloride Level 106 mmol/L (98-107) Carbon Dioxide Level 25 mmol/L (21-32) Anion Gap 8 (6-14) Blood Urea Nitrogen 55 mg/dL (7-20) Creatinine 2.2 mg/dL (0.6-1.0) Estimated GFR (Cockcroft-Gault) 22.1 Glucose Level 159 mg/dL (70-99) Calcium Level 9.3 mg/dL (8.5-10.1) Test 05/16/18 11:32 05/16/18 17:09 05/16/18 19:56 05/17/18 07:12 Glucose (Fingerstick) 115 mg/dL (70-99) 151 mg/dL (70-99) 157 mg/dL (70-99) 89 mg/dL (70-99) Test 05/17/18 11:48 Glucose (Fingerstick) 247 mg/dL (70-99) ASSESSMENT: Acute on chronic kidney injury improved PLAN: will check BMP now and if it is back to baseline she can go back TANO LYN MD May 17, 2018 15:53
[2018-05-17 16:24] LABS: CALCIUM 9.4 mg/dL (8.5-10.1); CREATININE 1.8 mg/dL (0.6-1.0); GFR 27.9; POTASSIUM 4.2 mmol/L (3.5-5.1)
--- NOTE | 2018-05-17 16:39 | PDOC3 ---
Discharge Summary Visit Information Date of Admission: May 15, 2018 Date of Discharge: May 17, 2018 Admitting Diagnosis: A/C KIDNEY INJURY Admitting Diagnosis Comments The patient kidney function has dramaticlly worsened despite stopping her diuretics no obstruction seen on ultrasound Final Diagnosis Dehydration A/c kidney injury Brief Hospital Course Allergies Allergies Coded Allergies Type Severity Reaction Last Updated Verified Iodinated Contrast- Oral and IV Dye Allergy Severe 05/02/18 Yes Vital Signs Vital Signs Date Time Temp Pulse Resp B/P (MAP) Pulse Ox O2 Delivery O2 Flow Rate FiO2 05/17/18 14:37 97.4 79 18 112/76 (88) 97 Room Air Lab Results Laboratory Tests Test 05/15/18 16:36 05/15/18 20:38 05/16/18 06:07 05/16/18 07:54 Glucose (Fingerstick) 188 mg/dL (70-99) 119 mg/dL (70-99) 140 mg/dL (70-99) Sodium Level 139 mmol/L (136-145) Potassium Level 4.4 mmol/L (3.5-5.1) Chloride Level 106 mmol/L (98-107) Carbon Dioxide Level 25 mmol/L (21-32) Anion Gap 8 (6-14) Blood Urea Nitrogen 55 mg/dL (7-20) Creatinine 2.2 mg/dL (0.6-1.0) Estimated GFR (Cockcroft-Gault) 22.1 Glucose Level 159 mg/dL (70-99) Calcium Level 9.3 mg/dL (8.5-10.1) Test 05/16/18 11:32 05/16/18 17:09 05/16/18 19:56 05/17/18 07:12 Glucose (Fingerstick) 115 mg/dL (70-99) 151 mg/dL (70-99) 157 mg/dL (70-99) 89 mg/dL (70-99) Test 05/17/18 11:48 05/17/18 16:00 Glucose (Fingerstick) 247 mg/dL (70-99) Sodium Level 140 mmol/L (136-145) Potassium Level 4.2 mmol/L (3.5-5.1) Chloride Level 107 mmol/L (98-107) Carbon Dioxide Level 24 mmol/L (21-32) Anion Gap 9 (6-14) Blood Urea Nitrogen 48 mg/dL (7-20) Creatinine 1.8 mg/dL (0.6-1.0) Estimated GFR (Cockcroft-Gault) 27.9 Glucose Level 98 mg/dL (70-99) Calcium Level 9.4 mg/dL (8.5-10.1) Brief Hospital Course Ms. Snyder is a 68 old [sex] who presented with [ ] Discharge Information Condition at Discharge: Improved Follow Up: As Needed Disposition/Orders: Other Dischare Medications Current Medications Sodium Chloride 1,000 ml @ 75 mls/hr [id number] IV Last administered on at 04:22; Start 05/14/18 at 23:00 Acetaminophen (Tylenol) 650 mg PRN Q6HRS PRN PO PAIN / TEMP; Start 05/14/18 at 23:00 Ascorbic Acid (Vitamin C) 500 mg DAILY PO Last administered on 05/17/18at 08:16 ; Start 05/15/18 at 09:00 Cefdinir (Omnicef) 300 mg DAILY PO Last administered on 05/17/18at 08:17; Start 05/15/18 at 09:00 Vitamin D (Vitamin D3) 1,000 unit DAILY PO Last administered on 05/17/18at 08: 16; Start 05/15/18 at 09:00 Clopidogrel Bisulfate (Plavix) 75 mg DAILY PO Last administered on 05/17/18at 08:16; Start 05/15/18 at 09:00 Insulin Glargine (Lantus) 5 units QHS SQ Last administered on 05/16/18at 20:49 ; Start 05/15/18 at 21:00 Metoprolol Tartrate (Lopressor) 25 mg BID PO Last administered on 05/17/18at 08 :16; Start 05/15/18 at 09:00 Nitroglycerin (Nitrostat) 0.4 mg PRN Q5MIN PRN SL CHEST PAIN; Start 05/14/18 at 23:00 Olanzapine (ZyPREXA ZYDIS) 2.5 mg PRN Q2HR PRN PO ANXIETY / AGITATION; Start 05/14/18 at 23:00 Potassium Chloride (Klor-Con) 20 meq BID PO Last administered on 05/17/18at 08: 16; Start 05/15/18 at 09:00 Bisacodyl (Dulcolax Supp) 10 mg PRN DAILY PRN [place] CONSTIPATION; Start 05/14/18 at 23:00 Buspirone HCl (Buspar) 5 mg BID94 PO Last administered on 05/17/18 15:10; Start 05/15/18 at 09:00 Buspirone HCl (Buspar) 10 mg HS PO Last administered on 05/16/18 20:40; Start 05/15/18 at 21:00 Famotidine (Pepcid) 20 mg DAILY PO Last administered on 05/17/18 08:16; Start 05/15/18 at 09:00 Fluvoxamine Maleate (Luvox) 50 mg HS PO Last administered on 05/16/18 20:41; Start 05/15/18 at 21:00 Insulin Human Lispro (HumaLOG) 10 units TIDAC SQ Last administered on 11:59; Start 05/15/18 at 07:30 Lactobacillus Rhamnosus (Culturelle) 1 cap BID PO Last administered on 08:15; Start 05/15/18 at 09:00 Pravastatin Sodium (Pravachol) 80 mg QHS PO Last administered on 05/16/18 20: 40; Start 05/15/18 at 21:00 Risperidone (RisperDAL) 0.5 mg DAILY PO Last administered on 05/17/18 08:16; Start 05/15/18 at 09:00 Risperidone (RisperDAL) 0.5 mg HS PO Last administered on 05/16/18 20:40; Start 05/15/18 at 21:00 Thiamine HCl (Vitamin B-1) 100 mg DAILY PO Last administered on 05/17/18 08: 15; Start 05/15/18 at 09:00 Trazodone HCl (Desyrel) 25 mg QHS PO Last administered on 05/16/18 20:40; Start 05/15/18 at 21:00 Heparin Sodium (Porcine) (Heparin Sodium) 5,000 unit Q8HRS SQ Last administered on 05/16/18 05:27; Start 05/15/18 at 14:00 Active Scripts Active Reported Risperidone 0.5 Mg Tablet 0.5 Mg PO DAILY Risperidone 0.5 Mg Tablet 0.5 Mg PO QHS Fluvoxamine Maleate 50 Mg Tablet 50 Mg PO QHS Zyprexa Zydis (Olanzapine) 5 Mg Tab.rapdis 2.5 Mg PO PRN Q2HR PRN NITROGLYCERIN SubLingual (Nitroglycerin) 0.4 Mg Tab.subl 0.4 Mg SL PRN Q5MIN PRN Culturelle (Lactobacillus Rhamnosus Gg) 1 Each Capsule 1 Each PO BID Glucose Gel (Dextrose) 38 Gm Gel..gram. 15 Gm PO PRN Q15MIN PRN Cefdinir 300 Mg Capsule 300 Mg PO DAILY Trazodone Hcl 50 Mg Tablet 25 Mg PO HS LAST DOSE GIVEN: DATE: TIME: NEXT DOSE DUE: DATE: TIME: Vitamin B-1 (Thiamine Hcl) 100 Mg Tablet 100 Mg PO DAILY LAST DOSE GIVEN: DATE: TIME: NEXT DOSE DUE: DATE: TIME: Pravastatin Sodium 80 Mg Tablet 80 Mg PO HS LAST DOSE GIVEN: DATE: TIME: NEXT DOSE DUE: DATE: TIME: Klor-Con M20 (Potassium Chloride) 20 Meq Tab.er.prt 20 Meq PO BID LAST DOSE GIVEN: DATE: TIME: NEXT DOSE DUE: DATE: TIME: Novolog Flexpen (Insulin Aspart) 100 Unit/1 Ml Insuln.pen 10 Unit SQ TIDWMEALS Metoprolol Tartrate 25 Mg Tablet 25 Mg PO BID LAST DOSE GIVEN: DATE: TIME: NEXT DOSE DUE: DATE: TIME: Lantus Solostar (Insulin Glargine,Hum.rec.anlog) 100 Unit/1 Ml Insuln.pen 5 Unit SQ QHS LAST DOSE GIVEN: DATE: TIME: NEXT DOSE DUE: DATE: TIME: Famotidine 40 Mg Tablet 20 Mg PO DAILY LAST DOSE GIVEN: DATE: TIME: NEXT DOSE DUE: DATE: TIME: Plavix (Clopidogrel Bisulfate) 75 Mg Tablet 75 Mg PO DAILY LAST DOSE GIVEN: DATE: TIME: NEXT DOSE DUE: DATE: TIME: Vitamin D3 (Cholecalciferol (Vitamin D3)) 1,000 Unit Tablet 1,000 Unit PO DAILY LAST DOSE GIVEN: DATE: TIME: NEXT DOSE DUE: DATE: TIME: Buspirone Hcl 5 Mg Tablet 5 Mg PO BID@0900,1500 LAST DOSE GIVEN: DATE: TIME: NEXT DOSE DUE: DATE: TIME: Buspirone Hcl 10 Mg Tablet 10 Mg PO HS LAST DOSE GIVEN: DATE: TIME: NEXT DOSE DUE: DATE: TIME: Bisacodyl 10 Mg Supp.rect 10 Mg RC PRN DAILY PRN LAST DOSE GIVEN: DATE: TIME: NEXT DOSE DUE: DATE: TIME: Ascorbic Acid 500 Mg Tablet 500 Mg PO DAILY LAST DOSE GIVEN: DATE: TIME: NEXT DOSE DUE: DATE: TIME: Tylenol (Acetaminophen) 325 Mg Tablet 650 Mg PO PRN Q6HRS PRN LAST DOSE GIVEN: DATE: TIME: NEXT DOSE DUE: DATE: TIME: Patient Instructions Patient Instuctions The nursing staff were instructed to push fluids TANO LYN MD May 17, 2018 16:39
--- NOTE | 2018-05-17 18:41 | NUR ---
NURSING NOTE DISCHARGE PT DISCHARGED TO [facility] AT 1840 VIA WHEELCHAIR ACCOMPANIED BY SAFETY AIDE. REPORT CALLED TO MARICEL HONG. MARICEL CUMMINGS.
[2018-05-17] MEDS ORDERED: HEPA500022 SQ (22:44)
== END 2018-05-17 18:40 | disposition short-term general hospital (02) | DRG 682 ==
LOC: 1 SOUTH 20:31
PROVIDERS: ADMIT Internal Medicine; ATTEND Internal Medicine
DX: N17.9 Acute kidney failure, unspecified (principal); I50.43 Acute on chronic combined systolic (congestive) and diastolic (congestive) heart failure; I13.0 Hypertensive heart and chronic kidney disease with heart failure and stage 1 through stage 4 chronic kidney disease, or unspecified chronic kidney disease; E44.0 Moderate protein-calorie malnutrition; F25.0 Schizoaffective disorder, bipolar type; G30.9 Alzheimer's disease, unspecified; D50.9 Iron deficiency anemia, unspecified; E11.22 Type 2 diabetes mellitus with diabetic chronic kidney disease; E11.42 Type 2 diabetes mellitus with diabetic polyneuropathy; E78.5 Hyperlipidemia, unspecified; E86.0 Dehydration; F01.50 Vascular dementia, unspecified severity, without behavioral disturbance, psychotic disturbance, mood disturbance, and anxiety; F02.80 Dementia in other diseases classified elsewhere, unspecified severity, without behavioral disturbance, psychotic disturbance, mood disturbance, and anxiety; F41.9 Anxiety disorder, unspecified; F63.9 Impulse disorder, unspecified; I70.0 Atherosclerosis of aorta; K21.9 Gastro-esophageal reflux disease without esophagitis; K59.04 Chronic idiopathic constipation; N18.9 Chronic kidney disease, unspecified; R13.10 Dysphagia, unspecified; Z90.13 Acquired absence of bilateral breasts and nipples; Z88.8 Allergy status to other drugs, medicaments and biological substances; Z68.27 Body mass index [BMI] 27.0-27.9, adult
CPT/HCPCS: 36415; 80048; 80053; 82947; 85007; 85025; 87641; J1644; 97110; 97116; 97530; J7030

== ENCOUNTER 2018-05-17 19:00 | Inpatient (IN) | payer MEDICARE ==
[~2018-05-17] VITALS: Ht 162.6 cm; Wt 82.1 kg
[~2018-05-17 19:00] MED LIST changes: +ACET500T68 PO
[2018-05-17] MEDS ORDERED: ACETAMINOPHEN 325 MG TABLET PO PRN (22:30)
[2018-05-17] MEDS ORDERED: NITROGLYCERIN SUBLINGUAL 0.4 MG BOTTLE OF 25. SL PRN (22:30)
--- NOTE | 2018-05-17 22:39 | PDOC ---
Exam Note: Manfred Note: Please also refer to the separate dictated note~for this date of service dictated separately. Discussed the patient with Nursing staff reviewed the chart.~Reviewed interim history and current functioning. Reviewed vital signs,~ Labs/ Radiology~and current medications noted below. Continue current treatment with the changes noted in the dictated addendum note Current Medications: Meds: Active Scripts Active Reported Risperidone 0.5 Mg Tablet 0.5 Mg PO DAILY Risperidone 0.5 Mg Tablet 0.5 Mg PO QHS Fluvoxamine Maleate 50 Mg Tablet 50 Mg PO QHS Zyprexa Zydis (Olanzapine) 5 Mg Tab.rapdis 2.5 Mg PO PRN Q2HR PRN NITROGLYCERIN SubLingual (Nitroglycerin) 0.4 Mg Tab.subl 0.4 Mg SL PRN Q5MIN PRN Culturelle (Lactobacillus Rhamnosus Gg) 1 Each Capsule 1 Each PO BID Glucose Gel (Dextrose) 38 Gm Gel..gram. 15 Gm PO PRN Q15MIN PRN Cefdinir 300 Mg Capsule 300 Mg PO DAILY Trazodone Hcl 50 Mg Tablet 25 Mg PO HS LAST DOSE GIVEN: DATE: TIME: NEXT DOSE DUE: DATE: TIME: Vitamin B-1 (Thiamine Hcl) 100 Mg Tablet 100 Mg PO DAILY LAST DOSE GIVEN: DATE: TIME: NEXT DOSE DUE: DATE: TIME: Pravastatin Sodium 80 Mg Tablet 80 Mg PO HS LAST DOSE GIVEN: DATE: TIME: NEXT DOSE DUE: DATE: TIME: Klor-Con M20 (Potassium Chloride) 20 Meq Tab.er.prt 20 Meq PO BID LAST DOSE GIVEN: DATE: TIME: NEXT DOSE DUE: DATE: TIME: Novolog Flexpen (Insulin Aspart) 100 Unit/1 Ml Insuln.pen 10 Unit SQ TIDWMEALS Metoprolol Tartrate 25 Mg Tablet 25 Mg PO BID LAST DOSE GIVEN: DATE: TIME: NEXT DOSE DUE: DATE: TIME: Lantus Solostar (Insulin Glargine,Hum.rec.anlog) 100 Unit/1 Ml Insuln.pen 5 Unit SQ QHS LAST DOSE GIVEN: DATE: TIME: NEXT DOSE DUE: DATE: TIME: Famotidine 40 Mg Tablet 20 Mg PO DAILY LAST DOSE GIVEN: DATE: TIME: NEXT DOSE DUE: DATE: TIME: Plavix (Clopidogrel Bisulfate) 75 Mg Tablet 75 Mg PO DAILY LAST DOSE GIVEN: DATE: TIME: NEXT DOSE DUE: DATE: TIME: Vitamin D3 (Cholecalciferol (Vitamin D3)) 1,000 Unit Tablet 1,000 Unit PO DAILY LAST DOSE GIVEN: DATE: TIME: NEXT DOSE DUE: DATE: TIME: Buspirone Hcl 5 Mg Tablet 5 Mg PO BID@0900,1500 LAST DOSE GIVEN: DATE: TIME: NEXT DOSE DUE: DATE: TIME: Buspirone Hcl 10 Mg Tablet 10 Mg PO HS LAST DOSE GIVEN: DATE: TIME: NEXT DOSE DUE: DATE: TIME: Bisacodyl 10 Mg Supp.rect 10 Mg RC PRN DAILY PRN LAST DOSE GIVEN: DATE: TIME: NEXT DOSE DUE: DATE: TIME: Ascorbic Acid 500 Mg Tablet 500 Mg PO DAILY LAST DOSE GIVEN: DATE: TIME: NEXT DOSE DUE: DATE: TIME: Tylenol (Acetaminophen) 325 Mg Tablet 650 Mg PO PRN Q6HRS PRN LAST DOSE GIVEN: DATE: TIME: NEXT DOSE DUE: DATE: TIME: I have reviewed the current psychotropics carefully including drug interactions. Risk benefit ratio favors no change other than as noted in my dictated progress note. Diagnosis: Problems: (1) [id number] kidney injury (2) Schizoaffective disorder, bipolar type (3) Anxiety disorder (4) Impulse control disorder (5) Cognitive and behavioral changes (6) Anxiety disorder (7) Impulse control disorder (8) Dementia, vascular, with depression (9) Dementia, vascular, with delusions (10) Dementia in Alzheimer's disease with depression (11) Dementia in Alzheimer's disease with delusions (12) Acute and chronic respiratory failure BERT MEYER MD May 17, 2018 22:39
[2018-05-17] MEDS ORDERED: HEPA500022 SQ (22:44)
[2018-05-17] MEDS ORDERED: DEXTROSE ORAL GEL 15 GM TUBE. PO PRN (23:00)
[2018-05-17] MEDS ORDERED: BISACODYL 10 MG SUPP.RECT PR PRN (23:00)
[2018-05-17 23:13] VITALS: BP 141/83
[2018-05-18 05:57] VITALS: BP 133/79
--- NOTE | 2018-05-18 08:41 | PDOC ---
Exam Note: Manfred Note: PSYCHIATRIC ADMISSION HISTORY/EVALUATION Late entry for DOA 05/17/2018 Identifying Data: The patient is a 68-year-old female, who returns back to us from [facility], referred by Dr. Orourke after she was medically stabilized for her dehydration/acute kidney injury. She was previously an inpatient on our unit, referred from [facility] on account of worsening confusion, agitation, psychotic symptoms. She believes she was being poisoned, worried that peers would be harmed. She was verbally abusive to her daughter, refusing medications, losing weight, refusing to eat. This is what prompted her initial admission. She is being stabilized for her psychosis within the context of her dementia and possibly bipolar disorder and then developed dehydration, acute kidney injury transferred to [facility]. She has been medically stabilized but persists with her delusions, agitation, confusion, returns back for psychiatric stabilization before returning to the custodial. Chief Complaint: I came two days ago. History of Present Illness: The patient has a history of dementia Alzheimers, vascular type and a history of mood swings. As noted, she was extremely paranoid, psychotic at the custodial, prompting the initial referral. While on [facility], she was cognitively less confused but quite paranoid, delusional with ongoing mood lability, unable to return to the custodial prompting this readmission. She has had some sleep and appetite changes. No active suicidal or homicidal ideation. Past Psychiatric History: As above. Medical History: Positive for CHF, hypertension, hypokalemia, recent CVA, anemia, dysphagia, diabetes mellitus, hyperlipidemia, GERD, chronic constipation , chronic kidney disease, stage III, repeated UTIs, recurrent falls, left-side pacemaker, right mastectomy. Drug Allergies: Dye oral and IV. Code Status: Full code. Accu-Cheks a.c. and h.s. Diet mechanical soft, no straws, takes medications whole, ambulates with walker, UA prior to initial admission was positive but treated on cefdinir. Current Psychotropics: EMRAD was reviewed. Family History: Noncontributory. Social History: No alcohol or drug abuse, physical or sexual abuse history is noted. She is not known to be a perpetrator. Mental Status Examination: The patient was seen individually evening of 2017. She is oriented to herself. Insight and judgment, recent and remote memory, attention and concentration, fund of knowledge is poor consistent with her diagnosis. Impression: Major neurocognitive disorder Alzheimer, vascular, with delusion, depression, behavioral disturbance. Anxiety disorder unspecified. Impulse control disorder unspecified. Psychotic disorder unspecified. Acute kidney injury. Chronic kidney disease stage 3. Rest as above. Plan: Admit to Geropsychiatry Unit at [facility]. I will see the patient daily individually from a psychiatric standpoint. Medical follow up with Dr. Orourke. Continue current psychotropics. Observe baseline and make further adjustments as clinically indicated. Estimated length of stay: 5 to 7 days. Disposition Plan: Back to [facility] when stable. Please also refer to the separate dictated note~for this date of service dictated separately.~Patient seen individually. Discussed the patient with Nursing staff reviewed the chart.~Reviewed interim history and current functioning. Reviewed vital signs,~Labs/ Radiology~and current medications noted below. Continue current treatment with the changes noted in the dictated addendum note Assessment: Vital Signs: Vital Signs Date Time Temp Pulse Resp B/P (MAP) Pulse Ox O2 Delivery O2 Flow Rate FiO2 05/18/18 05:57 98.3 86 18 133/79 (97) 93 05/17/18 23:13 Room Air I&O Intake and Output 05/18/18 07:01 Intake Total 200 ml Balance 200 ml Intake Oral 200 ml Labs: Laboratory Tests Test 05/18/18 06:59 Glucose (Fingerstick) 168 mg/dL (70-99) H Current Medications: Meds: Current Medications Acetaminophen (Tylenol) 650 mg PRN Q6HRS PRN PO PAIN / TEMP; Start 05/17/18 at 22:30 Ascorbic Acid (Vitamin C) 500 mg DAILY PO ; Start 05/18/18 at 09:00 Vitamin D (Vitamin D3) 1,000 unit DAILY PO ; Start 05/18/18 at 09:00 Clopidogrel Bisulfate (Plavix) 75 mg DAILY PO ; Start 05/18/18 at 09:00 Insulin Glargine (Lantus) 5 units QHS SQ ; Start 05/18/18 at 21:00 Metoprolol Tartrate (Lopressor) 25 mg BID PO ; Start 05/18/18 at 09:00 Nitroglycerin (Nitrostat) 0.4 mg PRN Q5MIN PRN SL CHEST PAIN; Start 05/17/18 at 22:30 Olanzapine (ZyPREXA ZYDIS) 2.5 mg PRN Q2HR PRN PO ANXIETY / AGITATION; Start 05/17/18 at 22:30 Potassium Chloride (Klor-Con) 20 meq BID PO ; Start 05/18/18 at 09:00 Bisacodyl (Dulcolax Supp) 10 mg PRN DAILY PRN [place] CONSTIPATION; Start 05/17/18 at 23:00 Buspirone HCl (Buspar) 5 mg BID@0900,1500 PO ; Start 05/18/18 at 09:00 Buspirone HCl (Buspar) 10 mg QHS PO ; Start 05/18/18 at 21:00 Glucose (Insta-Glucose) 15 gm PRN Q15MIN PRN PO LOW BLOOD SUGAR; Start at 23:00 Famotidine (Pepcid) 20 mg DAILY PO ; Start 05/18/18 at 09:00 Fluvoxamine Maleate (Luvox) 50 mg QHS PO ; Start 05/18/18 at 21:00 Insulin Human Lispro (HumaLOG) 10 units TIDWMEALS SQ ; Start 05/18/18 at 08:00 Lactobacillus Rhamnosus (Culturelle) 1 cap BID PO ; Start 05/18/18 at 09:00 Pravastatin Sodium (Pravachol) 80 mg QHS PO ; Start 05/18/18 at 21:00 Risperidone (RisperDAL) 0.5 mg QHS PO ; Start 05/18/18 at 21:00 Risperidone (RisperDAL) 0.5 mg DAILY PO ; Start 05/18/18 at 09:00 Thiamine HCl (Vitamin B-1) 100 mg DAILY PO ; Start 05/18/18 at 09:00 Trazodone HCl (Desyrel) 25 mg QHS PO ; Start 05/18/18 at 21:00 Active Scripts Active Reported Heparin Sod 5,000 Unit/ 0.5 Ml (Heparin Sodium,Porcine/Pf) 5,000 Unit/0.5 Ml Vial 5,000 Unit SQ Q8HRS Risperidone 0.5 Mg Tablet 0.5 Mg PO DAILY Risperidone 0.5 Mg Tablet 0.5 Mg PO QHS Fluvoxamine Maleate 50 Mg Tablet 50 Mg PO QHS Zyprexa Zydis (Olanzapine) 5 Mg Tab.rapdis 2.5 Mg PO PRN Q2HR PRN NITROGLYCERIN SubLingual (Nitroglycerin) 0.4 Mg Tab.subl 0.4 Mg SL PRN Q5MIN PRN Culturelle (Lactobacillus Rhamnosus Gg) 1 Each Capsule 1 Each PO BID Glucose Gel (Dextrose) 38 Gm Gel..gram. 15 Gm PO PRN Q15MIN PRN Cefdinir 300 Mg Capsule 300 Mg PO DAILY Trazodone Hcl 50 Mg Tablet 25 Mg PO HS LAST DOSE GIVEN: DATE: TIME: NEXT DOSE DUE: DATE: TIME: Vitamin B-1 (Thiamine Hcl) 100 Mg Tablet 100 Mg PO DAILY LAST DOSE GIVEN: DATE: TIME: NEXT DOSE DUE: DATE: TIME: Pravastatin Sodium 80 Mg Tablet 80 Mg PO HS LAST DOSE GIVEN: DATE: TIME: NEXT DOSE DUE: DATE: TIME: Klor-Con M20 (Potassium Chloride) 20 Meq Tab.er.prt 20 Meq PO BID LAST DOSE GIVEN: DATE: TIME: NEXT DOSE DUE: DATE: TIME: Novolog Flexpen (Insulin Aspart) 100 Unit/1 Ml Insuln.pen 10 Unit SQ TIDWMEALS Metoprolol Tartrate 25 Mg Tablet 25 Mg PO BID LAST DOSE GIVEN: DATE: TIME: NEXT DOSE DUE: DATE: TIME: Lantus Solostar (Insulin Glargine,Hum.rec.anlog) 100 Unit/1 Ml Insuln.pen 5 Unit SQ QHS LAST DOSE GIVEN: DATE: TIME: NEXT DOSE DUE: DATE: TIME: Famotidine 40 Mg Tablet 20 Mg PO DAILY LAST DOSE GIVEN: DATE: TIME: NEXT DOSE DUE: DATE: TIME: Plavix (Clopidogrel Bisulfate) 75 Mg Tablet 75 Mg PO DAILY LAST DOSE GIVEN: DATE: TIME: NEXT DOSE DUE: DATE: TIME: Vitamin D3 (Cholecalciferol (Vitamin D3)) 1,000 Unit Tablet 1,000 Unit PO DAILY LAST DOSE GIVEN: DATE: TIME: NEXT DOSE DUE: DATE: TIME: Buspirone Hcl 5 Mg Tablet 5 Mg PO BID@0900,1500 LAST DOSE GIVEN: DATE: TIME: NEXT DOSE DUE: DATE: TIME: Buspirone Hcl 10 Mg Tablet 10 Mg PO HS LAST DOSE GIVEN: DATE: TIME: NEXT DOSE DUE: DATE: TIME: Bisacodyl 10 Mg Supp.rect 10 Mg RC PRN DAILY PRN LAST DOSE GIVEN: DATE: TIME: NEXT DOSE DUE: DATE: TIME: Ascorbic Acid 500 Mg Tablet 500 Mg PO DAILY LAST DOSE GIVEN: DATE: TIME: NEXT DOSE DUE: DATE: TIME: Tylenol (Acetaminophen) 325 Mg Tablet 650 Mg PO PRN Q6HRS PRN LAST DOSE GIVEN: DATE: TIME: NEXT DOSE DUE: DATE: TIME: I have reviewed the current psychotropics carefully including drug interactions. Risk benefit ratio favors no change other than as noted in my dictated progress note. Diagnosis: Problems: (1) [id number] kidney injury (2) Schizoaffective disorder, bipolar type (3) Anxiety disorder (4) Impulse control disorder (5) Cognitive and behavioral changes (6) Anxiety disorder (7) Impulse control disorder (8) Dementia, vascular, with depression (9) Dementia, vascular, with delusions (10) Dementia in Alzheimer's disease with depression (11) Dementia in Alzheimer's disease with delusions (12) Acute and chronic respiratory failure BERT MEYER MD May 18, 2018 08:41
[2018-05-18] MEDS: CLOPIDOGREL BISULFATE 75 MG TABLET PO SCH (09:24)
[2018-05-18] MEDS: ASCORBIC ACID 500 MG TABLET PO SCH (09:24)
[2018-05-18] MEDS: busPIRone 5 MG TABLET. PO SCH ×2 (09:24→16:21)
[2018-05-18] MEDS: FAMOTIDINE 20 MG TABLET PO SCH (09:24)
[2018-05-18] MEDS: POTASSIUM CHLORIDE 20 MEQ TABLET.ER. PO SCH ×2 (09:24→19:37)
[2018-05-18] MEDS: METOPROLOL TART IMMED RELEASE 25 MG TABLET PO SCH ×2 (09:24→19:38)
[2018-05-18] MEDS: THIAMINE 100 MG TABLET. PO SCH (09:24)
[2018-05-18] MEDS: CHOLECALCIFEROL (VITAMIN D3) 1,000 UNIT TABLET PO SCH (09:25)
[2018-05-18] MEDS: risperiDONE 0.5 MG TABLET. PO SCH ×2 (09:25→19:41)
[2018-05-18] MEDS: LACTOBACILLUS RHAMNOSUS GG 1 CAPSULE. PO SCH ×2 (09:30→19:37)
[2018-05-18] MEDS: INSULIN LISPRO 300 UNITS/3 ML INSULN.PEN. SQ SCH ×3 (09:34→17:17)
[2018-05-18 16:33] VITALS: BP 110/61
[2018-05-18 19:14] LABS: BACTERIA,URINE FEW /HPF (0-FEW); BILIRUBIN,URINE NEG (NEG); CLARITY,URINE HAZY; COLOR,URINE YELLOW; GLUCOSE,URINE NEG (NEG); GRANULAR CASTS,URINE OCC /HPF; NITRITE,URINE NEG (NEG); SQUAMOUS EPITHELIAL CELL,UR OCC /LPF; UROBILINOGEN,URINE 0.2 mg/dL (0.2 mg/dL)
[2018-05-18] MEDS: PRAVASTATIN 20 MG TABLET. PO SCH (19:41)
[2018-05-18] MEDS: busPIRone 10 MG TABLET. PO SCH (19:41)
[2018-05-18] MEDS: traZODone 50 MG TABLET. PO SCH (19:41)
[2018-05-18] MEDS: INSULIN GLARGINE 300 UNITS/3 ML INSULN.PEN. SQ SCH (19:43)
--- NOTE | 2018-05-18 22:49 | PDOC ---
Exam Note: Manfred Note: Please also refer to the separate dictated note~for this date of service dictated separately.~Patient seen individually. Discussed the patient with Nursing staff reviewed the chart.~Reviewed interim history and current functioning. Reviewed vital signs,~Labs/ Radiology~and current medications noted below. Continue current treatment with the changes noted in the dictated addendum note Assessment: Vital Signs: Vital Signs Date Time Temp Pulse Resp B/P (MAP) Pulse Ox O2 Delivery O2 Flow Rate FiO2 05/18/18 19:38 85 110/61 05/18/18 16:33 97.6 18 98 Room Air I&O Intake and Output 05/18/18 07:01 Intake Total 200 ml Balance 200 ml Intake Oral 200 ml Labs: Laboratory Tests Test 05/18/18 06:59 05/18/18 16:59 05/18/18 18:05 05/18/18 19:08 Glucose (Fingerstick) 168 mg/dL (70-99) H 55 mg/dL (70-99) L 139 mg/dL (70-99) H Urine Collection Type Unknown Urine Color Yellow Urine Clarity Hazy Urine pH 5.0 Urine Specific [place] 1.020 Urine Protein >100 mg/dl (NEG-TRACE) Urine Glucose (UA) Neg mg/dL (NEG) Urine Ketones (Stick) Neg mg/dL (NEG) Urine Blood Mod (NEG) Urine Nitrite Neg (NEG) Urine Bilirubin Neg (NEG) Urine Urobilinogen Dipstick 0.2 mg/dL (0.2 mg/dL) Urine Leukocyte Esterase Mod (NEG) Urine RBC 3-5 /HPF (0-2) Urine WBC 11-20 /HPF (0-4) Urine Squamous Epithelial Cells Occ /LPF Urine Bacteria Few /HPF (0-FEW) Urine Granular Casts Occ /HPF Current Medications: Meds: Current Medications Acetaminophen (Tylenol) 650 mg PRN Q6HRS PRN PO PAIN / TEMP; Start 05/17/18 at 22:30 Ascorbic Acid (Vitamin C) 500 mg DAILY PO Last administered on 05/18/18at 09:24 ; Start 05/18/18 at 09:00 Vitamin D (Vitamin D3) 1,000 unit DAILY PO Last administered on 05/18/18at 09: 25; Start 05/18/18 at 09:00 Clopidogrel Bisulfate (Plavix) 75 mg DAILY PO Last administered on 05/18/18 09:24; Start 05/18/18 at 09:00 Insulin Glargine (Lantus) 5 units QHS SQ Last administered on 05/18/18at 19:43 ; Start 05/18/18 at 21:00 Metoprolol Tartrate (Lopressor) 25 mg BID PO Last administered on 05/18/18at 19 :38; Start 05/18/18 at 09:00 Nitroglycerin (Nitrostat) 0.4 mg PRN Q5MIN PRN SL CHEST PAIN; Start 05/17/18 at 22:30 Olanzapine (ZyPREXA ZYDIS) 2.5 mg PRN Q2HR PRN PO ANXIETY / AGITATION; Start 05/17/18 at 22:30 Potassium Chloride (Klor-Con) 20 meq BID PO Last administered on 05/18/18at 19: 37; Start 05/18/18 at 09:00 Bisacodyl (Dulcolax Supp) 10 mg PRN DAILY PRN [place] CONSTIPATION; Start 05/17/18 at 23:00 Buspirone HCl (Buspar) 5 mg BID@0900,1500 PO Last administered on 05/18/18 16 :21; Start 05/18/18 at 09:00 Buspirone HCl (Buspar) 10 mg QHS PO Last administered on 05/18/18at 19:41; Start 05/18/18 at 21:00 Glucose (Insta-Glucose) 15 gm PRN Q15MIN PRN PO LOW BLOOD SUGAR; Start at 23:00 Famotidine (Pepcid) 20 mg DAILY PO Last administered on 05/18/18at 09:24; Start 05/18/18 at 09:00 Fluvoxamine Maleate (Luvox) 50 mg QHS PO Last administered on 05/18/18 19:41 ; Start 05/18/18 at 21:00 Insulin Human Lispro (HumaLOG) 10 units TIDWMEALS SQ Last administered on 05/18at 13:26; Start 05/18/18 at 08:00 Lactobacillus Rhamnosus (Culturelle) 1 cap BID PO Last administered on at 19:37; Start 05/18/18 at 09:00 Pravastatin Sodium (Pravachol) 80 mg QHS PO Last administered on 05/18/18 19: 41; Start 05/18/18 at 21:00 Risperidone (RisperDAL) 0.5 mg QHS PO Last administered on 05/18/18 19:41; Start 05/18/18 at 21:00 Risperidone (RisperDAL) 0.5 mg DAILY PO Last administered on 05/18/18 09:25; Start 05/18/18 at 09:00 Thiamine HCl (Vitamin B-1) 100 mg DAILY PO Last administered on 05/18/18 09: 24; Start 05/18/18 at 09:00 Trazodone HCl (Desyrel) 25 mg QHS PO Last administered on 05/18/18 19:41; Start 05/18/18 at 21:00 Active Scripts Active Reported Heparin Sod 5,000 Unit/ 0.5 Ml (Heparin Sodium,Porcine/Pf) 5,000 Unit/0.5 Ml Vial 5,000 Unit SQ Q8HRS Risperidone 0.5 Mg Tablet 0.5 Mg PO DAILY Risperidone 0.5 Mg Tablet 0.5 Mg PO QHS Fluvoxamine Maleate 50 Mg Tablet 50 Mg PO QHS Zyprexa Zydis (Olanzapine) 5 Mg Tab.rapdis 2.5 Mg PO PRN Q2HR PRN NITROGLYCERIN SubLingual (Nitroglycerin) 0.4 Mg Tab.subl 0.4 Mg SL PRN Q5MIN PRN Culturelle (Lactobacillus Rhamnosus Gg) 1 Each Capsule 1 Each PO BID Glucose Gel (Dextrose) 38 Gm Gel..gram. 15 Gm PO PRN Q15MIN PRN Cefdinir 300 Mg Capsule 300 Mg PO DAILY Trazodone Hcl 50 Mg Tablet 25 Mg PO HS LAST DOSE GIVEN: DATE: TIME: NEXT DOSE DUE: DATE: TIME: Vitamin B-1 (Thiamine Hcl) 100 Mg Tablet 100 Mg PO DAILY LAST DOSE GIVEN: DATE: TIME: NEXT DOSE DUE: DATE: TIME: Pravastatin Sodium 80 Mg Tablet 80 Mg PO HS LAST DOSE GIVEN: DATE: TIME: NEXT DOSE DUE: DATE: TIME: Klor-Con M20 (Potassium Chloride) 20 Meq Tab.er.prt 20 Meq PO BID LAST DOSE GIVEN: DATE: TIME: NEXT DOSE DUE: DATE: TIME: Novolog Flexpen (Insulin Aspart) 100 Unit/1 Ml Insuln.pen 10 Unit SQ TIDWMEALS Metoprolol Tartrate 25 Mg Tablet 25 Mg PO BID LAST DOSE GIVEN: DATE: TIME: NEXT DOSE DUE: DATE: TIME: Lantus Solostar (Insulin Glargine,Hum.rec.anlog) 100 Unit/1 Ml Insuln.pen 5 Unit SQ QHS LAST DOSE GIVEN: DATE: TIME: NEXT DOSE DUE: DATE: TIME: Famotidine 40 Mg Tablet 20 Mg PO DAILY LAST DOSE GIVEN: DATE: TIME: NEXT DOSE DUE: DATE: TIME: Plavix (Clopidogrel Bisulfate) 75 Mg Tablet 75 Mg PO DAILY LAST DOSE GIVEN: DATE: TIME: NEXT DOSE DUE: DATE: TIME: Vitamin D3 (Cholecalciferol (Vitamin D3)) 1,000 Unit Tablet 1,000 Unit PO DAILY LAST DOSE GIVEN: DATE: TIME: NEXT DOSE DUE: DATE: TIME: Buspirone Hcl 5 Mg Tablet 5 Mg PO BID@0900,1500 LAST DOSE GIVEN: DATE: TIME: NEXT DOSE DUE: DATE: TIME: Buspirone Hcl 10 Mg Tablet 10 Mg PO HS LAST DOSE GIVEN: DATE: TIME: NEXT DOSE DUE: DATE: TIME: Bisacodyl 10 Mg Supp.rect 10 Mg RC PRN DAILY PRN LAST DOSE GIVEN: DATE: TIME: NEXT DOSE DUE: DATE: TIME: Ascorbic Acid 500 Mg Tablet 500 Mg PO DAILY LAST DOSE GIVEN: DATE: TIME: NEXT DOSE DUE: DATE: TIME: Tylenol (Acetaminophen) 325 Mg Tablet 650 Mg PO PRN Q6HRS PRN LAST DOSE GIVEN: DATE: TIME: NEXT DOSE DUE: DATE: TIME: I have reviewed the current psychotropics carefully including drug interactions. Risk benefit ratio favors no change other than as noted in my dictated progress note. Diagnosis: Problems: (1) [id number] kidney injury (2) Schizoaffective disorder, bipolar type (3) Anxiety disorder (4) Impulse control disorder (5) Cognitive and behavioral changes (6) Anxiety disorder (7) Impulse control disorder (8) Dementia, vascular, with depression (9) Dementia, vascular, with delusions (10) Dementia in Alzheimer's disease with depression (11) Dementia in Alzheimer's disease with delusions (12) Acute and chronic respiratory failure BERT MEYER MD May 18, 2018 22:49
--- NOTE | 2018-05-19 04:55 | CONS ---
DATE OF CONSULTATION: ADDENDUM The patient was discharged yesterday from [facility], where she was admitted with acute on chronic kidney injury. Her creatinine has risen from 1.8 to 2.3 and her BUN has risen from 48 to 68. We did start her on IV fluid and she actually did very well. Her BUN came down from 67 to 48 and her creatinine came down from 2.3 to 1.8. She has no evidence of any fluid overload. She has been up and about and remained hemodynamically stable, and a decision was made to [facility] continue with inpatient psychiatric stabilization as she apparently continues to be with increased combativeness with staff and has been more aggressive at her [facility]. She is known to have a history of dementia. My plan is obviously to continue to monitor her labs closely. She is currently off all her diuretics and with a clear instruction to the nursing staff to obviously push fluid and continue with all her other medications. TANO LYN MD DR: FANNIE/faiza JOB#: [id number] / [id number]
[2018-05-19 05:38] VITALS: BP 140/77
[2018-05-19 07:41] LABS: CREATININE 1.9 mg/dL (0.6-1.0); GFR 26.2; POTASSIUM 5.1 mmol/L (3.5-5.1)
[2018-05-19] MEDS: INSULIN LISPRO 300 UNITS/3 ML INSULN.PEN. SQ SCH ×3 (07:43→16:57)
[2018-05-19] MEDS: busPIRone 5 MG TABLET. PO SCH ×2 (08:04→15:09)
[2018-05-19] MEDS: POTASSIUM CHLORIDE 20 MEQ TABLET.ER. PO SCH (08:04)
[2018-05-19] MEDS: LACTOBACILLUS RHAMNOSUS GG 1 CAPSULE. PO SCH ×2 (08:04→20:24)
[2018-05-19] MEDS: CLOPIDOGREL BISULFATE 75 MG TABLET PO SCH (08:05)
[2018-05-19] MEDS: FAMOTIDINE 20 MG TABLET PO SCH (08:05)
[2018-05-19] MEDS: METOPROLOL TART IMMED RELEASE 25 MG TABLET PO SCH ×2 (08:05→20:28)
[2018-05-19] MEDS: risperiDONE 0.5 MG TABLET. PO SCH ×2 (08:05→20:24)
[2018-05-19] MEDS: THIAMINE 100 MG TABLET. PO SCH (08:06)
[2018-05-19] MEDS: ASCORBIC ACID 500 MG TABLET PO SCH (08:06)
[2018-05-19] MEDS: CHOLECALCIFEROL (VITAMIN D3) 1,000 UNIT TABLET PO SCH (08:06)
[2018-05-19 15:42] VITALS: BP 126/83
[2018-05-19] MEDS: PRAVASTATIN 20 MG TABLET. PO SCH (20:24)
[2018-05-19] MEDS: busPIRone 10 MG TABLET. PO SCH (20:24)
[2018-05-19] MEDS: traZODone 50 MG TABLET. PO SCH (20:24)
[2018-05-19 20:28] VITALS: BP 116/76
[2018-05-19] MEDS: INSULIN GLARGINE 300 UNITS/3 ML INSULN.PEN. SQ SCH (20:30)
--- NOTE | 2018-05-19 21:58 | PDOC ---
Exam Note: Manfred Note: Please also refer to the separate dictated note~for this date of service dictated separately.~Patient seen individually. Discussed the patient with Nursing staff reviewed the chart.~Reviewed interim history and current functioning. Reviewed vital signs,~Labs/ Radiology~and current medications noted below. Continue current treatment with the changes noted in the dictated addendum note Assessment: Vital Signs: Vital Signs Date Time Temp Pulse Resp B/P (MAP) Pulse Ox O2 Delivery O2 Flow Rate FiO2 05/19/18 20:28 82 116/76 (89) 98 05/19/18 15:42 97.0 18 Room Air I&O Intake and Output 05/19/18 07:01 Intake Total 840 ml Balance 840 ml Intake Oral 840 ml Labs: Laboratory Tests Test 05/19/18 07:15 05/19/18 07:17 05/19/18 11:50 05/19/18 16:44 Sodium Level 139 mmol/L (136-145) Potassium Level 5.1 mmol/L (3.5-5.1) Chloride Level 106 mmol/L (98-107) Carbon Dioxide Level 25 mmol/L (21-32) Anion Gap 8 (6-14) Blood Urea Nitrogen 43 mg/dL (7-20) H Creatinine 1.9 mg/dL (0.6-1.0) H Estimated GFR (Cockcroft-Gault) 26.2 Glucose Level 232 mg/dL (70-99) H Calcium Level 10.0 mg/dL (8.5-10.1) Glucose (Fingerstick) 266 mg/dL (70-99) H 165 mg/dL (70-99) H 69 mg/dL (70-99) L Test 05/19/18 19:27 Glucose (Fingerstick) 143 mg/dL (70-99) H Current Medications: Meds: Current Medications Acetaminophen (Tylenol) 650 mg PRN Q6HRS PRN PO PAIN / TEMP; Start 05/17/18 at 22:30 Ascorbic Acid (Vitamin C) 500 mg DAILY PO Last administered on 05/19/18at 08:06 ; Start 05/18/18 at 09:00 Vitamin D (Vitamin D3) 1,000 unit DAILY PO Last administered on 05/19/18at 08: 06; Start 05/18/18 at 09:00 Clopidogrel Bisulfate (Plavix) 75 mg DAILY PO Last administered on 05/19/18 08:05; Start 05/18/18 at 09:00 Insulin Glargine (Lantus) 5 units QHS SQ Last administered on 05/19/18at 20:30 ; Start 05/18/18 at 21:00 Metoprolol Tartrate (Lopressor) 25 mg BID PO Last administered on 05/19/18 08 :05; Start 05/18/18 at 09:00 Nitroglycerin (Nitrostat) 0.4 mg PRN Q5MIN PRN SL CHEST PAIN; Start 05/17/18 at 22:30 Olanzapine (ZyPREXA ZYDIS) 2.5 mg PRN Q2HR PRN PO ANXIETY / AGITATION; Start 05/17/18 at 22:30 Potassium Chloride (Klor-Con) 20 meq BID PO Last administered on 05/19/18 08: 04; Start 05/18/18 at 09:00; Stop 05/19/18 at 15:08; Status DC Bisacodyl (Dulcolax Supp) 10 mg PRN DAILY PRN [place] CONSTIPATION; Start 05/17/18 at 23:00 Buspirone HCl (Buspar) 5 mg BID@0900,1500 PO Last administered on 05/19/18at 15 :09; Start 05/18/18 at 09:00 Buspirone HCl (Buspar) 10 mg QHS PO Last administered on 05/19/18 20:24; Start 05/18/18 at 21:00 Glucose (Insta-Glucose) 15 gm PRN Q15MIN PRN PO LOW BLOOD SUGAR; Start at 23:00 Famotidine (Pepcid) 20 mg DAILY PO Last administered on 05/19/18at 08:05; Start 05/18/18 at 09:00 Fluvoxamine Maleate (Luvox) 50 mg QHS PO Last administered on 05/19/18 20:23 ; Start 05/18/18 at 21:00 Insulin Human Lispro (HumaLOG) 10 units TIDWMEALS SQ Last administered on 05/19 12:06; Start 05/18/18 at 08:00 Lactobacillus Rhamnosus (Culturelle) 1 cap BID PO Last administered on at 20:24; Start 05/18/18 at 09:00 Pravastatin Sodium (Pravachol) 80 mg QHS PO Last administered on 05/19/18 20: 24; Start 05/18/18 at 21:00 Risperidone (RisperDAL) 0.5 mg QHS PO Last administered on 05/19/18 20:24; Start 05/18/18 at 21:00 Risperidone (RisperDAL) 0.5 mg DAILY PO Last administered on 05/19/18 08:05; Start 05/18/18 at 09:00 Thiamine HCl (Vitamin B-1) 100 mg DAILY PO Last administered on 05/19/18 08: 06; Start 05/18/18 at 09:00 Trazodone HCl (Desyrel) 25 mg QHS PO Last administered on 05/19/18 20:24; Start 05/18/18 at 21:00 Active Scripts Active Reported Heparin Sod 5,000 Unit/ 0.5 Ml (Heparin Sodium,Porcine/Pf) 5,000 Unit/0.5 Ml Vial 5,000 Unit SQ Q8HRS Risperidone 0.5 Mg Tablet 0.5 Mg PO DAILY Risperidone 0.5 Mg Tablet 0.5 Mg PO QHS Fluvoxamine Maleate 50 Mg Tablet 50 Mg PO QHS Zyprexa Zydis (Olanzapine) 5 Mg Tab.rapdis 2.5 Mg PO PRN Q2HR PRN NITROGLYCERIN SubLingual (Nitroglycerin) 0.4 Mg Tab.subl 0.4 Mg SL PRN Q5MIN PRN Culturelle (Lactobacillus Rhamnosus Gg) 1 Each Capsule 1 Each PO BID Glucose Gel (Dextrose) 38 Gm Gel..gram. 15 Gm PO PRN Q15MIN PRN Cefdinir 300 Mg Capsule 300 Mg PO DAILY Trazodone Hcl 50 Mg Tablet 25 Mg PO HS LAST DOSE GIVEN: DATE: TIME: NEXT DOSE DUE: DATE: TIME: Vitamin B-1 (Thiamine Hcl) 100 Mg Tablet 100 Mg PO DAILY LAST DOSE GIVEN: DATE: TIME: NEXT DOSE DUE: DATE: TIME: Pravastatin Sodium 80 Mg Tablet 80 Mg PO HS LAST DOSE GIVEN: DATE: TIME: NEXT DOSE DUE: DATE: TIME: Klor-Con M20 (Potassium Chloride) 20 Meq Tab.er.prt 20 Meq PO BID LAST DOSE GIVEN: DATE: TIME: NEXT DOSE DUE: DATE: TIME: Novolog Flexpen (Insulin Aspart) 100 Unit/1 Ml Insuln.pen 10 Unit SQ TIDWMEALS Metoprolol Tartrate 25 Mg Tablet 25 Mg PO BID LAST DOSE GIVEN: DATE: TIME: NEXT DOSE DUE: DATE: TIME: Lantus Solostar (Insulin Glargine,Hum.rec.anlog) 100 Unit/1 Ml Insuln.pen 5 Unit SQ QHS LAST DOSE GIVEN: DATE: TIME: NEXT DOSE DUE: DATE: TIME: Famotidine 40 Mg Tablet 20 Mg PO DAILY LAST DOSE GIVEN: DATE: TIME: NEXT DOSE DUE: DATE: TIME: Plavix (Clopidogrel Bisulfate) 75 Mg Tablet 75 Mg PO DAILY LAST DOSE GIVEN: DATE: TIME: NEXT DOSE DUE: DATE: TIME: Vitamin D3 (Cholecalciferol (Vitamin D3)) 1,000 Unit Tablet 1,000 Unit PO DAILY LAST DOSE GIVEN: DATE: TIME: NEXT DOSE DUE: DATE: TIME: Buspirone Hcl 5 Mg Tablet 5 Mg PO BID@0900,1500 LAST DOSE GIVEN: DATE: TIME: NEXT DOSE DUE: DATE: TIME: Buspirone Hcl 10 Mg Tablet 10 Mg PO HS LAST DOSE GIVEN: DATE: TIME: NEXT DOSE DUE: DATE: TIME: Bisacodyl 10 Mg Supp.rect 10 Mg RC PRN DAILY PRN LAST DOSE GIVEN: DATE: TIME: NEXT DOSE DUE: DATE: TIME: Ascorbic Acid 500 Mg Tablet 500 Mg PO DAILY LAST DOSE GIVEN: DATE: TIME: NEXT DOSE DUE: DATE: TIME: Tylenol (Acetaminophen) 325 Mg Tablet 650 Mg PO PRN Q6HRS PRN LAST DOSE GIVEN: DATE: TIME: NEXT DOSE DUE: DATE: TIME: I have reviewed the current psychotropics carefully including drug interactions. Risk benefit ratio favors no change other than as noted in my dictated progress note. Diagnosis: Problems: (1) [id number] kidney injury (2) Schizoaffective disorder, bipolar type (3) Anxiety disorder (4) Impulse control disorder (5) Cognitive and behavioral changes (6) Anxiety disorder (7) Impulse control disorder (8) Dementia, vascular, with depression (9) Dementia, vascular, with delusions (10) Dementia in Alzheimer's disease with depression (11) Dementia in Alzheimer's disease with delusions (12) Acute and chronic respiratory failure BERT MEYER MD May 19, 2018 21:58
[2018-05-20 06:27] VITALS: BP 111/73
[2018-05-20] MEDS: INSULIN LISPRO 300 UNITS/3 ML INSULN.PEN. SQ SCH ×3 (07:46→16:39)
[2018-05-20] MEDS: LACTOBACILLUS RHAMNOSUS GG 1 CAPSULE. PO SCH ×2 (07:48→19:53)
[2018-05-20] MEDS: busPIRone 5 MG TABLET. PO SCH ×2 (07:48→15:27)
[2018-05-20] MEDS: FAMOTIDINE 20 MG TABLET PO SCH (07:50)
[2018-05-20] MEDS: METOPROLOL TART IMMED RELEASE 25 MG TABLET PO SCH ×2 (07:50→19:54)
[2018-05-20] MEDS: CHOLECALCIFEROL (VITAMIN D3) 1,000 UNIT TABLET PO SCH (07:51)
[2018-05-20] MEDS: ASCORBIC ACID 500 MG TABLET PO SCH (07:51)
[2018-05-20] MEDS: risperiDONE 0.5 MG TABLET. PO SCH ×2 (07:51→19:52)
[2018-05-20] MEDS: CLOPIDOGREL BISULFATE 75 MG TABLET PO SCH (07:51)
[2018-05-20] MEDS: THIAMINE 100 MG TABLET. PO SCH (07:51)
[2018-05-20 16:04] VITALS: BP 107/80
[2018-05-20] MEDS: traZODone 50 MG TABLET. PO SCH (19:52)
[2018-05-20] MEDS: PRAVASTATIN 20 MG TABLET. PO SCH (19:52)
[2018-05-20] MEDS: busPIRone 10 MG TABLET. PO SCH (19:53)
[2018-05-20] MEDS: INSULIN GLARGINE 300 UNITS/3 ML INSULN.PEN. SQ SCH (19:56)
--- NOTE | 2018-05-20 23:10 | PDOC ---
Exam Note: Manfred Note: Please also refer to the separate dictated note~for this date of service dictated separately.~Patient seen individually. Discussed the patient with Nursing staff reviewed the chart.~Reviewed interim history and current functioning. Reviewed vital signs,~Labs/ Radiology~and current medications noted below. Continue current treatment with the changes noted in the dictated addendum note Assessment: Vital Signs: Vital Signs Date Time Temp Pulse Resp B/P (MAP) Pulse Ox O2 Delivery O2 Flow Rate FiO2 05/20/18 19:54 84 103/72 05/20/18 16:04 98.6 18 93 05/20/18 06:27 Room Air I&O Intake and Output 05/20/18 07:01 Intake Total 840 ml Balance 840 ml Intake Oral 840 ml Labs: Laboratory Tests Test 05/20/18 07:32 05/20/18 11:24 05/20/18 16:30 05/20/18 17:58 Glucose (Fingerstick) 160 mg/dL (70-99) H 145 mg/dL (70-99) H 44 mg/dL (70-99) L 96 mg/dL (70-99) Test 05/20/18 19:17 Glucose (Fingerstick) 131 mg/dL (70-99) H Current Medications: Meds: Current Medications Acetaminophen (Tylenol) 650 mg PRN Q6HRS PRN PO PAIN / TEMP; Start 05/17/18 at 22:30 Ascorbic Acid (Vitamin C) 500 mg DAILY PO Last administered on 05/20/18at 07:51 ; Start 05/18/18 at 09:00 Vitamin D (Vitamin D3) 1,000 unit DAILY PO Last administered on 05/20/18at 07: 51; Start 05/18/18 at 09:00 Clopidogrel Bisulfate (Plavix) 75 mg DAILY PO Last administered on 05/20/18at 07:51; Start 05/18/18 at 09:00 Insulin Glargine (Lantus) 5 units QHS SQ Last administered on 05/20/18at 19:56 ; Start 05/18/18 at 21:00 Metoprolol Tartrate (Lopressor) 25 mg BID PO Last administered on 05/20/18at 07 :50; Start 05/18/18 at 09:00 Nitroglycerin (Nitrostat) 0.4 mg PRN Q5MIN PRN SL CHEST PAIN; Start 05/17/18 at 22:30 Olanzapine (ZyPREXA ZYDIS) 2.5 mg PRN Q2HR PRN PO ANXIETY / AGITATION; Start 05/17/18 at 22:30 Potassium Chloride (Klor-Con) 20 meq BID PO Last administered on 05/19/18at 08: 04; Start 05/18/18 at 09:00; Stop 05/19/18 at 15:08; Status DC Bisacodyl (Dulcolax Supp) 10 mg PRN DAILY PRN [place] CONSTIPATION; Start 05/17/18 at 23:00 Buspirone HCl (Buspar) 5 mg BID@0900,1500 PO Last administered on 05/20/18at 15 :27; Start 05/18/18 at 09:00 Buspirone HCl (Buspar) 10 mg QHS PO Last administered on 05/20/18at 19:53; Start 05/18/18 at 21:00 Glucose (Insta-Glucose) 15 gm PRN Q15MIN PRN PO LOW BLOOD SUGAR; Start at 23:00 Famotidine (Pepcid) 20 mg DAILY PO Last administered on 05/20/18at 07:50; Start 05/18/18 at 09:00 Fluvoxamine Maleate (Luvox) 50 mg QHS PO Last administered on 05/20/18at 19:53 ; Start 05/18/18 at 21:00 Insulin Human Lispro (HumaLOG) 10 units TIDWMEALS SQ Last administered on 05/20at 12:07; Start 05/18/18 at 08:00 Lactobacillus Rhamnosus (Culturelle) 1 cap BID PO Last administered on at 19:53; Start 05/18/18 at 09:00 Pravastatin Sodium (Pravachol) 80 mg QHS PO Last administered on 05/20/18 19: 52; Start 05/18/18 at 21:00 Risperidone (RisperDAL) 0.5 mg QHS PO Last administered on 05/20/18 19:52; Start 05/18/18 at 21:00 Risperidone (RisperDAL) 0.5 mg DAILY PO Last administered on 05/20/18at 07:51; Start 05/18/18 at 09:00 Thiamine HCl (Vitamin B-1) 100 mg DAILY PO Last administered on 05/20/18at 07: 51; Start 05/18/18 at 09:00 Trazodone HCl (Desyrel) 25 mg QHS PO Last administered on 05/20/18at 19:52; Start 05/18/18 at 21:00 Active Scripts Active Reported Heparin Sod 5,000 Unit/ 0.5 Ml (Heparin Sodium,Porcine/Pf) 5,000 Unit/0.5 Ml Vial 5,000 Unit SQ Q8HRS Risperidone 0.5 Mg Tablet 0.5 Mg PO DAILY Risperidone 0.5 Mg Tablet 0.5 Mg PO QHS Fluvoxamine Maleate 50 Mg Tablet 50 Mg PO QHS Zyprexa Zydis (Olanzapine) 5 Mg Tab.rapdis 2.5 Mg PO PRN Q2HR PRN NITROGLYCERIN SubLingual (Nitroglycerin) 0.4 Mg Tab.subl 0.4 Mg SL PRN Q5MIN PRN Culturelle (Lactobacillus Rhamnosus Gg) 1 Each Capsule 1 Each PO BID Glucose Gel (Dextrose) 38 Gm Gel..gram. 15 Gm PO PRN Q15MIN PRN Cefdinir 300 Mg Capsule 300 Mg PO DAILY Trazodone Hcl 50 Mg Tablet 25 Mg PO HS LAST DOSE GIVEN: DATE: TIME: NEXT DOSE DUE: DATE: TIME: Vitamin B-1 (Thiamine Hcl) 100 Mg Tablet 100 Mg PO DAILY LAST DOSE GIVEN: DATE: TIME: NEXT DOSE DUE: DATE: TIME: Pravastatin Sodium 80 Mg Tablet 80 Mg PO HS LAST DOSE GIVEN: DATE: TIME: NEXT DOSE DUE: DATE: TIME: Klor-Con M20 (Potassium Chloride) 20 Meq Tab.er.prt 20 Meq PO BID LAST DOSE GIVEN: DATE: TIME: NEXT DOSE DUE: DATE: TIME: Novolog Flexpen (Insulin Aspart) 100 Unit/1 Ml Insuln.pen 10 Unit SQ TIDWMEALS Metoprolol Tartrate 25 Mg Tablet 25 Mg PO BID LAST DOSE GIVEN: DATE: TIME: NEXT DOSE DUE: DATE: TIME: Lantus Solostar (Insulin Glargine,Hum.rec.anlog) 100 Unit/1 Ml Insuln.pen 5 Unit SQ QHS LAST DOSE GIVEN: DATE: TIME: NEXT DOSE DUE: DATE: TIME: Famotidine 40 Mg Tablet 20 Mg PO DAILY LAST DOSE GIVEN: DATE: TIME: NEXT DOSE DUE: DATE: TIME: Plavix (Clopidogrel Bisulfate) 75 Mg Tablet 75 Mg PO DAILY LAST DOSE GIVEN: DATE: TIME: NEXT DOSE DUE: DATE: TIME: Vitamin D3 (Cholecalciferol (Vitamin D3)) 1,000 Unit Tablet 1,000 Unit PO DAILY LAST DOSE GIVEN: DATE: TIME: NEXT DOSE DUE: DATE: TIME: Buspirone Hcl 5 Mg Tablet 5 Mg PO BID@0900,1500 LAST DOSE GIVEN: DATE: TIME: NEXT DOSE DUE: DATE: TIME: Buspirone Hcl 10 Mg Tablet 10 Mg PO HS LAST DOSE GIVEN: DATE: TIME: NEXT DOSE DUE: DATE: TIME: Bisacodyl 10 Mg Supp.rect 10 Mg RC PRN DAILY PRN LAST DOSE GIVEN: DATE: TIME: NEXT DOSE DUE: DATE: TIME: Ascorbic Acid 500 Mg Tablet 500 Mg PO DAILY LAST DOSE GIVEN: DATE: TIME: NEXT DOSE DUE: DATE: TIME: Tylenol (Acetaminophen) 325 Mg Tablet 650 Mg PO PRN Q6HRS PRN LAST DOSE GIVEN: DATE: TIME: NEXT DOSE DUE: DATE: TIME: I have reviewed the current psychotropics carefully including drug interactions. Risk benefit ratio favors no change other than as noted in my dictated progress note. Diagnosis: Problems: (1) [id number] kidney injury (2) Schizoaffective disorder, bipolar type (3) Anxiety disorder (4) Impulse control disorder (5) Cognitive and behavioral changes (6) Anxiety disorder (7) Impulse control disorder (8) Dementia, vascular, with depression (9) Dementia, vascular, with delusions (10) Dementia in Alzheimer's disease with depression (11) Dementia in Alzheimer's disease with delusions (12) Acute and chronic respiratory failure BERT MEYER MD May 20, 2018 23:10
[2018-05-21 05:40] VITALS: BP 124/81
[2018-05-21] MEDS: INSULIN LISPRO 300 UNITS/3 ML INSULN.PEN. SQ SCH ×3 (08:03→17:22)
[2018-05-21] MEDS: LACTOBACILLUS RHAMNOSUS GG 1 CAPSULE. PO SCH ×2 (08:04→19:51)
[2018-05-21] MEDS: busPIRone 5 MG TABLET. PO SCH ×2 (08:04→15:43)
[2018-05-21] MEDS: CLOPIDOGREL BISULFATE 75 MG TABLET PO SCH (08:05)
[2018-05-21] MEDS: FAMOTIDINE 20 MG TABLET PO SCH (08:05)
[2018-05-21] MEDS: METOPROLOL TART IMMED RELEASE 25 MG TABLET PO SCH ×2 (08:05→19:51)
[2018-05-21] MEDS: THIAMINE 100 MG TABLET. PO SCH (08:07)
[2018-05-21] MEDS: risperiDONE 0.5 MG TABLET. PO SCH ×2 (08:07→19:56)
[2018-05-21] MEDS: CHOLECALCIFEROL (VITAMIN D3) 1,000 UNIT TABLET PO SCH (08:07)
[2018-05-21] MEDS: ASCORBIC ACID 500 MG TABLET PO SCH (08:07)
[2018-05-21 16:45] VITALS: BP 118/75
--- NOTE | 2018-05-21 19:48 | PN ---
DATE: 05/18/2018 PSYCHIATRIC PROGRESS NOTE This late entry 05/18/2018 covers elements not covered in my initial note. SUBJECTIVE: The patient was seen individually in the evening, staffed at a treatment team meeting with the entire team earlier in the day. She has been confused, withdrawn, slept 3 hours previous evening, but little more cognitively intact than she was about a week back. REVIEW OF SYSTEMS: No CV, , pulmonary, eye, ENT system symptoms on review. Reliability poor. MENTAL STATUS EXAM: Oriented to herself. Insight, judgment, recent and remote memory, attention, concentration, fund of knowledge poor, consistent with her diagnosis, mentioned in my initial note. PLAN: No change from initial note. BERT MEYER MD DR: LIZA/faiza JOB#: [id number] / [id number]
[2018-05-21] MEDS: PRAVASTATIN 20 MG TABLET. PO SCH (19:51)
[2018-05-21] MEDS: traZODone 50 MG TABLET. PO SCH (19:53)
[2018-05-21] MEDS: INSULIN GLARGINE 300 UNITS/3 ML INSULN.PEN. SQ SCH (19:56)
[2018-05-21] MEDS: DIVALPROEX ER 500 MG TAB.ER.24H PO SCH (20:00)
--- NOTE | 2018-05-21 21:40 | PN ---
DATE: 05/19/2018 PSYCHIATRIC PROGRESS NOTE This late entry 05/19/2018 covers elements not covered in my initial note. SUBJECTIVE: I met with the patient in the evening. The patient slept 4-3/4 hours previous night. She remains somewhat withdrawn, but otherwise appropriate. REVIEW OF SYSTEMS: No CV, , pulmonary, eye, ENT system symptoms on review. Reliability poor. MENTAL STATUS EXAM: Oriented to herself and situation. Insight, judgment, recent memory is impaired. Language function intact. Attention span short. Mood and affect somewhat withdrawn. LABORATORY DATA: Reviewed. IMPRESSION: Schizoaffective disorder, bipolar type, mixed with psychotic features; major neurocognitive disorder, Alzheimer, vascular with depression, probable urinary tract infection. Culture is awaited. PLAN: No change from initial note. MAN Carmen MEYER MD DR: LIZA/faiza JOB#: [id number] / [id number]
--- NOTE | 2018-05-21 21:47 | PN ---
DATE: 05/20/2018 PSYCHIATRIC PROGRESS NOTE This late entry 05/20/2018 covers elements not covered in my initial note. SUBJECTIVE: I met with the patient in the evening. The patient slept 6 hours previous night. She has been quite psychotic during the day. States she saw her daughter's head in the hallway, but not the rest of the body. She was psychotic the previous night as well. She probably has a UTI. Culture is still awaited and this could well account for the ongoing psychotic symptoms. In the morning of 05/20/2018, she did better and then was tearful later in the day, agitated. REVIEW OF SYSTEMS: No CV, , pulmonary, eye, ENT system symptoms on review. MENTAL STATUS EXAM: Oriented to herself and situation. Speech has some latency, coherent. Abstraction fair, computation impaired, language function intact. She is somewhat paranoid, psychotic dismissive as I met with her. LABORATORY DATA: Reviewed. IMPRESSION: Schizoaffective disorder, bipolar type, mixed with psychotic features; major neurocognitive disorder, Alzheimer, vascular with delusion, behavioral disturbance. Probable urinary tract infection. Rest unchanged. PLAN: Await culture result. Treat the UTI as indicated. We will adjust the Risperdal as an antipsychotic once we assure the UTI has resolved and if psychotic symptoms persist despite this. BERT MEYER MD DR: LIZA/faiza JOB#: [id number] / [id number]
--- NOTE | 2018-05-21 22:43 | PDOC ---
Exam Note: Manfred Note: Please also refer to the separate dictated note~for this date of service dictated separately.~Patient seen individually. Discussed the patient with Nursing staff reviewed the chart.~Reviewed interim history and current functioning. Reviewed vital signs,~Labs/ Radiology~and current medications noted below. Continue current treatment with the changes noted in the dictated addendum note Assessment: Vital Signs: Vital Signs Date Time Temp Pulse Resp B/P (MAP) Pulse Ox O2 Delivery O2 Flow Rate FiO2 05/21/18 19:51 66 118/75 05/21/18 16:45 97.5 17 95.0 05/21/18 05:40 97 05/20/18 06:27 Room Air I&O Intake and Output 05/21/18 07:01 Intake Total 960 ml Balance 960 ml Intake Oral 960 ml Labs: Laboratory Tests Test 05/21/18 07:41 05/21/18 12:05 05/21/18 16:51 05/21/18 19:02 Glucose (Fingerstick) 167 mg/dL (70-99) H 63 mg/dL (70-99) L 139 mg/dL (70-99) H 176 mg/dL (70-99) H Current Medications: Meds: Current Medications Acetaminophen (Tylenol) 650 mg PRN Q6HRS PRN PO PAIN / TEMP; Start 05/17/18 at 22:30 Ascorbic Acid (Vitamin C) 500 mg DAILY PO Last administered on 05/21/18at 08:07 ; Start 05/18/18 at 09:00 Vitamin D (Vitamin D3) 1,000 unit DAILY PO Last administered on 05/21/18at 08: 07; Start 05/18/18 at 09:00 Clopidogrel Bisulfate (Plavix) 75 mg DAILY PO Last administered on 05/21/18 08:05; Start 05/18/18 at 09:00 Insulin Glargine (Lantus) 5 units QHS SQ Last administered on 05/21/18 19:56 ; Start 05/18/18 at 21:00 Metoprolol Tartrate (Lopressor) 25 mg BID PO Last administered on 05/21/18at 19 :51; Start 05/18/18 at 09:00 Nitroglycerin (Nitrostat) 0.4 mg PRN Q5MIN PRN SL CHEST PAIN; Start 05/17/18 at 22:30 Olanzapine (ZyPREXA ZYDIS) 2.5 mg PRN Q2HR PRN PO ANXIETY / AGITATION; Start 05/17/18 at 22:30 Potassium Chloride (Klor-Con) 20 meq BID PO Last administered on 05/19/18at 08: 04; Start 05/18/18 at 09:00; Stop 05/19/18 at 15:08; Status DC Bisacodyl (Dulcolax Supp) 10 mg PRN DAILY PRN [place] CONSTIPATION; Start 05/17/18 at 23:00 Buspirone HCl (Buspar) 5 mg BID@0900,1500 PO Last administered on 05/21/18at 15 :43; Start 05/18/18 at 09:00; Stop 05/21/18 at 17:55; Status DC Buspirone HCl (Buspar) 10 mg QHS PO Last administered on 05/20/18at 19:53; Start 05/18/18 at 21:00; Stop 05/21/18 at 17:55; Status DC Glucose (Insta-Glucose) 15 gm PRN Q15MIN PRN PO LOW BLOOD SUGAR; Start at 23:00 Famotidine (Pepcid) 20 mg DAILY PO Last administered on 05/21/18at 08:05; Start 05/18/18 at 09:00 Fluvoxamine Maleate (Luvox) 50 mg QHS PO Last administered on 05/21/18at 19:53 ; Start 05/18/18 at 21:00 Insulin Human Lispro (HumaLOG) 10 units TIDWMEALS SQ Last administered on 05/21at 08:03; Start 05/18/18 at 08:00; Stop 05/21/18 at 13:44; Status DC Lactobacillus Rhamnosus (Culturelle) 1 cap BID PO Last administered on at 19:51; Start 05/18/18 at 09:00 Pravastatin Sodium (Pravachol) 80 mg QHS PO Last administered on 05/21/18at 19: 51; Start 05/18/18 at 21:00 Risperidone (RisperDAL) 0.5 mg QHS PO Last administered on 05/21/18at 19:56; Start 05/18/18 at 21:00 Risperidone (RisperDAL) 0.5 mg DAILY PO Last administered on 05/21/18at 08:07; Start 05/18/18 at 09:00 Thiamine HCl (Vitamin B-1) 100 mg DAILY PO Last administered on 05/21/18at 08: 07; Start 05/18/18 at 09:00 Trazodone HCl (Desyrel) 25 mg QHS PO Last administered on 05/21/18at 19:53; Start 05/18/18 at 21:00 Insulin Human Lispro (HumaLOG) 5 units TIDWMEALS SQ Last administered on at 17:22; Start 05/21/18 at 17:00 Divalproex Sodium (Depakote Er) 500 mg QHS PO Last administered on 05/21/18at 20:00; Start 05/21/18 at 21:00 Active Scripts Active Reported Heparin Sod 5,000 Unit/ 0.5 Ml (Heparin Sodium,Porcine/Pf) 5,000 Unit/0.5 Ml Vial 5,000 Unit SQ Q8HRS Risperidone 0.5 Mg Tablet 0.5 Mg PO DAILY Risperidone 0.5 Mg Tablet 0.5 Mg PO QHS Fluvoxamine Maleate 50 Mg Tablet 50 Mg PO QHS Zyprexa Zydis (Olanzapine) 5 Mg Tab.rapdis 2.5 Mg PO PRN Q2HR PRN NITROGLYCERIN SubLingual (Nitroglycerin) 0.4 Mg Tab.subl 0.4 Mg SL PRN Q5MIN PRN Culturelle (Lactobacillus Rhamnosus Gg) 1 Each Capsule 1 Each PO BID Glucose Gel (Dextrose) 38 Gm Gel..gram. 15 Gm PO PRN Q15MIN PRN Cefdinir 300 Mg Capsule 300 Mg PO DAILY Trazodone Hcl 50 Mg Tablet 25 Mg PO HS LAST DOSE GIVEN: DATE: TIME: NEXT DOSE DUE: DATE: TIME: Vitamin B-1 (Thiamine Hcl) 100 Mg Tablet 100 Mg PO DAILY LAST DOSE GIVEN: DATE: TIME: NEXT DOSE DUE: DATE: TIME: Pravastatin Sodium 80 Mg Tablet 80 Mg PO HS LAST DOSE GIVEN: DATE: TIME: NEXT DOSE DUE: DATE: TIME: Klor-Con M20 (Potassium Chloride) 20 Meq Tab.er.prt 20 Meq PO BID LAST DOSE GIVEN: DATE: TIME: NEXT DOSE DUE: DATE: TIME: Novolog Flexpen (Insulin Aspart) 100 Unit/1 Ml Insuln.pen 10 Unit SQ TIDWMEALS Metoprolol Tartrate 25 Mg Tablet 25 Mg PO BID LAST DOSE GIVEN: DATE: TIME: NEXT DOSE DUE: DATE: TIME: Lantus Solostar (Insulin Glargine,Hum.rec.anlog) 100 Unit/1 Ml Insuln.pen 5 Unit SQ QHS LAST DOSE GIVEN: DATE: TIME: NEXT DOSE DUE: DATE: TIME: Famotidine 40 Mg Tablet 20 Mg PO DAILY LAST DOSE GIVEN: DATE: TIME: NEXT DOSE DUE: DATE: TIME: Plavix (Clopidogrel Bisulfate) 75 Mg Tablet 75 Mg PO DAILY LAST DOSE GIVEN: DATE: TIME: NEXT DOSE DUE: DATE: TIME: Vitamin D3 (Cholecalciferol (Vitamin D3)) 1,000 Unit Tablet 1,000 Unit PO DAILY LAST DOSE GIVEN: DATE: TIME: NEXT DOSE DUE: DATE: TIME: Buspirone Hcl 5 Mg Tablet 5 Mg PO BID@0900,1500 LAST DOSE GIVEN: DATE: TIME: NEXT DOSE DUE: DATE: TIME: Buspirone Hcl 10 Mg Tablet 10 Mg PO HS LAST DOSE GIVEN: DATE: TIME: NEXT DOSE DUE: DATE: TIME: Bisacodyl 10 Mg Supp.rect 10 Mg RC PRN DAILY PRN LAST DOSE GIVEN: DATE: TIME: NEXT DOSE DUE: DATE: TIME: Ascorbic Acid 500 Mg Tablet 500 Mg PO DAILY LAST DOSE GIVEN: DATE: TIME: NEXT DOSE DUE: DATE: TIME: Tylenol (Acetaminophen) 325 Mg Tablet 650 Mg PO PRN Q6HRS PRN LAST DOSE GIVEN: DATE: TIME: NEXT DOSE DUE: DATE: TIME: I have reviewed the current psychotropics carefully including drug interactions. Risk benefit ratio favors no change other than as noted in my dictated progress note. Diagnosis: Problems: (1) Uwuat-ho-mzsbpus kidney injury (2) Schizoaffective disorder, bipolar type (3) Anxiety disorder (4) Impulse control disorder (5) Cognitive and behavioral changes (6) Anxiety disorder (7) Impulse control disorder (8) Dementia, vascular, with depression (9) Dementia, vascular, with delusions (10) Dementia in Alzheimer's disease with depression (11) Dementia in Alzheimer's disease with delusions (12) Acute and chronic respiratory failure BERT MEYER MD May 21, 2018 22:43
[2018-05-22 05:58] VITALS: BP 131/82
[2018-05-22] MEDS: INSULIN LISPRO 300 UNITS/3 ML INSULN.PEN. SQ SCH ×3 (07:59→17:21)
[2018-05-22] MEDS: THIAMINE 100 MG TABLET. PO SCH (08:00)
[2018-05-22] MEDS: LACTOBACILLUS RHAMNOSUS GG 1 CAPSULE. PO SCH ×2 (08:00→20:44)
[2018-05-22] MEDS: CLOPIDOGREL BISULFATE 75 MG TABLET PO SCH (08:00)
[2018-05-22] MEDS: CHOLECALCIFEROL (VITAMIN D3) 1,000 UNIT TABLET PO SCH (08:00)
[2018-05-22] MEDS: ASCORBIC ACID 500 MG TABLET PO SCH (08:00)
[2018-05-22] MEDS: FAMOTIDINE 20 MG TABLET PO SCH (08:00)
[2018-05-22] MEDS: risperiDONE 0.5 MG TABLET. PO SCH ×2 (08:00→20:44)
[2018-05-22] MEDS: METOPROLOL TART IMMED RELEASE 25 MG TABLET PO SCH ×2 (08:01→20:44)
[2018-05-22 16:22] VITALS: BP 106/59
[2018-05-22] MEDS: traZODone 50 MG TABLET. PO SCH (20:43)
[2018-05-22] MEDS: DIVALPROEX ER 500 MG TAB.ER.24H PO SCH (20:43)
[2018-05-22] MEDS: PRAVASTATIN 20 MG TABLET. PO SCH (20:45)
[2018-05-22] MEDS: INSULIN GLARGINE 300 UNITS/3 ML INSULN.PEN. SQ SCH (20:53)
--- NOTE | 2018-05-22 22:53 | PDOC ---
Exam Note: Manfred Note: Please also refer to the separate dictated note~for this date of service dictated separately.~Patient seen individually. Discussed the patient with Nursing staff reviewed the chart.~Reviewed interim history and current functioning. Reviewed vital signs,~Labs/ Radiology~and current medications noted below. Continue current treatment with the changes noted in the dictated addendum note Assessment: Vital Signs: Vital Signs Date Time Temp Pulse Resp B/P (MAP) Pulse Ox O2 Delivery O2 Flow Rate FiO2 05/22/18 20:44 78 106/59 05/22/18 16:22 97.5 18 98 05/21/18 16:45 95.0 05/20/18 06:27 Room Air I&O Intake and Output 05/22/18 07:01 Intake Total 1080 ml Balance 1080 ml Intake Oral 1080 ml Labs: Laboratory Tests Test 05/22/18 07:22 05/22/18 11:20 05/22/18 17:11 05/22/18 19:42 Glucose (Fingerstick) 158 mg/dL (70-99) H 212 mg/dL (70-99) H 151 mg/dL (70-99) H 233 mg/dL (70-99) H Current Medications: Meds: Current Medications Acetaminophen (Tylenol) 650 mg PRN Q6HRS PRN PO PAIN / TEMP; Start 05/17/18 at 22:30 Ascorbic Acid (Vitamin C) 500 mg DAILY PO Last administered on 05/22/18 08:00; Start 05/18/18 at 09:00 Vitamin D (Vitamin D3) 1,000 unit DAILY PO Last administered on 05/22/18 08:00 ; Start 05/18/18 at 09:00 Clopidogrel Bisulfate (Plavix) 75 mg DAILY PO Last administered on 05/22/18 08: 00; Start 05/18/18 at 09:00 Insulin Glargine (Lantus) 5 units QHS SQ Last administered on 05/22/18 20:53; Start 05/18/18 at 21:00 Metoprolol Tartrate (Lopressor) 25 mg BID PO Last administered on 05/22/18 20: 44; Start 05/18/18 at 09:00 Nitroglycerin (Nitrostat) 0.4 mg PRN Q5MIN PRN SL CHEST PAIN; Start 05/17/18 at 22:30 Olanzapine (ZyPREXA ZYDIS) 2.5 mg PRN Q2HR PRN PO ANXIETY / AGITATION; Start 05/17/18 at 22:30 Potassium Chloride (Klor-Con) 20 meq BID PO Last administered on 05/19/18at 08: 04; Start 05/18/18 at 09:00; Stop 05/19/18 at 15:08; Status DC Bisacodyl (Dulcolax Supp) 10 mg PRN DAILY PRN CO CONSTIPATION; Start 05/17/18 at 23:00 Buspirone HCl (Buspar) 5 mg BID@0900,1500 PO Last administered on 05/21/18at 15 :43; Start 05/18/18 at 09:00; Stop 05/21/18 at 17:55; Status DC Buspirone HCl (Buspar) 10 mg QHS PO Last administered on 05/20/18at 19:53; Start 05/18/18 at 21:00; Stop 05/21/18 at 17:55; Status DC Glucose (Insta-Glucose) 15 gm PRN Q15MIN PRN PO LOW BLOOD SUGAR; Start at 23:00 Famotidine (Pepcid) 20 mg DAILY PO Last administered on 05/22/18 08:00; Start 05/18/18 at 09:00 Fluvoxamine Maleate (Luvox) 50 mg QHS PO Last administered on 05/22/18 20:43; Start 05/18/18 at 21:00 Insulin Human Lispro (HumaLOG) 10 units TIDWMEALS SQ Last administered on 05/21at 08:03; Start 05/18/18 at 08:00; Stop 05/21/18 at 13:44; Status DC Lactobacillus Rhamnosus (Culturelle) 1 cap BID PO Last administered on 20:44; Start 05/18/18 at 09:00 Pravastatin Sodium (Pravachol) 80 mg QHS PO Last administered on 05/22/18 20:45 ; Start 05/18/18 at 21:00 Risperidone (RisperDAL) 0.5 mg QHS PO Last administered on 05/22/18 20:44; Start 05/18/18 at 21:00 Risperidone (RisperDAL) 0.5 mg DAILY PO Last administered on 05/22/18at 08:00; Start 05/18/18 at 09:00 Thiamine HCl (Vitamin B-1) 100 mg DAILY PO Last administered on 05/22/18at 08:00 ; Start 05/18/18 at 09:00 Trazodone HCl (Desyrel) 25 mg QHS PO Last administered on 05/21/18at 19:53; Start 05/18/18 at 21:00; Stop 05/22/18 at 20:16; Status DC Insulin Human Lispro (HumaLOG) 5 units TIDWMEALS SQ Last administered on at 17:21; Start 05/21/18 at 17:00 Divalproex Sodium (Depakote Er) 500 mg QHS PO Last administered on 05/22/18at 20: 43; Start 05/21/18 at 21:00 Trazodone HCl (Desyrel) 50 mg QHS PO Last administered on 05/22/18at 20:43; Start 05/22/18 at 21:00 Active Scripts Active Reported Heparin Sod 5,000 Unit/ 0.5 Ml (Heparin Sodium,Porcine/Pf) 5,000 Unit/0.5 Ml Vial 5,000 Unit SQ Q8HRS Risperidone 0.5 Mg Tablet 0.5 Mg PO DAILY Risperidone 0.5 Mg Tablet 0.5 Mg PO QHS Fluvoxamine Maleate 50 Mg Tablet 50 Mg PO QHS Zyprexa Zydis (Olanzapine) 5 Mg Tab.rapdis 2.5 Mg PO PRN Q2HR PRN NITROGLYCERIN SubLingual (Nitroglycerin) 0.4 Mg Tab.subl 0.4 Mg SL PRN Q5MIN PRN Culturelle (Lactobacillus Rhamnosus Gg) 1 Each Capsule 1 Each PO BID Glucose Gel (Dextrose) 38 Gm Gel..gram. 15 Gm PO PRN Q15MIN PRN Cefdinir 300 Mg Capsule 300 Mg PO DAILY Trazodone Hcl 50 Mg Tablet 25 Mg PO HS LAST DOSE GIVEN: DATE: TIME: NEXT DOSE DUE: DATE: TIME: Vitamin B-1 (Thiamine Hcl) 100 Mg Tablet 100 Mg PO DAILY LAST DOSE GIVEN: DATE: TIME: NEXT DOSE DUE: DATE: TIME: Pravastatin Sodium 80 Mg Tablet 80 Mg PO HS LAST DOSE GIVEN: DATE: TIME: NEXT DOSE DUE: DATE: TIME: Klor-Con M20 (Potassium Chloride) 20 Meq Tab.er.prt 20 Meq PO BID LAST DOSE GIVEN: DATE: TIME: NEXT DOSE DUE: DATE: TIME: Novolog Flexpen (Insulin Aspart) 100 Unit/1 Ml Insuln.pen 10 Unit SQ TIDWMEALS Metoprolol Tartrate 25 Mg Tablet 25 Mg PO BID LAST DOSE GIVEN: DATE: TIME: NEXT DOSE DUE: DATE: TIME: Lantus Solostar (Insulin Glargine,Hum.rec.anlog) 100 Unit/1 Ml Insuln.pen 5 Unit SQ QHS LAST DOSE GIVEN: DATE: TIME: NEXT DOSE DUE: DATE: TIME: Famotidine 40 Mg Tablet 20 Mg PO DAILY LAST DOSE GIVEN: DATE: TIME: NEXT DOSE DUE: DATE: TIME: Plavix (Clopidogrel Bisulfate) 75 Mg Tablet 75 Mg PO DAILY LAST DOSE GIVEN: DATE: TIME: NEXT DOSE DUE: DATE: TIME: Vitamin D3 (Cholecalciferol (Vitamin D3)) 1,000 Unit Tablet 1,000 Unit PO DAILY LAST DOSE GIVEN: DATE: TIME: NEXT DOSE DUE: DATE: TIME: Buspirone Hcl 5 Mg Tablet 5 Mg PO BID@0900,1500 LAST DOSE GIVEN: DATE: TIME: NEXT DOSE DUE: DATE: TIME: Buspirone Hcl 10 Mg Tablet 10 Mg PO HS LAST DOSE GIVEN: DATE: TIME: NEXT DOSE DUE: DATE: TIME: Bisacodyl 10 Mg Supp.rect 10 Mg RC PRN DAILY PRN LAST DOSE GIVEN: DATE: TIME: NEXT DOSE DUE: DATE: TIME: Ascorbic Acid 500 Mg Tablet 500 Mg PO DAILY LAST DOSE GIVEN: DATE: TIME: NEXT DOSE DUE: DATE: TIME: Tylenol (Acetaminophen) 325 Mg Tablet 650 Mg PO PRN Q6HRS PRN LAST DOSE GIVEN: DATE: TIME: NEXT DOSE DUE: DATE: TIME: I have reviewed the current psychotropics carefully including drug interactions. Risk benefit ratio favors no change other than as noted in my dictated progress note. Diagnosis: Problems: (1) [id number]-[id number] kidney injury (2) Schizoaffective disorder, bipolar type (3) Anxiety disorder (4) Impulse control disorder (5) Cognitive and behavioral changes (6) Anxiety disorder (7) Impulse control disorder (8) Dementia, vascular, with depression (9) Dementia, vascular, with delusions (10) Dementia in Alzheimer's disease with depression (11) Dementia in Alzheimer's disease with delusions (12) Acute and chronic respiratory failure BERT MEYER MD May 22, 2018 22:53
--- NOTE | 2018-05-22 23:28 | PN ---
DATE: 05/21/2018 PSYCHIATRIC PROGRESS NOTE This late entry 05/21/2018 covers elements, not covered in my initial note. SUBJECTIVE: I met with the patient in the evening. The patient slept 3-1/2 hours previous night. At the previous night, she was sobbing, did not know why when questioned. She was up at 4:00 in the morning, sarcastic and "snarky" per nursing report. REVIEW OF SYSTEMS: Positive for some tiredness. No CV, , pulmonary, eye, ENT system symptoms on review. Reliability poor. MENTAL STATUS EXAM: Oriented to herself, at times situation. Speech has some latency, often responses monosyllabic. Abstraction fair, computation impaired, language function intact, attention span short. Mood and affect withdrawn. LABORATORY DATA: Reviewed. IMPRESSION: Unchanged from initial note. PLAN: The patient's UA culture is unremarkable. We will go ahead and stop the BuSpar as it may have little beneficial effect at this stage. We will start Depakote ER 500 mg p.o. at bedtime for her schizoaffective disorder diagnosis. Check CBC, CMP, valproic acid level in 3 days. Continue rest psychotropics unchanged. MAN Carmen MEYER MD DR: LIZA/faiza JOB#: [id number] / [id number]
[2018-05-23 05:32] VITALS: BP 117/80
[2018-05-23] MEDS: INSULIN LISPRO 300 UNITS/3 ML INSULN.PEN. SQ SCH ×3 (08:13→17:43)
[2018-05-23] MEDS: METOPROLOL TART IMMED RELEASE 25 MG TABLET PO SCH ×2 (08:24→19:33)
[2018-05-23] MEDS: ASCORBIC ACID 500 MG TABLET PO SCH (08:24)
[2018-05-23] MEDS: CHOLECALCIFEROL (VITAMIN D3) 1,000 UNIT TABLET PO SCH (08:24)
[2018-05-23] MEDS: risperiDONE 0.5 MG TABLET. PO SCH ×2 (08:25→19:34)
[2018-05-23] MEDS: THIAMINE 100 MG TABLET. PO SCH (08:25)
[2018-05-23] MEDS: LACTOBACILLUS RHAMNOSUS GG 1 CAPSULE. PO SCH ×2 (08:25→19:31)
[2018-05-23] MEDS: FAMOTIDINE 20 MG TABLET PO SCH (08:25)
[2018-05-23] MEDS: CLOPIDOGREL BISULFATE 75 MG TABLET PO SCH (08:25)
[2018-05-23 12:08] VITALS: BP 111/49
[2018-05-23 16:04] VITALS: BP 105/70
[2018-05-23] MEDS: DIVALPROEX ER 500 MG TAB.ER.24H PO SCH (19:31)
[2018-05-23] MEDS: traZODone 50 MG TABLET. PO SCH (19:32)
[2018-05-23] MEDS: PRAVASTATIN 20 MG TABLET. PO SCH (19:34)
[2018-05-23] MEDS: INSULIN GLARGINE 300 UNITS/3 ML INSULN.PEN. SQ SCH (19:37)
--- NOTE | 2018-05-23 22:44 | PDOC ---
Exam Note: Manfred Note: Please also refer to the separate dictated note~for this date of service dictated separately.~Patient seen individually. Discussed the patient with Nursing staff reviewed the chart.~Reviewed interim history and current functioning. Reviewed vital signs,~Labs/ Radiology~and current medications noted below. Continue current treatment with the changes noted in the dictated addendum note Assessment: Vital Signs: Vital Signs Date Time Temp Pulse Resp B/P (MAP) Pulse Ox O2 Delivery O2 Flow Rate FiO2 05/23/18 19:33 88 105/70 05/23/18 16:04 98.1 16 97 Room Air 05/21/18 16:45 95.0 I&O Intake and Output 05/23/18 07:01 Intake Total 1040 ml Balance 1040 ml Intake Oral 1040 ml # Bowel Movements 1 Labs: Laboratory Tests Test 05/23/18 07:29 05/23/18 11:34 05/23/18 16:46 05/23/18 19:33 Glucose (Fingerstick) 86 mg/dL (70-99) 142 mg/dL (70-99) H 127 mg/dL (70-99) H 75 mg/dL (70-99) Test 05/23/18 20:20 05/23/18 20:44 05/23/18 21:09 Glucose (Fingerstick) 65 mg/dL (70-99) L 70 mg/dL (70-99) 91 mg/dL (70-99) Current Medications: Meds: Current Medications Acetaminophen (Tylenol) 650 mg PRN Q6HRS PRN PO PAIN / TEMP Last administered on 05/23/18 00:01; Start 05/17/18 at 22:30 Ascorbic Acid (Vitamin C) 500 mg DAILY PO Last administered on 05/23/18 08:24; Start 05/18/18 at 09:00 Vitamin D (Vitamin D3) 1,000 unit DAILY PO Last administered on 05/23/18 08:24 ; Start 05/18/18 at 09:00 Clopidogrel Bisulfate (Plavix) 75 mg DAILY PO Last administered on 05/23/18 08: 25; Start 05/18/18 at 09:00 Insulin Glargine (Lantus) 5 units QHS SQ Last administered on 05/23/18 19:37; Start 05/18/18 at 21:00 Metoprolol Tartrate (Lopressor) 25 mg BID PO Last administered on 05/23/18 19: 33; Start 05/18/18 at 09:00 Nitroglycerin (Nitrostat) 0.4 mg PRN Q5MIN PRN SL CHEST PAIN; Start 05/17/18 at 22:30 Olanzapine (ZyPREXA ZYDIS) 2.5 mg PRN Q2HR PRN PO ANXIETY / AGITATION; Start 05/17/18 at 22:30 Potassium Chloride (Klor-Con) 20 meq BID PO Last administered on 05/19/18at 08: 04; Start 05/18/18 at 09:00; Stop 05/19/18 at 15:08; Status DC Bisacodyl (Dulcolax Supp) 10 mg PRN DAILY PRN GA CONSTIPATION; Start 05/17/18 at 23:00 Buspirone HCl (Buspar) 5 mg BID@0900,1500 PO Last administered on 05/21/18at 15 :43; Start 05/18/18 at 09:00; Stop 05/21/18 at 17:55; Status DC Buspirone HCl (Buspar) 10 mg QHS PO Last administered on 05/20/18at 19:53; Start 05/18/18 at 21:00; Stop 05/21/18 at 17:55; Status DC Glucose (Insta-Glucose) 15 gm PRN Q15MIN PRN PO LOW BLOOD SUGAR; Start at 23:00 Famotidine (Pepcid) 20 mg DAILY PO Last administered on 05/23/18 08:25; Start 05/18/18 at 09:00 Fluvoxamine Maleate (Luvox) 50 mg QHS PO Last administered on 05/23/18 19:33; Start 05/18/18 at 21:00 Insulin Human Lispro (HumaLOG) 10 units TIDWMEALS SQ Last administered on 05/21at 08:03; Start 05/18/18 at 08:00; Stop 05/21/18 at 13:44; Status DC Lactobacillus Rhamnosus (Culturelle) 1 cap BID PO Last administered on 19:31; Start 05/18/18 at 09:00 Pravastatin Sodium (Pravachol) 80 mg QHS PO Last administered on 05/23/18 19:34 ; Start 05/18/18 at 21:00 Risperidone (RisperDAL) 0.5 mg QHS PO Last administered on 05/23/18 19:34; Start 05/18/18 at 21:00 Risperidone (RisperDAL) 0.5 mg DAILY PO Last administered on 05/23/18 08:25; Start 05/18/18 at 09:00 Thiamine HCl (Vitamin B-1) 100 mg DAILY PO Last administered on 05/23/18 08:25 ; Start 05/18/18 at 09:00 Trazodone HCl (Desyrel) 25 mg QHS PO Last administered on 05/21/18at 19:53; Start 05/18/18 at 21:00; Stop 05/22/18 at 20:16; Status DC Insulin Human Lispro (HumaLOG) 5 units TIDWMEALS SQ Last administered on 17:43; Start 05/21/18 at 17:00 Divalproex Sodium (Depakote Er) 500 mg QHS PO Last administered on 05/23/18 19: 31; Start 05/21/18 at 21:00 Trazodone HCl (Desyrel) 50 mg QHS PO Last administered on 05/23/18 19:32; Start 05/22/18 at 21:00 Active Scripts Active Reported Heparin Sod 5,000 Unit/ 0.5 Ml (Heparin Sodium,Porcine/Pf) 5,000 Unit/0.5 Ml Vial 5,000 Unit SQ Q8HRS Risperidone 0.5 Mg Tablet 0.5 Mg PO DAILY Risperidone 0.5 Mg Tablet 0.5 Mg PO QHS Fluvoxamine Maleate 50 Mg Tablet 50 Mg PO QHS Zyprexa Zydis (Olanzapine) 5 Mg Tab.rapdis 2.5 Mg PO PRN Q2HR PRN NITROGLYCERIN SubLingual (Nitroglycerin) 0.4 Mg Tab.subl 0.4 Mg SL PRN Q5MIN PRN Culturelle (Lactobacillus Rhamnosus Gg) 1 Each Capsule 1 Each PO BID Glucose Gel (Dextrose) 38 Gm Gel..gram. 15 Gm PO PRN Q15MIN PRN Cefdinir 300 Mg Capsule 300 Mg PO DAILY Trazodone Hcl 50 Mg Tablet 25 Mg PO HS LAST DOSE GIVEN: DATE: TIME: NEXT DOSE DUE: DATE: TIME: Vitamin B-1 (Thiamine Hcl) 100 Mg Tablet 100 Mg PO DAILY LAST DOSE GIVEN: DATE: TIME: NEXT DOSE DUE: DATE: TIME: Pravastatin Sodium 80 Mg Tablet 80 Mg PO HS LAST DOSE GIVEN: DATE: TIME: NEXT DOSE DUE: DATE: TIME: Klor-Con M20 (Potassium Chloride) 20 Meq Tab.er.prt 20 Meq PO BID LAST DOSE GIVEN: DATE: TIME: NEXT DOSE DUE: DATE: TIME: Novolog Flexpen (Insulin Aspart) 100 Unit/1 Ml Insuln.pen 10 Unit SQ TIDWMEALS Metoprolol Tartrate 25 Mg Tablet 25 Mg PO BID LAST DOSE GIVEN: DATE: TIME: NEXT DOSE DUE: DATE: TIME: Lantus Solostar (Insulin Glargine,Hum.rec.anlog) 100 Unit/1 Ml Insuln.pen 5 Unit SQ QHS LAST DOSE GIVEN: DATE: TIME: NEXT DOSE DUE: DATE: TIME: Famotidine 40 Mg Tablet 20 Mg PO DAILY LAST DOSE GIVEN: DATE: TIME: NEXT DOSE DUE: DATE: TIME: Plavix (Clopidogrel Bisulfate) 75 Mg Tablet 75 Mg PO DAILY LAST DOSE GIVEN: DATE: TIME: NEXT DOSE DUE: DATE: TIME: Vitamin D3 (Cholecalciferol (Vitamin D3)) 1,000 Unit Tablet 1,000 Unit PO DAILY LAST DOSE GIVEN: DATE: TIME: NEXT DOSE DUE: DATE: TIME: Buspirone Hcl 5 Mg Tablet 5 Mg PO BID@0900,1500 LAST DOSE GIVEN: DATE: TIME: NEXT DOSE DUE: DATE: TIME: Buspirone Hcl 10 Mg Tablet 10 Mg PO HS LAST DOSE GIVEN: DATE: TIME: NEXT DOSE DUE: DATE: TIME: Bisacodyl 10 Mg Supp.rect 10 Mg RC PRN DAILY PRN LAST DOSE GIVEN: DATE: TIME: NEXT DOSE DUE: DATE: TIME: Ascorbic Acid 500 Mg Tablet 500 Mg PO DAILY LAST DOSE GIVEN: DATE: TIME: NEXT DOSE DUE: DATE: TIME: Tylenol (Acetaminophen) 325 Mg Tablet 650 Mg PO PRN Q6HRS PRN LAST DOSE GIVEN: DATE: TIME: NEXT DOSE DUE: DATE: TIME: I have reviewed the current psychotropics carefully including drug interactions. Risk benefit ratio favors no change other than as noted in my dictated progress note. Diagnosis: Problems: (1) [id number] kidney injury (2) Schizoaffective disorder, bipolar type (3) Anxiety disorder (4) Impulse control disorder (5) Cognitive and behavioral changes (6) Anxiety disorder (7) Impulse control disorder (8) Dementia, vascular, with depression (9) Dementia, vascular, with delusions (10) Dementia in Alzheimer's disease with depression (11) Dementia in Alzheimer's disease with delusions (12) Acute and chronic respiratory failure BERT MEYER MD May 23, 2018 22:44
--- NOTE | 2018-05-24 00:18 | PN ---
DATE: 05/22/2018 PSYCHIATRIC PROGRESS NOTE This late entry 05/22/2018 covers elements not covered in my initial note. SUBJECTIVE: I met with the patient in the evening. The patient slept 2-1/4 hours previous evening. She remains confused more so in the evening, looking for her car and the keys for the car, wanting to go home because "I am ready to leave." REVIEW OF SYSTEMS: She was undressed in her room and I informed the nursing staff who assisted her. No CV, , pulmonary, eye, ENT system symptoms on review. MENTAL STATUS EXAM: Oriented to herself. Insight, judgment, recent and remote memory, attention, concentration, fund of knowledge poor, consistent with her diagnosis mentioned in my initial note. IMPRESSION: Schizoaffective disorder, bipolar type, mixed with psychotic features; major neurocognitive disorder, Alzheimer, vascular with delusion, depression. Rest unchanged. PLAN: No change from initial note. BERT MEYER MD DR: LIZA/faiza JOB#: [id number] / [id number]
[2018-05-24 05:47] VITALS: BP 111/79
[2018-05-24 06:48] LABS: BASO % 0 % (0-3); EOS # 0.1 x10^3/uL (0.0-0.7); EOS % 3 % (0-3); HEMATOCRIT 35.6 % (36.0-47.0); HEMOGLOBIN 11.7 g/dL (12.0-15.5); LYMPH # 1.2 x10^3/uL (1.0-4.8); LYMPH % 27 % (24-48); MEAN CORPUSCULAR HEMOGLOBIN 32 pg (25-35); MEAN CORPUSCULAR HGB CONC 33 g/dL (31-37); MEAN CORPUSCULAR VOLUME 97 fL (79-100); MONO # 0.5 x10^3/uL (0.0-1.1); MONO % 12 % (0-9); NEUT # 2.6 x10^3uL (1.8-7.7); NEUT % 59 % (31-73); PLATELET COUNT 120 x10^3/uL (140-400); RED BLOOD COUNT 3.66 x10^6/uL (3.50-5.40); RED CELL DISTRIBUTION WIDTH 15.1 % (11.5-14.5); WHITE BLOOD COUNT 4.5 x10^3/uL (4.0-11.0)
[2018-05-24 06:57] LABS: ALBUMIN 2.9 g/dL (3.4-5.0); ALBUMIN/GLOBULIN RATIO 0.9 (1.0-1.7); ALK PHOS 118 U/L (46-116); ALT (SGPT) 38 U/L (14-59); ANION GAP 8 (6-14); AST (SGOT) 22 U/L (15-37); BLOOD UREA NITROGEN 42 mg/dL (7-20); BUN/CREATININE RATIO 22 (6-20); CALCIUM 9.4 mg/dL (8.5-10.1); CARBON DIOXIDE 26 mmol/L (21-32); CHLORIDE 109 mmol/L (98-107); CREATININE 1.9 mg/dL (0.6-1.0); GFR 26.2; GLUCOSE 91 mg/dL (70-99); POTASSIUM 4.5 mmol/L (3.5-5.1); SODIUM 143 mmol/L (136-145); TOTAL BILIRUBIN 0.6 mg/dL (0.2-1.0); TOTAL PROTEIN 6.1 g/dL (6.4-8.2)
[2018-05-24 07:12] LABS: VAL ACID 12 mcg/mL (50-100)
[2018-05-24] MEDS: INSULIN LISPRO 300 UNITS/3 ML INSULN.PEN. SQ SCH ×3 (07:51→17:30)
[2018-05-24] MEDS: FAMOTIDINE 20 MG TABLET PO SCH (08:20)
[2018-05-24] MEDS: THIAMINE 100 MG TABLET. PO SCH (08:20)
[2018-05-24] MEDS: CLOPIDOGREL BISULFATE 75 MG TABLET PO SCH (08:20)
[2018-05-24] MEDS: ASCORBIC ACID 500 MG TABLET PO SCH (08:20)
[2018-05-24] MEDS: METOPROLOL TART IMMED RELEASE 25 MG TABLET PO SCH ×2 (08:20→20:36)
[2018-05-24] MEDS: risperiDONE 0.5 MG TABLET. PO SCH ×2 (08:20→20:23)
[2018-05-24] MEDS: LACTOBACILLUS RHAMNOSUS GG 1 CAPSULE. PO SCH ×2 (08:20→20:15)
[2018-05-24] MEDS: CHOLECALCIFEROL (VITAMIN D3) 1,000 UNIT TABLET PO SCH (08:20)
[2018-05-24 15:57] VITALS: BP 112/73
[2018-05-24] MEDS: INSULIN GLARGINE 300 UNITS/3 ML INSULN.PEN. SQ SCH (20:15)
[2018-05-24] MEDS: traZODone 50 MG TABLET. PO SCH (20:16)
[2018-05-24] MEDS: DIVALPROEX ER 500 MG TAB.ER.24H PO SCH (20:16)
[2018-05-24 20:18] VITALS: BP 108/72
[2018-05-24] MEDS: PRAVASTATIN 20 MG TABLET. PO SCH (20:23)
--- NOTE | 2018-05-24 22:51 | PDOC ---
Exam Note: Manfred Note: Please also refer to the separate dictated note~for this date of service dictated separately.~Patient seen individually. Discussed the patient with Nursing staff reviewed the chart.~Reviewed interim history and current functioning. Reviewed vital signs,~Labs/ Radiology~and current medications noted below. Continue current treatment with the changes noted in the dictated addendum note Assessment: Vital Signs: Vital Signs Date Time Temp Pulse Resp B/P (MAP) Pulse Ox O2 Delivery O2 Flow Rate FiO2 05/24/18 20:18 84 108/72 (84) 05/24/18 15:57 97.1 20 93 Room Air 05/21/18 16:45 95.0 I&O Intake and Output 05/24/18 07:01 Intake Total 1080 ml Balance 1080 ml Intake Oral 1080 ml # Voids 1 # Bowel Movements 1 Labs: Laboratory Tests Test 05/23/18 23:24 05/24/18 00:24 05/24/18 02:34 05/24/18 06:06 Glucose (Fingerstick) 66 mg/dL (70-99) L 119 mg/dL (70-99) H 92 mg/dL (70-99) 87 mg/dL (70-99) Test 05/24/18 06:17 05/24/18 07:16 05/24/18 12:04 05/24/18 17:08 White Blood Count 4.5 x10^3/uL (4.0-11.0) Red Blood Count 3.66 x10^6/uL (3.50-5.40) Hemoglobin 11.7 g/dL (12.0-15.5) L Hematocrit 35.6 % (36.0-47.0) L Mean Corpuscular Volume 97 fL (79-100) Mean Corpuscular Hemoglobin 32 pg (25-35) Mean Corpuscular Hemoglobin Concent 33 g/dL (31-37) Red Cell Distribution Width 15.1 % (11.5-14.5) H Platelet Count 120 x10^3/uL (140-400) L Neutrophils (%) (Auto) 59 % (31-73) Lymphocytes (%) (Auto) 27 % (24-48) Monocytes (%) (Auto) 12 % (0-9) H Eosinophils (%) (Auto) 3 % (0-3) Basophils (%) (Auto) 0 % (0-3) Neutrophils # (Auto) 2.6 x10^3uL (1.8-7.7) Lymphocytes # (Auto) 1.2 x10^3/uL (1.0-4.8) Monocytes # (Auto) 0.5 x10^3/uL (0.0-1.1) Eosinophils # (Auto) 0.1 x10^3/uL (0.0-0.7) Basophils # (Auto) 0.0 x10^3/uL (0.0-0.2) Sodium Level 143 mmol/L (136-145) Potassium Level 4.5 mmol/L (3.5-5.1) Chloride Level 109 mmol/L (98-107) H Carbon Dioxide Level 26 mmol/L (21-32) Anion Gap 8 (6-14) Blood Urea Nitrogen 42 mg/dL (7-20) H Creatinine 1.9 mg/dL (0.6-1.0) H Estimated GFR (Cockcroft-Gault) 26.2 BUN/Creatinine Ratio 22 (6-20) H Glucose Level 91 mg/dL (70-99) Calcium Level 9.4 mg/dL (8.5-10.1) Total Bilirubin 0.6 mg/dL (0.2-1.0) Aspartate Amino Transferase (AST) 22 U/L (15-37) Alanine Aminotransferase (ALT) 38 U/L (14-59) Alkaline Phosphatase 118 U/L (46-116) H Total Protein 6.1 g/dL (6.4-8.2) L Albumin 2.9 g/dL (3.4-5.0) L Albumin/Globulin Ratio 0.9 (1.0-1.7) L Valproic Acid Level 12 mcg/mL (50-100) L Valproic Acid Last Dose Date 05/23/2018 Valproic Acid Last Dose Time 2100 Glucose (Fingerstick) 84 mg/dL (70-99) 212 mg/dL (70-99) H 190 mg/dL (70-99) H Test 05/24/18 19:18 Glucose (Fingerstick) 259 mg/dL (70-99) H Current Medications: Meds: Current Medications Acetaminophen (Tylenol) 650 mg PRN Q6HRS PRN PO PAIN / TEMP Last administered on 05/23/18 00:01; Start 05/17/18 at 22:30 Ascorbic Acid (Vitamin C) 500 mg DAILY PO Last administered on 05/24/18 08:20; Start 05/18/18 at 09:00 Vitamin D (Vitamin D3) 1,000 unit DAILY PO Last administered on 05/24/18 08:20 ; Start 05/18/18 at 09:00 Clopidogrel Bisulfate (Plavix) 75 mg DAILY PO Last administered on 05/24/18 08: 20; Start 05/18/18 at 09:00 Insulin Glargine (Lantus) 5 units QHS SQ Last administered on 05/24/18 20:15; Start 05/18/18 at 21:00 Metoprolol Tartrate (Lopressor) 25 mg BID PO Last administered on 05/24/18 08: 20; Start 05/18/18 at 09:00 Nitroglycerin (Nitrostat) 0.4 mg PRN Q5MIN PRN SL CHEST PAIN; Start 05/17/18 at 22:30 Olanzapine (ZyPREXA ZYDIS) 2.5 mg PRN Q2HR PRN PO ANXIETY / AGITATION; Start 05/17/18 at 22:30 Potassium Chloride (Klor-Con) 20 meq BID PO Last administered on 05/19/18at 08: 04; Start 05/18/18 at 09:00; Stop 05/19/18 at 15:08; Status DC Bisacodyl (Dulcolax Supp) 10 mg PRN DAILY PRN CO CONSTIPATION; Start 05/17/18 at 23:00 Buspirone HCl (Buspar) 5 mg BID@0900,1500 PO Last administered on 05/21/18at 15 :43; Start 05/18/18 at 09:00; Stop 05/21/18 at 17:55; Status DC Buspirone HCl (Buspar) 10 mg QHS PO Last administered on 05/20/18at 19:53; Start 05/18/18 at 21:00; Stop 05/21/18 at 17:55; Status DC Glucose (Insta-Glucose) 15 gm PRN Q15MIN PRN PO LOW BLOOD SUGAR; Start at 23:00 Famotidine (Pepcid) 20 mg DAILY PO Last administered on 05/24/18 08:20; Start 05/18/18 at 09:00 Fluvoxamine Maleate (Luvox) 50 mg QHS PO Last administered on 05/24/18 20:23; Start 05/18/18 at 21:00 Insulin Human Lispro (HumaLOG) 10 units TIDWMEALS SQ Last administered on 05/21at 08:03; Start 05/18/18 at 08:00; Stop 05/21/18 at 13:44; Status DC Lactobacillus Rhamnosus (Culturelle) 1 cap BID PO Last administered on 20:15; Start 05/18/18 at 09:00 Pravastatin Sodium (Pravachol) 80 mg QHS PO Last administered on 05/24/18 20:23 ; Start 05/18/18 at 21:00 Risperidone (RisperDAL) 0.5 mg QHS PO Last administered on 05/24/18 20:23; Start 05/18/18 at 21:00 Risperidone (RisperDAL) 0.5 mg DAILY PO Last administered on 05/24/18 08:20; Start 05/18/18 at 09:00 Thiamine HCl (Vitamin B-1) 100 mg DAILY PO Last administered on 05/24/18 08:20 ; Start 05/18/18 at 09:00 Trazodone HCl (Desyrel) 25 mg QHS PO Last administered on 05/21/18at 19:53; Start 05/18/18 at 21:00; Stop 05/22/18 at 20:16; Status DC Insulin Human Lispro (HumaLOG) 5 units TIDWMEALS SQ Last administered on 17:30; Start 05/21/18 at 17:00 Divalproex Sodium (Depakote Er) 500 mg QHS PO Last administered on 05/23/18 19: 31; Start 05/21/18 at 21:00; Stop 05/24/18 at 11:10; Status DC Trazodone HCl (Desyrel) 50 mg QHS PO Last administered on 05/24/18 20:16; Start 05/22/18 at 21:00 Divalproex Sodium (Depakote Er) 1,000 mg QHS PO Last administered on 05/24/18 20:16; Start 05/24/18 at 21:00 Active Scripts Active Reported Heparin Sod 5,000 Unit/ 0.5 Ml (Heparin Sodium,Porcine/Pf) 5,000 Unit/0.5 Ml Vial 5,000 Unit SQ Q8HRS Risperidone 0.5 Mg Tablet 0.5 Mg PO DAILY Risperidone 0.5 Mg Tablet 0.5 Mg PO QHS Fluvoxamine Maleate 50 Mg Tablet 50 Mg PO QHS Zyprexa Zydis (Olanzapine) 5 Mg Tab.rapdis 2.5 Mg PO PRN Q2HR PRN NITROGLYCERIN SubLingual (Nitroglycerin) 0.4 Mg Tab.subl 0.4 Mg SL PRN Q5MIN PRN Culturelle (Lactobacillus Rhamnosus Gg) 1 Each Capsule 1 Each PO BID Glucose Gel (Dextrose) 38 Gm Gel..gram. 15 Gm PO PRN Q15MIN PRN Cefdinir 300 Mg Capsule 300 Mg PO DAILY Trazodone Hcl 50 Mg Tablet 25 Mg PO HS LAST DOSE GIVEN: DATE: TIME: NEXT DOSE DUE: DATE: TIME: Vitamin B-1 (Thiamine Hcl) 100 Mg Tablet 100 Mg PO DAILY LAST DOSE GIVEN: DATE: TIME: NEXT DOSE DUE: DATE: TIME: Pravastatin Sodium 80 Mg Tablet 80 Mg PO HS LAST DOSE GIVEN: DATE: TIME: NEXT DOSE DUE: DATE: TIME: Klor-Con M20 (Potassium Chloride) 20 Meq Tab.er.prt 20 Meq PO BID LAST DOSE GIVEN: DATE: TIME: NEXT DOSE DUE: DATE: TIME: Novolog Flexpen (Insulin Aspart) 100 Unit/1 Ml Insuln.pen 10 Unit SQ TIDWMEALS Metoprolol Tartrate 25 Mg Tablet 25 Mg PO BID LAST DOSE GIVEN: DATE: TIME: NEXT DOSE DUE: DATE: TIME: Lantus Solostar (Insulin Glargine,Hum.rec.anlog) 100 Unit/1 Ml Insuln.pen 5 Unit SQ QHS LAST DOSE GIVEN: DATE: TIME: NEXT DOSE DUE: DATE: TIME: Famotidine 40 Mg Tablet 20 Mg PO DAILY LAST DOSE GIVEN: DATE: TIME: NEXT DOSE DUE: DATE: TIME: Plavix (Clopidogrel Bisulfate) 75 Mg Tablet 75 Mg PO DAILY LAST DOSE GIVEN: DATE: TIME: NEXT DOSE DUE: DATE: TIME: Vitamin D3 (Cholecalciferol (Vitamin D3)) 1,000 Unit Tablet 1,000 Unit PO DAILY LAST DOSE GIVEN: DATE: TIME: NEXT DOSE DUE: DATE: TIME: Buspirone Hcl 5 Mg Tablet 5 Mg PO BID@0900,1500 LAST DOSE GIVEN: DATE: TIME: NEXT DOSE DUE: DATE: TIME: Buspirone Hcl 10 Mg Tablet 10 Mg PO HS LAST DOSE GIVEN: DATE: TIME: NEXT DOSE DUE: DATE: TIME: Bisacodyl 10 Mg Supp.rect 10 Mg RC PRN DAILY PRN LAST DOSE GIVEN: DATE: TIME: NEXT DOSE DUE: DATE: TIME: Ascorbic Acid 500 Mg Tablet 500 Mg PO DAILY LAST DOSE GIVEN: DATE: TIME: NEXT DOSE DUE: DATE: TIME: Tylenol (Acetaminophen) 325 Mg Tablet 650 Mg PO PRN Q6HRS PRN LAST DOSE GIVEN: DATE: TIME: NEXT DOSE DUE: DATE: TIME: I have reviewed the current psychotropics carefully including drug interactions. Risk benefit ratio favors no change other than as noted in my dictated progress note. Diagnosis: Problems: (1) Ijcwk-io-imdrchp kidney injury (2) Schizoaffective disorder, bipolar type (3) Anxiety disorder (4) Impulse control disorder (5) Cognitive and behavioral changes (6) Anxiety disorder (7) Impulse control disorder (8) Dementia, vascular, with depression (9) Dementia, vascular, with delusions (10) Dementia in Alzheimer's disease with depression (11) Dementia in Alzheimer's disease with delusions (12) Acute and chronic respiratory failure BERT MEYER MD May 24, 2018 22:51
--- NOTE | 2018-05-25 00:07 | PN ---
DATE: 05/23/2018 PSYCHIATRIC PROGRESS NOTE This late entry 05/23/2018 covers elements not covered in my initial note. SUBJECTIVE: I met with the patient in the evening. The patient slept 7 hours previous night. She has been disorganized, somewhat pleasant, anxious at times. REVIEW OF SYSTEMS: No CV, , pulmonary, eye, ENT system symptoms on review. Reliability poor. I met with her in her room. MENTAL STATUS EXAM: Oriented to herself. Insight, judgment, recent and remote memory, attention, concentration, fund of knowledge poor, consistent with her diagnosis mentioned in my initial note. As I met with her, she was quite pleasant, disorganized, complimenting me on the shirt I was wearing. No change from a psychiatric standpoint. DICTATION ENDS HERE. MAN Carmen MEYER MD DR: LIZA/faiza JOB#: [id number] / [id number]
[2018-05-25 05:35] VITALS: BP 127/67
[2018-05-25] MEDS: THIAMINE 100 MG TABLET. PO SCH (08:00)
[2018-05-25] MEDS: ASCORBIC ACID 500 MG TABLET PO SCH (08:00)
[2018-05-25] MEDS: FAMOTIDINE 20 MG TABLET PO SCH (08:01)
[2018-05-25] MEDS: LACTOBACILLUS RHAMNOSUS GG 1 CAPSULE. PO SCH ×2 (08:01→19:56)
[2018-05-25] MEDS: METOPROLOL TART IMMED RELEASE 25 MG TABLET PO SCH ×2 (08:01→20:00)
[2018-05-25] MEDS: CLOPIDOGREL BISULFATE 75 MG TABLET PO SCH (08:01)
[2018-05-25] MEDS: CHOLECALCIFEROL (VITAMIN D3) 1,000 UNIT TABLET PO SCH (08:01)
[2018-05-25] MEDS: risperiDONE 0.5 MG TABLET. PO SCH ×2 (08:01→19:54)
[2018-05-25] MEDS: INSULIN LISPRO 300 UNITS/3 ML INSULN.PEN. SQ SCH ×3 (08:04→17:34)
[2018-05-25 16:43] VITALS: BP 103/55
--- NOTE | 2018-05-25 18:06 | PN ---
DATE: 05/24/2018 PSYCHIATRIC PROGRESS NOTE This is a late entry for 05/24/2018 and covers elements not covered in my initial note. SUBJECTIVE: I met with the patient in the evening. The patient was staffed at a treatment team meeting with the entire team in the morning. The patient slept 5-3/4 hours previous night. Appetite 70%. Valproic acid level is of 12 on Depakote ER 500 mg at bedtime. We will increase to 1 gram p.o. at bedtime. Check CBC, CMP, valproic acid level in 3 days to reach therapeutic level. REVIEW OF SYSTEMS: No CV, , pulmonary, eye, ENT system symptoms on review. Reliability poor. MENTAL STATUS EXAM: Oriented to herself. Insight, judgment, recent and remote memory, attention, concentration, fund of knowledge poor, consistent with her diagnosis mentioned in my initial note. PLAN: No change from initial note other than as noted above. BERT MEYER MD DR: LIZA/faiza JOB#: [id number] / [id number]
[2018-05-25] MEDS: DIVALPROEX ER 500 MG TAB.ER.24H PO SCH (19:54)
[2018-05-25] MEDS: PRAVASTATIN 20 MG TABLET. PO SCH (19:54)
[2018-05-25] MEDS: traZODone 50 MG TABLET. PO SCH (19:56)
[2018-05-25] MEDS: MIRTAZAPINE 7.5 MG TABLET. PO SCH (19:58)
[2018-05-25] MEDS: INSULIN GLARGINE 300 UNITS/3 ML INSULN.PEN. SQ SCH (19:59)
[2018-05-25] MEDS: AMMONIUM LACTATE 12% TOPICAL LOTION 226GM BOTTLE. TP SCH (21:00)
--- NOTE | 2018-05-25 22:36 | PDOC ---
Exam Note: Manfred Note: Please also refer to the separate dictated note~for this date of service dictated separately.~Patient seen individually. Discussed the patient with Nursing staff reviewed the chart.~Reviewed interim history and current functioning. Reviewed vital signs,~Labs/ Radiology~and current medications noted below. Continue current treatment with the changes noted in the dictated addendum note Assessment: Vital Signs: Vital Signs Date Time Temp Pulse Resp B/P (MAP) Pulse Ox O2 Delivery O2 Flow Rate FiO2 05/25/18 20:00 78 103/55 05/25/18 16:43 98.4 18 94 05/24/18 15:57 Room Air 05/21/18 16:45 95.0 I&O Intake and Output 05/25/18 07:01 Intake Total 1200 ml Balance 1200 ml Intake Oral 1200 ml Labs: Laboratory Tests Test 05/25/18 07:12 05/25/18 12:19 05/25/18 17:03 05/25/18 19:05 Glucose (Fingerstick) 77 mg/dL (70-99) 229 mg/dL (70-99) H 141 mg/dL (70-99) H 128 mg/dL (70-99) H Current Medications: Meds: Current Medications Acetaminophen (Tylenol) 650 mg PRN Q6HRS PRN PO PAIN / TEMP Last administered on 05/23/18 00:01; Start 05/17/18 at 22:30 Ascorbic Acid (Vitamin C) 500 mg DAILY PO Last administered on 05/25/18 08:00; Start 05/18/18 at 09:00 Vitamin D (Vitamin D3) 1,000 unit DAILY PO Last administered on 05/25/18 08:01 ; Start 05/18/18 at 09:00 Clopidogrel Bisulfate (Plavix) 75 mg DAILY PO Last administered on 05/25/18 08: 01; Start 05/18/18 at 09:00 Insulin Glargine (Lantus) 5 units QHS SQ Last administered on 05/25/18 19:59; Start 05/18/18 at 21:00 Metoprolol Tartrate (Lopressor) 25 mg BID PO Last administered on 05/25/18 08: 01; Start 05/18/18 at 09:00 Nitroglycerin (Nitrostat) 0.4 mg PRN Q5MIN PRN SL CHEST PAIN; Start 05/17/18 at 22:30 Olanzapine (ZyPREXA ZYDIS) 2.5 mg PRN Q2HR PRN PO ANXIETY / AGITATION; Start 05/17/18 at 22:30 Potassium Chloride (Klor-Con) 20 meq BID PO Last administered on 05/19/18at 08: 04; Start 05/18/18 at 09:00; Stop 05/19/18 at 15:08; Status DC Bisacodyl (Dulcolax Supp) 10 mg PRN DAILY PRN [place] CONSTIPATION; Start 05/17/18 at 23:00 Buspirone HCl (Buspar) 5 mg BID@0900,1500 PO Last administered on 05/21/18at 15 :43; Start 05/18/18 at 09:00; Stop 05/21/18 at 17:55; Status DC Buspirone HCl (Buspar) 10 mg QHS PO Last administered on 05/20/18at 19:53; Start 05/18/18 at 21:00; Stop 05/21/18 at 17:55; Status DC Glucose (Insta-Glucose) 15 gm PRN Q15MIN PRN PO LOW BLOOD SUGAR; Start at 23:00 Famotidine (Pepcid) 20 mg DAILY PO Last administered on 05/25/18at 08:01; Start 05/18/18 at 09:00 Fluvoxamine Maleate (Luvox) 50 mg QHS PO Last administered on 05/25/18 19:55; Start 05/18/18 at 21:00 Insulin Human Lispro (HumaLOG) 10 units TIDWMEALS SQ Last administered on 05/21at 08:03; Start 05/18/18 at 08:00; Stop 05/21/18 at 13:44; Status DC Lactobacillus Rhamnosus (Culturelle) 1 cap BID PO Last administered on 19:56; Start 05/18/18 at 09:00 Pravastatin Sodium (Pravachol) 80 mg QHS PO Last administered on 05/25/18 19:54 ; Start 05/18/18 at 21:00 Risperidone (RisperDAL) 0.5 mg QHS PO Last administered on 05/25/18 19:54; Start 05/18/18 at 21:00 Risperidone (RisperDAL) 0.5 mg DAILY PO Last administered on 05/25/18 08:01; Start 05/18/18 at 09:00 Thiamine HCl (Vitamin B-1) 100 mg DAILY PO Last administered on 05/25/18 08:00 ; Start 05/18/18 at 09:00 Trazodone HCl (Desyrel) 25 mg QHS PO Last administered on 05/21/18at 19:53; Start 05/18/18 at 21:00; Stop 05/22/18 at 20:16; Status DC Insulin Human Lispro (HumaLOG) 5 units TIDWMEALS SQ Last administered on 17:34; Start 05/21/18 at 17:00 Divalproex Sodium (Depakote Er) 500 mg QHS PO Last administered on 05/23/18 19: 31; Start 05/21/18 at 21:00; Stop 05/24/18 at 11:10; Status DC Trazodone HCl (Desyrel) 50 mg QHS PO Last administered on 05/25/18 19:56; Start 05/22/18 at 21:00 Divalproex Sodium (Depakote Er) 1,000 mg QHS PO Last administered on 05/25/18 19:54; Start 05/24/18 at 21:00 Lactic Acid (Lac-Hydrin) 1 iggy BID TP ; Start 05/25/18 at 21:00 Mirtazapine (Remeron) 7.5 mg QHS PO Last administered on 05/25/18 19:58; Start 05/25/18 at 21:00 Active Scripts Active Reported Heparin Sod 5,000 Unit/ 0.5 Ml (Heparin Sodium,Porcine/Pf) 5,000 Unit/0.5 Ml Vial 5,000 Unit SQ Q8HRS Risperidone 0.5 Mg Tablet 0.5 Mg PO DAILY Risperidone 0.5 Mg Tablet 0.5 Mg PO QHS Fluvoxamine Maleate 50 Mg Tablet 50 Mg PO QHS Zyprexa Zydis (Olanzapine) 5 Mg Tab.rapdis 2.5 Mg PO PRN Q2HR PRN NITROGLYCERIN SubLingual (Nitroglycerin) 0.4 Mg Tab.subl 0.4 Mg SL PRN Q5MIN PRN Culturelle (Lactobacillus Rhamnosus Gg) 1 Each Capsule 1 Each PO BID Glucose Gel (Dextrose) 38 Gm Gel..gram. 15 Gm PO PRN Q15MIN PRN Cefdinir 300 Mg Capsule 300 Mg PO DAILY Trazodone Hcl 50 Mg Tablet 25 Mg PO HS LAST DOSE GIVEN: DATE: TIME: NEXT DOSE DUE: DATE: TIME: Vitamin B-1 (Thiamine Hcl) 100 Mg Tablet 100 Mg PO DAILY LAST DOSE GIVEN: DATE: TIME: NEXT DOSE DUE: DATE: TIME: Pravastatin Sodium 80 Mg Tablet 80 Mg PO HS LAST DOSE GIVEN: DATE: TIME: NEXT DOSE DUE: DATE: TIME: Klor-Con M20 (Potassium Chloride) 20 Meq Tab.er.prt 20 Meq PO BID LAST DOSE GIVEN: DATE: TIME: NEXT DOSE DUE: DATE: TIME: Novolog Flexpen (Insulin Aspart) 100 Unit/1 Ml Insuln.pen 10 Unit SQ TIDWMEALS Metoprolol Tartrate 25 Mg Tablet 25 Mg PO BID LAST DOSE GIVEN: DATE: TIME: NEXT DOSE DUE: DATE: TIME: Lantus Solostar (Insulin Glargine,Hum.rec.anlog) 100 Unit/1 Ml Insuln.pen 5 Unit SQ QHS LAST DOSE GIVEN: DATE: TIME: NEXT DOSE DUE: DATE: TIME: Famotidine 40 Mg Tablet 20 Mg PO DAILY LAST DOSE GIVEN: DATE: TIME: NEXT DOSE DUE: DATE: TIME: Plavix (Clopidogrel Bisulfate) 75 Mg Tablet 75 Mg PO DAILY LAST DOSE GIVEN: DATE: TIME: NEXT DOSE DUE: DATE: TIME: Vitamin D3 (Cholecalciferol (Vitamin D3)) 1,000 Unit Tablet 1,000 Unit PO DAILY LAST DOSE GIVEN: DATE: TIME: NEXT DOSE DUE: DATE: TIME: Buspirone Hcl 5 Mg Tablet 5 Mg PO BID@0900,1500 LAST DOSE GIVEN: DATE: TIME: NEXT DOSE DUE: DATE: TIME: Buspirone Hcl 10 Mg Tablet 10 Mg PO HS LAST DOSE GIVEN: DATE: TIME: NEXT DOSE DUE: DATE: TIME: Bisacodyl 10 Mg Supp.rect 10 Mg RC PRN DAILY PRN LAST DOSE GIVEN: DATE: TIME: NEXT DOSE DUE: DATE: TIME: Ascorbic Acid 500 Mg Tablet 500 Mg PO DAILY LAST DOSE GIVEN: DATE: TIME: NEXT DOSE DUE: DATE: TIME: Tylenol (Acetaminophen) 325 Mg Tablet 650 Mg PO PRN Q6HRS PRN LAST DOSE GIVEN: DATE: TIME: NEXT DOSE DUE: DATE: TIME: I have reviewed the current psychotropics carefully including drug interactions. Risk benefit ratio favors no change other than as noted in my dictated progress note. Diagnosis: Problems: (1) [id number] kidney injury (2) Schizoaffective disorder, bipolar type (3) Anxiety disorder (4) Impulse control disorder (5) Cognitive and behavioral changes (6) Anxiety disorder (7) Impulse control disorder (8) Dementia, vascular, with depression (9) Dementia, vascular, with delusions (10) Dementia in Alzheimer's disease with depression (11) Dementia in Alzheimer's disease with delusions (12) Acute and chronic respiratory failure BERT MEYER MD May 25, 2018 22:36
[2018-05-26 05:40] VITALS: BP 143/85
[2018-05-26] MEDS: ASCORBIC ACID 500 MG TABLET PO SCH (07:46)
[2018-05-26] MEDS: THIAMINE 100 MG TABLET. PO SCH (07:46)
[2018-05-26] MEDS: CLOPIDOGREL BISULFATE 75 MG TABLET PO SCH (07:46)
[2018-05-26] MEDS: CHOLECALCIFEROL (VITAMIN D3) 1,000 UNIT TABLET PO SCH (07:46)
[2018-05-26] MEDS: risperiDONE 0.5 MG TABLET. PO SCH ×2 (07:46→20:34)
[2018-05-26] MEDS: LACTOBACILLUS RHAMNOSUS GG 1 CAPSULE. PO SCH ×2 (07:46→20:34)
[2018-05-26] MEDS: METOPROLOL TART IMMED RELEASE 25 MG TABLET PO SCH ×2 (07:47→20:34)
[2018-05-26] MEDS: FAMOTIDINE 20 MG TABLET PO SCH (07:47)
[2018-05-26] MEDS: AMMONIUM LACTATE 12% TOPICAL LOTION 226GM BOTTLE. TP SCH ×2 (07:47→20:36)
[2018-05-26] MEDS: INSULIN LISPRO 300 UNITS/3 ML INSULN.PEN. SQ SCH ×3 (07:51→17:00)
[2018-05-26 16:12] VITALS: BP 135/86
[2018-05-26] MEDS: MIRTAZAPINE 7.5 MG TABLET. PO SCH (20:34)
[2018-05-26] MEDS: PRAVASTATIN 20 MG TABLET. PO SCH (20:34)
[2018-05-26] MEDS: traZODone 50 MG TABLET. PO SCH (20:34)
[2018-05-26] MEDS: DIVALPROEX ER 500 MG TAB.ER.24H PO SCH ×2 (20:35→21:00)
[2018-05-26] MEDS: INSULIN GLARGINE 300 UNITS/3 ML INSULN.PEN. SQ SCH (20:37)
--- NOTE | 2018-05-26 20:58 | PDOC ---
Exam Note: Manfred Note: Please also refer to the separate dictated note~for this date of service dictated separately.~Patient seen individually. Discussed the patient with Nursing staff reviewed the chart.~Reviewed interim history and current functioning. Reviewed vital signs,~Labs/ Radiology~and current medications noted below. Continue current treatment with the changes noted in the dictated addendum note Assessment: Vital Signs: Vital Signs Date Time Temp Pulse Resp B/P (MAP) Pulse Ox O2 Delivery O2 Flow Rate FiO2 05/26/18 20:34 82 135/86 05/26/18 16:12 97.4 18 95 Room Air 05/21/18 16:45 95.0 I&O Intake and Output 05/26/18 07:01 Intake Total 840 ml Balance 840 ml Intake Oral 840 ml # Voids 1 Labs: Laboratory Tests Test 05/26/18 07:46 05/26/18 12:11 05/26/18 13:12 05/26/18 16:41 Glucose (Fingerstick) 86 mg/dL (70-99) 53 mg/dL (70-99) L 114 mg/dL (70-99) H 151 mg/dL (70-99) H Test 05/26/18 19:21 Glucose (Fingerstick) 137 mg/dL (70-99) H Current Medications: Meds: Current Medications Acetaminophen (Tylenol) 650 mg PRN Q6HRS PRN PO PAIN / TEMP Last administered on 05/23/18 00:01; Start 05/17/18 at 22:30 Ascorbic Acid (Vitamin C) 500 mg DAILY PO Last administered on 05/26/18 07:46; Start 05/18/18 at 09:00 Vitamin D (Vitamin D3) 1,000 unit DAILY PO Last administered on 05/26/18 07:46 ; Start 05/18/18 at 09:00 Clopidogrel Bisulfate (Plavix) 75 mg DAILY PO Last administered on 05/26/18 07: 46; Start 05/18/18 at 09:00 Insulin Glargine (Lantus) 5 units QHS SQ Last administered on 05/26/18 20:37; Start 05/18/18 at 21:00 Metoprolol Tartrate (Lopressor) 25 mg BID PO Last administered on 05/26/18 20: 34; Start 05/18/18 at 09:00 Nitroglycerin (Nitrostat) 0.4 mg PRN Q5MIN PRN SL CHEST PAIN; Start 05/17/18 at 22:30 Olanzapine (ZyPREXA ZYDIS) 2.5 mg PRN Q2HR PRN PO ANXIETY / AGITATION; Start 05/17/18 at 22:30 Potassium Chloride (Klor-Con) 20 meq BID PO Last administered on 05/19/18at 08: 04; Start 05/18/18 at 09:00; Stop 05/19/18 at 15:08; Status DC Bisacodyl (Dulcolax Supp) 10 mg PRN DAILY PRN [place] CONSTIPATION; Start 05/17/18 at 23:00 Buspirone HCl (Buspar) 5 mg BID@0900,1500 PO Last administered on 05/21/18at 15 :43; Start 05/18/18 at 09:00; Stop 05/21/18 at 17:55; Status DC Buspirone HCl (Buspar) 10 mg QHS PO Last administered on 05/20/18at 19:53; Start 05/18/18 at 21:00; Stop 05/21/18 at 17:55; Status DC Glucose (Insta-Glucose) 15 gm PRN Q15MIN PRN PO LOW BLOOD SUGAR; Start at 23:00 Famotidine (Pepcid) 20 mg DAILY PO Last administered on 05/26/18at 07:47; Start 05/18/18 at 09:00 Fluvoxamine Maleate (Luvox) 50 mg QHS PO Last administered on 05/26/18 20:34; Start 05/18/18 at 21:00 Insulin Human Lispro (HumaLOG) 10 units TIDWMEALS SQ Last administered on 05/21at 08:03; Start 05/18/18 at 08:00; Stop 05/21/18 at 13:44; Status DC Lactobacillus Rhamnosus (Culturelle) 1 cap BID PO Last administered on 20:34; Start 05/18/18 at 09:00 Pravastatin Sodium (Pravachol) 80 mg QHS PO Last administered on 05/26/18 20:34 ; Start 05/18/18 at 21:00 Risperidone (RisperDAL) 0.5 mg QHS PO Last administered on 05/26/18 20:34; Start 05/18/18 at 21:00 Risperidone (RisperDAL) 0.5 mg DAILY PO Last administered on 05/26/18 07:46; Start 05/18/18 at 09:00 Thiamine HCl (Vitamin B-1) 100 mg DAILY PO Last administered on 05/26/18 07:46 ; Start 05/18/18 at 09:00 Trazodone HCl (Desyrel) 25 mg QHS PO Last administered on 05/21/18at 19:53; Start 05/18/18 at 21:00; Stop 05/22/18 at 20:16; Status DC Insulin Human Lispro (HumaLOG) 5 units TIDWMEALS SQ Last administered on 17:00; Start 05/21/18 at 17:00 Divalproex Sodium (Depakote Er) 500 mg QHS PO Last administered on 05/23/18 19: 31; Start 05/21/18 at 21:00; Stop 05/24/18 at 11:10; Status DC Trazodone HCl (Desyrel) 50 mg QHS PO Last administered on 05/26/18 20:34; Start 05/22/18 at 21:00 Divalproex Sodium (Depakote Er) 1,000 mg QHS PO Last administered on 05/26/18 20:35; Start 05/24/18 at 21:00 Lactic Acid (Lac-Hydrin) 1 iggy BID TP Last administered on 05/26/18 20:36; Start 05/25/18 at 21:00 Mirtazapine (Remeron) 7.5 mg QHS PO Last administered on 05/26/18 20:34; Start 05/25/18 at 21:00 Active Scripts Active Reported Heparin Sod 5,000 Unit/ 0.5 Ml (Heparin Sodium,Porcine/Pf) 5,000 Unit/0.5 Ml Vial 5,000 Unit SQ Q8HRS Risperidone 0.5 Mg Tablet 0.5 Mg PO DAILY Risperidone 0.5 Mg Tablet 0.5 Mg PO QHS Fluvoxamine Maleate 50 Mg Tablet 50 Mg PO QHS Zyprexa Zydis (Olanzapine) 5 Mg Tab.rapdis 2.5 Mg PO PRN Q2HR PRN NITROGLYCERIN SubLingual (Nitroglycerin) 0.4 Mg Tab.subl 0.4 Mg SL PRN Q5MIN PRN Culturelle (Lactobacillus Rhamnosus Gg) 1 Each Capsule 1 Each PO BID Glucose Gel (Dextrose) 38 Gm Gel..gram. 15 Gm PO PRN Q15MIN PRN Cefdinir 300 Mg Capsule 300 Mg PO DAILY Trazodone Hcl 50 Mg Tablet 25 Mg PO HS LAST DOSE GIVEN: DATE: TIME: NEXT DOSE DUE: DATE: TIME: Vitamin B-1 (Thiamine Hcl) 100 Mg Tablet 100 Mg PO DAILY LAST DOSE GIVEN: DATE: TIME: NEXT DOSE DUE: DATE: TIME: Pravastatin Sodium 80 Mg Tablet 80 Mg PO HS LAST DOSE GIVEN: DATE: TIME: NEXT DOSE DUE: DATE: TIME: Klor-Con M20 (Potassium Chloride) 20 Meq Tab.er.prt 20 Meq PO BID LAST DOSE GIVEN: DATE: TIME: NEXT DOSE DUE: DATE: TIME: Novolog Flexpen (Insulin Aspart) 100 Unit/1 Ml Insuln.pen 10 Unit SQ TIDWMEALS Metoprolol Tartrate 25 Mg Tablet 25 Mg PO BID LAST DOSE GIVEN: DATE: TIME: NEXT DOSE DUE: DATE: TIME: Lantus Solostar (Insulin Glargine,Hum.rec.anlog) 100 Unit/1 Ml Insuln.pen 5 Unit SQ QHS LAST DOSE GIVEN: DATE: TIME: NEXT DOSE DUE: DATE: TIME: Famotidine 40 Mg Tablet 20 Mg PO DAILY LAST DOSE GIVEN: DATE: TIME: NEXT DOSE DUE: DATE: TIME: Plavix (Clopidogrel Bisulfate) 75 Mg Tablet 75 Mg PO DAILY LAST DOSE GIVEN: DATE: TIME: NEXT DOSE DUE: DATE: TIME: Vitamin D3 (Cholecalciferol (Vitamin D3)) 1,000 Unit Tablet 1,000 Unit PO DAILY LAST DOSE GIVEN: DATE: TIME: NEXT DOSE DUE: DATE: TIME: Buspirone Hcl 5 Mg Tablet 5 Mg PO BID@0900,1500 LAST DOSE GIVEN: DATE: TIME: NEXT DOSE DUE: DATE: TIME: Buspirone Hcl 10 Mg Tablet 10 Mg PO HS LAST DOSE GIVEN: DATE: TIME: NEXT DOSE DUE: DATE: TIME: Bisacodyl 10 Mg Supp.rect 10 Mg RC PRN DAILY PRN LAST DOSE GIVEN: DATE: TIME: NEXT DOSE DUE: DATE: TIME: Ascorbic Acid 500 Mg Tablet 500 Mg PO DAILY LAST DOSE GIVEN: DATE: TIME: NEXT DOSE DUE: DATE: TIME: Tylenol (Acetaminophen) 325 Mg Tablet 650 Mg PO PRN Q6HRS PRN LAST DOSE GIVEN: DATE: TIME: NEXT DOSE DUE: DATE: TIME: I have reviewed the current psychotropics carefully including drug interactions. Risk benefit ratio favors no change other than as noted in my dictated progress note. Diagnosis: Problems: (1) Schizoaffective disorder, bipolar type (2) Anxiety disorder (3) Impulse control disorder (4) Cognitive and behavioral changes (5) Anxiety disorder (6) Impulse control disorder (7) Dementia, vascular, with depression (8) Dementia, vascular, with delusions (9) Dementia in Alzheimer's disease with depression (10) Dementia in Alzheimer's disease with delusions (11) Ibbrq-zu-pstawoa kidney injury BERT MEYER MD May 26, 2018 20:58
--- NOTE | 2018-05-26 21:46 | PN ---
DATE: 05/26/2018 This note covers elements not covered in my initial note of 05/26/2018. SUBJECTIVE: I met with the patient in the evening. For the most part, the patient is doing reasonably well, per nursing report. REVIEW OF SYSTEMS: No CV, , pulmonary, eye, ENT system symptoms on review. Reliability poor. MENTAL STATUS EXAM: Oriented to herself. Insight, judgment, recent and remote memory, attention, concentration, fund of knowledge poor, consistent with her diagnoses. IMPRESSION: Major neurocognitive disorder, Alzheimer, vascular with delusion, depression, behavioral disturbance, schizoaffective disorder, bipolar type, mixed with psychotic features. Rest unchanged. PLAN: No change from initial note. Check CBC, CMP, valproic acid level on 05/27/2018 and adjust further thereafter. MAN Carmen MEYER MD DR: LIZA/faiza JOB#: [id number] / [id number]
[2018-05-26] MEDS ORDERED: DIVALPROEX 125 MG CAP.SPRINK PO SCH (22:00)
[2018-05-27] MEDS: traZODone 50 MG TABLET. PO PRN (01:57)
[2018-05-27 05:54] VITALS: BP 117/75
[2018-05-27] MEDS: LACTOBACILLUS RHAMNOSUS GG 1 CAPSULE. PO SCH ×2 (07:37→20:20)
[2018-05-27] MEDS: METOPROLOL TART IMMED RELEASE 25 MG TABLET PO SCH ×2 (07:37→20:21)
[2018-05-27] MEDS: FAMOTIDINE 20 MG TABLET PO SCH (07:37)
[2018-05-27] MEDS: risperiDONE 0.5 MG TABLET. PO SCH ×2 (07:37→20:21)
[2018-05-27] MEDS: CLOPIDOGREL BISULFATE 75 MG TABLET PO SCH (07:38)
[2018-05-27] MEDS: CHOLECALCIFEROL (VITAMIN D3) 1,000 UNIT TABLET PO SCH (07:38)
[2018-05-27] MEDS: THIAMINE 100 MG TABLET. PO SCH (07:38)
[2018-05-27] MEDS: ASCORBIC ACID 500 MG TABLET PO SCH (07:38)
[2018-05-27] MEDS: AMMONIUM LACTATE 12% TOPICAL LOTION 226GM BOTTLE. TP SCH ×2 (07:39→20:23)
[2018-05-27] MEDS: INSULIN LISPRO 300 UNITS/3 ML INSULN.PEN. SQ SCH ×3 (07:59→17:00)
--- NOTE | 2018-05-27 10:05 | PN ---
DATE: 05/25/2018 PSYCHIATRIC PROGRESS NOTE This late entry, date of service 05/25/2018 covers elements not covered in my initial note. SUBJECTIVE: I met with the patient in the evening. The patient slept 3 hours previous night. She has been somewhat manic per nursing report anxious, agitated, hyperverbal. She defecated in the center of the bathroom, somewhat confused and had defecated on the bathroom counter. She is psychotic and said her bowel had "jewels" and she wanted to find them and therefore defecated on the bathroom counter. REVIEW OF SYSTEMS: No CV, , pulmonary, eye system symptoms on review. Reliability poor. MENTAL STATUS EXAM: Oriented to herself. Insight, judgment, recent and remote memory, attention, concentration, fund of knowledge poor, consistent with her diagnosis. IMPRESSION: Schizoaffective disorder, bipolar type; major neurocognitive disorder, Alzheimer, vascular with delusions. Rest unchanged. PLAN: We need to increase Risperdal if psychotic symptoms persist despite therapeutic level on the Depakote. We will check CBC, CMP, valproic acid level on 05/27/2018, we will then decide further changes. BERT MEYER MD DR: LIZA/faiza JOB#: [id number] / [id number]
[2018-05-27 10:28] LABS: BASO % 0 % (0-3); EOS # 0.2 x10^3/uL (0.0-0.7); EOS % 3 % (0-3); HEMATOCRIT 38.1 % (36.0-47.0); HEMOGLOBIN 12.6 g/dL (12.0-15.5); LYMPH # 1.1 x10^3/uL (1.0-4.8); LYMPH % 23 % (24-48); MEAN CORPUSCULAR HEMOGLOBIN 32 pg (25-35); MEAN CORPUSCULAR HGB CONC 33 g/dL (31-37); MEAN CORPUSCULAR VOLUME 98 fL (79-100); MONO # 0.4 x10^3/uL (0.0-1.1); MONO % 8 % (0-9); NEUT # 3.2 x10^3uL (1.8-7.7); NEUT % 65 % (31-73); PLATELET COUNT 124 x10^3/uL (140-400); RED CELL DISTRIBUTION WIDTH 15.6 % (11.5-14.5); WHITE BLOOD COUNT 4.9 x10^3/uL (4.0-11.0)
[2018-05-27 10:49] LABS: ALBUMIN/GLOBULIN RATIO 0.9 (1.0-1.7); ALK PHOS 112 U/L (46-116); ALT (SGPT) 28 U/L (14-59); ANION GAP 10 (6-14); AST (SGOT) 19 U/L (15-37); BLOOD UREA NITROGEN 36 mg/dL (7-20); BUN/CREATININE RATIO 19 (6-20); CALCIUM 9.4 mg/dL (8.5-10.1); CARBON DIOXIDE 25 mmol/L (21-32); CHLORIDE 113 mmol/L (98-107); CREATININE 1.9 mg/dL (0.6-1.0); GFR 26.2; GLUCOSE 93 mg/dL (70-99); POTASSIUM 4.4 mmol/L (3.5-5.1); SODIUM 148 mmol/L (136-145); TOTAL BILIRUBIN 0.6 mg/dL (0.2-1.0); TOTAL PROTEIN 6.5 g/dL (6.4-8.2)
[2018-05-27 10:51] LABS: VAL ACID 99 mcg/mL (50-100)
[2018-05-27 16:02] VITALS: BP 131/85
[2018-05-27] MEDS: MIRTAZAPINE 7.5 MG TABLET. PO SCH (20:21)
[2018-05-27] MEDS: traZODone 50 MG TABLET. PO SCH (20:21)
[2018-05-27] MEDS: PRAVASTATIN 20 MG TABLET. PO SCH (20:21)
[2018-05-27] MEDS: INSULIN GLARGINE 300 UNITS/3 ML INSULN.PEN. SQ SCH (20:24)
--- NOTE | 2018-05-27 22:37 | PDOC ---
Exam Note: Manfred Note: Please also refer to the separate dictated note~for this date of service dictated separately.~Patient seen individually. Discussed the patient with Nursing staff reviewed the chart.~Reviewed interim history and current functioning. Reviewed vital signs,~Labs/ Radiology~and current medications noted below. Continue current treatment with the changes noted in the dictated addendum note Assessment: Vital Signs: Vital Signs Date Time Temp Pulse Resp B/P (MAP) Pulse Ox O2 Delivery O2 Flow Rate FiO2 05/27/18 20:21 88 131/85 05/27/18 16:02 97.5 18 95 05/27/18 05:54 Room Air 05/21/18 16:45 95.0 I&O Intake and Output 05/27/18 07:01 Intake Total 1440 ml Balance 1440 ml Intake Oral 1440 ml Labs: Laboratory Tests Test 05/27/18 07:53 05/27/18 09:45 05/27/18 11:25 05/27/18 16:51 Glucose (Fingerstick) 83 mg/dL (70-99) 136 mg/dL (70-99) H 145 mg/dL (70-99) H White Blood Count 4.9 x10^3/uL (4.0-11.0) Red Blood Count 3.90 x10^6/uL (3.50-5.40) Hemoglobin 12.6 g/dL (12.0-15.5) Hematocrit 38.1 % (36.0-47.0) Mean Corpuscular Volume 98 fL (79-100) Mean Corpuscular Hemoglobin 32 pg (25-35) Mean Corpuscular Hemoglobin Concent 33 g/dL (31-37) Red Cell Distribution Width 15.6 % (11.5-14.5) H Platelet Count 124 x10^3/uL (140-400) L Neutrophils (%) (Auto) 65 % (31-73) Lymphocytes (%) (Auto) 23 % (24-48) L Monocytes (%) (Auto) 8 % (0-9) Eosinophils (%) (Auto) 3 % (0-3) Basophils (%) (Auto) 0 % (0-3) Neutrophils # (Auto) 3.2 x10^3uL (1.8-7.7) Lymphocytes # (Auto) 1.1 x10^3/uL (1.0-4.8) Monocytes # (Auto) 0.4 x10^3/uL (0.0-1.1) Eosinophils # (Auto) 0.2 x10^3/uL (0.0-0.7) Basophils # (Auto) 0.0 x10^3/uL (0.0-0.2) Sodium Level 148 mmol/L (136-145) H Potassium Level 4.4 mmol/L (3.5-5.1) Chloride Level 113 mmol/L (98-107) H Carbon Dioxide Level 25 mmol/L (21-32) Anion Gap 10 (6-14) Blood Urea Nitrogen 36 mg/dL (7-20) H Creatinine 1.9 mg/dL (0.6-1.0) H Estimated GFR (Cockcroft-Gault) 26.2 BUN/Creatinine Ratio 19 (6-20) Glucose Level 93 mg/dL (70-99) Calcium Level 9.4 mg/dL (8.5-10.1) Total Bilirubin 0.6 mg/dL (0.2-1.0) Aspartate Amino Transferase (AST) 19 U/L (15-37) Alanine Aminotransferase (ALT) 28 U/L (14-59) Alkaline Phosphatase 112 U/L (46-116) Total Protein 6.5 g/dL (6.4-8.2) Albumin 3.0 g/dL (3.4-5.0) L Albumin/Globulin Ratio 0.9 (1.0-1.7) L Valproic Acid Level 99 mcg/mL (50-100) Valproic Acid Last Dose Date 05/26/18 Valproic Acid Last Dose Time 2100 Test 05/27/18 19:15 Glucose (Fingerstick) 87 mg/dL (70-99) Current Medications: Meds: Current Medications Acetaminophen (Tylenol) 650 mg PRN Q6HRS PRN PO PAIN / TEMP Last administered on 05/23/18at 00:01; Start 05/17/18 at 22:30 Ascorbic Acid (Vitamin C) 500 mg DAILY PO Last administered on 05/27/18at 07:38; Start 05/18/18 at 09:00 Vitamin D (Vitamin D3) 1,000 unit DAILY PO Last administered on 05/27/18 07:38 ; Start 05/18/18 at 09:00 Clopidogrel Bisulfate (Plavix) 75 mg DAILY PO Last administered on 05/27/18 07: 38; Start 05/18/18 at 09:00 Insulin Glargine (Lantus) 5 units QHS SQ Last administered on 05/27/18 20:24; Start 05/18/18 at 21:00 Metoprolol Tartrate (Lopressor) 25 mg BID PO Last administered on 05/27/18 20: 21; Start 05/18/18 at 09:00 Nitroglycerin (Nitrostat) 0.4 mg PRN Q5MIN PRN SL CHEST PAIN; Start 05/17/18 at 22:30 Olanzapine (ZyPREXA ZYDIS) 2.5 mg PRN Q2HR PRN PO ANXIETY / AGITATION; Start 05/17/18 at 22:30 Potassium Chloride (Klor-Con) 20 meq BID PO Last administered on 05/19/18at 08: 04; Start 05/18/18 at 09:00; Stop 05/19/18 at 15:08; Status DC Bisacodyl (Dulcolax Supp) 10 mg PRN DAILY PRN [place] CONSTIPATION; Start 05/17/18 at 23:00 Buspirone HCl (Buspar) 5 mg BID@0900,1500 PO Last administered on 05/21/18at 15 :43; Start 05/18/18 at 09:00; Stop 05/21/18 at 17:55; Status DC Buspirone HCl (Buspar) 10 mg QHS PO Last administered on 05/20/18at 19:53; Start 05/18/18 at 21:00; Stop 05/21/18 at 17:55; Status DC Glucose (Insta-Glucose) 15 gm PRN Q15MIN PRN PO LOW BLOOD SUGAR; Start at 23:00 Famotidine (Pepcid) 20 mg DAILY PO Last administered on 05/27/18 07:37; Start 05/18/18 at 09:00 Fluvoxamine Maleate (Luvox) 50 mg QHS PO Last administered on 05/27/18 20:21; Start 05/18/18 at 21:00 Insulin Human Lispro (HumaLOG) 10 units TIDWMEALS SQ Last administered on 05/21at 08:03; Start 05/18/18 at 08:00; Stop 05/21/18 at 13:44; Status DC Lactobacillus Rhamnosus (Culturelle) 1 cap BID PO Last administered on 20:20; Start 05/18/18 at 09:00 Pravastatin Sodium (Pravachol) 80 mg QHS PO Last administered on 05/27/18 20:21 ; Start 05/18/18 at 21:00 Risperidone (RisperDAL) 0.5 mg QHS PO Last administered on 05/27/18 20:21; Start 05/18/18 at 21:00 Risperidone (RisperDAL) 0.5 mg DAILY PO Last administered on 05/27/18 07:37; Start 05/18/18 at 09:00 Thiamine HCl (Vitamin B-1) 100 mg DAILY PO Last administered on 05/27/18 07:38 ; Start 05/18/18 at 09:00 Trazodone HCl (Desyrel) 25 mg QHS PO Last administered on 05/21/18at 19:53; Start 05/18/18 at 21:00; Stop 05/22/18 at 20:16; Status DC Insulin Human Lispro (HumaLOG) 5 units TIDWMEALS SQ Last administered on 17:00; Start 05/21/18 at 17:00 Divalproex Sodium (Depakote Er) 500 mg QHS PO Last administered on 05/23/18 19: 31; Start 05/21/18 at 21:00; Stop 05/24/18 at 11:10; Status DC Trazodone HCl (Desyrel) 50 mg QHS PO Last administered on 05/27/18 20:21; Start 05/22/18 at 21:00 Divalproex Sodium (Depakote Er) 1,000 mg QHS PO Last administered on 05/25/18 19:54; Start 05/24/18 at 21:00; Stop 05/26/18 at 21:35; Status DC Lactic Acid (Lac-Hydrin) 1 iggy BID TP Last administered on 05/27/18 20:23; Start 05/25/18 at 21:00 Mirtazapine (Remeron) 7.5 mg QHS PO Last administered on 1/6/19at 20:21; Start 05/25/18 at 21:00 Divalproex Sodium (Depakote Sprinkles) 1,000 mg HS PO Last administered on at 21:40; Start 05/26/18 at 22:00; Stop 05/27/18 at 20:01; Status DC Trazodone HCl (Desyrel) 50 mg PRN QHS PRN PO INSOMNIA Last administered on at 01:57; Start 05/27/18 at 02:00 Divalproex Sodium (Depakote Sprinkles) 500 mg HS PO ; Start 05/28/18 at 21:00 Active Scripts Active Reported Heparin Sod 5,000 Unit/ 0.5 Ml (Heparin Sodium,Porcine/Pf) 5,000 Unit/0.5 Ml Vial 5,000 Unit SQ Q8HRS Risperidone 0.5 Mg Tablet 0.5 Mg PO DAILY Risperidone 0.5 Mg Tablet 0.5 Mg PO QHS Fluvoxamine Maleate 50 Mg Tablet 50 Mg PO QHS Zyprexa Zydis (Olanzapine) 5 Mg Tab.rapdis 2.5 Mg PO PRN Q2HR PRN NITROGLYCERIN SubLingual (Nitroglycerin) 0.4 Mg Tab.subl 0.4 Mg SL PRN Q5MIN PRN Culturelle (Lactobacillus Rhamnosus Gg) 1 Each Capsule 1 Each PO BID Glucose Gel (Dextrose) 38 Gm Gel..gram. 15 Gm PO PRN Q15MIN PRN Cefdinir 300 Mg Capsule 300 Mg PO DAILY Trazodone Hcl 50 Mg Tablet 25 Mg PO HS LAST DOSE GIVEN: DATE: TIME: NEXT DOSE DUE: DATE: TIME: Vitamin B-1 (Thiamine Hcl) 100 Mg Tablet 100 Mg PO DAILY LAST DOSE GIVEN: DATE: TIME: NEXT DOSE DUE: DATE: TIME: Pravastatin Sodium 80 Mg Tablet 80 Mg PO HS LAST DOSE GIVEN: DATE: TIME: NEXT DOSE DUE: DATE: TIME: Klor-Con M20 (Potassium Chloride) 20 Meq Tab.er.prt 20 Meq PO BID LAST DOSE GIVEN: DATE: TIME: NEXT DOSE DUE: DATE: TIME: Novolog Flexpen (Insulin Aspart) 100 Unit/1 Ml Insuln.pen 10 Unit SQ TIDWMEALS Metoprolol Tartrate 25 Mg Tablet 25 Mg PO BID LAST DOSE GIVEN: DATE: TIME: NEXT DOSE DUE: DATE: TIME: Lantus Solostar (Insulin Glargine,Hum.rec.anlog) 100 Unit/1 Ml Insuln.pen 5 Unit SQ QHS LAST DOSE GIVEN: DATE: TIME: NEXT DOSE DUE: DATE: TIME: Famotidine 40 Mg Tablet 20 Mg PO DAILY LAST DOSE GIVEN: DATE: TIME: NEXT DOSE DUE: DATE: TIME: Plavix (Clopidogrel Bisulfate) 75 Mg Tablet 75 Mg PO DAILY LAST DOSE GIVEN: DATE: TIME: NEXT DOSE DUE: DATE: TIME: Vitamin D3 (Cholecalciferol (Vitamin D3)) 1,000 Unit Tablet 1,000 Unit PO DAILY LAST DOSE GIVEN: DATE: TIME: NEXT DOSE DUE: DATE: TIME: Buspirone Hcl 5 Mg Tablet 5 Mg PO BID@0900,1500 LAST DOSE GIVEN: DATE: TIME: NEXT DOSE DUE: DATE: TIME: Buspirone Hcl 10 Mg Tablet 10 Mg PO HS LAST DOSE GIVEN: DATE: TIME: NEXT DOSE DUE: DATE: TIME: Bisacodyl 10 Mg Supp.rect 10 Mg RC PRN DAILY PRN LAST DOSE GIVEN: DATE: TIME: NEXT DOSE DUE: DATE: TIME: Ascorbic Acid 500 Mg Tablet 500 Mg PO DAILY LAST DOSE GIVEN: DATE: TIME: NEXT DOSE DUE: DATE: TIME: Tylenol (Acetaminophen) 325 Mg Tablet 650 Mg PO PRN Q6HRS PRN LAST DOSE GIVEN: DATE: TIME: NEXT DOSE DUE: DATE: TIME: I have reviewed the current psychotropics carefully including drug interactions. Risk benefit ratio favors no change other than as noted in my dictated progress note. Diagnosis: Problems: (1) [id number] kidney injury (2) Schizoaffective disorder, bipolar type (3) Anxiety disorder (4) Impulse control disorder (5) Cognitive and behavioral changes (6) Anxiety disorder (7) Impulse control disorder (8) Dementia, vascular, with depression (9) Dementia, vascular, with delusions (10) Dementia in Alzheimer's disease with depression (11) Dementia in Alzheimer's disease with delusions (12) Acute and chronic respiratory failure BERT MEYER MD May 27, 2018 22:37
[2018-05-28] MEDS: traZODone 50 MG TABLET. PO PRN (01:54)
[2018-05-28 05:37] VITALS: BP 137/80
[2018-05-28 07:15] LABS: BASO % 0 % (0-3); EOS # 0.1 x10^3/uL (0.0-0.7); EOS % 3 % (0-3); HEMATOCRIT 40.6 % (36.0-47.0); HEMOGLOBIN 12.9 g/dL (12.0-15.5); LYMPH % 21 % (24-48); MEAN CORPUSCULAR HEMOGLOBIN 31 pg (25-35); MEAN CORPUSCULAR HGB CONC 32 g/dL (31-37); MEAN CORPUSCULAR VOLUME 98 fL (79-100); MONO # 0.5 x10^3/uL (0.0-1.1); MONO % 10 % (0-9); NEUT # 3.3 x10^3uL (1.8-7.7); NEUT % 67 % (31-73); PLATELET COUNT 129 x10^3/uL (140-400); RED BLOOD COUNT 4.13 x10^6/uL (3.50-5.40); RED CELL DISTRIBUTION WIDTH 16.2 % (11.5-14.5); WHITE BLOOD COUNT 4.9 x10^3/uL (4.0-11.0)
[2018-05-28 07:29] LABS: ALBUMIN 3.1 g/dL (3.4-5.0); ALBUMIN/GLOBULIN RATIO 0.9 (1.0-1.7); CALCIUM 9.4 mg/dL (8.5-10.1); CREATININE 1.7 mg/dL (0.6-1.0); GFR 29.8; POTASSIUM 4.5 mmol/L (3.5-5.1); TOTAL BILIRUBIN 0.7 mg/dL (0.2-1.0); TOTAL PROTEIN 6.7 g/dL (6.4-8.2)
[2018-05-28] MEDS: risperiDONE 0.5 MG TABLET. PO SCH ×2 (08:51→19:58)
[2018-05-28] MEDS: FAMOTIDINE 20 MG TABLET PO SCH (08:51)
[2018-05-28] MEDS: CLOPIDOGREL BISULFATE 75 MG TABLET PO SCH (08:51)
[2018-05-28] MEDS: ASCORBIC ACID 500 MG TABLET PO SCH (08:51)
[2018-05-28] MEDS: THIAMINE 100 MG TABLET. PO SCH (08:52)
[2018-05-28] MEDS: METOPROLOL TART IMMED RELEASE 25 MG TABLET PO SCH ×2 (08:52→20:06)
[2018-05-28] MEDS: CHOLECALCIFEROL (VITAMIN D3) 1,000 UNIT TABLET PO SCH (08:52)
[2018-05-28] MEDS: LACTOBACILLUS RHAMNOSUS GG 1 CAPSULE. PO SCH ×2 (08:52→19:58)
[2018-05-28] MEDS: INSULIN LISPRO 300 UNITS/3 ML INSULN.PEN. SQ SCH ×3 (08:53→16:47)
[2018-05-28] MEDS: AMMONIUM LACTATE 12% TOPICAL LOTION 226GM BOTTLE. TP SCH ×2 (08:54→20:09)
[2018-05-28 09:38] VITALS: BP 125/81
[2018-05-28 16:00] VITALS: BP 127/79
[2018-05-28] MEDS: MIRTAZAPINE 7.5 MG TABLET. PO SCH (19:58)
[2018-05-28] MEDS: traZODone 50 MG TABLET. PO SCH (19:58)
[2018-05-28] MEDS: PRAVASTATIN 20 MG TABLET. PO SCH (19:58)
[2018-05-28 20:04] VITALS: BP 131/82
[2018-05-28] MEDS: INSULIN GLARGINE 300 UNITS/3 ML INSULN.PEN. SQ SCH (20:10)
[2018-05-28] MEDS ORDERED: DIVALPROEX 125 MG CAP.SPRINK PO SCH (21:00)
--- NOTE | 2018-05-28 22:14 | PN ---
DATE: 05/27/2018 PSYCHIATRIC PROGRESS NOTE This late entry 05/27/2018 covers elements, not covered in my initial note. SUBJECTIVE: I met with the patient in the evening. The patient slept reasonably the previous night and has been somewhat sedated, disorganized. Valproic acid level is 99 and we will hold the Depakote night of 05/27/2018 and then restart at 500 mg at bedtime on 05/28/2018, and check CBC, CMP, valproic acid level in 3 days. Her sodium and creatinine are increased and I will defer to Dr. Orourke. REVIEW OF SYSTEMS: Ambulation impaired. No CV, , pulmonary, eye, ENT system symptoms on review. MENTAL STATUS EXAM: Oriented to herself. Insight, judgment, recent and remote memory, attention, concentration, fund of knowledge poor, consistent with her diagnosis mentioned in my initial note. PLAN: No change other than what is noted above. Rest unchanged per initial note. BERT MEYER MD DR: LIZA/faiza JOB#: [id number] / [id number]
--- NOTE | 2018-05-28 22:33 | PDOC ---
Exam Note: Manfred Note: Please also refer to the separate dictated note~for this date of service dictated separately.~Patient seen individually. Discussed the patient with Nursing staff reviewed the chart.~Reviewed interim history and current functioning. Reviewed vital signs,~Labs/ Radiology~and current medications noted below. Continue current treatment with the changes noted in the dictated addendum note Assessment: Vital Signs: Vital Signs Date Time Temp Pulse Resp B/P (MAP) Pulse Ox O2 Delivery O2 Flow Rate FiO2 05/28/18 20:06 96 131/82 05/28/18 16:00 97.3 18 94 05/28/18 09:38 Room Air I&O Intake and Output 05/28/18 07:01 Intake Total 960 ml Balance 960 ml Intake Oral 960 ml Labs: Laboratory Tests Test 05/28/18 06:32 05/28/18 06:50 05/28/18 07:13 05/28/18 11:23 Glucose (Fingerstick) 107 mg/dL (70-99) H 98 mg/dL (70-99) 137 mg/dL (70-99) H White Blood Count 4.9 x10^3/uL (4.0-11.0) Red Blood Count 4.13 x10^6/uL (3.50-5.40) Hemoglobin 12.9 g/dL (12.0-15.5) Hematocrit 40.6 % (36.0-47.0) Mean Corpuscular Volume 98 fL (79-100) Mean Corpuscular Hemoglobin 31 pg (25-35) Mean Corpuscular Hemoglobin Concent 32 g/dL (31-37) Red Cell Distribution Width 16.2 % (11.5-14.5) H Platelet Count 129 x10^3/uL (140-400) L Neutrophils (%) (Auto) 67 % (31-73) Lymphocytes (%) (Auto) 21 % (24-48) L Monocytes (%) (Auto) 10 % (0-9) H Eosinophils (%) (Auto) 3 % (0-3) Basophils (%) (Auto) 0 % (0-3) Neutrophils # (Auto) 3.3 x10^3uL (1.8-7.7) Lymphocytes # (Auto) 1.0 x10^3/uL (1.0-4.8) Monocytes # (Auto) 0.5 x10^3/uL (0.0-1.1) Eosinophils # (Auto) 0.1 x10^3/uL (0.0-0.7) Basophils # (Auto) 0.0 x10^3/uL (0.0-0.2) Sodium Level 150 mmol/L (136-145) H Potassium Level 4.5 mmol/L (3.5-5.1) Chloride Level 112 mmol/L (98-107) H Carbon Dioxide Level 27 mmol/L (21-32) Anion Gap 11 (6-14) Blood Urea Nitrogen 32 mg/dL (7-20) H Creatinine 1.7 mg/dL (0.6-1.0) H Estimated GFR (Cockcroft-Gault) 29.8 BUN/Creatinine Ratio 19 (6-20) Glucose Level 105 mg/dL (70-99) H Calcium Level 9.4 mg/dL (8.5-10.1) Total Bilirubin 0.7 mg/dL (0.2-1.0) Aspartate Amino Transferase (AST) 17 U/L (15-37) Alanine Aminotransferase (ALT) 33 U/L (14-59) Alkaline Phosphatase 112 U/L (46-116) Total Protein 6.7 g/dL (6.4-8.2) Albumin 3.1 g/dL (3.4-5.0) L Albumin/Globulin Ratio 0.9 (1.0-1.7) L Test 05/28/18 16:39 05/28/18 16:56 05/28/18 17:21 05/28/18 19:04 Glucose (Fingerstick) 58 mg/dL (70-99) L 66 mg/dL (70-99) L 98 mg/dL (70-99) 197 mg/dL (70-99) H Current Medications: Meds: Current Medications Acetaminophen (Tylenol) 650 mg PRN Q6HRS PRN PO PAIN / TEMP Last administered on 05/23/18 00:01; Start 05/17/18 at 22:30 Ascorbic Acid (Vitamin C) 500 mg DAILY PO Last administered on 05/28/18 08:51; Start 05/18/18 at 09:00 Vitamin D (Vitamin D3) 1,000 unit DAILY PO Last administered on 05/28/18 08:52 ; Start 05/18/18 at 09:00 Clopidogrel Bisulfate (Plavix) 75 mg DAILY PO Last administered on 05/28/18 08: 51; Start 05/18/18 at 09:00 Insulin Glargine (Lantus) 5 units QHS SQ Last administered on 05/28/18 20:10; Start 05/18/18 at 21:00 Metoprolol Tartrate (Lopressor) 25 mg BID PO Last administered on 05/28/18 20: 06; Start 05/18/18 at 09:00 Nitroglycerin (Nitrostat) 0.4 mg PRN Q5MIN PRN SL CHEST PAIN; Start 05/17/18 at 22:30 Olanzapine (ZyPREXA ZYDIS) 2.5 mg PRN Q2HR PRN PO ANXIETY / AGITATION; Start 05/17/18 at 22:30 Potassium Chloride (Klor-Con) 20 meq BID PO Last administered on 05/19/18at 08: 04; Start 05/18/18 at 09:00; Stop 05/19/18 at 15:08; Status DC Bisacodyl (Dulcolax Supp) 10 mg PRN DAILY PRN [place] CONSTIPATION; Start 05/17/18 at 23:00 Buspirone HCl (Buspar) 5 mg BID@0900,1500 PO Last administered on 05/21/18at 15 :43; Start 05/18/18 at 09:00; Stop 05/21/18 at 17:55; Status DC Buspirone HCl (Buspar) 10 mg QHS PO Last administered on 05/20/18at 19:53; Start 05/18/18 at 21:00; Stop 05/21/18 at 17:55; Status DC Glucose (Insta-Glucose) 15 gm PRN Q15MIN PRN PO LOW BLOOD SUGAR; Start at 23:00 Famotidine (Pepcid) 20 mg DAILY PO Last administered on 05/28/18 08:51; Start 05/18/18 at 09:00 Fluvoxamine Maleate (Luvox) 50 mg QHS PO Last administered on 05/28/18 19:58; Start 05/18/18 at 21:00 Insulin Human Lispro (HumaLOG) 10 units TIDWMEALS SQ Last administered on 05/21 08:03; Start 05/18/18 at 08:00; Stop 05/21/18 at 13:44; Status DC Lactobacillus Rhamnosus (Culturelle) 1 cap BID PO Last administered on 19:58; Start 05/18/18 at 09:00 Pravastatin Sodium (Pravachol) 80 mg QHS PO Last administered on 05/28/18 19:58 ; Start 05/18/18 at 21:00 Risperidone (RisperDAL) 0.5 mg QHS PO Last administered on 05/28/18 19:58; Start 05/18/18 at 21:00 Risperidone (RisperDAL) 0.5 mg DAILY PO Last administered on 05/28/18 08:51; Start 05/18/18 at 09:00 Thiamine HCl (Vitamin B-1) 100 mg DAILY PO Last administered on 05/28/18 08:52 ; Start 05/18/18 at 09:00 Trazodone HCl (Desyrel) 25 mg QHS PO Last administered on 05/21/18 19:53; Start 05/18/18 at 21:00; Stop 05/22/18 at 20:16; Status DC Insulin Human Lispro (HumaLOG) 5 units TIDWMEALS SQ Last administered on 12:20; Start 05/21/18 at 17:00 Divalproex Sodium (Depakote Er) 500 mg QHS PO Last administered on 05/23/18 19: 31; Start 05/21/18 at 21:00; Stop 05/24/18 at 11:10; Status DC Trazodone HCl (Desyrel) 50 mg QHS PO Last administered on 05/28/18 19:58; Start 05/22/18 at 21:00 Divalproex Sodium (Depakote Er) 1,000 mg QHS PO Last administered on 05/25/18 19:54; Start 05/24/18 at 21:00; Stop 05/26/18 at 21:35; Status DC Lactic Acid (Lac-Hydrin) 1 iggy BID TP Last administered on 05/28/18 20:09; Start 05/25/18 at 21:00 Mirtazapine (Remeron) 7.5 mg QHS PO Last administered on 05/28/18at 19:58; Start 05/25/18 at 21:00 Divalproex Sodium (Depakote Sprinkles) 1,000 mg HS PO Last administered on at 21:40; Start 05/26/18 at 22:00; Stop 05/27/18 at 20:01; Status DC Trazodone HCl (Desyrel) 50 mg PRN QHS PRN PO INSOMNIA Last administered on at 01:54; Start 05/27/18 at 02:00 Divalproex Sodium (Depakote Sprinkles) 500 mg HS PO ; Start 05/28/18 at 21:00; Stop 05/28/18 at 21:00; Status DC Active Scripts Active Reported Heparin Sod 5,000 Unit/ 0.5 Ml (Heparin Sodium,Porcine/Pf) 5,000 Unit/0.5 Ml Vial 5,000 Unit SQ Q8HRS Risperidone 0.5 Mg Tablet 0.5 Mg PO DAILY Risperidone 0.5 Mg Tablet 0.5 Mg PO QHS Fluvoxamine Maleate 50 Mg Tablet 50 Mg PO QHS Zyprexa Zydis (Olanzapine) 5 Mg Tab.rapdis 2.5 Mg PO PRN Q2HR PRN NITROGLYCERIN SubLingual (Nitroglycerin) 0.4 Mg Tab.subl 0.4 Mg SL PRN Q5MIN PRN Culturelle (Lactobacillus Rhamnosus Gg) 1 Each Capsule 1 Each PO BID Glucose Gel (Dextrose) 38 Gm Gel..gram. 15 Gm PO PRN Q15MIN PRN Cefdinir 300 Mg Capsule 300 Mg PO DAILY Trazodone Hcl 50 Mg Tablet 25 Mg PO HS LAST DOSE GIVEN: DATE: TIME: NEXT DOSE DUE: DATE: TIME: Vitamin B-1 (Thiamine Hcl) 100 Mg Tablet 100 Mg PO DAILY LAST DOSE GIVEN: DATE: TIME: NEXT DOSE DUE: DATE: TIME: Pravastatin Sodium 80 Mg Tablet 80 Mg PO HS LAST DOSE GIVEN: DATE: TIME: NEXT DOSE DUE: DATE: TIME: Klor-Con M20 (Potassium Chloride) 20 Meq Tab.er.prt 20 Meq PO BID LAST DOSE GIVEN: DATE: TIME: NEXT DOSE DUE: DATE: TIME: Novolog Flexpen (Insulin Aspart) 100 Unit/1 Ml Insuln.pen 10 Unit SQ TIDWMEALS Metoprolol Tartrate 25 Mg Tablet 25 Mg PO BID LAST DOSE GIVEN: DATE: TIME: NEXT DOSE DUE: DATE: TIME: Lantus Solostar (Insulin Glargine,Hum.rec.anlog) 100 Unit/1 Ml Insuln.pen 5 Unit SQ QHS LAST DOSE GIVEN: DATE: TIME: NEXT DOSE DUE: DATE: TIME: Famotidine 40 Mg Tablet 20 Mg PO DAILY LAST DOSE GIVEN: DATE: TIME: NEXT DOSE DUE: DATE: TIME: Plavix (Clopidogrel Bisulfate) 75 Mg Tablet 75 Mg PO DAILY LAST DOSE GIVEN: DATE: TIME: NEXT DOSE DUE: DATE: TIME: Vitamin D3 (Cholecalciferol (Vitamin D3)) 1,000 Unit Tablet 1,000 Unit PO DAILY LAST DOSE GIVEN: DATE: TIME: NEXT DOSE DUE: DATE: TIME: Buspirone Hcl 5 Mg Tablet 5 Mg PO BID@0900,1500 LAST DOSE GIVEN: DATE: TIME: NEXT DOSE DUE: DATE: TIME: Buspirone Hcl 10 Mg Tablet 10 Mg PO HS LAST DOSE GIVEN: DATE: TIME: NEXT DOSE DUE: DATE: TIME: Bisacodyl 10 Mg Supp.rect 10 Mg RC PRN DAILY PRN LAST DOSE GIVEN: DATE: TIME: NEXT DOSE DUE: DATE: TIME: Ascorbic Acid 500 Mg Tablet 500 Mg PO DAILY LAST DOSE GIVEN: DATE: TIME: NEXT DOSE DUE: DATE: TIME: Tylenol (Acetaminophen) 325 Mg Tablet 650 Mg PO PRN Q6HRS PRN LAST DOSE GIVEN: DATE: TIME: NEXT DOSE DUE: DATE: TIME: I have reviewed the current psychotropics carefully including drug interactions. Risk benefit ratio favors no change other than as noted in my dictated progress note. Diagnosis: Problems: (1) [id number] kidney injury (2) Schizoaffective disorder, bipolar type (3) Anxiety disorder (4) Impulse control disorder (5) Cognitive and behavioral changes (6) Anxiety disorder (7) Impulse control disorder (8) Dementia, vascular, with depression (9) Dementia, vascular, with delusions (10) Dementia in Alzheimer's disease with depression (11) Dementia in Alzheimer's disease with delusions (12) Acute and chronic respiratory failure BERT MEYER MD May 28, 2018 22:33
[2018-05-29 05:34] VITALS: BP 134/89
[2018-05-29] MEDS: INSULIN LISPRO 300 UNITS/3 ML INSULN.PEN. SQ SCH ×3 (07:46→17:00)
[2018-05-29] MEDS: LACTOBACILLUS RHAMNOSUS GG 1 CAPSULE. PO SCH ×2 (07:47→19:53)
[2018-05-29] MEDS: METOPROLOL TART IMMED RELEASE 25 MG TABLET PO SCH ×2 (07:47→19:53)
[2018-05-29] MEDS: FAMOTIDINE 20 MG TABLET PO SCH (07:48)
[2018-05-29] MEDS: THIAMINE 100 MG TABLET. PO SCH (07:48)
[2018-05-29] MEDS: CLOPIDOGREL BISULFATE 75 MG TABLET PO SCH (07:48)
[2018-05-29] MEDS: risperiDONE 0.5 MG TABLET. PO SCH ×2 (07:48→19:53)
[2018-05-29] MEDS: ASCORBIC ACID 500 MG TABLET PO SCH (07:48)
[2018-05-29] MEDS: AMMONIUM LACTATE 12% TOPICAL LOTION 226GM BOTTLE. TP SCH ×2 (07:49→19:56)
[2018-05-29] MEDS: CHOLECALCIFEROL (VITAMIN D3) 1,000 UNIT TABLET PO SCH (07:49)
[2018-05-29] MEDS: FUROSEMIDE 40 MG TABLET PO SCH (11:30)
[2018-05-29 15:43] VITALS: BP 144/98
[2018-05-29] MEDS: MIRTAZAPINE 7.5 MG TABLET. PO SCH (19:53)
[2018-05-29] MEDS: PRAVASTATIN 20 MG TABLET. PO SCH (19:53)
[2018-05-29] MEDS: traZODone 50 MG TABLET. PO SCH (19:53)
[2018-05-29] MEDS: INSULIN GLARGINE 300 UNITS/3 ML INSULN.PEN. SQ SCH (19:54)
--- NOTE | 2018-05-29 20:30 | PN ---
DATE: 05/28/2018 PSYCHIATRIC PROGRESS NOTE This late entry 05/28/2018 covers elements not covered in my initial note. SUBJECTIVE: I met with the patient in the evening. The patient slept 6 hours previous night. Previous night, she was labile, confused, irritable, and distractable. She was tearful and confused. Trazodone had to be repeated to help her sleep and she slept a total of 6 hours. REVIEW OF SYSTEMS: Still complains of some tiredness. No CV, , pulmonary, eye, ENT system symptoms on review. Reliability varies. MENTAL STATUS EXAM: Oriented to herself and situation. Speech has some latency, often responses monosyllabic. Abstraction fair, computation impaired, language function intact. Mood and affect appears less withdrawn, less tired, less sedated. LABORATORY DATA: Reviewed. IMPRESSION: Schizoaffective disorder, bipolar type, mixed with psychotic features, dementia, Alzheimer's, vascular with delusion, depression. Rest unchanged. PLAN: The patient has been quite sedated and valproic acid level had increased rather rapidly with small increment of the Depakote. We did initially reduce the Depakote, but given her ongoing sedation and confusion, we will go ahead and stop it. Sodium is 150, chloride 112 and now defer this to Dr. Orourke. Continue rest psychotropics, unchanged for now. MAN Carmen MEYER MD DR: LIZA/faiza JOB#: [id number] / [id number]
--- NOTE | 2018-05-29 22:55 | PDOC ---
Exam Note: Manfred Note: Please also refer to the separate dictated note~for this date of service dictated separately.~Patient seen individually. Discussed the patient with Nursing staff reviewed the chart.~Reviewed interim history and current functioning. Reviewed vital signs,~Labs/ Radiology~and current medications noted below. Continue current treatment with the changes noted in the dictated addendum note Assessment: Vital Signs: Vital Signs Date Time Temp Pulse Resp B/P (MAP) Pulse Ox O2 Delivery O2 Flow Rate FiO2 05/29/18 19:53 89 144/98 05/29/18 15:43 97.8 16 94 05/28/18 09:38 Room Air I&O Intake and Output 05/29/18 07:01 Intake Total 960 ml Balance 960 ml Intake Oral 960 ml Labs: Laboratory Tests Test 05/29/18 07:40 05/29/18 12:08 05/29/18 17:14 05/29/18 19:03 Glucose (Fingerstick) 152 mg/dL (70-99) H 172 mg/dL (70-99) H 78 mg/dL (70-99) 124 mg/dL (70-99) H Current Medications: Meds: Current Medications Acetaminophen (Tylenol) 650 mg PRN Q6HRS PRN PO PAIN / TEMP Last administered on 05/23/18 00:01; Start 05/17/18 at 22:30 Ascorbic Acid (Vitamin C) 500 mg DAILY PO Last administered on 05/29/18 07:48; Start 05/18/18 at 09:00 Vitamin D (Vitamin D3) 1,000 unit DAILY PO Last administered on 05/29/18 07:49 ; Start 05/18/18 at 09:00 Clopidogrel Bisulfate (Plavix) 75 mg DAILY PO Last administered on 05/29/18 07: 48; Start 05/18/18 at 09:00 Insulin Glargine (Lantus) 5 units QHS SQ Last administered on 05/29/18 19:54; Start 05/18/18 at 21:00 Metoprolol Tartrate (Lopressor) 25 mg BID PO Last administered on 05/29/18 19: 53; Start 05/18/18 at 09:00 Nitroglycerin (Nitrostat) 0.4 mg PRN Q5MIN PRN SL CHEST PAIN; Start 05/17/18 at 22:30 Olanzapine (ZyPREXA ZYDIS) 2.5 mg PRN Q2HR PRN PO ANXIETY / AGITATION; Start 05/17/18 at 22:30 Potassium Chloride (Klor-Con) 20 meq BID PO Last administered on 05/19/18at 08: 04; Start 05/18/18 at 09:00; Stop 05/19/18 at 15:08; Status DC Bisacodyl (Dulcolax Supp) 10 mg PRN DAILY PRN ME CONSTIPATION; Start 05/17/18 at 23:00 Buspirone HCl (Buspar) 5 mg BID@0900,1500 PO Last administered on 05/21/18at 15 :43; Start 05/18/18 at 09:00; Stop 05/21/18 at 17:55; Status DC Buspirone HCl (Buspar) 10 mg QHS PO Last administered on 05/20/18at 19:53; Start 05/18/18 at 21:00; Stop 05/21/18 at 17:55; Status DC Glucose (Insta-Glucose) 15 gm PRN Q15MIN PRN PO LOW BLOOD SUGAR; Start at 23:00 Famotidine (Pepcid) 20 mg DAILY PO Last administered on 05/29/18at 07:48; Start 05/18/18 at 09:00 Fluvoxamine Maleate (Luvox) 50 mg QHS PO Last administered on 05/29/18 19:53; Start 05/18/18 at 21:00 Insulin Human Lispro (HumaLOG) 10 units TIDWMEALS SQ Last administered on 05/21at 08:03; Start 05/18/18 at 08:00; Stop 05/21/18 at 13:44; Status DC Lactobacillus Rhamnosus (Culturelle) 1 cap BID PO Last administered on 19:53; Start 05/18/18 at 09:00 Pravastatin Sodium (Pravachol) 80 mg QHS PO Last administered on 05/29/18 19:53 ; Start 05/18/18 at 21:00 Risperidone (RisperDAL) 0.5 mg QHS PO Last administered on 05/29/18 19:53; Start 05/18/18 at 21:00 Risperidone (RisperDAL) 0.5 mg DAILY PO Last administered on 05/29/18 07:48; Start 05/18/18 at 09:00; Stop 05/29/18 at 16:22; Status DC Thiamine HCl (Vitamin B-1) 100 mg DAILY PO Last administered on 05/29/18 07:48 ; Start 05/18/18 at 09:00 Trazodone HCl (Desyrel) 25 mg QHS PO Last administered on 05/21/18at 19:53; Start 05/18/18 at 21:00; Stop 05/22/18 at 20:16; Status DC Insulin Human Lispro (HumaLOG) 5 units TIDWMEALS SQ Last administered on 12:00; Start 05/21/18 at 17:00 Divalproex Sodium (Depakote Er) 500 mg QHS PO Last administered on 05/23/18 19: 31; Start 05/21/18 at 21:00; Stop 05/24/18 at 11:10; Status DC Trazodone HCl (Desyrel) 50 mg QHS PO Last administered on 05/29/18 19:53; Start 05/22/18 at 21:00 Divalproex Sodium (Depakote Er) 1,000 mg QHS PO Last administered on 05/25/18 19:54; Start 05/24/18 at 21:00; Stop 05/26/18 at 21:35; Status DC Lactic Acid (Lac-Hydrin) 1 iggy BID TP Last administered on 05/29/18 19:56; Start 05/25/18 at 21:00 Mirtazapine (Remeron) 7.5 mg QHS PO Last administered on 05/29/18 19:53; Start 05/25/18 at 21:00 Divalproex Sodium (Depakote Sprinkles) 1,000 mg HS PO Last administered on 21:40; Start 05/26/18 at 22:00; Stop 05/27/18 at 20:01; Status DC Trazodone HCl (Desyrel) 50 mg PRN QHS PRN PO INSOMNIA Last administered on 01:54; Start 05/27/18 at 02:00 Divalproex Sodium (Depakote Sprinkles) 500 mg HS PO ; Start 05/28/18 at 21:00; Stop 05/28/18 at 21:00; Status DC Furosemide (Lasix) 40 mg DAILY PO Last administered on 05/29/18at 11:30; Start at 11:30 Risperidone (RisperDAL) 0.25 mg DAILY PO ; Start 05/30/18 at 09:00 Active Scripts Active Reported Heparin Sod 5,000 Unit/ 0.5 Ml (Heparin Sodium,Porcine/Pf) 5,000 Unit/0.5 Ml Vial 5,000 Unit SQ Q8HRS Risperidone 0.5 Mg Tablet 0.5 Mg PO DAILY Risperidone 0.5 Mg Tablet 0.5 Mg PO QHS Fluvoxamine Maleate 50 Mg Tablet 50 Mg PO QHS Zyprexa Zydis (Olanzapine) 5 Mg Tab.rapdis 2.5 Mg PO PRN Q2HR PRN NITROGLYCERIN SubLingual (Nitroglycerin) 0.4 Mg Tab.subl 0.4 Mg SL PRN Q5MIN PRN Culturelle (Lactobacillus Rhamnosus Gg) 1 Each Capsule 1 Each PO BID Glucose Gel (Dextrose) 38 Gm Gel..gram. 15 Gm PO PRN Q15MIN PRN Cefdinir 300 Mg Capsule 300 Mg PO DAILY Trazodone Hcl 50 Mg Tablet 25 Mg PO HS LAST DOSE GIVEN: DATE: TIME: NEXT DOSE DUE: DATE: TIME: Vitamin B-1 (Thiamine Hcl) 100 Mg Tablet 100 Mg PO DAILY LAST DOSE GIVEN: DATE: TIME: NEXT DOSE DUE: DATE: TIME: Pravastatin Sodium 80 Mg Tablet 80 Mg PO HS LAST DOSE GIVEN: DATE: TIME: NEXT DOSE DUE: DATE: TIME: Klor-Con M20 (Potassium Chloride) 20 Meq Tab.er.prt 20 Meq PO BID LAST DOSE GIVEN: DATE: TIME: NEXT DOSE DUE: DATE: TIME: Novolog Flexpen (Insulin Aspart) 100 Unit/1 Ml Insuln.pen 10 Unit SQ TIDWMEALS Metoprolol Tartrate 25 Mg Tablet 25 Mg PO BID LAST DOSE GIVEN: DATE: TIME: NEXT DOSE DUE: DATE: TIME: Lantus Solostar (Insulin Glargine,Hum.rec.anlog) 100 Unit/1 Ml Insuln.pen 5 Unit SQ QHS LAST DOSE GIVEN: DATE: TIME: NEXT DOSE DUE: DATE: TIME: Famotidine 40 Mg Tablet 20 Mg PO DAILY LAST DOSE GIVEN: DATE: TIME: NEXT DOSE DUE: DATE: TIME: Plavix (Clopidogrel Bisulfate) 75 Mg Tablet 75 Mg PO DAILY LAST DOSE GIVEN: DATE: TIME: NEXT DOSE DUE: DATE: TIME: Vitamin D3 (Cholecalciferol (Vitamin D3)) 1,000 Unit Tablet 1,000 Unit PO DAILY LAST DOSE GIVEN: DATE: TIME: NEXT DOSE DUE: DATE: TIME: Buspirone Hcl 5 Mg Tablet 5 Mg PO BID@0900,1500 LAST DOSE GIVEN: DATE: TIME: NEXT DOSE DUE: DATE: TIME: Buspirone Hcl 10 Mg Tablet 10 Mg PO HS LAST DOSE GIVEN: DATE: TIME: NEXT DOSE DUE: DATE: TIME: Bisacodyl 10 Mg Supp.rect 10 Mg RC PRN DAILY PRN LAST DOSE GIVEN: DATE: TIME: NEXT DOSE DUE: DATE: TIME: Ascorbic Acid 500 Mg Tablet 500 Mg PO DAILY LAST DOSE GIVEN: DATE: TIME: NEXT DOSE DUE: DATE: TIME: Tylenol (Acetaminophen) 325 Mg Tablet 650 Mg PO PRN Q6HRS PRN LAST DOSE GIVEN: DATE: TIME: NEXT DOSE DUE: DATE: TIME: I have reviewed the current psychotropics carefully including drug interactions. Risk benefit ratio favors no change other than as noted in my dictated progress note. 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
[2018-05-30 05:52] VITALS: BP 127/82
[2018-05-30 08:03] LABS: BASO % 1 % (0-3); EOS # 0.1 x10^3/uL (0.0-0.7); EOS % 3 % (0-3); HEMATOCRIT 35.4 % (36.0-47.0); HEMOGLOBIN 11.6 g/dL (12.0-15.5); LYMPH # 1.2 x10^3/uL (1.0-4.8); LYMPH % 28 % (24-48); MEAN CORPUSCULAR HEMOGLOBIN 32 pg (25-35); MEAN CORPUSCULAR HGB CONC 33 g/dL (31-37); MEAN CORPUSCULAR VOLUME 99 fL (79-100); MONO # 0.5 x10^3/uL (0.0-1.1); MONO % 11 % (0-9); NEUT # 2.4 x10^3uL (1.8-7.7); NEUT % 57 % (31-73); PLATELET COUNT 98 x10^3/uL (140-400); RED CELL DISTRIBUTION WIDTH 16.5 % (11.5-14.5); WHITE BLOOD COUNT 4.2 x10^3/uL (4.0-11.0)
[2018-05-30] MEDS: FUROSEMIDE 40 MG TABLET PO SCH (08:11)
[2018-05-30] MEDS: LACTOBACILLUS RHAMNOSUS GG 1 CAPSULE. PO SCH ×2 (08:11→19:44)
[2018-05-30] MEDS: FAMOTIDINE 20 MG TABLET PO SCH (08:11)
[2018-05-30] MEDS: CLOPIDOGREL BISULFATE 75 MG TABLET PO SCH (08:11)
[2018-05-30] MEDS: CHOLECALCIFEROL (VITAMIN D3) 1,000 UNIT TABLET PO SCH (08:11)
[2018-05-30] MEDS: ASCORBIC ACID 500 MG TABLET PO SCH (08:11)
[2018-05-30] MEDS: THIAMINE 100 MG TABLET. PO SCH (08:12)
[2018-05-30] MEDS: METOPROLOL TART IMMED RELEASE 25 MG TABLET PO SCH ×2 (08:12→19:44)
[2018-05-30] MEDS: AMMONIUM LACTATE 12% TOPICAL LOTION 226GM BOTTLE. TP SCH ×2 (08:13→19:45)
[2018-05-30] MEDS: risperiDONE 0.25 MG TABLET. PO SCH (08:13)
[2018-05-30 08:16] LABS: ALBUMIN 2.7 g/dL (3.4-5.0); ALBUMIN/GLOBULIN RATIO 0.9 (1.0-1.7); ALK PHOS 91 U/L (46-116); ALT (SGPT) 22 U/L (14-59); ANION GAP 9 (6-14); AST (SGOT) 15 U/L (15-37); BLOOD UREA NITROGEN 37 mg/dL (7-20); BUN/CREATININE RATIO 22 (6-20); CARBON DIOXIDE 27 mmol/L (21-32); CHLORIDE 110 mmol/L (98-107); CREATININE 1.7 mg/dL (0.6-1.0); GFR 29.8; GLUCOSE 130 mg/dL (70-99); POTASSIUM 3.9 mmol/L (3.5-5.1); SODIUM 146 mmol/L (136-145); TOTAL BILIRUBIN 0.6 mg/dL (0.2-1.0); TOTAL PROTEIN 5.7 g/dL (6.4-8.2)
[2018-05-30 08:18] LABS: VAL ACID 15 mcg/mL (50-100)
[2018-05-30] MEDS: INSULIN LISPRO 300 UNITS/3 ML INSULN.PEN. SQ SCH ×4 (08:28→17:41)
--- NOTE | 2018-05-30 11:42 | PN ---
DATE: 05/29/2018 PSYCHIATRIC PROGRESS NOTE This late entry 05/29/2017 covers elements not covered in my initial note. SUBJECTIVE: I met with the patient in the evening. The patient slept 9-1/4 hours previous night. She has been somewhat sedated, was tearful at lunch time. Takes her medications crushed, but otherwise compliant with treatment and she was in a wheelchair. REVIEW OF SYSTEMS: Ambulation impaired. No CV, , pulmonary, eye, ENT system symptoms on review. MENTAL STATUS EXAM: Oriented to herself. Insight, judgment, recent and remote memory, attention, concentration, fund of knowledge poor, consistent with her diagnosis. She was pleasant, smiling as I met with verbal responses monosyllabic, still somewhat confused. LABORATORY DATA: Reviewed. IMPRESSION: Schizoaffective disorder, bipolar type, mixed with psychotic features, dementia, Alzheimer's, vascular with delusion, depression. Rest unchanged. PLAN: Reduce Risperdal from 0.5 b.i.d. down to 0.25 mg a.m. and 0.5 mg p.m. We stopped the Depakote. Maintain Luvox 50 mg at bedtime, Remeron 7.5 mg p.o. at bedtime, trazodone and Zyprexa p.r.n. MAN Carmen MEYER MD DR: LIZA/faiza JOB#: [id number] / [id number]
[2018-05-30 16:15] VITALS: BP 134/88
[2018-05-30] MEDS: PRAVASTATIN 20 MG TABLET. PO SCH (19:44)
[2018-05-30] MEDS: risperiDONE 0.5 MG TABLET. PO SCH (19:44)
[2018-05-30] MEDS: MIRTAZAPINE 7.5 MG TABLET. PO SCH (19:45)
[2018-05-30] MEDS: traZODone 50 MG TABLET. PO SCH (19:45)
[2018-05-30] MEDS: INSULIN GLARGINE 300 UNITS/3 ML INSULN.PEN. SQ SCH (19:47)
--- NOTE | 2018-05-30 22:36 | PN ---
DATE: 05/30/2018 PSYCHIATRIC PROGRESS NOTE This note covers elements not covered in my initial note 05/30/2018. SUBJECTIVE: The patient was staffed at a treatment team meeting with the entire team earlier in the day and seen individually in the evening. She slept 6 hours previous evening. Reviewed her history at length. Monday and Monday, she was very drowsy and AST, ALT are unremarkable. Since then Depakote has been stopped and she is gradually more awake. REVIEW OF SYSTEMS: Ambulation impaired, in a wheelchair. She is less drowsy. No CV, , pulmonary, eye, ENT system symptoms on review. MENTAL STATUS EXAM: Oriented to herself. Insight, judgment, recent memory is impaired. Language function intact. Attention span short. Mood and affect still somewhat withdrawn, but improved. LABORATORY DATA: Reviewed. IMPRESSION: Unchanged from initial note. PLAN: No change from initial note. Sodium is improved from 150 down to 146. We will keep her off the Depakote. Maintain rest psychotropics unchanged. BERT MEYER MD DR: LIZA/faiza JOB#: [id number] / [id number]
--- NOTE | 2018-05-30 22:43 | PDOC ---
Exam Note: Manfred Note: Please also refer to the separate dictated note~for this date of service dictated separately.~Patient seen individually. Discussed the patient with Nursing staff reviewed the chart.~Reviewed interim history and current functioning. Reviewed vital signs,~Labs/ Radiology~and current medications noted below. Continue current treatment with the changes noted in the dictated addendum note Assessment: Vital Signs: Vital Signs Date Time Temp Pulse Resp B/P (MAP) Pulse Ox O2 Delivery O2 Flow Rate FiO2 05/30/18 19:44 84 134/88 05/30/18 16:15 97.4 20 96 05/28/18 09:38 Room Air I&O Intake and Output 05/30/18 07:01 Intake Total 600 ml Balance 600 ml Intake Oral 600 ml Labs: Laboratory Tests Test 05/30/18 01:58 05/30/18 07:16 05/30/18 07:54 05/30/18 11:33 Glucose (Fingerstick) 134 mg/dL (70-99) H 125 mg/dL (70-99) H 110 mg/dL (70-99) H White Blood Count 4.2 x10^3/uL (4.0-11.0) Red Blood Count 3.60 x10^6/uL (3.50-5.40) Hemoglobin 11.6 g/dL (12.0-15.5) L Hematocrit 35.4 % (36.0-47.0) L Mean Corpuscular Volume 99 fL (79-100) Mean Corpuscular Hemoglobin 32 pg (25-35) Mean Corpuscular Hemoglobin Concent 33 g/dL (31-37) Red Cell Distribution Width 16.5 % (11.5-14.5) H Platelet Count 98 x10^3/uL (140-400) L Neutrophils (%) (Auto) 57 % (31-73) Lymphocytes (%) (Auto) 28 % (24-48) Monocytes (%) (Auto) 11 % (0-9) H Eosinophils (%) (Auto) 3 % (0-3) Basophils (%) (Auto) 1 % (0-3) Neutrophils # (Auto) 2.4 x10^3uL (1.8-7.7) Lymphocytes # (Auto) 1.2 x10^3/uL (1.0-4.8) Monocytes # (Auto) 0.5 x10^3/uL (0.0-1.1) Eosinophils # (Auto) 0.1 x10^3/uL (0.0-0.7) Basophils # (Auto) 0.0 x10^3/uL (0.0-0.2) Sodium Level 146 mmol/L (136-145) H Potassium Level 3.9 mmol/L (3.5-5.1) Chloride Level 110 mmol/L (98-107) H Carbon Dioxide Level 27 mmol/L (21-32) Anion Gap 9 (6-14) Blood Urea Nitrogen 37 mg/dL (7-20) H Creatinine 1.7 mg/dL (0.6-1.0) H Estimated GFR (Cockcroft-Gault) 29.8 BUN/Creatinine Ratio 22 (6-20) H Glucose Level 130 mg/dL (70-99) H Calcium Level 9.0 mg/dL (8.5-10.1) Total Bilirubin 0.6 mg/dL (0.2-1.0) Aspartate Amino Transferase (AST) 15 U/L (15-37) Alanine Aminotransferase (ALT) 22 U/L (14-59) Alkaline Phosphatase 91 U/L (46-116) Total Protein 5.7 g/dL (6.4-8.2) L Albumin 2.7 g/dL (3.4-5.0) L Albumin/Globulin Ratio 0.9 (1.0-1.7) L Valproic Acid Level 15 mcg/mL (50-100) L Valproic Acid Last Dose Date 05/29/18 Valproic Acid Last Dose Time 2100 Test 05/30/18 16:55 05/30/18 19:13 Glucose (Fingerstick) 117 mg/dL (70-99) H 205 mg/dL (70-99) H Current Medications: Meds: Current Medications Acetaminophen (Tylenol) 650 mg PRN Q6HRS PRN PO PAIN / TEMP Last administered on 05/23/18at 00:01; Start 05/17/18 at 22:30 Ascorbic Acid (Vitamin C) 500 mg DAILY PO Last administered on 05/30/18at 08:11; Start 05/18/18 at 09:00 Vitamin D (Vitamin D3) 1,000 unit DAILY PO Last administered on 1/9/19at 08:11 ; Start 05/18/18 at 09:00 Clopidogrel Bisulfate (Plavix) 75 mg DAILY PO Last administered on 05/30/18 08: 11; Start 05/18/18 at 09:00 Insulin Glargine (Lantus) 5 units QHS SQ Last administered on 05/30/18 19:47; Start 05/18/18 at 21:00 Metoprolol Tartrate (Lopressor) 25 mg BID PO Last administered on 05/30/18 19: 44; Start 05/18/18 at 09:00 Nitroglycerin (Nitrostat) 0.4 mg PRN Q5MIN PRN SL CHEST PAIN; Start 05/17/18 at 22:30 Olanzapine (ZyPREXA ZYDIS) 2.5 mg PRN Q2HR PRN PO ANXIETY / AGITATION; Start 05/17/18 at 22:30 Potassium Chloride (Klor-Con) 20 meq BID PO Last administered on 05/19/18at 08: 04; Start 05/18/18 at 09:00; Stop 05/19/18 at 15:08; Status DC Bisacodyl (Dulcolax Supp) 10 mg PRN DAILY PRN [place] CONSTIPATION; Start 05/17/18 at 23:00 Buspirone HCl (Buspar) 5 mg BID@0900,1500 PO Last administered on 05/21/18at 15 :43; Start 05/18/18 at 09:00; Stop 05/21/18 at 17:55; Status DC Buspirone HCl (Buspar) 10 mg QHS PO Last administered on 05/20/18at 19:53; Start 05/18/18 at 21:00; Stop 05/21/18 at 17:55; Status DC Glucose (Insta-Glucose) 15 gm PRN Q15MIN PRN PO LOW BLOOD SUGAR; Start at 23:00 Famotidine (Pepcid) 20 mg DAILY PO Last administered on 05/30/18 08:11; Start 05/18/18 at 09:00 Fluvoxamine Maleate (Luvox) 50 mg QHS PO Last administered on 05/30/18 19:45; Start 05/18/18 at 21:00 Insulin Human Lispro (HumaLOG) 10 units TIDWMEALS SQ Last administered on 05/21 08:03; Start 05/18/18 at 08:00; Stop 05/21/18 at 13:44; Status DC Lactobacillus Rhamnosus (Culturelle) 1 cap BID PO Last administered on 19:44; Start 05/18/18 at 09:00 Pravastatin Sodium (Pravachol) 80 mg QHS PO Last administered on 05/30/18 19:44 ; Start 05/18/18 at 21:00 Risperidone (RisperDAL) 0.5 mg QHS PO Last administered on 05/30/18 19:44; Start 05/18/18 at 21:00 Risperidone (RisperDAL) 0.5 mg DAILY PO Last administered on 05/29/18 07:48; Start 05/18/18 at 09:00; Stop 05/29/18 at 16:22; Status DC Thiamine HCl (Vitamin B-1) 100 mg DAILY PO Last administered on 05/30/18 08:12 ; Start 05/18/18 at 09:00 Trazodone HCl (Desyrel) 25 mg QHS PO Last administered on 05/21/18 19:53; Start 05/18/18 at 21:00; Stop 05/22/18 at 20:16; Status DC Insulin Human Lispro (HumaLOG) 5 units TIDWMEALS SQ Last administered on 17:41; Start 05/21/18 at 17:00 Divalproex Sodium (Depakote Er) 500 mg QHS PO Last administered on 05/23/18 19: 31; Start 05/21/18 at 21:00; Stop 05/24/18 at 11:10; Status DC Trazodone HCl (Desyrel) 50 mg QHS PO Last administered on 05/30/18 19:45; Start 05/22/18 at 21:00 Divalproex Sodium (Depakote Er) 1,000 mg QHS PO Last administered on 05/25/18 19:54; Start 05/24/18 at 21:00; Stop 05/26/18 at 21:35; Status DC Lactic Acid (Lac-Hydrin) 1 iggy BID TP Last administered on 05/30/18 19:45; Start 05/25/18 at 21:00 Mirtazapine (Remeron) 7.5 mg QHS PO Last administered on 05/30/18at 19:45; Start 05/25/18 at 21:00 Divalproex Sodium (Depakote Sprinkles) 1,000 mg HS PO Last administered on at 21:40; Start 05/26/18 at 22:00; Stop 05/27/18 at 20:01; Status DC Trazodone HCl (Desyrel) 50 mg PRN QHS PRN PO INSOMNIA Last administered on at 01:54; Start 05/27/18 at 02:00 Divalproex Sodium (Depakote Sprinkles) 500 mg HS PO ; Start 05/28/18 at 21:00; Stop 05/28/18 at 21:00; Status DC Furosemide (Lasix) 40 mg DAILY PO Last administered on 05/30/18at 08:11; Start at 11:30 Risperidone (RisperDAL) 0.25 mg DAILY PO Last administered on 05/30/18at 08:13; Start 05/30/18 at 09:00 Active Scripts Active Reported Heparin Sod 5,000 Unit/ 0.5 Ml (Heparin Sodium,Porcine/Pf) 5,000 Unit/0.5 Ml Vial 5,000 Unit SQ Q8HRS Risperidone 0.5 Mg Tablet 0.5 Mg PO DAILY Risperidone 0.5 Mg Tablet 0.5 Mg PO QHS Fluvoxamine Maleate 50 Mg Tablet 50 Mg PO QHS Zyprexa Zydis (Olanzapine) 5 Mg Tab.rapdis 2.5 Mg PO PRN Q2HR PRN NITROGLYCERIN SubLingual (Nitroglycerin) 0.4 Mg Tab.subl 0.4 Mg SL PRN Q5MIN PRN Culturelle (Lactobacillus Rhamnosus Gg) 1 Each Capsule 1 Each PO BID Glucose Gel (Dextrose) 38 Gm Gel..gram. 15 Gm PO PRN Q15MIN PRN Cefdinir 300 Mg Capsule 300 Mg PO DAILY Trazodone Hcl 50 Mg Tablet 25 Mg PO HS LAST DOSE GIVEN: DATE: TIME: NEXT DOSE DUE: DATE: TIME: Vitamin B-1 (Thiamine Hcl) 100 Mg Tablet 100 Mg PO DAILY LAST DOSE GIVEN: DATE: TIME: NEXT DOSE DUE: DATE: TIME: Pravastatin Sodium 80 Mg Tablet 80 Mg PO HS LAST DOSE GIVEN: DATE: TIME: NEXT DOSE DUE: DATE: TIME: Klor-Con M20 (Potassium Chloride) 20 Meq Tab.er.prt 20 Meq PO BID LAST DOSE GIVEN: DATE: TIME: NEXT DOSE DUE: DATE: TIME: Novolog Flexpen (Insulin Aspart) 100 Unit/1 Ml Insuln.pen 10 Unit SQ TIDWMEALS Metoprolol Tartrate 25 Mg Tablet 25 Mg PO BID LAST DOSE GIVEN: DATE: TIME: NEXT DOSE DUE: DATE: TIME: Lantus Solostar (Insulin Glargine,Hum.rec.anlog) 100 Unit/1 Ml Insuln.pen 5 Unit SQ QHS LAST DOSE GIVEN: DATE: TIME: NEXT DOSE DUE: DATE: TIME: Famotidine 40 Mg Tablet 20 Mg PO DAILY LAST DOSE GIVEN: DATE: TIME: NEXT DOSE DUE: DATE: TIME: Plavix (Clopidogrel Bisulfate) 75 Mg Tablet 75 Mg PO DAILY LAST DOSE GIVEN: DATE: TIME: NEXT DOSE DUE: DATE: TIME: Vitamin D3 (Cholecalciferol (Vitamin D3)) 1,000 Unit Tablet 1,000 Unit PO DAILY LAST DOSE GIVEN: DATE: TIME: NEXT DOSE DUE: DATE: TIME: Buspirone Hcl 5 Mg Tablet 5 Mg PO BID@0900,1500 LAST DOSE GIVEN: DATE: TIME: NEXT DOSE DUE: DATE: TIME: Buspirone Hcl 10 Mg Tablet 10 Mg PO HS LAST DOSE GIVEN: DATE: TIME: NEXT DOSE DUE: DATE: TIME: Bisacodyl 10 Mg Supp.rect 10 Mg RC PRN DAILY PRN LAST DOSE GIVEN: DATE: TIME: NEXT DOSE DUE: DATE: TIME: Ascorbic Acid 500 Mg Tablet 500 Mg PO DAILY LAST DOSE GIVEN: DATE: TIME: NEXT DOSE DUE: DATE: TIME: Tylenol (Acetaminophen) 325 Mg Tablet 650 Mg PO PRN Q6HRS PRN LAST DOSE GIVEN: DATE: TIME: NEXT DOSE DUE: DATE: TIME: I have reviewed the current psychotropics carefully including drug interactions. Risk benefit ratio favors no change other than as noted in my dictated progress note. 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
[2018-05-31] MEDS: traZODone 50 MG TABLET. PO PRN (00:23)
[2018-05-31 05:45] VITALS: BP 135/82
[2018-05-31] MEDS: INSULIN LISPRO 300 UNITS/3 ML INSULN.PEN. SQ SCH ×3 (08:22→18:56)
[2018-05-31] MEDS: CLOPIDOGREL BISULFATE 75 MG TABLET PO SCH (08:25)
[2018-05-31] MEDS: CHOLECALCIFEROL (VITAMIN D3) 1,000 UNIT TABLET PO SCH (08:25)
[2018-05-31] MEDS: FAMOTIDINE 20 MG TABLET PO SCH (08:25)
[2018-05-31] MEDS: METOPROLOL TART IMMED RELEASE 25 MG TABLET PO SCH ×2 (08:25→20:36)
[2018-05-31] MEDS: THIAMINE 100 MG TABLET. PO SCH (08:25)
[2018-05-31] MEDS: risperiDONE 0.25 MG TABLET. PO SCH (08:25)
[2018-05-31] MEDS: ASCORBIC ACID 500 MG TABLET PO SCH (08:26)
[2018-05-31] MEDS: LACTOBACILLUS RHAMNOSUS GG 1 CAPSULE. PO SCH ×2 (08:26→20:26)
[2018-05-31] MEDS: FUROSEMIDE 40 MG TABLET PO SCH (08:26)
[2018-05-31] MEDS: AMMONIUM LACTATE 12% TOPICAL LOTION 226GM BOTTLE. TP SCH (11:02)
[2018-05-31 15:53] VITALS: BP 115/77
[2018-05-31] MEDS: traZODone 50 MG TABLET. PO SCH (20:25)
[2018-05-31] MEDS: risperiDONE 0.5 MG TABLET. PO SCH (20:25)
[2018-05-31] MEDS: PRAVASTATIN 20 MG TABLET. PO SCH (20:26)
[2018-05-31] MEDS: MELATONIN 3 MG TABLET PO SCH (20:34)
[2018-05-31] MEDS: MIRTAZAPINE 15 MG TABLET PO SCH (20:34)
[2018-05-31] MEDS: INSULIN GLARGINE 300 UNITS/3 ML INSULN.PEN. SQ SCH (20:35)
--- NOTE | 2018-05-31 21:56 | PN ---
DATE: 05/31/2018 This note covers elements not covered in my initial note of 05/31/2018. SUBJECTIVE: The patient was seen in the afternoon. She slept just 1/4 hours previous evening. She was delusional previous night, believing someone was wanting to take the baby and repeatedly stating she was going to go out that she felt she was living in a hotel. As I met with her individually in the afternoon on 05/31/2018, she told me she worked for [employer] in [email or web address] for about 20 years or more, unable to tell me what city this was in other than [place], [place]. She is starting to feed herself a little bit better. REVIEW OF SYSTEMS: No CV, , pulmonary, eye, ENT system symptoms on review. Gait unsteady. MENTAL STATUS EXAM: Oriented to herself. Insight, judgment, recent and remote memory, attention, concentration, fund of knowledge poor, consistent with her diagnoses. IMPRESSION: Bipolar 1 disorder, mixed, major neurocognitive disorder, Alzheimer, vascular with delusion, depression. Rest unchanged. PLAN: Keep the patient off Depakote. She has received trazodone x 2 previous night. We will add melatonin 3 mg p.o. at bedtime and increase the Remeron to 15 mg p.o. at bedtime. Maintain Risperdal, trazodone, Zyprexa along with Luvox 50 mg a day. MAN Carmen MEYER MD DR: LIZA/faiza JOB#: [id number] / [id number]
--- NOTE | 2018-05-31 22:49 | PDOC ---
Exam Note: Manfred Note: Please also refer to the separate dictated note~for this date of service dictated separately.~Patient seen individually. Discussed the patient with Nursing staff reviewed the chart.~Reviewed interim history and current functioning. Reviewed vital signs,~Labs/ Radiology~and current medications noted below. Continue current treatment with the changes noted in the dictated addendum note Assessment: Vital Signs: Vital Signs Date Time Temp Pulse Resp B/P (MAP) Pulse Ox O2 Delivery O2 Flow Rate FiO2 05/31/18 20:36 100 124/82 05/31/18 15:53 97.4 18 92 Room Air I&O Intake and Output 05/31/18 07:01 Intake Total 780 ml Balance 780 ml Intake Oral 780 ml # Voids 1 Labs: Laboratory Tests Test 05/31/18 07:33 05/31/18 12:19 05/31/18 16:49 05/31/18 19:22 Glucose (Fingerstick) 106 mg/dL (70-99) H 167 mg/dL (70-99) H 230 mg/dL (70-99) H 259 mg/dL (70-99) H Current Medications: Meds: Current Medications Acetaminophen (Tylenol) 650 mg PRN Q6HRS PRN PO PAIN / TEMP Last administered on 05/23/18 00:01; Start 05/17/18 at 22:30 Ascorbic Acid (Vitamin C) 500 mg DAILY PO Last administered on 05/31/18 08:26 ; Start 05/18/18 at 09:00 Vitamin D (Vitamin D3) 1,000 unit DAILY PO Last administered on 05/31/18 08:25 ; Start 05/18/18 at 09:00 Clopidogrel Bisulfate (Plavix) 75 mg DAILY PO Last administered on 05/31/18 08 :25; Start 05/18/18 at 09:00 Insulin Glargine (Lantus) 5 units QHS SQ Last administered on 05/31/18 20:35; Start 05/18/18 at 21:00 Metoprolol Tartrate (Lopressor) 25 mg BID PO Last administered on 05/31/18 20: 36; Start 05/18/18 at 09:00 Nitroglycerin (Nitrostat) 0.4 mg PRN Q5MIN PRN SL CHEST PAIN; Start 05/17/18 at 22:30 Olanzapine (ZyPREXA ZYDIS) 2.5 mg PRN Q2HR PRN PO ANXIETY / AGITATION; Start 05/17/18 at 22:30 Potassium Chloride (Klor-Con) 20 meq BID PO Last administered on 05/19/18at 08: 04; Start 05/18/18 at 09:00; Stop 05/19/18 at 15:08; Status DC Bisacodyl (Dulcolax Supp) 10 mg PRN DAILY PRN [place] CONSTIPATION; Start 05/17/18 at 23:00 Buspirone HCl (Buspar) 5 mg BID@0900,1500 PO Last administered on 05/21/18at 15 :43; Start 05/18/18 at 09:00; Stop 05/21/18 at 17:55; Status DC Buspirone HCl (Buspar) 10 mg QHS PO Last administered on 05/20/18at 19:53; Start 05/18/18 at 21:00; Stop 05/21/18 at 17:55; Status DC Glucose (Insta-Glucose) 15 gm PRN Q15MIN PRN PO LOW BLOOD SUGAR; Start at 23:00 Famotidine (Pepcid) 20 mg DAILY PO Last administered on 05/31/18at 08:25; Start 05/18/18 at 09:00 Fluvoxamine Maleate (Luvox) 50 mg QHS PO Last administered on 05/31/18at 20:26; Start 05/18/18 at 21:00 Insulin Human Lispro (HumaLOG) 10 units TIDWMEALS SQ Last administered on 05/21at 08:03; Start 05/18/18 at 08:00; Stop 05/21/18 at 13:44; Status DC Lactobacillus Rhamnosus (Culturelle) 1 cap BID PO Last administered on 20:26; Start 05/18/18 at 09:00 Pravastatin Sodium (Pravachol) 80 mg QHS PO Last administered on 05/31/18 20: 26; Start 05/18/18 at 21:00 Risperidone (RisperDAL) 0.5 mg QHS PO Last administered on 05/31/18 20:25; Start 05/18/18 at 21:00 Risperidone (RisperDAL) 0.5 mg DAILY PO Last administered on 05/29/18 07:48; Start 05/18/18 at 09:00; Stop 05/29/18 at 16:22; Status DC Thiamine HCl (Vitamin B-1) 100 mg DAILY PO Last administered on 05/31/18 08:25 ; Start 05/18/18 at 09:00 Trazodone HCl (Desyrel) 25 mg QHS PO Last administered on 05/21/18at 19:53; Start 05/18/18 at 21:00; Stop 05/22/18 at 20:16; Status DC Insulin Human Lispro (HumaLOG) 5 units TIDWMEALS SQ Last administered on 18:56; Start 05/21/18 at 17:00 Divalproex Sodium (Depakote Er) 500 mg QHS PO Last administered on 05/23/18 19: 31; Start 05/21/18 at 21:00; Stop 05/24/18 at 11:10; Status DC Trazodone HCl (Desyrel) 50 mg QHS PO Last administered on 05/31/18 20:25; Start 05/22/18 at 21:00 Divalproex Sodium (Depakote Er) 1,000 mg QHS PO Last administered on 05/25/18 19:54; Start 05/24/18 at 21:00; Stop 05/26/18 at 21:35; Status DC Lactic Acid (Lac-Hydrin) 1 iggy BID TP Last administered on 05/30/18 19:45; Start 05/25/18 at 21:00 Mirtazapine (Remeron) 7.5 mg QHS PO Last administered on 05/30/18 19:45; Start 05/25/18 at 21:00; Stop 05/31/18 at 18:09; Status DC Divalproex Sodium (Depakote Sprinkles) 1,000 mg HS PO Last administered on 21:40; Start 05/26/18 at 22:00; Stop 05/27/18 at 20:01; Status DC Trazodone HCl (Desyrel) 50 mg PRN QHS PRN PO INSOMNIA Last administered on 05/31 00:23; Start 05/27/18 at 02:00 Divalproex Sodium (Depakote Sprinkles) 500 mg HS PO ; Start 05/28/18 at 21:00; Stop 05/28/18 at 21:00; Status DC Furosemide (Lasix) 40 mg DAILY PO Last administered on 05/31/18at 08:26; Start 05/29/18 at 11:30 Risperidone (RisperDAL) 0.25 mg DAILY PO Last administered on 05/31/18at 08:25; Start 05/30/18 at 09:00 Mirtazapine (Remeron) 15 mg QHS PO Last administered on 05/31/18at 20:34; Start 05/31/18 at 21:00 Melatonin 3 mg HS PO Last administered on 05/31/18at 20:34; Start 05/31/18 at 21 :00 Active Scripts Active Reported Heparin Sod 5,000 Unit/ 0.5 Ml (Heparin Sodium,Porcine/Pf) 5,000 Unit/0.5 Ml Vial 5,000 Unit SQ Q8HRS Risperidone 0.5 Mg Tablet 0.5 Mg PO DAILY Risperidone 0.5 Mg Tablet 0.5 Mg PO QHS Fluvoxamine Maleate 50 Mg Tablet 50 Mg PO QHS Zyprexa Zydis (Olanzapine) 5 Mg Tab.rapdis 2.5 Mg PO PRN Q2HR PRN NITROGLYCERIN SubLingual (Nitroglycerin) 0.4 Mg Tab.subl 0.4 Mg SL PRN Q5MIN PRN Culturelle (Lactobacillus Rhamnosus Gg) 1 Each Capsule 1 Each PO BID Glucose Gel (Dextrose) 38 Gm Gel..gram. 15 Gm PO PRN Q15MIN PRN Cefdinir 300 Mg Capsule 300 Mg PO DAILY Trazodone Hcl 50 Mg Tablet 25 Mg PO HS LAST DOSE GIVEN: DATE: TIME: NEXT DOSE DUE: DATE: TIME: Vitamin B-1 (Thiamine Hcl) 100 Mg Tablet 100 Mg PO DAILY LAST DOSE GIVEN: DATE: TIME: NEXT DOSE DUE: DATE: TIME: Pravastatin Sodium 80 Mg Tablet 80 Mg PO HS LAST DOSE GIVEN: DATE: TIME: NEXT DOSE DUE: DATE: TIME: Klor-Con M20 (Potassium Chloride) 20 Meq Tab.er.prt 20 Meq PO BID LAST DOSE GIVEN: DATE: TIME: NEXT DOSE DUE: DATE: TIME: Novolog Flexpen (Insulin Aspart) 100 Unit/1 Ml Insuln.pen 10 Unit SQ TIDWMEALS Metoprolol Tartrate 25 Mg Tablet 25 Mg PO BID LAST DOSE GIVEN: DATE: TIME: NEXT DOSE DUE: DATE: TIME: Lantus Solostar (Insulin Glargine,Hum.rec.anlog) 100 Unit/1 Ml Insuln.pen 5 Unit SQ QHS LAST DOSE GIVEN: DATE: TIME: NEXT DOSE DUE: DATE: TIME: Famotidine 40 Mg Tablet 20 Mg PO DAILY LAST DOSE GIVEN: DATE: TIME: NEXT DOSE DUE: DATE: TIME: Plavix (Clopidogrel Bisulfate) 75 Mg Tablet 75 Mg PO DAILY LAST DOSE GIVEN: DATE: TIME: NEXT DOSE DUE: DATE: TIME: Vitamin D3 (Cholecalciferol (Vitamin D3)) 1,000 Unit Tablet 1,000 Unit PO DAILY LAST DOSE GIVEN: DATE: TIME: NEXT DOSE DUE: DATE: TIME: Buspirone Hcl 5 Mg Tablet 5 Mg PO BID@0900,1500 LAST DOSE GIVEN: DATE: TIME: NEXT DOSE DUE: DATE: TIME: Buspirone Hcl 10 Mg Tablet 10 Mg PO HS LAST DOSE GIVEN: DATE: TIME: NEXT DOSE DUE: DATE: TIME: Bisacodyl 10 Mg Supp.rect 10 Mg RC PRN DAILY PRN LAST DOSE GIVEN: DATE: TIME: NEXT DOSE DUE: DATE: TIME: Ascorbic Acid 500 Mg Tablet 500 Mg PO DAILY LAST DOSE GIVEN: DATE: TIME: NEXT DOSE DUE: DATE: TIME: Tylenol (Acetaminophen) 325 Mg Tablet 650 Mg PO PRN Q6HRS PRN LAST DOSE GIVEN: DATE: TIME: NEXT DOSE DUE: DATE: TIME: I have reviewed the current psychotropics carefully including drug interactions. Risk benefit ratio favors no change other than as noted in my dictated progress note. Diagnosis: Problems: (1) Rrcuo-ot-djyfxcl kidney injury (2) Schizoaffective disorder, bipolar type (3) Anxiety disorder (4) Impulse control disorder (5) Cognitive and behavioral changes (6) Anxiety disorder (7) Impulse control disorder (8) Dementia, vascular, with depression (9) Dementia, vascular, with delusions (10) Dementia in Alzheimer's disease with depression (11) Dementia in Alzheimer's disease with delusions (12) Acute and chronic respiratory failure BERT MEYER MD May 31, 2018 22:49
[2018-06-01] MEDS: AMMONIUM LACTATE 12% TOPICAL LOTION 226GM BOTTLE. TP SCH ×3 (03:02→20:07)
[2018-06-01 05:27] VITALS: BP 145/99
[2018-06-01] MEDS: INSULIN LISPRO 300 UNITS/3 ML INSULN.PEN. SQ SCH ×3 (08:07→17:13)
[2018-06-01] MEDS: ASCORBIC ACID 500 MG TABLET PO SCH (09:04)
[2018-06-01] MEDS: LACTOBACILLUS RHAMNOSUS GG 1 CAPSULE. PO SCH ×2 (09:05→20:02)
[2018-06-01] MEDS: risperiDONE 0.25 MG TABLET. PO SCH (09:05)
[2018-06-01] MEDS: CHOLECALCIFEROL (VITAMIN D3) 1,000 UNIT TABLET PO SCH (09:05)
[2018-06-01] MEDS: FUROSEMIDE 40 MG TABLET PO SCH (09:05)
[2018-06-01] MEDS: METOPROLOL TART IMMED RELEASE 25 MG TABLET PO SCH ×2 (09:05→20:03)
[2018-06-01] MEDS: THIAMINE 100 MG TABLET. PO SCH (09:05)
[2018-06-01] MEDS: CLOPIDOGREL BISULFATE 75 MG TABLET PO SCH (09:05)
[2018-06-01] MEDS: FAMOTIDINE 20 MG TABLET PO SCH (09:05)
[2018-06-01 14:56] VITALS: BP 123/83
[2018-06-01] MEDS: PRAVASTATIN 20 MG TABLET. PO SCH (20:02)
[2018-06-01] MEDS: MIRTAZAPINE 15 MG TABLET PO SCH (20:03)
[2018-06-01] MEDS: MELATONIN 3 MG TABLET PO SCH (20:03)
[2018-06-01] MEDS: risperiDONE 0.5 MG TABLET. PO SCH (20:03)
[2018-06-01] MEDS: traZODone 50 MG TABLET. PO SCH (20:03)
[2018-06-01] MEDS: INSULIN GLARGINE 300 UNITS/3 ML INSULN.PEN. SQ SCH (20:05)
--- NOTE | 2018-06-02 02:57 | PN ---
DATE: 06/01/2018 SUBJECTIVE: The patient was seen today, met with the staff, chart reviewed. Also covering for Dr. Poon. Staff reports continued behavior problems, mood swings, verbal aggression. Staff reports some improvement, still tend to get paranoid. OBSERVATION: Vital signs: Temperature 97.6, blood pressure 145/99, pulse 90, respirations 22, O2 sat 95%. Slept about 3 hours last night. LABORATORY DATA: The patient's lab reviewed, no significant change except for continued abnormal values of glucose. MEDICATIONS: The patient's current medications include melatonin 3 mg at night, ____, Risperdal 0.25 mg daily, trazodone 50 mg at night p.r.n. and also 50 mg at night, Risperdal 0.5 mg at night, fluvoxamine 50 mg at night. The patient is also on p.r.n. olanzapine 2.5 mg q. 2 hours p.r.n. The patient was on mirtazapine that was discontinued. ASSESSMENT: 1. Delusional disorder, unspecified. 2. Mood disorder, unspecified. 3. Neurocognitive disorder, Alzheimer's type and schizoaffective disorder, bipolar type. PLAN: To continue with the current medications. PERRY PATEL MD DR: DOLORES/nts JOB#: [id number] / [id number]
[2018-06-02 05:56] VITALS: BP 129/82
[2018-06-02] MEDS: LACTOBACILLUS RHAMNOSUS GG 1 CAPSULE. PO SCH ×2 (07:44→19:31)
[2018-06-02] MEDS: FUROSEMIDE 40 MG TABLET PO SCH (07:44)
[2018-06-02] MEDS: CLOPIDOGREL BISULFATE 75 MG TABLET PO SCH (07:44)
[2018-06-02] MEDS: METOPROLOL TART IMMED RELEASE 25 MG TABLET PO SCH ×2 (07:44→19:31)
[2018-06-02] MEDS: ASCORBIC ACID 500 MG TABLET PO SCH (07:44)
[2018-06-02] MEDS: CHOLECALCIFEROL (VITAMIN D3) 1,000 UNIT TABLET PO SCH (07:44)
[2018-06-02] MEDS: THIAMINE 100 MG TABLET. PO SCH (07:44)
[2018-06-02] MEDS: FAMOTIDINE 20 MG TABLET PO SCH (07:45)
[2018-06-02] MEDS: risperiDONE 0.25 MG TABLET. PO SCH (07:45)
[2018-06-02] MEDS: AMMONIUM LACTATE 12% TOPICAL LOTION 226GM BOTTLE. TP SCH ×2 (07:46→19:34)
[2018-06-02] MEDS: INSULIN LISPRO 300 UNITS/3 ML INSULN.PEN. SQ SCH ×3 (07:50→17:35)
[2018-06-02 15:34] VITALS: BP 118/76
[2018-06-02] MEDS: MELATONIN 3 MG TABLET PO SCH (19:29)
[2018-06-02] MEDS: traZODone 50 MG TABLET. PO SCH (19:29)
[2018-06-02] MEDS: PRAVASTATIN 20 MG TABLET. PO SCH (19:30)
[2018-06-02] MEDS: MIRTAZAPINE 15 MG TABLET PO SCH (19:30)
[2018-06-02] MEDS: risperiDONE 0.5 MG TABLET. PO SCH (19:30)
[2018-06-02] MEDS: INSULIN GLARGINE 300 UNITS/3 ML INSULN.PEN. SQ SCH (19:38)
[2018-06-03 05:49] VITALS: BP 143/94
[2018-06-03] MEDS: THIAMINE 100 MG TABLET. PO SCH (08:31)
[2018-06-03] MEDS: FUROSEMIDE 40 MG TABLET PO SCH (08:31)
[2018-06-03] MEDS: AMMONIUM LACTATE 12% TOPICAL LOTION 226GM BOTTLE. TP SCH ×2 (08:31→19:35)
[2018-06-03] MEDS: CLOPIDOGREL BISULFATE 75 MG TABLET PO SCH (08:31)
[2018-06-03] MEDS: ASCORBIC ACID 500 MG TABLET PO SCH (08:31)
[2018-06-03] MEDS: FAMOTIDINE 20 MG TABLET PO SCH (08:31)
[2018-06-03] MEDS: CHOLECALCIFEROL (VITAMIN D3) 1,000 UNIT TABLET PO SCH (08:31)
[2018-06-03] MEDS: LACTOBACILLUS RHAMNOSUS GG 1 CAPSULE. PO SCH ×2 (08:31→19:32)
[2018-06-03] MEDS: risperiDONE 0.25 MG TABLET. PO SCH (08:31)
[2018-06-03] MEDS: METOPROLOL TART IMMED RELEASE 25 MG TABLET PO SCH ×2 (08:32→19:32)
[2018-06-03] MEDS: INSULIN LISPRO 300 UNITS/3 ML INSULN.PEN. SQ SCH ×3 (08:33→16:23)
--- NOTE | 2018-06-03 11:57 | PN ---
DATE: 06/03/2018 SUBJECTIVE: The patient was seen today, met with the staff, chart reviewed and also covering for Dr. Poon. Staff reports no major behavior problems in the past 24 hours. The patient apparently has been compliant with the treatment. The patient has had problems with behaviors including significant mood swings, aggression, and also paranoid at times. OBSERVATION: VITAL SIGNS: Temperature 97.6, blood pressure 143/94, pulse 86, respirations 16, O2 sat 99%. Slept about 5 hours last night. The patient denies of any physical problems. DATA: The patient's lab reviewed. The patient's medications reviewed. Currently on melatonin, Risperdal, trazodone, fluvoxamine, also p.r.n. Zyprexa. ASSESSMENT: 1. Delusional disorder, unspecified. 2. Mood disorder, unspecified. 3. Neurocognitive disorder, most likely Alzheimer's. 4. Schizoaffective disorder, bipolar type. PLAN: To continue with the treatment. PERRY PATEL MD DR: DOLORES/faiza JOB#: [id number] / [id number]
[2018-06-03 15:53] VITALS: BP 132/83
[2018-06-03] MEDS: PRAVASTATIN 20 MG TABLET. PO SCH (19:32)
[2018-06-03] MEDS: MIRTAZAPINE 15 MG TABLET PO SCH (19:32)
[2018-06-03] MEDS: risperiDONE 0.5 MG TABLET. PO SCH (19:32)
[2018-06-03] MEDS: traZODone 50 MG TABLET. PO SCH (19:33)
[2018-06-03] MEDS: MELATONIN 3 MG TABLET PO SCH (19:33)
[2018-06-03] MEDS: INSULIN GLARGINE 300 UNITS/3 ML INSULN.PEN. SQ SCH (19:34)
[2018-06-04 05:49] VITALS: BP 118/78
[2018-06-04] MEDS: FUROSEMIDE 40 MG TABLET PO SCH (07:31)
[2018-06-04] MEDS: FAMOTIDINE 20 MG TABLET PO SCH (07:31)
[2018-06-04] MEDS: CLOPIDOGREL BISULFATE 75 MG TABLET PO SCH (07:31)
[2018-06-04] MEDS: CHOLECALCIFEROL (VITAMIN D3) 1,000 UNIT TABLET PO SCH (07:31)
[2018-06-04] MEDS: LACTOBACILLUS RHAMNOSUS GG 1 CAPSULE. PO SCH ×2 (07:31→19:31)
[2018-06-04] MEDS: THIAMINE 100 MG TABLET. PO SCH (07:31)
[2018-06-04] MEDS: ASCORBIC ACID 500 MG TABLET PO SCH (07:31)
[2018-06-04] MEDS: METOPROLOL TART IMMED RELEASE 25 MG TABLET PO SCH ×2 (07:31→19:34)
[2018-06-04] MEDS: AMMONIUM LACTATE 12% TOPICAL LOTION 226GM BOTTLE. TP SCH ×2 (07:32→19:36)
[2018-06-04] MEDS: risperiDONE 0.25 MG TABLET. PO SCH (07:32)
[2018-06-04] MEDS: INSULIN LISPRO 300 UNITS/3 ML INSULN.PEN. SQ SCH ×3 (07:33→17:33)
[2018-06-04 13:44] LABS: BACTERIA,URINE FEW /HPF (0-FEW); BILIRUBIN,URINE NEG (NEG); CLARITY,URINE CLEAR; COLOR,URINE YELLOW; GLUCOSE,URINE 100 mg/dL (NEG); HYALINE CASTS, URINE OCC /HPF; NITRITE,URINE NEG (NEG); SQUAMOUS EPITHELIAL CELL,UR OCC /LPF; UROBILINOGEN,URINE 0.2 mg/dL (0.2 mg/dL)
[2018-06-04 15:35] LABS: BASO % 1 % (0-3); EOS # 0.1 x10^3/uL (0.0-0.7); EOS % 2 % (0-3); HEMATOCRIT 40.5 % (36.0-47.0); HEMOGLOBIN 13.2 g/dL (12.0-15.5); LYMPH # 1.2 x10^3/uL (1.0-4.8); LYMPH % 24 % (24-48); MEAN CORPUSCULAR HEMOGLOBIN 32 pg (25-35); MEAN CORPUSCULAR HGB CONC 33 g/dL (31-37); MEAN CORPUSCULAR VOLUME 99 fL (79-100); MONO # 0.6 x10^3/uL (0.0-1.1); MONO % 12 % (0-9); NEUT # 3.1 x10^3uL (1.8-7.7); NEUT % 61 % (31-73); PLATELET COUNT 144 x10^3/uL (140-400); RED CELL DISTRIBUTION WIDTH 17.3 % (11.5-14.5); WHITE BLOOD COUNT 5.1 x10^3/uL (4.0-11.0)
[2018-06-04 15:49] LABS: ALBUMIN 3.1 g/dL (3.4-5.0); ALBUMIN/GLOBULIN RATIO 0.9 (1.0-1.7); CALCIUM 9.5 mg/dL (8.5-10.1); GFR 24.7; POTASSIUM 4.2 mmol/L (3.5-5.1); TOTAL BILIRUBIN 0.5 mg/dL (0.2-1.0); TOTAL PROTEIN 6.6 g/dL (6.4-8.2)
[2018-06-04 16:21] VITALS: BP 125/74
[2018-06-04] MEDS: busPIRone 5 MG TABLET. PO SCH (17:32)
[2018-06-04] MEDS: traZODone 50 MG TABLET. PO SCH (19:31)
[2018-06-04] MEDS: MIRTAZAPINE 15 MG TABLET PO SCH (19:31)
[2018-06-04] MEDS: MELATONIN 3 MG TABLET PO SCH (19:31)
[2018-06-04] MEDS: risperiDONE 0.5 MG TABLET. PO SCH (19:31)
[2018-06-04] MEDS: PRAVASTATIN 20 MG TABLET. PO SCH (19:31)
[2018-06-04] MEDS: INSULIN GLARGINE 300 UNITS/3 ML INSULN.PEN. SQ SCH (19:34)
[2018-06-05 05:40] VITALS: BP 129/92
[2018-06-05] MEDS: busPIRone 5 MG TABLET. PO SCH ×2 (08:16→17:15)
[2018-06-05] MEDS: METOPROLOL TART IMMED RELEASE 25 MG TABLET PO SCH ×2 (08:16→19:48)
[2018-06-05] MEDS: THIAMINE 100 MG TABLET. PO SCH (08:16)
[2018-06-05] MEDS: FAMOTIDINE 20 MG TABLET PO SCH (08:17)
[2018-06-05] MEDS: ASCORBIC ACID 500 MG TABLET PO SCH (08:17)
[2018-06-05] MEDS: CLOPIDOGREL BISULFATE 75 MG TABLET PO SCH (08:17)
[2018-06-05] MEDS: CHOLECALCIFEROL (VITAMIN D3) 1,000 UNIT TABLET PO SCH (08:17)
[2018-06-05] MEDS: risperiDONE 0.25 MG TABLET. PO SCH (08:17)
[2018-06-05] MEDS: LACTOBACILLUS RHAMNOSUS GG 1 CAPSULE. PO SCH ×2 (08:17→19:34)
[2018-06-05] MEDS: AMMONIUM LACTATE 12% TOPICAL LOTION 226GM BOTTLE. TP SCH (08:19)
[2018-06-05] MEDS: FUROSEMIDE 40 MG TABLET PO SCH ×2 (08:19→14:10)
[2018-06-05] MEDS: INSULIN LISPRO 300 UNITS/3 ML INSULN.PEN. SQ SCH ×3 (08:20→17:17)
--- NOTE | 2018-06-05 09:10 | PDOC ---
Exam Note: Manfred Note: Late entry for DOS 06/04/2018. Please also refer to the separate dictated note~ for this date of service dictated separately.~Patient seen individually. Discussed the patient with Nursing staff reviewed the chart.~Reviewed interim history and current functioning. Reviewed vital signs,~Labs/ Radiology~and current medications noted below. Continue current treatment with the changes noted in the dictated addendum note Assessment: Vital Signs: VS - Last 72 Hours, by Label Date Time Temp Pulse Resp B/P (MAP) Pulse Ox O2 Delivery O2 Flow Rate FiO2 06/05/18 08:16 70 129/92 06/05/18 05:40 97.8 70 17 129/92 (104) 94 06/04/18 19:34 92 109/54 06/04/18 16:21 89 16 125/74 (91) 93 06/04/18 07:31 60 118/78 06/04/18 05:49 98.0 60 16 118/78 (91) 94 06/03/18 19:32 87 132/83 06/03/18 15:53 97.4 87 20 132/83 (99) 98 06/03/18 08:32 86 143/94 06/03/18 05:49 97.6 86 16 143/94 (110) 99 06/02/18 19:31 88 118/76 06/02/18 15:34 97.4 88 20 118/76 (90) 95 Room Air Vital Signs Date Time Temp Pulse Resp B/P (MAP) Pulse Ox O2 Delivery O2 Flow Rate FiO2 06/05/18 08:16 70 129/92 06/05/18 05:40 97.8 17 94 06/02/18 15:34 Room Air I&O Intake and Output 06/05/18 07:01 Intake Total 800 ml Balance 800 ml Intake Oral 800 ml Labs: Laboratory Tests Test 06/04/18 11:54 06/04/18 13:15 06/04/18 15:20 06/04/18 17:15 Glucose (Fingerstick) 212 mg/dL (70-99) H 224 mg/dL (70-99) H Urine Collection Type Unknown Urine Color Yellow Urine Clarity Clear Urine pH 5.5 Urine Specific [place] 1.015 Urine Protein 100 mg/dl (NEG-TRACE) Urine Glucose (UA) 100 mg/dL (NEG) Urine Ketones (Stick) Neg mg/dL (NEG) Urine Blood Small (NEG) Urine Nitrite Neg (NEG) Urine Bilirubin Neg (NEG) Urine Urobilinogen Dipstick 0.2 mg/dL (0.2 mg/dL) Urine Leukocyte Esterase Trace (NEG) Urine RBC 1-2 /HPF (0-2) Urine WBC 1-4 /HPF (0-4) Urine Squamous Epithelial Cells Occ /LPF Urine Bacteria Few /HPF (0-FEW) Urine Hyaline Casts Occ /HPF Urine Granular Casts /HPF Urine Mucus Slight /LPF White Blood Count 5.1 x10^3/uL (4.0-11.0) Red Blood Count 4.10 x10^6/uL (3.50-5.40) Hemoglobin 13.2 g/dL (12.0-15.5) Hematocrit 40.5 % (36.0-47.0) Mean Corpuscular Volume 99 fL (79-100) Mean Corpuscular Hemoglobin 32 pg (25-35) Mean Corpuscular Hemoglobin Concent 33 g/dL (31-37) Red Cell Distribution Width 17.3 % (11.5-14.5) H Platelet Count 144 x10^3/uL (140-400) Neutrophils (%) (Auto) 61 % (31-73) Lymphocytes (%) (Auto) 24 % (24-48) Monocytes (%) (Auto) 12 % (0-9) H Eosinophils (%) (Auto) 2 % (0-3) Basophils (%) (Auto) 1 % (0-3) Neutrophils # (Auto) 3.1 x10^3uL (1.8-7.7) Lymphocytes # (Auto) 1.2 x10^3/uL (1.0-4.8) Monocytes # (Auto) 0.6 x10^3/uL (0.0-1.1) Eosinophils # (Auto) 0.1 x10^3/uL (0.0-0.7) Basophils # (Auto) 0.0 x10^3/uL (0.0-0.2) Sodium Level 142 mmol/L (136-145) Potassium Level 4.2 mmol/L (3.5-5.1) Chloride Level 105 mmol/L (98-107) Carbon Dioxide Level 28 mmol/L (21-32) Anion Gap 9 (6-14) Blood Urea Nitrogen 43 mg/dL (7-20) H Creatinine 2.0 mg/dL (0.6-1.0) H Estimated GFR (Cockcroft-Gault) 24.7 BUN/Creatinine Ratio 22 (6-20) H Glucose Level 168 mg/dL (70-99) H Calcium Level 9.5 mg/dL (8.5-10.1) Total Bilirubin 0.5 mg/dL (0.2-1.0) Aspartate Amino Transferase (AST) 39 U/L (15-37) H Alanine Aminotransferase (ALT) 45 U/L (14-59) Alkaline Phosphatase 165 U/L (46-116) H Total Protein 6.6 g/dL (6.4-8.2) Albumin 3.1 g/dL (3.4-5.0) L Albumin/Globulin Ratio 0.9 (1.0-1.7) L Test 06/04/18 19:00 06/05/18 07:12 Glucose (Fingerstick) 257 mg/dL (70-99) H 84 mg/dL (70-99) Current Medications: Meds: Current Medications Acetaminophen (Tylenol) 650 mg PRN Q6HRS PRN PO PAIN / TEMP Last administered on 05/23/18 00:01; Start 05/17/18 at 22:30 Ascorbic Acid (Vitamin C) 500 mg DAILY PO Last administered on 06/05/18 08:17 ; Start 05/18/18 at 09:00 Vitamin D (Vitamin D3) 1,000 unit DAILY PO Last administered on 06/05/18 08:17 ; Start 05/18/18 at 09:00 Clopidogrel Bisulfate (Plavix) 75 mg DAILY PO Last administered on 06/05/18 08 :17; Start 05/18/18 at 09:00 Insulin Glargine (Lantus) 5 units QHS SQ Last administered on 06/04/18 19:34; Start 05/18/18 at 21:00 Metoprolol Tartrate (Lopressor) 25 mg BID PO Last administered on 06/05/18 08: 16; Start 05/18/18 at 09:00 Nitroglycerin (Nitrostat) 0.4 mg PRN Q5MIN PRN SL CHEST PAIN; Start 05/17/18 at 22:30 Olanzapine (ZyPREXA ZYDIS) 2.5 mg PRN Q2HR PRN PO ANXIETY / AGITATION Last administered on 06/04/18at 11:37; Start 05/17/18 at 22:30 Potassium Chloride (Klor-Con) 20 meq BID PO Last administered on 05/19/18at 08: 04; Start 05/18/18 at 09:00; Stop 05/19/18 at 15:08; Status DC Bisacodyl (Dulcolax Supp) 10 mg PRN DAILY PRN [place] CONSTIPATION; Start 05/17/18 at 23:00 Buspirone HCl (Buspar) 5 mg BID@0900,1500 PO Last administered on 05/21/18at 15 :43; Start 05/18/18 at 09:00; Stop 05/21/18 at 17:55; Status DC Buspirone HCl (Buspar) 10 mg QHS PO Last administered on 05/20/18at 19:53; Start 05/18/18 at 21:00; Stop 05/21/18 at 17:55; Status DC Glucose (Insta-Glucose) 15 gm PRN Q15MIN PRN PO LOW BLOOD SUGAR; Start at 23:00 Famotidine (Pepcid) 20 mg DAILY PO Last administered on 06/05/18at 08:17; Start 05/18/18 at 09:00 Fluvoxamine Maleate (Luvox) 50 mg QHS PO Last administered on 06/04/18 19:31; Start 05/18/18 at 21:00 Insulin Human Lispro (HumaLOG) 10 units TIDWMEALS SQ Last administered on 05/21at 08:03; Start 05/18/18 at 08:00; Stop 05/21/18 at 13:44; Status DC Lactobacillus Rhamnosus (Culturelle) 1 cap BID PO Last administered on 08:17; Start 05/18/18 at 09:00 Pravastatin Sodium (Pravachol) 80 mg QHS PO Last administered on 06/04/18 19: 31; Start 05/18/18 at 21:00 Risperidone (RisperDAL) 0.5 mg QHS PO Last administered on 06/04/18 19:31; Start 05/18/18 at 21:00 Risperidone (RisperDAL) 0.5 mg DAILY PO Last administered on 05/29/18 07:48; Start 05/18/18 at 09:00; Stop 05/29/18 at 16:22; Status DC Thiamine HCl (Vitamin B-1) 100 mg DAILY PO Last administered on 06/05/18 08:16 ; Start 05/18/18 at 09:00 Trazodone HCl (Desyrel) 25 mg QHS PO Last administered on 05/21/18at 19:53; Start 05/18/18 at 21:00; Stop 05/22/18 at 20:16; Status DC Insulin Human Lispro (HumaLOG) 5 units TIDWMEALS SQ Last administered on 17:33; Start 05/21/18 at 17:00 Divalproex Sodium (Depakote Er) 500 mg QHS PO Last administered on 05/23/18 19: 31; Start 05/21/18 at 21:00; Stop 05/24/18 at 11:10; Status DC Trazodone HCl (Desyrel) 50 mg QHS PO Last administered on 06/04/18 19:31; Start 05/22/18 at 21:00 Divalproex Sodium (Depakote Er) 1,000 mg QHS PO Last administered on 05/25/18 19:54; Start 05/24/18 at 21:00; Stop 05/26/18 at 21:35; Status DC Lactic Acid (Lac-Hydrin) 1 iggy BID TP Last administered on 06/05/18 08:19; Start 05/25/18 at 21:00 Mirtazapine (Remeron) 7.5 mg QHS PO Last administered on 05/30/18 19:45; Start 05/25/18 at 21:00; Stop 05/31/18 at 18:09; Status DC Divalproex Sodium (Depakote Sprinkles) 1,000 mg HS PO Last administered on 21:40; Start 05/26/18 at 22:00; Stop 05/27/18 at 20:01; Status DC Trazodone HCl (Desyrel) 50 mg PRN QHS PRN PO INSOMNIA Last administered on 1/10 /19at 00:23; Start 05/27/18 at 02:00 Divalproex Sodium (Depakote Sprinkles) 500 mg HS PO ; Start 05/28/18 at 21:00; Stop 05/28/18 at 21:00; Status DC Furosemide (Lasix) 40 mg DAILY PO Last administered on 06/04/18at 07:31; Start 05/29/18 at 11:30; Stop 06/04/18 at 19:43; Status DC Risperidone (RisperDAL) 0.25 mg DAILY PO Last administered on 06/05/18at 08:17; Start 05/30/18 at 09:00 Mirtazapine (Remeron) 15 mg QHS PO Last administered on 06/04/18 19:31; Start 05/31/18 at 21:00 Melatonin 3 mg HS PO Last administered on 06/04/18at 19:31; Start 05/31/18 at 21 :00 Buspirone HCl (Buspar) 5 mg BID@0900,1700 PO Last administered on 06/05/18at 08: 16; Start 06/04/18 at 17:30 Furosemide (Lasix) 40 mg BID92 PO Last administered on 06/05/18at 08:19; Start 06/05/18 at 09:00 Active Scripts Active Reported Heparin Sod 5,000 Unit/ 0.5 Ml (Heparin Sodium,Porcine/Pf) 5,000 Unit/0.5 Ml Vial 5,000 Unit SQ Q8HRS Risperidone 0.5 Mg Tablet 0.5 Mg PO DAILY Risperidone 0.5 Mg Tablet 0.5 Mg PO QHS Fluvoxamine Maleate 50 Mg Tablet 50 Mg PO QHS Zyprexa Zydis (Olanzapine) 5 Mg Tab.rapdis 2.5 Mg PO PRN Q2HR PRN NITROGLYCERIN SubLingual (Nitroglycerin) 0.4 Mg Tab.subl 0.4 Mg SL PRN Q5MIN PRN Culturelle (Lactobacillus Rhamnosus Gg) 1 Each Capsule 1 Each PO BID Glucose Gel (Dextrose) 38 Gm Gel..gram. 15 Gm PO PRN Q15MIN PRN Cefdinir 300 Mg Capsule 300 Mg PO DAILY Trazodone Hcl 50 Mg Tablet 25 Mg PO HS LAST DOSE GIVEN: DATE: TIME: NEXT DOSE DUE: DATE: TIME: Vitamin B-1 (Thiamine Hcl) 100 Mg Tablet 100 Mg PO DAILY LAST DOSE GIVEN: DATE: TIME: NEXT DOSE DUE: DATE: TIME: Pravastatin Sodium 80 Mg Tablet 80 Mg PO HS LAST DOSE GIVEN: DATE: TIME: NEXT DOSE DUE: DATE: TIME: Klor-Con M20 (Potassium Chloride) 20 Meq Tab.er.prt 20 Meq PO BID LAST DOSE GIVEN: DATE: TIME: NEXT DOSE DUE: DATE: TIME: Novolog Flexpen (Insulin Aspart) 100 Unit/1 Ml Insuln.pen 10 Unit SQ TIDWMEALS Metoprolol Tartrate 25 Mg Tablet 25 Mg PO BID LAST DOSE GIVEN: DATE: TIME: NEXT DOSE DUE: DATE: TIME: Lantus Solostar (Insulin Glargine,Hum.rec.anlog) 100 Unit/1 Ml Insuln.pen 5 Unit SQ QHS LAST DOSE GIVEN: DATE: TIME: NEXT DOSE DUE: DATE: TIME: Famotidine 40 Mg Tablet 20 Mg PO DAILY LAST DOSE GIVEN: DATE: TIME: NEXT DOSE DUE: DATE: TIME: Plavix (Clopidogrel Bisulfate) 75 Mg Tablet 75 Mg PO DAILY LAST DOSE GIVEN: DATE: TIME: NEXT DOSE DUE: DATE: TIME: Vitamin D3 (Cholecalciferol (Vitamin D3)) 1,000 Unit Tablet 1,000 Unit PO DAILY LAST DOSE GIVEN: DATE: TIME: NEXT DOSE DUE: DATE: TIME: Buspirone Hcl 5 Mg Tablet 5 Mg PO BID@0900,1500 LAST DOSE GIVEN: DATE: TIME: NEXT DOSE DUE: DATE: TIME: Buspirone Hcl 10 Mg Tablet 10 Mg PO HS LAST DOSE GIVEN: DATE: TIME: NEXT DOSE DUE: DATE: TIME: Bisacodyl 10 Mg Supp.rect 10 Mg RC PRN DAILY PRN LAST DOSE GIVEN: DATE: TIME: NEXT DOSE DUE: DATE: TIME: Ascorbic Acid 500 Mg Tablet 500 Mg PO DAILY LAST DOSE GIVEN: DATE: TIME: NEXT DOSE DUE: DATE: TIME: Tylenol (Acetaminophen) 325 Mg Tablet 650 Mg PO PRN Q6HRS PRN LAST DOSE GIVEN: DATE: TIME: NEXT DOSE DUE: DATE: TIME: I have reviewed the current psychotropics carefully including drug interactions. Risk benefit ratio favors no change other than as noted in my dictated progress note. Diagnosis: Problems: (1) Otsbs-fy-vskyxxe kidney injury (2) Schizoaffective disorder, bipolar type (3) Anxiety disorder (4) Impulse control disorder (5) Cognitive and behavioral changes (6) Anxiety disorder (7) Impulse control disorder (8) Dementia, vascular, with depression (9) Dementia, vascular, with delusions (10) Dementia in Alzheimer's disease with depression (11) Dementia in Alzheimer's disease with delusions (12) Acute and chronic respiratory failure BERT MEYER MD Jun 05, 2018 09:10
[2018-06-05 17:06] VITALS: BP 110/75
[2018-06-05] MEDS: MIRTAZAPINE 15 MG TABLET PO SCH (19:34)
[2018-06-05] MEDS: MELATONIN 3 MG TABLET PO SCH (19:34)
[2018-06-05] MEDS: PRAVASTATIN 20 MG TABLET. PO SCH (19:35)
[2018-06-05] MEDS: traZODone 50 MG TABLET. PO SCH (19:35)
[2018-06-05] MEDS: risperiDONE 0.5 MG TABLET. PO SCH (19:35)
[2018-06-05] MEDS: INSULIN GLARGINE 300 UNITS/3 ML INSULN.PEN. SQ SCH (19:37)
--- NOTE | 2018-06-05 20:16 | PN ---
DATE: 06/04/2018 PSYCHIATRIC PROGRESS NOTE This late entry 06/04/2018 covers elements not covered in my initial note. SUBJECTIVE: I met with the patient in the evening of 06/04/2018. She has been agitated, intermittently hollering per nursing report with the nursing staff and with visitors. She has gained about 21 pounds weight since admission. BUN and creatinine elevated, alkaline phosphatase 165, AST 39, ALT unremarkable. She slept 4-1/2 hours. Defer medical management to Dr. Orourke. REVIEW OF SYSTEMS: Ambulation impaired. No CV, , pulmonary, eye system symptoms on review. Reliability poor. MENTAL STATUS EXAM: Oriented to herself. Insight, judgment, recent and remote memory, attention, concentration, fund of knowledge poor, consistent with her diagnosis mentioned in my initial note. IMPRESSION: Bipolar 1 disorder, mixed versus schizoaffective disorder, bipolar type and major neurocognitive disorder, Alzheimer, vascular with depression. PLAN: Start BuSpar 5 mg 9:00 a.m., 5:00 p.m. Continue rest unchanged from initial note. MAN Carmen MEYER MD DR: LIZA/faiza JOB#: [id number] / [id number]
--- NOTE | 2018-06-05 22:39 | PDOC ---
Exam Note: Manfred Note: Please also refer to the separate dictated note~for this date of service dictated separately.~Patient seen individually. Discussed the patient with Nursing staff reviewed the chart.~Reviewed interim history and current functioning. Reviewed vital signs,~Labs/ Radiology~and current medications noted below. Continue current treatment with the changes noted in the dictated addendum note Assessment: Vital Signs: Vital Signs Date Time Temp Pulse Resp B/P (MAP) Pulse Ox O2 Delivery O2 Flow Rate FiO2 06/05/18 19:48 93 124/85 06/05/18 17:06 98.4 18 96 06/02/18 15:34 Room Air I&O Intake and Output 06/05/18 07:01 Intake Total 800 ml Balance 800 ml Intake Oral 800 ml Labs: Laboratory Tests Test 06/05/18 07:12 06/05/18 11:14 06/05/18 17:09 06/05/18 19:18 Glucose (Fingerstick) 84 mg/dL (70-99) 216 mg/dL (70-99) H 242 mg/dL (70-99) H 217 mg/dL (70-99) H Current Medications: Meds: Current Medications Acetaminophen (Tylenol) 650 mg PRN Q6HRS PRN PO PAIN / TEMP Last administered on 05/23/18 00:01; Start 05/17/18 at 22:30 Ascorbic Acid (Vitamin C) 500 mg DAILY PO Last administered on 06/05/18 08:17 ; Start 05/18/18 at 09:00 Vitamin D (Vitamin D3) 1,000 unit DAILY PO Last administered on 06/05/18 08:17 ; Start 05/18/18 at 09:00 Clopidogrel Bisulfate (Plavix) 75 mg DAILY PO Last administered on 06/05/18 08 :17; Start 05/18/18 at 09:00 Insulin Glargine (Lantus) 5 units QHS SQ Last administered on 06/05/18 19:37; Start 05/18/18 at 21:00 Metoprolol Tartrate (Lopressor) 25 mg BID PO Last administered on 06/05/18 19: 48; Start 05/18/18 at 09:00 Nitroglycerin (Nitrostat) 0.4 mg PRN Q5MIN PRN SL CHEST PAIN; Start 05/17/18 at 22:30 Olanzapine (ZyPREXA ZYDIS) 2.5 mg PRN Q2HR PRN PO ANXIETY / AGITATION Last administered on 06/04/18at 11:37; Start 05/17/18 at 22:30 Potassium Chloride (Klor-Con) 20 meq BID PO Last administered on 05/19/18at 08: 04; Start 05/18/18 at 09:00; Stop 05/19/18 at 15:08; Status DC Bisacodyl (Dulcolax Supp) 10 mg PRN DAILY PRN [place] CON[place]; Start 05/17/18 at 23:00 Buspirone HCl (Buspar) 5 mg BID@0900,1500 PO Last administered on 05/21/18at 15 :43; Start 05/18/18 at 09:00; Stop 05/21/18 at 17:55; Status DC Buspirone HCl (Buspar) 10 mg QHS PO Last administered on 05/20/18at 19:53; Start 05/18/18 at 21:00; Stop 05/21/18 at 17:55; Status DC Glucose (Insta-Glucose) 15 gm PRN Q15MIN PRN PO LOW BLOOD SUGAR; Start at 23:00 Famotidine (Pepcid) 20 mg DAILY PO Last administered on 06/05/18at 08:17; Start 05/18/18 at 09:00 Fluvoxamine Maleate (Luvox) 50 mg QHS PO Last administered on 06/05/18 19:34; Start 05/18/18 at 21:00 Insulin Human Lispro (HumaLOG) 10 units TIDWMEALS SQ Last administered on 05/21at 08:03; Start 05/18/18 at 08:00; Stop 05/21/18 at 13:44; Status DC Lactobacillus Rhamnosus (Culturelle) 1 cap BID PO Last administered on 19:34; Start 05/18/18 at 09:00 Pravastatin Sodium (Pravachol) 80 mg QHS PO Last administered on 06/05/18 19: 35; Start 05/18/18 at 21:00 Risperidone (RisperDAL) 0.5 mg QHS PO Last administered on 06/05/18 19:35; Start 05/18/18 at 21:00 Risperidone (RisperDAL) 0.5 mg DAILY PO Last administered on 05/29/18 07:48; Start 05/18/18 at 09:00; Stop 05/29/18 at 16:22; Status DC Thiamine HCl (Vitamin B-1) 100 mg DAILY PO Last administered on 06/05/18 08:16 ; Start 05/18/18 at 09:00 Trazodone HCl (Desyrel) 25 mg QHS PO Last administered on 05/21/18at 19:53; Start 05/18/18 at 21:00; Stop 05/22/18 at 20:16; Status DC Insulin Human Lispro (HumaLOG) 5 units TIDWMEALS SQ Last administered on 17:17; Start 05/21/18 at 17:00 Divalproex Sodium (Depakote Er) 500 mg QHS PO Last administered on 05/23/18 19: 31; Start 05/21/18 at 21:00; Stop 05/24/18 at 11:10; Status DC Trazodone HCl (Desyrel) 50 mg QHS PO Last administered on 06/05/18 19:35; Start 05/22/18 at 21:00 Divalproex Sodium (Depakote Er) 1,000 mg QHS PO Last administered on 05/25/18 19:54; Start 05/24/18 at 21:00; Stop 05/26/18 at 21:35; Status DC Lactic Acid (Lac-Hydrin) 1 iggy BID TP Last administered on 06/05/18 08:19; Start 05/25/18 at 21:00 Mirtazapine (Remeron) 7.5 mg QHS PO Last administered on 05/30/18 19:45; Start 05/25/18 at 21:00; Stop 05/31/18 at 18:09; Status DC Divalproex Sodium (Depakote Sprinkles) 1,000 mg HS PO Last administered on 21:40; Start 05/26/18 at 22:00; Stop 05/27/18 at 20:01; Status DC Trazodone HCl (Desyrel) 50 mg PRN QHS PRN PO INSOMNIA Last administered on 05/31 00:23; Start 05/27/18 at 02:00 Divalproex Sodium (Depakote Sprinkles) 500 mg HS PO ; Start 05/28/18 at 21:00; Stop 05/28/18 at 21:00; Status DC Furosemide (Lasix) 40 mg DAILY PO Last administered on 06/04/18at 07:31; Start 05/29/18 at 11:30; Stop 06/04/18 at 19:43; Status DC Risperidone (RisperDAL) 0.25 mg DAILY PO Last administered on 06/05/18at 08:17; Start 05/30/18 at 09:00 Mirtazapine (Remeron) 15 mg QHS PO Last administered on 06/05/18 19:34; Start 05/31/18 at 21:00 Melatonin 3 mg HS PO Last administered on 06/05/18at 19:34; Start 05/31/18 at 21 :00 Buspirone HCl (Buspar) 5 mg BID@0900,1700 PO Last administered on 06/05/18at 17: 15; Start 06/04/18 at 17:30 Furosemide (Lasix) 40 mg BID92 PO Last administered on 06/05/18at 14:10; Start 06/05/18 at 09:00 Active Scripts Active Reported Heparin Sod 5,000 Unit/ 0.5 Ml (Heparin Sodium,Porcine/Pf) 5,000 Unit/0.5 Ml Vial 5,000 Unit SQ Q8HRS Risperidone 0.5 Mg Tablet 0.5 Mg PO DAILY Risperidone 0.5 Mg Tablet 0.5 Mg PO QHS Fluvoxamine Maleate 50 Mg Tablet 50 Mg PO QHS Zyprexa Zydis (Olanzapine) 5 Mg Tab.rapdis 2.5 Mg PO PRN Q2HR PRN NITROGLYCERIN SubLingual (Nitroglycerin) 0.4 Mg Tab.subl 0.4 Mg SL PRN Q5MIN PRN Culturelle (Lactobacillus Rhamnosus Gg) 1 Each Capsule 1 Each PO BID Glucose Gel (Dextrose) 38 Gm Gel..gram. 15 Gm PO PRN Q15MIN PRN Cefdinir 300 Mg Capsule 300 Mg PO DAILY Trazodone Hcl 50 Mg Tablet 25 Mg PO HS LAST DOSE GIVEN: DATE: TIME: NEXT DOSE DUE: DATE: TIME: Vitamin B-1 (Thiamine Hcl) 100 Mg Tablet 100 Mg PO DAILY LAST DOSE GIVEN: DATE: TIME: NEXT DOSE DUE: DATE: TIME: Pravastatin Sodium 80 Mg Tablet 80 Mg PO HS LAST DOSE GIVEN: DATE: TIME: NEXT DOSE DUE: DATE: TIME: Klor-Con M20 (Potassium Chloride) 20 Meq Tab.er.prt 20 Meq PO BID LAST DOSE GIVEN: DATE: TIME: NEXT DOSE DUE: DATE: TIME: Novolog Flexpen (Insulin Aspart) 100 Unit/1 Ml Insuln.pen 10 Unit SQ TIDWMEALS Metoprolol Tartrate 25 Mg Tablet 25 Mg PO BID LAST DOSE GIVEN: DATE: TIME: NEXT DOSE DUE: DATE: TIME: Lantus Solostar (Insulin Glargine,Hum.rec.anlog) 100 Unit/1 Ml Insuln.pen 5 Unit SQ QHS LAST DOSE GIVEN: DATE: TIME: NEXT DOSE DUE: DATE: TIME: Famotidine 40 Mg Tablet 20 Mg PO DAILY LAST DOSE GIVEN: DATE: TIME: NEXT DOSE DUE: DATE: TIME: Plavix (Clopidogrel Bisulfate) 75 Mg Tablet 75 Mg PO DAILY LAST DOSE GIVEN: DATE: TIME: NEXT DOSE DUE: DATE: TIME: Vitamin D3 (Cholecalciferol (Vitamin D3)) 1,000 Unit Tablet 1,000 Unit PO DAILY LAST DOSE GIVEN: DATE: TIME: NEXT DOSE DUE: DATE: TIME: Buspirone Hcl 5 Mg Tablet 5 Mg PO BID@0900,1500 LAST DOSE GIVEN: DATE: TIME: NEXT DOSE DUE: DATE: TIME: Buspirone Hcl 10 Mg Tablet 10 Mg PO HS LAST DOSE GIVEN: DATE: TIME: NEXT DOSE DUE: DATE: TIME: Bisacodyl 10 Mg Supp.rect 10 Mg RC PRN DAILY PRN LAST DOSE GIVEN: DATE: TIME: NEXT DOSE DUE: DATE: TIME: Ascorbic Acid 500 Mg Tablet 500 Mg PO DAILY LAST DOSE GIVEN: DATE: TIME: NEXT DOSE DUE: DATE: TIME: Tylenol (Acetaminophen) 325 Mg Tablet 650 Mg PO PRN Q6HRS PRN LAST DOSE GIVEN: DATE: TIME: NEXT DOSE DUE: DATE: TIME: I have reviewed the current psychotropics carefully including drug interactions. Risk benefit ratio favors no change other than as noted in my dictated progress note. Diagnosis: Problems: (1) [id number] kidney injury (2) Schizoaffective disorder, bipolar type (3) Anxiety disorder (4) Impulse control disorder (5) Cognitive and behavioral changes (6) Anxiety disorder (7) Impulse control disorder (8) Dementia, vascular, with depression (9) Dementia, vascular, with delusions (10) Dementia in Alzheimer's disease with depression (11) Dementia in Alzheimer's disease with delusions (12) Acute and chronic respiratory failure BRET MEYER MD Jun 05, 2018 22:39
[2018-06-06] MEDS: traZODone 50 MG TABLET. PO PRN ×2 (00:18→23:26)
[2018-06-06] MEDS: AMMONIUM LACTATE 12% TOPICAL LOTION 226GM BOTTLE. TP SCH ×3 (00:19→19:47)
[2018-06-06 05:44] VITALS: BP 133/80
[2018-06-06] MEDS: FAMOTIDINE 20 MG TABLET PO SCH (09:38)
[2018-06-06] MEDS: THIAMINE 100 MG TABLET. PO SCH (09:38)
[2018-06-06] MEDS: CLOPIDOGREL BISULFATE 75 MG TABLET PO SCH (09:38)
[2018-06-06] MEDS: risperiDONE 0.25 MG TABLET. PO SCH (09:39)
[2018-06-06] MEDS: CHOLECALCIFEROL (VITAMIN D3) 1,000 UNIT TABLET PO SCH (09:39)
[2018-06-06] MEDS: ASCORBIC ACID 500 MG TABLET PO SCH (09:39)
[2018-06-06] MEDS: FUROSEMIDE 40 MG TABLET PO SCH ×2 (09:39→14:08)
[2018-06-06] MEDS: LACTOBACILLUS RHAMNOSUS GG 1 CAPSULE. PO SCH ×2 (09:39→19:43)
[2018-06-06] MEDS: busPIRone 5 MG TABLET. PO SCH ×2 (09:39→17:29)
[2018-06-06] MEDS: METOPROLOL TART IMMED RELEASE 25 MG TABLET PO SCH ×2 (09:39→19:43)
[2018-06-06] MEDS: INSULIN LISPRO 300 UNITS/3 ML INSULN.PEN. SQ SCH ×3 (09:50→17:27)
[2018-06-06 15:48] VITALS: BP 121/75
[2018-06-06] MEDS: risperiDONE 0.5 MG TABLET. PO SCH (19:42)
[2018-06-06] MEDS: PRAVASTATIN 20 MG TABLET. PO SCH (19:42)
[2018-06-06] MEDS: MELATONIN 3 MG TABLET PO SCH (19:42)
[2018-06-06] MEDS: traZODone 50 MG TABLET. PO SCH (19:43)
[2018-06-06] MEDS: MIRTAZAPINE 15 MG TABLET PO SCH (19:43)
[2018-06-06] MEDS: INSULIN GLARGINE 300 UNITS/3 ML INSULN.PEN. SQ SCH (19:46)
--- NOTE | 2018-06-06 20:01 | PN ---
DATE: 06/05/2018 PSYCHIATRIC PROGRESS NOTE This late entry 06/05/2018, covers elements not covered in my initial note. SUBJECTIVE: I met with the patient in the evening. The patient slept 5 hours previous night. She does have renal failure and heart failure, and defer to Dr. Orourke. Otherwise, she has been calmer, less sedated going to groups. She has gained about 20 pounds weight and Lasix has been increased by Dr. Orourke. REVIEW OF SYSTEMS: Positive for some tiredness, but she is pleasant, smiling as I met with her. No CV, , pulmonary, eye, ENT system symptoms on review. MENTAL STATUS EXAM: Oriented to herself. Insight, judgment, recent and remote memory, attention, concentration, fund of knowledge poor, consistent with her diagnosis. IMPRESSION: Schizoaffective disorder, bipolar type; major neurocognitive disorder, Alzheimer, vascular with delusion, depression, behavioral disturbance. Rest unchanged. PLAN: No change from my initial note. Continue current psychotropics. Despite her overall medical problems from a psychiatric standpoint, she has not been aggressive, less paranoid, less anxious as well. MAN Carmen MEYER MD DR: LIZA/faiza JOB#: [id number] / [id number]
--- NOTE | 2018-06-06 22:33 | PDOC ---
Exam Note: Manfred Note: Please also refer to the separate dictated note~for this date of service dictated separately.~Patient seen individually. Discussed the patient with Nursing staff reviewed the chart.~Reviewed interim history and current functioning. Reviewed vital signs,~Labs/ Radiology~and current medications noted below. Continue current treatment with the changes noted in the dictated addendum note Assessment: Vital Signs: Vital Signs Date Time Temp Pulse Resp B/P (MAP) Pulse Ox O2 Delivery O2 Flow Rate FiO2 06/06/18 19:43 84 121/75 06/06/18 15:48 98.4 20 96 06/02/18 15:34 Room Air I&O Intake and Output 06/06/18 07:01 Intake Total 1200 ml Balance 1200 ml Intake Oral 1200 ml # Voids 1 Labs: Laboratory Tests Test 06/06/18 07:10 06/06/18 11:39 06/06/18 16:26 06/06/18 19:13 Glucose (Fingerstick) 135 mg/dL (70-99) H 209 mg/dL (70-99) H 209 mg/dL (70-99) H 172 mg/dL (70-99) H Current Medications: Meds: Current Medications Acetaminophen (Tylenol) 650 mg PRN Q6HRS PRN PO PAIN / TEMP Last administered on 05/23/18 00:01; Start 05/17/18 at 22:30 Ascorbic Acid (Vitamin C) 500 mg DAILY PO Last administered on 06/06/18 09:39 ; Start 05/18/18 at 09:00 Vitamin D (Vitamin D3) 1,000 unit DAILY PO Last administered on 06/06/18 09:39 ; Start 05/18/18 at 09:00 Clopidogrel Bisulfate (Plavix) 75 mg DAILY PO Last administered on 06/06/18 09 :38; Start 05/18/18 at 09:00 Insulin Glargine (Lantus) 5 units QHS SQ Last administered on 06/06/18 19:46; Start 05/18/18 at 21:00 Metoprolol Tartrate (Lopressor) 25 mg BID PO Last administered on 06/06/18 19: 43; Start 05/18/18 at 09:00 Nitroglycerin (Nitrostat) 0.4 mg PRN Q5MIN PRN SL CHEST PAIN; Start 05/17/18 at 22:30 Olanzapine (ZyPREXA ZYDIS) 2.5 mg PRN Q2HR PRN PO ANXIETY / AGITATION Last administered on 06/04/18at 11:37; Start 05/17/18 at 22:30 Potassium Chloride (Klor-Con) 20 meq BID PO Last administered on 05/19/18at 08: 04; Start 05/18/18 at 09:00; Stop 05/19/18 at 15:08; Status DC Bisacodyl (Dulcolax Supp) 10 mg PRN DAILY PRN [place] CONSTIPATION; Start 05/17/18 at 23:00 Buspirone HCl (Buspar) 5 mg BID@0900,1500 PO Last administered on 05/21/18at 15 :43; Start 05/18/18 at 09:00; Stop 05/21/18 at 17:55; Status DC Buspirone HCl (Buspar) 10 mg QHS PO Last administered on 05/20/18at 19:53; Start 05/18/18 at 21:00; Stop 05/21/18 at 17:55; Status DC Glucose (Insta-Glucose) 15 gm PRN Q15MIN PRN PO LOW BLOOD SUGAR; Start at 23:00 Famotidine (Pepcid) 20 mg DAILY PO Last administered on 06/06/18at 09:38; Start 05/18/18 at 09:00 Fluvoxamine Maleate (Luvox) 50 mg QHS PO Last administered on 06/06/18 19:42; Start 05/18/18 at 21:00 Insulin Human Lispro (HumaLOG) 10 units TIDWMEALS SQ Last administered on 05/21at 08:03; Start 05/18/18 at 08:00; Stop 05/21/18 at 13:44; Status DC Lactobacillus Rhamnosus (Culturelle) 1 cap BID PO Last administered on 19:43; Start 05/18/18 at 09:00 Pravastatin Sodium (Pravachol) 80 mg QHS PO Last administered on 06/06/18 19: 42; Start 05/18/18 at 21:00 Risperidone (RisperDAL) 0.5 mg QHS PO Last administered on 06/06/18 19:42; Start 05/18/18 at 21:00 Risperidone (RisperDAL) 0.5 mg DAILY PO Last administered on 05/29/18 07:48; Start 05/18/18 at 09:00; Stop 05/29/18 at 16:22; Status DC Thiamine HCl (Vitamin B-1) 100 mg DAILY PO Last administered on 06/06/18 09:38 ; Start 05/18/18 at 09:00 Trazodone HCl (Desyrel) 25 mg QHS PO Last administered on 05/21/18at 19:53; Start 05/18/18 at 21:00; Stop 05/22/18 at 20:16; Status DC Insulin Human Lispro (HumaLOG) 5 units TIDWMEALS SQ Last administered on 17:27; Start 05/21/18 at 17:00 Divalproex Sodium (Depakote Er) 500 mg QHS PO Last administered on 05/23/18 19: 31; Start 05/21/18 at 21:00; Stop 05/24/18 at 11:10; Status DC Trazodone HCl (Desyrel) 50 mg QHS PO Last administered on 06/06/18 19:43; Start 05/22/18 at 21:00 Divalproex Sodium (Depakote Er) 1,000 mg QHS PO Last administered on 05/25/18 19:54; Start 05/24/18 at 21:00; Stop 05/26/18 at 21:35; Status DC Lactic Acid (Lac-Hydrin) 1 iggy BID TP Last administered on 06/06/18 19:47; Start 05/25/18 at 21:00 Mirtazapine (Remeron) 7.5 mg QHS PO Last administered on 05/30/18 19:45; Start 05/25/18 at 21:00; Stop 05/31/18 at 18:09; Status DC Divalproex Sodium (Depakote Sprinkles) 1,000 mg HS PO Last administered on 21:40; Start 05/26/18 at 22:00; Stop 05/27/18 at 20:01; Status DC Trazodone HCl (Desyrel) 50 mg PRN QHS PRN PO INSOMNIA Last administered on 1/16 /19at 00:18; Start 05/27/18 at 02:00 Divalproex Sodium (Depakote Sprinkles) 500 mg HS PO ; Start 05/28/18 at 21:00; Stop 05/28/18 at 21:00; Status DC Furosemide (Lasix) 40 mg DAILY PO Last administered on 06/04/18at 07:31; Start 05/29/18 at 11:30; Stop 06/04/18 at 19:43; Status DC Risperidone (RisperDAL) 0.25 mg DAILY PO Last administered on 06/06/18at 09:39; Start 05/30/18 at 09:00 Mirtazapine (Remeron) 15 mg QHS PO Last administered on 06/06/18 19:43; Start 05/31/18 at 21:00 Melatonin 3 mg HS PO Last administered on 06/06/18at 19:42; Start 05/31/18 at 21 :00 Buspirone HCl (Buspar) 5 mg BID@0900,1700 PO Last administered on 06/06/18at 17: 29; Start 06/04/18 at 17:30 Furosemide (Lasix) 40 mg BID92 PO Last administered on 06/06/18 14:08; Start 06/05/18 at 09:00 Active Scripts Active Reported Heparin Sod 5,000 Unit/ 0.5 Ml (Heparin Sodium,Porcine/Pf) 5,000 Unit/0.5 Ml Vial 5,000 Unit SQ Q8HRS Risperidone 0.5 Mg Tablet 0.5 Mg PO DAILY Risperidone 0.5 Mg Tablet 0.5 Mg PO QHS Fluvoxamine Maleate 50 Mg Tablet 50 Mg PO QHS Zyprexa Zydis (Olanzapine) 5 Mg Tab.rapdis 2.5 Mg PO PRN Q2HR PRN NITROGLYCERIN SubLingual (Nitroglycerin) 0.4 Mg Tab.subl 0.4 Mg SL PRN Q5MIN PRN Culturelle (Lactobacillus Rhamnosus Gg) 1 Each Capsule 1 Each PO BID Glucose Gel (Dextrose) 38 Gm Gel..gram. 15 Gm PO PRN Q15MIN PRN Cefdinir 300 Mg Capsule 300 Mg PO DAILY Trazodone Hcl 50 Mg Tablet 25 Mg PO HS LAST DOSE GIVEN: DATE: TIME: NEXT DOSE DUE: DATE: TIME: Vitamin B-1 (Thiamine Hcl) 100 Mg Tablet 100 Mg PO DAILY LAST DOSE GIVEN: DATE: TIME: NEXT DOSE DUE: DATE: TIME: Pravastatin Sodium 80 Mg Tablet 80 Mg PO HS LAST DOSE GIVEN: DATE: TIME: NEXT DOSE DUE: DATE: TIME: Klor-Con M20 (Potassium Chloride) 20 Meq Tab.er.prt 20 Meq PO BID LAST DOSE GIVEN: DATE: TIME: NEXT DOSE DUE: DATE: TIME: Novolog Flexpen (Insulin Aspart) 100 Unit/1 Ml Insuln.pen 10 Unit SQ TIDWMEALS Metoprolol Tartrate 25 Mg Tablet 25 Mg PO BID LAST DOSE GIVEN: DATE: TIME: NEXT DOSE DUE: DATE: TIME: Lantus Solostar (Insulin Glargine,Hum.rec.anlog) 100 Unit/1 Ml Insuln.pen 5 Unit SQ QHS LAST DOSE GIVEN: DATE: TIME: NEXT DOSE DUE: DATE: TIME: Famotidine 40 Mg Tablet 20 Mg PO DAILY LAST DOSE GIVEN: DATE: TIME: NEXT DOSE DUE: DATE: TIME: Plavix (Clopidogrel Bisulfate) 75 Mg Tablet 75 Mg PO DAILY LAST DOSE GIVEN: DATE: TIME: NEXT DOSE DUE: DATE: TIME: Vitamin D3 (Cholecalciferol (Vitamin D3)) 1,000 Unit Tablet 1,000 Unit PO DAILY LAST DOSE GIVEN: DATE: TIME: NEXT DOSE DUE: DATE: TIME: Buspirone Hcl 5 Mg Tablet 5 Mg PO BID@0900,1500 LAST DOSE GIVEN: DATE: TIME: NEXT DOSE DUE: DATE: TIME: Buspirone Hcl 10 Mg Tablet 10 Mg PO HS LAST DOSE GIVEN: DATE: TIME: NEXT DOSE DUE: DATE: TIME: Bisacodyl 10 Mg Supp.rect 10 Mg RC PRN DAILY PRN LAST DOSE GIVEN: DATE: TIME: NEXT DOSE DUE: DATE: TIME: Ascorbic Acid 500 Mg Tablet 500 Mg PO DAILY LAST DOSE GIVEN: DATE: TIME: NEXT DOSE DUE: DATE: TIME: Tylenol (Acetaminophen) 325 Mg Tablet 650 Mg PO PRN Q6HRS PRN LAST DOSE GIVEN: DATE: TIME: NEXT DOSE DUE: DATE: TIME: I have reviewed the current psychotropics carefully including drug interactions. Risk benefit ratio favors no change other than as noted in my dictated progress note. Diagnosis: Problems: (1) [id number] kidney injury (2) Schizoaffective disorder, bipolar type (3) Anxiety disorder (4) Impulse control disorder (5) Cognitive and behavioral changes (6) Anxiety disorder (7) Impulse control disorder (8) Dementia, vascular, with depression (9) Dementia, vascular, with delusions (10) Dementia in Alzheimer's disease with depression (11) Dementia in Alzheimer's disease with delusions (12) Acute and chronic respiratory failure BERT MEYER MD Jun 06, 2018 22:33
[2018-06-07 05:10] VITALS: BP 114/71
[2018-06-07] MEDS: CLOPIDOGREL BISULFATE 75 MG TABLET PO SCH (07:26)
[2018-06-07] MEDS: FAMOTIDINE 20 MG TABLET PO SCH (07:26)
[2018-06-07] MEDS: FUROSEMIDE 40 MG TABLET PO SCH ×2 (07:27→14:36)
[2018-06-07] MEDS: THIAMINE 100 MG TABLET. PO SCH (07:27)
[2018-06-07] MEDS: METOPROLOL TART IMMED RELEASE 25 MG TABLET PO SCH ×2 (07:27→19:51)
[2018-06-07] MEDS: risperiDONE 0.25 MG TABLET. PO SCH (07:27)
[2018-06-07] MEDS: ASCORBIC ACID 500 MG TABLET PO SCH (07:28)
[2018-06-07] MEDS: LACTOBACILLUS RHAMNOSUS GG 1 CAPSULE. PO SCH ×2 (07:28→19:50)
[2018-06-07] MEDS: busPIRone 5 MG TABLET. PO SCH ×2 (07:28→17:26)
[2018-06-07] MEDS: CHOLECALCIFEROL (VITAMIN D3) 1,000 UNIT TABLET PO SCH (07:28)
[2018-06-07] MEDS: AMMONIUM LACTATE 12% TOPICAL LOTION 226GM BOTTLE. TP SCH ×2 (07:32→20:08)
[2018-06-07] MEDS: INSULIN LISPRO 300 UNITS/3 ML INSULN.PEN. SQ SCH ×3 (08:45→17:28)
[2018-06-07 15:48] VITALS: BP 123/82
--- NOTE | 2018-06-07 17:53 | PN ---
DATE: 06/06/2018 PSYCHIATRIC PROGRESS NOTE This late entry 06/06/2018 covers elements not covered in my initial note. SUBJECTIVE: I met with the patient in the evening. Per nursing report, the patient slept 6 hours previous night. She has been less drowsy, more awake during the day, cooperative up and ambulating with a walker. She gets somewhat angry, irritable, anxious at times, asking for a chocolate cake and when she was unable to get this. REVIEW OF SYSTEMS: Ambulation impaired with walker. No CV, , pulmonary, eye, ENT system symptoms on review. MENTAL STATUS EXAM: Oriented to herself and situation. Speech has some latency, coherent. Abstraction fair, computation impaired, language function intact, attention span short. Mood and affect is improved, less labile. LABORATORY DATA: Reviewed. IMPRESSION: Schizoaffective disorder, bipolar type, cognitive disorder, unspecified versus major neurocognitive disorder, Alzheimer, vascular with delusion. Rest unchanged. PLAN: Continue psychotropics from initial note. We will maintain Risperdal to 0.75 mg a day, Luvox 50 mg at bedtime, Remeron 15 mg at bedtime, BuSpar and melatonin together with trazodone. Valproic acid has been discontinued. She is doing well without it. BERT MEYER MD DR: LIZA/faiza JOB#: [id number] / [id number]
[2018-06-07] MEDS: traZODone 50 MG TABLET. PO SCH (19:50)
[2018-06-07] MEDS: risperiDONE 0.5 MG TABLET. PO SCH (19:51)
[2018-06-07] MEDS: MIRTAZAPINE 15 MG TABLET PO SCH (19:51)
[2018-06-07] MEDS: PRAVASTATIN 20 MG TABLET. PO SCH (19:51)
[2018-06-07] MEDS: MELATONIN 3 MG TABLET PO SCH (19:51)
[2018-06-07] MEDS: INSULIN GLARGINE 300 UNITS/3 ML INSULN.PEN. SQ SCH (19:59)
--- NOTE | 2018-06-07 23:08 | PDOC ---
Exam Note: Manfred Note: Please also refer to the separate dictated note~for this date of service dictated separately.~Patient seen individually. Discussed the patient with Nursing staff reviewed the chart.~Reviewed interim history and current functioning. Reviewed vital signs,~Labs/ Radiology~and current medications noted below. Continue current treatment with the changes noted in the dictated addendum note Assessment: Vital Signs: Vital Signs Date Time Temp Pulse Resp B/P (MAP) Pulse Ox O2 Delivery O2 Flow Rate FiO2 06/07/18 19:51 93 123/82 06/07/18 15:48 97.2 18 95 Room Air I&O Intake and Output 06/07/18 07:01 Intake Total 1140 ml Balance 1140 ml Intake Oral 1140 ml Labs: Laboratory Tests Test 06/07/18 07:33 06/07/18 11:56 06/07/18 16:55 06/07/18 19:12 Glucose (Fingerstick) 71 mg/dL (70-99) 249 mg/dL (70-99) H 248 mg/dL (70-99) H 317 mg/dL (70-99) H Current Medications: Meds: Current Medications Acetaminophen (Tylenol) 650 mg PRN Q6HRS PRN PO PAIN / TEMP Last administered on 05/23/18 00:01; Start 05/17/18 at 22:30 Ascorbic Acid (Vitamin C) 500 mg DAILY PO Last administered on 06/07/18 07:28 ; Start 05/18/18 at 09:00 Vitamin D (Vitamin D3) 1,000 unit DAILY PO Last administered on 06/07/18 07:28 ; Start 05/18/18 at 09:00 Clopidogrel Bisulfate (Plavix) 75 mg DAILY PO Last administered on 06/07/18 07 :26; Start 05/18/18 at 09:00 Insulin Glargine (Lantus) 5 units QHS SQ Last administered on 06/07/18 19:59; Start 05/18/18 at 21:00 Metoprolol Tartrate (Lopressor) 25 mg BID PO Last administered on 06/07/18 19: 51; Start 05/18/18 at 09:00 Nitroglycerin (Nitrostat) 0.4 mg PRN Q5MIN PRN SL CHEST PAIN; Start 05/17/18 at 22:30 Olanzapine (ZyPREXA ZYDIS) 2.5 mg PRN Q2HR PRN PO ANXIETY / AGITATION Last administered on 06/04/18at 11:37; Start 05/17/18 at 22:30 Potassium Chloride (Klor-Con) 20 meq BID PO Last administered on 05/19/18at 08: 04; Start 05/18/18 at 09:00; Stop 05/19/18 at 15:08; Status DC Bisacodyl (Dulcolax Supp) 10 mg PRN DAILY PRN [place] CONSTIPATION; Start 05/17/18 at 23:00 Buspirone HCl (Buspar) 5 mg BID@0900,1500 PO Last administered on 05/21/18at 15 :43; Start 05/18/18 at 09:00; Stop 05/21/18 at 17:55; Status DC Buspirone HCl (Buspar) 10 mg QHS PO Last administered on 05/20/18at 19:53; Start 05/18/18 at 21:00; Stop 05/21/18 at 17:55; Status DC Glucose (Insta-Glucose) 15 gm PRN Q15MIN PRN PO LOW BLOOD SUGAR; Start at 23:00 Famotidine (Pepcid) 20 mg DAILY PO Last administered on 06/07/18at 07:26; Start 05/18/18 at 09:00 Fluvoxamine Maleate (Luvox) 50 mg QHS PO Last administered on 06/07/18at 19:51; Start 05/18/18 at 21:00 Insulin Human Lispro (HumaLOG) 10 units TIDWMEALS SQ Last administered on 05/21at 08:03; Start 05/18/18 at 08:00; Stop 05/21/18 at 13:44; Status DC Lactobacillus Rhamnosus (Culturelle) 1 cap BID PO Last administered on 19:50; Start 05/18/18 at 09:00 Pravastatin Sodium (Pravachol) 80 mg QHS PO Last administered on 06/07/18 19: 51; Start 05/18/18 at 21:00 Risperidone (RisperDAL) 0.5 mg QHS PO Last administered on 06/07/18 19:51; Start 05/18/18 at 21:00 Risperidone (RisperDAL) 0.5 mg DAILY PO Last administered on 05/29/18 07:48; Start 05/18/18 at 09:00; Stop 05/29/18 at 16:22; Status DC Thiamine HCl (Vitamin B-1) 100 mg DAILY PO Last administered on 06/07/18 07:27 ; Start 05/18/18 at 09:00 Trazodone HCl (Desyrel) 25 mg QHS PO Last administered on 05/21/18at 19:53; Start 05/18/18 at 21:00; Stop 05/22/18 at 20:16; Status DC Insulin Human Lispro (HumaLOG) 5 units TIDWMEALS SQ Last administered on 17:28; Start 05/21/18 at 17:00 Divalproex Sodium (Depakote Er) 500 mg QHS PO Last administered on 05/23/18 19: 31; Start 05/21/18 at 21:00; Stop 05/24/18 at 11:10; Status DC Trazodone HCl (Desyrel) 50 mg QHS PO Last administered on 06/07/18 19:50; Start 05/22/18 at 21:00 Divalproex Sodium (Depakote Er) 1,000 mg QHS PO Last administered on 05/25/18 19:54; Start 05/24/18 at 21:00; Stop 05/26/18 at 21:35; Status DC Lactic Acid (Lac-Hydrin) 1 iggy BID TP Last administered on 06/07/18 20:08; Start 05/25/18 at 21:00 Mirtazapine (Remeron) 7.5 mg QHS PO Last administered on 05/30/18 19:45; Start 05/25/18 at 21:00; Stop 05/31/18 at 18:09; Status DC Divalproex Sodium (Depakote Sprinkles) 1,000 mg HS PO Last administered on 21:40; Start 05/26/18 at 22:00; Stop 05/27/18 at 20:01; Status DC Trazodone HCl (Desyrel) 50 mg PRN QHS PRN PO INSOMNIA Last administered on 06/06 23:26; Start 05/27/18 at 02:00 Divalproex Sodium (Depakote Sprinkles) 500 mg HS PO ; Start 05/28/18 at 21:00; Stop 05/28/18 at 21:00; Status DC Furosemide (Lasix) 40 mg DAILY PO Last administered on 06/04/18at 07:31; Start 05/29/18 at 11:30; Stop 06/04/18 at 19:43; Status DC Risperidone (RisperDAL) 0.25 mg DAILY PO Last administered on 06/07/18at 07:27; Start 05/30/18 at 09:00 Mirtazapine (Remeron) 15 mg QHS PO Last administered on 06/07/18at 19:51; Start 05/31/18 at 21:00 Melatonin 3 mg HS PO Last administered on 06/07/18at 19:51; Start 05/31/18 at 21 :00 Buspirone HCl (Buspar) 5 mg BID@0900,1700 PO Last administered on 06/07/18at 17: 26; Start 06/04/18 at 17:30 Furosemide (Lasix) 40 mg BID92 PO Last administered on 06/07/18at 14:36; Start 06/05/18 at 09:00 Active Scripts Active Reported Heparin Sod 5,000 Unit/ 0.5 Ml (Heparin Sodium,Porcine/Pf) 5,000 Unit/0.5 Ml Vial 5,000 Unit SQ Q8HRS Risperidone 0.5 Mg Tablet 0.5 Mg PO DAILY Risperidone 0.5 Mg Tablet 0.5 Mg PO QHS Fluvoxamine Maleate 50 Mg Tablet 50 Mg PO QHS Zyprexa Zydis (Olanzapine) 5 Mg Tab.rapdis 2.5 Mg PO PRN Q2HR PRN NITROGLYCERIN SubLingual (Nitroglycerin) 0.4 Mg Tab.subl 0.4 Mg SL PRN Q5MIN PRN Culturelle (Lactobacillus Rhamnosus Gg) 1 Each Capsule 1 Each PO BID Glucose Gel (Dextrose) 38 Gm Gel..gram. 15 Gm PO PRN Q15MIN PRN Cefdinir 300 Mg Capsule 300 Mg PO DAILY Trazodone Hcl 50 Mg Tablet 25 Mg PO HS LAST DOSE GIVEN: DATE: TIME: NEXT DOSE DUE: DATE: TIME: Vitamin B-1 (Thiamine Hcl) 100 Mg Tablet 100 Mg PO DAILY LAST DOSE GIVEN: DATE: TIME: NEXT DOSE DUE: DATE: TIME: Pravastatin Sodium 80 Mg Tablet 80 Mg PO HS LAST DOSE GIVEN: DATE: TIME: NEXT DOSE DUE: DATE: TIME: Klor-Con M20 (Potassium Chloride) 20 Meq Tab.er.prt 20 Meq PO BID LAST DOSE GIVEN: DATE: TIME: NEXT DOSE DUE: DATE: TIME: Novolog Flexpen (Insulin Aspart) 100 Unit/1 Ml Insuln.pen 10 Unit SQ TIDWMEALS Metoprolol Tartrate 25 Mg Tablet 25 Mg PO BID LAST DOSE GIVEN: DATE: TIME: NEXT DOSE DUE: DATE: TIME: Lantus Solostar (Insulin Glargine,Hum.rec.anlog) 100 Unit/1 Ml Insuln.pen 5 Unit SQ QHS LAST DOSE GIVEN: DATE: TIME: NEXT DOSE DUE: DATE: TIME: Famotidine 40 Mg Tablet 20 Mg PO DAILY LAST DOSE GIVEN: DATE: TIME: NEXT DOSE DUE: DATE: TIME: Plavix (Clopidogrel Bisulfate) 75 Mg Tablet 75 Mg PO DAILY LAST DOSE GIVEN: DATE: TIME: NEXT DOSE DUE: DATE: TIME: Vitamin D3 (Cholecalciferol (Vitamin D3)) 1,000 Unit Tablet 1,000 Unit PO DAILY LAST DOSE GIVEN: DATE: TIME: NEXT DOSE DUE: DATE: TIME: Buspirone Hcl 5 Mg Tablet 5 Mg PO BID@0900,1500 LAST DOSE GIVEN: DATE: TIME: NEXT DOSE DUE: DATE: TIME: Buspirone Hcl 10 Mg Tablet 10 Mg PO HS LAST DOSE GIVEN: DATE: TIME: NEXT DOSE DUE: DATE: TIME: Bisacodyl 10 Mg Supp.rect 10 Mg RC PRN DAILY PRN LAST DOSE GIVEN: DATE: TIME: NEXT DOSE DUE: DATE: TIME: Ascorbic Acid 500 Mg Tablet 500 Mg PO DAILY LAST DOSE GIVEN: DATE: TIME: NEXT DOSE DUE: DATE: TIME: Tylenol (Acetaminophen) 325 Mg Tablet 650 Mg PO PRN Q6HRS PRN LAST DOSE GIVEN: DATE: TIME: NEXT DOSE DUE: DATE: TIME: I have reviewed the current psychotropics carefully including drug interactions. Risk benefit ratio favors no change other than as noted in my dictated progress note. Diagnosis: Problems: (1) [id number] kidney injury (2) Schizoaffective disorder, bipolar type (3) Anxiety disorder (4) Impulse control disorder (5) Cognitive and behavioral changes (6) Anxiety disorder (7) Impulse control disorder (8) Dementia, vascular, with depression (9) Dementia, vascular, with delusions (10) Dementia in Alzheimer's disease with depression (11) Dementia in Alzheimer's disease with delusions (12) Acute and chronic respiratory failure BERT MEYER MD Jun 07, 2018 23:08
[2018-06-07] MEDS ORDERED: ASCO500T3 PO (23:49)
[2018-06-07] MEDS ORDERED: AMMO385C5 TP (23:49)
[2018-06-07] MEDS ORDERED: CHOL10003 PO (23:50)
[2018-06-07] MEDS ORDERED: DEXT31GE5 PO (23:52)
[2018-06-07] MEDS ORDERED: MELA3TAB2 PO (23:57)
[2018-06-07] MEDS ORDERED: FURO40TA4 PO (23:57)
[2018-06-07] MEDS ORDERED: MIRT15TA3 PO (23:58)
[2018-06-07] MEDS ORDERED: THIA100T57 PO (23:59)
[2018-06-08] MEDS ORDERED: TRAZ-85 PO (00:02)
[2018-06-08 05:36] VITALS: BP 109/72
[2018-06-08 07:51] VITALS: BP 109/72
[2018-06-08] MEDS: THIAMINE 100 MG TABLET. PO SCH (07:51)
[2018-06-08] MEDS: METOPROLOL TART IMMED RELEASE 25 MG TABLET PO SCH (07:51)
[2018-06-08] MEDS: FUROSEMIDE 40 MG TABLET PO SCH ×2 (07:51→13:24)
[2018-06-08] MEDS: risperiDONE 0.25 MG TABLET. PO SCH (07:51)
[2018-06-08] MEDS: busPIRone 5 MG TABLET. PO SCH (07:51)
[2018-06-08] MEDS: CHOLECALCIFEROL (VITAMIN D3) 1,000 UNIT TABLET PO SCH (07:51)
[2018-06-08] MEDS: CLOPIDOGREL BISULFATE 75 MG TABLET PO SCH (07:51)
[2018-06-08] MEDS: ASCORBIC ACID 500 MG TABLET PO SCH (07:52)
[2018-06-08] MEDS: FAMOTIDINE 20 MG TABLET PO SCH (07:52)
[2018-06-08] MEDS: LACTOBACILLUS RHAMNOSUS GG 1 CAPSULE. PO SCH (07:52)
[2018-06-08] MEDS: AMMONIUM LACTATE 12% TOPICAL LOTION 226GM BOTTLE. TP SCH (07:53)
[2018-06-08] MEDS: INSULIN LISPRO 300 UNITS/3 ML INSULN.PEN. SQ SCH ×2 (07:53→12:00)
--- NOTE | 2018-06-08 17:11 | DS ---
DATE OF DISCHARGE: 06/08/2018 DISCHARGE SUMMARY AND PSYCHIATRIC PROGRESS NOTE Discharged on 06/08/[address] Meyer. This note covers elements not covered in my initial note 06/08/2018. REASON FOR ADMISSION: Please refer to the admission history for details. Briefly, the patient is a 68-year-old female who was readmitted from [facility] after she is medically stabilized there by Dr. Orourke on account of her ongoing mood symptoms, psychotic symptoms, confusion, paranoia, resistive to medication and verbally aggressive behaviors. SIGNIFICANT FINDINGS AND CLINICAL COURSE: Following admission, the patient was seen daily individually by myself from a psychiatric standpoint, medical followup with Dr. Orourke. She was quite sedated and changes were made in her psychotropics. Depakote was discontinued and she seemed to stabilize on a combination of Risperdal 0.25 mg a.m. and 0.5 mg at bedtime, trazodone 50 mg at bedtime, september repeat x 1, Zyprexa p.r.n., Luvox 50 mg at bedtime, Remeron 15 mg at bedtime, melatonin 3 mg at bedtime and BuSpar 5 mg b.i.d. Prior to discharge on 06/08/2018 ambulation impaired with walker. REVIEW OF SYSTEMS: No CV, , pulmonary, eye, ENT system symptoms on review. MENTAL STATUS EXAM: Oriented to herself and situation. Speech has some latency, coherent, pleasant, smiling. Abstraction fair, computation impaired, language function intact. Attention span short. She does have some short-term memory deficits. Mood and affect is improved. No suicidal ideation at discharge. FINAL DIAGNOSES: Schizoaffective disorder, bipolar type, mixed with psychotic features, in partial remission; major neurocognitive disorder, early Alzheimer, vascular with delusion, depression; anxiety disorder, unspecified; impulse control disorder, unspecified. Rest unchanged. DISCHARGE MEDICATIONS: Please refer to the MRAD. DISCHARGE INSTRUCTIONS: Outpatient psychiatric and medical followup at the [facility]. MAN Carmen MEYER MD DR: LIZA/faiza JOB#: [id number] / [id number]
--- NOTE | 2018-06-08 20:02 | PN ---
DATE: 06/07/2018 PSYCHIATRIC PROGRESS NOTE This late entry 06/07/2018 covers elements not covered in my initial note. SUBJECTIVE: I met with the patient in the evening. The patient was also staffed at a treatment team meeting with the entire team in the morning. Appetite 60%, slept 5 hours previous night, less drowsy during the day. She does get confused. Said this was a [place]." Nevertheless, there are other thing she remembers quite well, was able to tell me where one of the new patients was and knew this patient's name, which is remarkable. REVIEW OF SYSTEMS: Ambulation impaired with walker. No CV, , pulmonary, eye, ENT system symptoms on review. Reliability varies. MENTAL STATUS EXAM: Oriented to herself, situation. Insight, judgment, recent memory is impaired. Language function is intact. Attention span is short. Mood and affect overall improved, less labile. LABORATORY DATA: Reviewed. IMPRESSION: Schizoaffective disorder, bipolar type; major neurocognitive disorder, Alzheimer, vascular with depression. Rest unchanged. PLAN: No change from initial note. Transition to [facility] 06/08/2017. MAN Carmen MEYER MD DR: LIZA/faiza JOB#: [id number] / [id number]
--- NOTE | 2018-06-08 23:51 | PDOC ---
Exam Note: Manfred Note: Please also refer to the separate dictated note~for this date of service dictated separately.~Patient seen individually. Discussed the patient with Nursing staff reviewed the chart.~Reviewed interim history and current functioning. Reviewed vital signs,~Labs/ Radiology~and current medications noted below. Continue current treatment with the changes noted in the dictated addendum note Assessment: Vital Signs: Vital Signs Date Time Temp Pulse Resp B/P (MAP) Pulse Ox O2 Delivery O2 Flow Rate FiO2 06/08/18 07:51 84 109/72 06/08/18 05:36 97.8 18 94 Room Air I&O Intake and Output 06/08/18 07:01 Intake Total 1320 ml Balance 1320 ml Intake Oral 1320 ml Labs: Laboratory Tests Test 06/08/18 07:05 06/08/18 11:38 Glucose (Fingerstick) 128 mg/dL (70-99) H 152 mg/dL (70-99) H Current Medications: Meds: Current Medications Acetaminophen (Tylenol) 650 mg PRN Q6HRS PRN PO PAIN / TEMP Last administered on 05/23/18 00:01; Start 05/17/18 at 22:30; Stop 06/08/18 at 13:44; Status DC Ascorbic Acid (Vitamin C) 500 mg DAILY PO Last administered on 06/08/18 07:52 ; Start 05/18/18 at 09:00; Stop 06/08/18 at 13:44; Status DC Vitamin D (Vitamin D3) 1,000 unit DAILY PO Last administered on 06/08/18 07:51 ; Start 05/18/18 at 09:00; Stop 06/08/18 at 13:44; Status DC Clopidogrel Bisulfate (Plavix) 75 mg DAILY PO Last administered on 06/08/18 07 :51; Start 05/18/18 at 09:00; Stop 06/08/18 at 13:44; Status DC Insulin Glargine (Lantus) 5 units QHS SQ Last administered on 06/07/18 19:59; Start 05/18/18 at 21:00; Stop 06/08/18 at 13:44; Status DC Metoprolol Tartrate (Lopressor) 25 mg BID PO Last administered on 06/08/18 07: 51; Start 05/18/18 at 09:00; Stop 06/08/18 at 13:44; Status DC Nitroglycerin (Nitrostat) 0.4 mg PRN Q5MIN PRN SL CHEST PAIN; Start 05/17/18 at 22:30; Stop 06/08/18 at 13:44; Status DC Olanzapine (ZyPREXA ZYDIS) 2.5 mg PRN Q2HR PRN PO ANXIETY / AGITATION Last administered on 06/04/18at 11:37; Start 05/17/18 at 22:30; Stop 06/08/18 at 13: 44; Status DC Potassium Chloride (Klor-Con) 20 meq BID PO Last administered on 05/19/18at 08: 04; Start 05/18/18 at 09:00; Stop 05/19/18 at 15:08; Status DC Bisacodyl (Dulcolax Supp) 10 mg PRN DAILY PRN [place] CONSTIPATION; Start 05/17/18 at 23:00; Stop 06/08/18 at 13:44; Status DC Buspirone HCl (Buspar) 5 mg BID@0900,1500 PO Last administered on 05/21/18at 15 :43; Start 05/18/18 at 09:00; Stop 05/21/18 at 17:55; Status DC Buspirone HCl (Buspar) 10 mg QHS PO Last administered on 05/20/18at 19:53; Start 05/18/18 at 21:00; Stop 05/21/18 at 17:55; Status DC Glucose (Insta-Glucose) 15 gm PRN Q15MIN PRN PO LOW BLOOD SUGAR; Start at 23:00; Stop 06/08/18 at 13:44; Status DC Famotidine (Pepcid) 20 mg DAILY PO Last administered on 06/08/18at 07:52; Start 05/18/18 at 09:00; Stop 06/08/18 at 13:44; Status DC Fluvoxamine Maleate (Luvox) 50 mg QHS PO Last administered on 06/07/18at 19:51; Start 05/18/18 at 21:00; Stop 06/08/18 at 13:44; Status DC Insulin Human Lispro (HumaLOG) 10 units TIDWMEALS SQ Last administered on 05/21at 08:03; Start 05/18/18 at 08:00; Stop 05/21/18 at 13:44; Status DC Lactobacillus Rhamnosus (Culturelle) 1 cap BID PO Last administered on 07:52; Start 05/18/18 at 09:00; Stop 06/08/18 at 13:44; Status DC Pravastatin Sodium (Pravachol) 80 mg QHS PO Last administered on 06/07/18 19: 51; Start 05/18/18 at 21:00; Stop 06/08/18 at 13:44; Status DC Risperidone (RisperDAL) 0.5 mg QHS PO Last administered on 06/07/18 19:51; Start 05/18/18 at 21:00; Stop 06/08/18 at 13:44; Status DC Risperidone (RisperDAL) 0.5 mg DAILY PO Last administered on 05/29/18 07:48; Start 05/18/18 at 09:00; Stop 05/29/18 at 16:22; Status DC Thiamine HCl (Vitamin B-1) 100 mg DAILY PO Last administered on 06/08/18at 07:51 ; Start 05/18/18 at 09:00; Stop 06/08/18 at 13:44; Status DC Trazodone HCl (Desyrel) 25 mg QHS PO Last administered on 05/21/18at 19:53; Start 05/18/18 at 21:00; Stop 05/22/18 at 20:16; Status DC Insulin Human Lispro (HumaLOG) 5 units TIDWMEALS SQ Last administered on 12:00; Start 05/21/18 at 17:00; Stop 06/08/18 at 13:44; Status DC Divalproex Sodium (Depakote Er) 500 mg QHS PO Last administered on 05/23/18 19: 31; Start 05/21/18 at 21:00; Stop 05/24/18 at 11:10; Status DC Trazodone HCl (Desyrel) 50 mg QHS PO Last administered on 06/07/18 19:50; Start 05/22/18 at 21:00; Stop 06/08/18 at 13:44; Status DC Divalproex Sodium (Depakote Er) 1,000 mg QHS PO Last administered on 1/4/19at 19:54; Start 05/24/18 at 21:00; Stop 05/26/18 at 21:35; Status DC Lactic Acid (Lac-Hydrin) 1 lucas BID TP Last administered on 06/08/18at 07:53; Start 05/25/18 at 21:00; Stop 06/08/18 at 13:44; Status DC Mirtazapine (Remeron) 7.5 mg QHS PO Last administered on 05/30/18at 19:45; Start 05/25/18 at 21:00; Stop 05/31/18 at 18:09; Status DC Divalproex Sodium (Depakote Sprinkles) 1,000 mg HS PO Last administered on at 21:40; Start 05/26/18 at 22:00; Stop 05/27/18 at 20:01; Status DC Trazodone HCl (Desyrel) 50 mg PRN QHS PRN PO INSOMNIA Last administered on 06/06at 23:26; Start 05/27/18 at 02:00; Stop 06/08/18 at 13:44; Status DC Divalproex Sodium (Depakote Sprinkles) 500 mg HS PO ; Start 05/28/18 at 21:00; Stop 05/28/18 at 21:00; Status DC Furosemide (Lasix) 40 mg DAILY PO Last administered on 06/04/18at 07:31; Start 05/29/18 at 11:30; Stop 06/04/18 at 19:43; Status DC Risperidone (RisperDAL) 0.25 mg DAILY PO Last administered on 06/08/18at 07:51; Start 05/30/18 at 09:00; Stop 06/08/18 at 13:44; Status DC Mirtazapine (Remeron) 15 mg QHS PO Last administered on 06/07/18 19:51; Start 05/31/18 at 21:00; Stop 06/08/18 at 13:44; Status DC Melatonin 3 mg HS PO Last administered on 06/07/18at 19:51; Start 05/31/18 at 21 :00; Stop 06/08/18 at 13:44; Status DC Buspirone HCl (Buspar) 5 mg BID@0900,1700 PO Last administered on 06/08/18at 07: 51; Start 06/04/18 at 17:30; Stop 06/08/18 at 13:44; Status DC Furosemide (Lasix) 40 mg BID92 PO Last administered on 06/08/18at 13:24; Start 06/05/18 at 09:00; Stop 06/08/18 at 13:44; Status DC Active Scripts Active Reported Trazodone Hcl 50 Mg Tablet 1 Tab PO QHS Vitamin B-1 (Thiamine Hcl) 100 Mg Tablet 100 Mg PO DAILY Mirtazapine 15 Mg Tablet 15 Mg PO HS Melatonin 3 Mg Tablet 3 Mg PO HS Furosemide 40 Mg Tablet 40 Mg PO [id number] Insta-Glucose Gel (Dextrose/Dextrin/Maltose) 31 Gm Gel..gram. 15 Gm PO PRN Q15MIN PRN Vitamin D3 (Cholecalciferol (Vitamin D3)) 1,000 Unit Tablet 1,000 Unit PO DAILY Ascorbic Acid 500 Mg Tablet 500 Mg PO DAILY Ammonium Lactate 385 Gm Cream..g. 1 Lucas TP BID Risperidone 0.5 Mg Tablet 0.25 Mg PO DAILY Risperidone 0.5 Mg Tablet 0.5 Mg PO QHS Fluvoxamine Maleate 50 Mg Tablet 50 Mg PO QHS Zyprexa Zydis (Olanzapine) 5 Mg Tab.rapdis 2.5 Mg PO PRN Q2HR PRN NITROGLYCERIN SubLingual (Nitroglycerin) 0.4 Mg Tab.subl 0.4 Mg SL PRN Q5MIN PRN Culturelle (Lactobacillus Rhamnosus Gg) 1 Each Capsule 1 Each PO BID Trazodone Hcl 50 Mg Tablet 50 Mg PO HS LAST DOSE GIVEN: DATE: TIME: NEXT DOSE DUE: DATE: TIME: Pravastatin Sodium 80 Mg Tablet 80 Mg PO HS LAST DOSE GIVEN: DATE: TIME: NEXT DOSE DUE: DATE: TIME: Novolog Flexpen (Insulin Aspart) 100 Unit/1 Ml Insuln.pen 5 Unit SQ TIDWMEALS Metoprolol Tartrate 25 Mg Tablet 25 Mg PO BID LAST DOSE GIVEN: DATE: TIME: NEXT DOSE DUE: DATE: TIME: Lantus Solostar (Insulin Glargine,Hum.rec.anlog) 100 Unit/1 Ml Insuln.pen 5 Unit SQ QHS LAST DOSE GIVEN: DATE: TIME: NEXT DOSE DUE: DATE: TIME: Famotidine 40 Mg Tablet 20 Mg PO DAILY LAST DOSE GIVEN: DATE: TIME: NEXT DOSE DUE: DATE: TIME: Plavix (Clopidogrel Bisulfate) 75 Mg Tablet 75 Mg PO DAILY LAST DOSE GIVEN: DATE: TIME: NEXT DOSE DUE: DATE: TIME: Buspirone Hcl 5 Mg Tablet 5 Mg PO BID@0900,1700 LAST DOSE GIVEN: DATE: TIME: NEXT DOSE DUE: DATE: TIME: Bisacodyl 10 Mg Supp.rect 10 Mg RC PRN DAILY PRN LAST DOSE GIVEN: DATE: TIME: NEXT DOSE DUE: DATE: TIME: Tylenol (Acetaminophen) 325 Mg Tablet 650 Mg PO PRN Q6HRS PRN LAST DOSE GIVEN: DATE: TIME: NEXT DOSE DUE: DATE: TIME: I have reviewed the current psychotropics carefully including drug interactions. Risk benefit ratio favors no change other than as noted in my dictated progress note. Diagnosis: Problems: (1) Nsebr-fo-osniomf kidney injury (2) Schizoaffective disorder, bipolar type (3) Anxiety disorder (4) Impulse control disorder (5) Cognitive and behavioral changes (6) Anxiety disorder (7) Impulse control disorder (8) Dementia, vascular, with depression (9) Dementia, vascular, with delusions (10) Dementia in Alzheimer's disease with depression (11) Dementia in Alzheimer's disease with delusions (12) Acute and chronic respiratory failure BERT MEYER MD Jun 08, 2018 23:51
== END 2018-06-08 13:25 | DRG 56 ==
LOC: GEROPSY 19:00
PROVIDERS: ADMIT Psychiatry & Neurology Psychiatry; ATTEND Psychiatry & Neurology Psychiatry
DX: G30.9 Alzheimer's disease, unspecified (principal); J96.20 Acute and chronic respiratory failure, unspecified whether with hypoxia or hypercapnia; N17.9 Acute kidney failure, unspecified; F25.0 Schizoaffective disorder, bipolar type; F01.50 Vascular dementia, unspecified severity, without behavioral disturbance, psychotic disturbance, mood disturbance, and anxiety; F41.9 Anxiety disorder, unspecified; F63.9 Impulse disorder, unspecified; E78.5 Hyperlipidemia, unspecified; N18.3 Chronic kidney disease, stage 3 (moderate); I50.9 Heart failure, unspecified; K21.9 Gastro-esophageal reflux disease without esophagitis; Z79.899 Other long term (current) drug therapy; Z86.73 Personal history of transient ischemic attack (TIA), and cerebral infarction without residual deficits; Z90.11 Acquired absence of right breast and nipple
CPT/HCPCS: 36415; 80048; 80053; 80164; 81001; 82947; 85025; 87086; J1815; 97110; 97116; 97530; 97535